=== PATIENT | female | born 1980 | race Caucasian/White ===

== ENCOUNTER 2017-04-05 14:53 | Inpatient (IN) | payer OTHER ==
[~2017-04-05] VITALS: Ht 177.8 cm; Wt 75.1 kg
[2017-04-05 21:07] VITALS: BP 124/71; RESP 20
[2017-04-05] MEDS: HYDROmorphONE 2 MG/ML SYG IV PRN (22:05)
[2017-04-05] MEDS ORDERED: MYL80 PO (22:30)
[2017-04-05] MEDS ORDERED: [UNRECOGNIZED DRUG - OTHER] IV* (22:30)
[2017-04-05] MEDS ORDERED: CEFO2PIG IV (22:30)
[2017-04-05] MEDS ORDERED: PANT40VI7 IV (22:30)
[2017-04-05] MEDS ORDERED: ONDA-43 IV* (22:30)
[2017-04-05] MEDS ORDERED: HYDR2TAB3 IV* (22:30)
[2017-04-05] MEDS ORDERED: TYL650R PR (22:30)
[2017-04-05] MEDS ORDERED: SOD CHLORIDE 0.9% 1,000 ML IV SCH (23:42)
[2017-04-06] MEDS ORDERED: NACL 0.9% 3 ML SYG IV SCH
[2017-04-06] MEDS ORDERED: CEFOTAXIME 2 GM/50 ML (PMX) 50 ML IVPB SCH
[2017-04-06] MEDS ORDERED: DEXTROSE IV SCH
[2017-04-06] MEDS ORDERED: ACETAMINOPHEN 650 MG SUPP PR SCH
[2017-04-06] MEDS ORDERED: CEFOXITIN IV SCH
[2017-04-06] MEDS ORDERED: [UNRECOGNIZED DRUG - OTHER] IV SCH
[2017-04-06] MEDS ORDERED: MAGNESIUM CITRATE 300 ML BTL PO ONE
--- NOTE | 2017-04-06 00:13 | HP ---
Date/Time of Note Date/Time of Note DATE: 04/05/17 TIME: 23:57 Assessment/Plan VTE Prophylaxis VTE Prophylaxis Intervention: LMWH Lines/Catheters Urinary Cath still in place: Yes Reason Cath still needed: other (indicate) (Clinical condition) Assessment/Plan Chief Complaint/Hosp Course This is a 37-year-old female being admitted to the [facility] floor for: #1 bile leak: Patient is currently POD #5 status post cholecystectomy as well as ERCP on 04/03/2017. Patient was found to have a bile leak and after having an unsuccessful ERCP patient was recommended to be transferred to [facility] for possible biliary bypass or choledochojejunostomy. Patient will be kept n.p.o. after midnight. Will provide IV fluids for hydration. IV pain medications for pain control. Dr. Grande, the accepting surgeon on the case. Will follow his recommendations. Patient was on cefoxitin at the prior facility. Will continue IV antibiotics for surgical prophylaxis. Will order stat CBC CMP PT PTT and INR. #2 constipation: The patient has been having clear liquid diet she states that she has not had a bowel movement since before her surgery. Could be due to combination of limited diet as well as narcotic pain medications. At the current time I will give the patient mag citrate. We will also consider a suppository. #3 DVT and GI prophylaxis: Lovenox, Protonix Further management implementation will be done as per the clinical course. Problems: HPI/ROS Admit Date/Time Admit Date/Time Apr 05, 2017 at 20:37 Hx of Present Illness Chief complaint: Abdominal pain This is a 37-year-old female who was a direct admit from [facility] coming in with abdominal pain and a bile leak. Patient originally was admitted to [facility] on 03/30/2017 she was admitted for acute cholecystitis. She had stated that she had back pain and chest pain that was 10 out of 10 in the morning with a burning sensation. Initially she had an ERCP performed at another facility with stone removal and stent placement. And at [facility] patient underwent a cholecystectomy on 03/31/2017. After undergoing the cholecystectomy, patient developed abdominal pain with worsening liver function test. Further imaging studies were performed and nuclear medicine study showed with the patient having a clipped CBD as well as a bile leak. She had an ERCP performed on 04/03/2017 which was not successful and patient likely will require to be transferred to a tertiary facility for biliary bypass or choledochojejunostomy. Patient was subsequently transferred to [facility] for higher level of care. Dr. Grande was the accepting attending surgeon. The current time patient states that she continues to have abdominal pain around the right upper quadrant. Patient also states that she has not had a bowel movement since her hospital admission on the eighth. She is trying to pass gas but she is unable to. Allergies: NKDA Medications: None ROS Const: As per HPI Eyes : No pain discharge or redness or change in visual acuity ENT: No pain, sore throat, congestion, congestion, dysphagia or discharge Respiratory: No shortness of breath, cough, sputum, wheezing, or pleuritic pain Cardiovascular: No chest pain, palpitation, PND, or edema GI : As per HPI Genitourinary: As per HPI Musculoskeletal: No joint pain, back pain, neck pain, restricted range of motion in neck or joints Skin: No rash, bruising or hives Neuro: No headache, dizziness, syncope, seizure, focal weakness Endocrine: No polyuria, polydipsia, temperature intolerance Psych: No hallucination, depression, anxiety or suicidal ideation PMH/Family/Social Past Medical History Gallstones status post ERCP, close cystectomy Past Surgical History Cholecystectomy Family History Significant Family History: diabetes (That) Social History Alcohol Use: rarely Smoking Status: Never smoker Drug Use: none Exam/Review of Systems Vital Signs Vitals Vital Signs Date Time Temp Pulse Resp B/P Pulse Ox O2 Delivery O2 Flow Rate FiO2 04/05/17 21:26 Nasal Cannula 2.0 04/05/17 21:07 99.2 117 20 124/71 96 Exam Exam General: Patient is well-developed well-nourished The patient is alert oriented -3 lying comfortably in bed. HEENT: Atraumatic, normocephalic. The pupils are equal, round and reactive. Extraocular motor are intact Neck: Supple with full range of motion. No rigidity or meningismus Chest: Nontender Lungs: Clear to auscultation bilaterally no crackles rales or wheezing Heart: Normal S1-S2, Regular rhythm and rate. No murmur, S3, or S4 Abdomen: Soft, tender to palpation of the right upper quadrant, hypoactive bowel sounds, Matthew catheter in place Extremities: Normal to inspection, no edema no cyanosis Neurologic: Normal mental status, speech normal, cranial nerves II through XII are intact, motor and sensory are intact, no focal weakness Medications Medications Current Medications Hydromorphone HCl 2 mg 2 mg Q3H PRN IV PAIN Last administered on 04/05/17t 22: 05; Admin Dose 2 MG; Start 04/05/17 at 22:00 Sodium Chloride (NS) 1,000 ml @ 70 mls/hr [id number] IV ; Start 04/05/17 at 23:42 ; Status UNV Ondansetron HCl (Zofran Inj) 4 mg Q6H PRN IV NAUSEA AND/OR VOMITING; Start at 00:00; Status UNV Pantoprazole (Protonix Iv) 40 mg DAILY@06 IV ; Start 04/06/17 at 06:00; Status UNV Magnesium Citrate 300 ml 300 ml NOW ONCE PO ; Start 04/06/17 at 00:00; Stop at 00:01; Status UNV Cefotaxime Sodium/ Dextrose (Claforan 2gm/50 ml (Pmx)) 50 ml @ 100 mls/hr Q8 IVPB ; Start 04/06/17 at 00:00; Status UNV VAISHNAVI SIDHU Apr 06, 2017 00:07
[2017-04-06] MEDS ORDERED: ACETAMINOPHEN 650 MG SUPP PR PRN (00:30)
[2017-04-06] MEDS ORDERED: DEXTROSE 5%-0.45% NACL 1,000 ML IV SCH ×2 (00:30)
[2017-04-06] MEDS: CEFOTAXIME 1 GM/50 ML (PMX) 50 ML IVPB SCH ×2 (00:58→08:26)
[2017-04-06] MEDS: HYDROmorphONE 2 MG/ML SYG IV PRN ×4 (01:05→10:14)
[2017-04-06 01:35] LABS: ADD SCAN DIFF NO
[2017-04-06 01:37] LABS: BASOPHILS % 0.1 % (0.0-2.0); EOSINOPHILS # 0.2 10^3/ul (0.0-0.5); EOSINOPHILS % 1.6 % (0.0-7.0); HEMOGLOBIN 11.7 g/dl (12.0-16.0); LYMPHOCYTES # 0.6 10^3/ul (0.8-2.9); LYMPHOCYTES % 5.5 % (15.0-51.0); MEAN CORPUSCULAR HEMOGLOBIN 29.8 pg (29.0-33.0); MEAN CORPUSCULAR HGB CONC 33.4 g/dl (32.0-37.0); MEAN CORPUSCULAR VOLUME 89.1 fl (82.0-101.0); MONOCYTE # 0.6 10^3/ul (0.3-0.9); MONOCYTES % 5.4 % (0.0-11.0); NEUTROPHIL # 10.2 10^3/ul (1.6-7.5); NEUTROPHILS % 86.8 % (39.0-77.0); PLATELET COUNT 419 10^3/UL (140-415); RED BLOOD COUNT 3.93 10^6/ul (4.20-5.40); RED CELL DISTRIBUTION WIDTH 13.2 % (11.5-14.5); WHITE BLOOD COUNT 11.7 10^3/ul (4.8-10.8)
[2017-04-06 01:52] LABS: INR 1.11; PROTIME 14.3 Sec (12.2-14.2); PT RATIO 1.1
[2017-04-06 01:53] LABS: PARTIAL THROMBOPLASTIN TIME 29.7 Sec (25.0-35.0)
[2017-04-06] MEDS: ONDANSETRON 4 MG INJ IV PRN (02:07)
[2017-04-06 02:38] LABS: ALBUMIN 3.7 g/dl (3.3-4.9); ALBUMIN/GLOBULIN RATIO 1.37; BILIRUBIN,DIRECT 0.2 mg/dl (0.00-0.20); BILIRUBIN,INDIRECT 1.2 mg/dl (0-1.1); BILIRUBIN,TOTAL 1.4 mg/dl (0.2-1.3); CALCIUM 8.5 mg/dl (8.4-10.2); CREATININE 0.54 mg/dl (0.44-1.00); POTASSIUM 3.8 mmol/L (3.5-5.1); TOTAL PROTEIN 6.4 g/dl (6.1-8.1)
[2017-04-06] MEDS: SOD CHLORIDE 0.9% 1,000 ML IV SCH ×3 (04:41→22:43)
[2017-04-06] MEDS ORDERED: PANTOPRAZOLE 40 MG INJ IV SCH (06:00)
[2017-04-06 08:34] VITALS: BP 126/81; RESP 16
[2017-04-06] MEDS ORDERED: DEXTROSE 5%-0.45% NACL 1,000 ML BAG IV SCH (09:00)
[2017-04-06] MEDS: Metronidazole 500 MG in NS 100 ML IVPB SCH ×3 (09:20→22:42)
--- NOTE | 2017-04-06 09:57 | PN ---
Date/Time of Note Date/Time of Note DATE: 04/06/17 TIME: 09:54 Assessment/Plan VTE Prophylaxis VTE Prophylaxis Intervention: SCD's Lines/Catheters Urinary Cath still in place: Yes Reason Cath still needed: other (indicate) (impending possibl) Assessment/Plan Assessment/Plan 37 yo F transferred from OSH for higher level of care. Pt admitted to OSH 6.8 with acute cholecystitis, underwent ERCP with stone removal and stent placement , subsequent cholecystectomy 6.9. Post op course c/b bile leak and discovery of clipped CBD. Subsequent ERCP 6.12 not successful and pt transferred here for further management (possible surgical biliary bypass or choledochojejunostomy). #bile leak and iatrogenic CBD obstruction: gen surg following cont pain meds abx as per gen surg FEN as per gen surg DVT prophx Subjective 24 Hr Interval Summary Free Text/Dictation laying in bed, resting no mrg lungs clear abd distended no le edema Exam/Review of Systems Vital Signs Vitals Vital Signs Date Time Temp Pulse Resp B/P Pulse Ox O2 Delivery O2 Flow Rate FiO2 04/06/17 08:34 98.3 115 16 126/81 97 04/05/17 21:26 Nasal Cannula 2.0 Intake and Output 04/05/17 04/05/17 04/06/17 15:00 23:00 07:00 Intake Total 370 ml Balance 370 ml Results Result Diagram: 04/05/17 0129 04/05/17 0129 Medications Medications Current Medications Hydromorphone HCl (Dilaudid) 2 mg Q3H PRN IV PAIN Last administered on 07:18; Admin Dose 2 MG; Start 04/05/17 at 22:00 Ondansetron HCl (Zofran Inj) 4 mg Q6H PRN IV NAUSEA AND/OR VOMITING Last administered on 04/06/17 02:07; Admin Dose 4 MG; Start 04/06/17 at 00:00 Simethicone 80 mg 80 mg TID PRN PO DISTENSION/GAS/BLOATING; Start 04/06/17 at 00:00 Cefotaxime Sodium (Claforan 1gm/50 ml (Pmx)) 50 ml @ 100 mls/hr Q8H IVPB Last administered on 04/06/17 08:26; Admin Dose 100 MLS/HR; Start 04/06/17 at 00:00 ; Stop 04/06/17 at 12:00 Acetaminophen 650 mg 650 mg Q4H PRN OK PAIN AND OR ELEVATED TEMP; Start at 00:30 Sodium Chloride 1,000 ml @ 75 mls/hr [id number] IV Last administered on 04:41; Admin Dose 75 MLS/HR; Start 04/06/17 at 04:30 Metronidazole 100 ml @ 100 mls/hr Q8 IVPB Last administered on 04/06/17 09:20 ; Admin Dose 100 MLS/HR; Start 04/06/17 at 09:00 Cefotaxime Sodium/ Dextrose (Claforan 2gm/50 ml (Pmx)) 50 ml @ 100 mls/hr Q8 IVPB ; Start 04/06/17 at 15:30 CELINE WARNER MD Apr 06, 2017 09:57
[2017-04-06] MEDS ORDERED: HYDROmorphONE 1 MG/ML SYG IV PRN (11:00)
[2017-04-06] MEDS ORDERED: SOD CHLORIDE 0.9% 1,000 ML IV ONE ×2 (11:00→16:30)
[2017-04-06] MEDS: HYDROmorphONE 0.2 MG/ML PCA IV SCH ×2 (11:58→22:43)
[2017-04-06 12:00] VITALS: BP 122/73; PULSE 110; RESP 16
[2017-04-06] MEDS ORDERED: IOHEXOL 300MG/ML 150 ML BTL ONE (13:34)
[2017-04-06] MEDS ORDERED: SOD CHLORIDE 0.9% 100 ML ONE (13:34)
--- NOTE | 2017-04-06 14:33 | RADRPT ---
PROCEDURE: CT Abdomen and Pelvis with contrast. CLINICAL INDICATION: Abdominal pain, recent laparoscopic cholecystectomy, evaluate for bile leak TECHNIQUE: CT of the abdomen and pelvis was performed on a multi-detector scanner following the un complicated IV administration of 90 cc of Omnipaque 300. Coronal and sagittal images were reformatt ed from the axial data set. One or more of the following dose reduction techniques were used: autom ated exposure control, adjustment of the mA and/or kV according to patient size, use of iterative r econstruction technique. CTDI = 9.74, 5.72 mGy. DLP = 676.78 mGy-cm. COMPARISON: None. FINDINGS: CT abdomen: Mild left pleural effusion is noted, along with bibasilar atelectasis. The heart size is normal, wi thout pericardial effusion. Gallbladder is surgically absent. Liver, biliary tree, pancreas, splee n, adrenal glands and kidneys are unremarkable. There is no urolithiasis or obstructive uropathy. The stomach is grossly unremarkable. There is no abdominal aortic aneurysm or dissection. There is no retroperitoneal lymphadenopathy. The vickey hepatis region is clear. CT pelvis: Moderate to large amount of peritoneal fluid is present - fluid demonstrates intermediate density an d is partially loculated. No bowel obstruction, free intraperitoneal air or gross evidence of absces s is identified. The appendix is well visualized and normal. There is no diverticulosis, diverticu litis or colitis. Matthew catheter balloon is within the urinary bladder. Uterus and adnexa are sergey sly unremarkable. No pelvic mass or lymphadenopathy is seen. The surrounding osseous structures are remarkable for degenerative spondylosis of the spine. No ost eolytic or osteoblastic lesion is detected. IMPRESSION: 1. Moderate to large amount of peritoneal fluid is identified - fluid demonstrates intermediate den sity and appears partially loculated. Considerations include bile leak/biloma and/or serosanguinous fluid. No evidence of active contrast extravasation is identified. Nuclear medicine HIDA scan may be useful for further evaluation. 2. Gallbladder is surgically absent. 3. No bowel obstruction, perforation, or gross evidence of abscess is identified. 4. Matthew catheter balloon is within the urinary bladder. 5. Mild left pleural effusion and bibasilar atelectasis are noted, likely reactive. RPTAT: GG .Lebron Michael MD, MD Date Time Electronically viewed and signed by .Lebron Michael MD, MD on 04/06/2017 14:32 .R/
[2017-04-06] MEDS: HYDROmorphONE 1 MG/ML SYG IV PRN ×2 (14:35→16:31)
[2017-04-06] MEDS ORDERED: CEFOTAXIME 2 GM/NS 50 ML IVPB SCH (15:30)
[2017-04-06] MEDS: CEFOTAXIME 2 GM/50 ML (PMX) 50 ML IVPB SCH ×2 (15:56→23:46)
--- NOTE | 2017-04-06 16:51 | CONS ---
[facility] INITIAL INPATIENT CONSULTATION NOTE DATE OF CONSULTATION: 04/06/2017 PL[address] OF SERVICE: [facility], 4th floor. ASSESSMENT AND PLAN: A very pleasant, but unfortunate, 37-year-old and otherwise healthy young lady, status post laparoscopic cholecystectomy that seems to have been complicated by a bile duct injury. This could be perhaps a bile duct transection versus clipping across the bile duct. There is also a complication of bile leak at the moment, with early signs of bile peritonitis. I reviewed the case carefully and then reviewed the images with our interventional radiologist, Dr. Andrade, and we discussed with it in a multidisciplinary fashion. I believe that the patient can benefit from adequate control of her bile leak, which does include extrahepatic percutaneous drain placement, as well as intrahepatic drain placement. Given the amount of time that has passed and the bile peritonitis, I would advise against acute surgical intervention and the only surgical intervention should be cleanup of the peritonitis, should the drains not be able to take care of this. Once we have adequate control over the drainage, then there should be approximately 4 to 6 weeks of wait time prior to return of the patient for any elective exploration with hepaticojejunostomy. The reason for this is to allow the wall of the common bile duct to declare itself and for us to be able to visualize viable portions of the bile duct. I explained all of this in detail with the patient and then separately on a phone conversation with her and answered all their questions to the best of my ability. I believe that the patient and her appear to understand and agree with the plans. With above assessment, I have recommended the followin. Stat CT scan of the abdomen and pelvis without oral contrast, but with IV contrast, as part of planning for drain placement. 2. Stat MRCP as part of preoperative planning and establishment of baseline. 3. Adequate hydration intravenously. 4. Control symptoms. 5. Continue broad-spectrum antimicrobials. 6. Keep in-house. Thank you again for allowing us to participate in the care of this very pleasant lady and her wonderful family. If there are any questions, please feel free to contact me at [phone]. UPDATED CONSULT SUMMARY The patient is a very pleasant 37-year-old young lady who was transferred from an outside hospital to [facility] for management of possible bile duct injury. COMORBIDITIES: 1. Cholelithiasis and acute cholecystitis, status post laparoscopic cholecystectomy 03/31/2017 at [facility], complicated by possible bile duct injury, as shown by ERCP that was done after a HIDA scan showed possible bile leak, explaining the patient's continued pain and distention. The ERCP on 04/03/2017 showed clips across the distal common bile duct, without any contrast opacifying the liver. We accepted the patient as a transfer into [facility] bile duct injury program for a higher level of care. The patient arrived on 04/05/2017. DATE OF ADMISSION: 04/05/2017 HISTORY OF PRESENT ILLNESS: The patient is a very pleasant 37-year-old lady with the above-mentioned comorbidities, who we were kindly consulted to manage possible bile duct injury. During my visit the patient had a significant amount of abdominal pain and some nausea, but no obvious vomiting. She had never had any symptoms such as this in the past. Her symptoms began shortly after surgery and have stayed that way since. No other major complaints. ALLERGIES: NO KNOWN DRUG ALLERGIES. MEDICATIONS: The patient was transferred on: 1. Acetaminophen. 2. Cefoxitin. 3. Dilaudid 4. Zofran. 5. Protonix. 6. Mylicon. SOCIAL HISTORY: The patient lives with her family, that includes her and her children. She does not report any smoking, drinking, or intravenous drug use. FAMILY HISTORY: Other than diabetes, the patient does not report any other major medical, surgical or oncologic problems in the family. REVIEW OF SYSTEMS: Other than the above-mentioned, there are no other pertinent positives or pertinent negatives in a complete 14-point review of systems. PHYSICAL EXAMINATION: GENERAL: The patient appears to be a very pleasant, lady of non- descent, appearing her stated age, lying in bed comfortably, and in no acute distress. BMI is 23.8. VITAL SIGNS: Temperature 98.3, blood pressure 126/81, pulse 115, respiratory rate 16, pulse oximetry 97% on 2 liters nasal cannula. HEENT: Normocephalic and atraumatic. Extraocular muscles and hearing are grossly intact bilaterally and symmetrically. Sclerae are nonicteric. Oral cavity is clear; oral mucosa appeared to be pink and moist. Dentition: fair. NECK: Supple. There is no lymphadenopathy or JVD. There is no submental, submandibular or supraclavicular lymphadenopathy. CHEST: Rises symmetrically with each breath; patient is breathing comfortably. There are no audible wheezes, rales or rhonchi on the gross exam. HEART: Pulse is regular and palpable on the right wrist. Capillary refill was normal. Carotid pulses are palpable bilaterally and symmetrically in the neck. EXTREMITIES: Lower extremities contain no pitting edema around the ankles bilaterally and symmetrically. ABDOMEN: Soft, somewhat distended and mild to moderately tender to palpation in essentially all quadrants. There is no evidence of organomegaly, caput medusae, engorged subcutaneous veins or ascites. There are mild peritoneal signs and no major guarding. SKIN: Appears to be pink and feels warm to touch. NEUROLOGIC: Awake, alert, and follows commands appropriately. LABORATORY VALUES: White blood cell count yesterday was 11.7, hemoglobin 11.7, platelets 419. Electrolytes: Sodium 131, CO2 26, creatinine 0.54, total bilirubin 1.4, AST 19, ALT 64, alkaline phosphatase 164, INR 1.11. Urine test was negative. IMAGING: The patient came with a disk that contained images from MRCP prior to the operation that demonstrated a thickened gallbladder wall and gallstones. She also had a preoperative right upper quadrant ultrasound that confirmed the same findings. She did not have any preoperative ERCP images. Postoperatively there was a HIDA scan that demonstrated a possible leak of bile out into the gallbladder fossa. An ERCP was done which demonstrated no extravasation of bile from the distal common bile duct, but also no opacification of the biliary system, and the contrast stopped at the area of surgical clips. Note that there were 15 to 20 surgical clips that were visualized on the ERCP images. Dictated By: LENA ANDREWS/MIKAYLA Conf#: [id number] DID#: [id number] KELLEE
[2017-04-06 17:38] VITALS: BP 123/74; PULSE 100; RESP 16
--- NOTE | 2017-04-06 17:52 | RADRPT ---
PROCEDURE: MRCP. CLINICAL INDICATION: Bile leak after laparoscopic cholecystectomy history of surgery 6 days ago TECHNIQUE: MRCP was performed on the a high-resolution, high Juliane field strength scanner. Patien michael was examined without contrast. 3-D coronal rotating MIP images of the biliary tree are available for review. COMPARISON: CT abdomen and pelvis with contrast of 04/06/2017 FINDINGS: Cholecystectomy. There is a large amount of intraperitoneal fluid. The biliary tree is not dilated. No intrahepatic nor extrahepatic biliary dilatation is present. There is the appearance of a small filling defect in the distal common bile duct which could be secondary to a small amount of pneumob annelise seen in this region on the CT. Pneumobilia limits evaluation for the possibility of choledocho lithiasis. There is no stricture or obstruction of the extrahepatic bile duct seen. The pancreatic d uct, as visualized, is unremarkable. Small amount of subcutaneous edema posteriorly. Small left pleu ral effusion. IMPRESSION: Cholecystectomy. Nonspecific large amount of intraperitoneal fluid which could be secondary to bile leak. Nuclear medicine hepatobiliary study can be performed for further evaluation to evaluate for b ile leak. There is the appearance of a small filling defect in the distal common bile duct which co uld be secondary to a small amount of pneumobilia seen in this region on the CT. Pneumobilia limits evaluation for the possibility of choledocholithiasis. No biliary dilatation is seen. Please see above. RPTAT: HJES .Bruce Laird MD, MD Date Time Electronically viewed and signed by .Bruce Laird MD, on 04/06/2017 17:52 .S/
[2017-04-06 20:10] VITALS: BP 121/80; RESP 18
[2017-04-07] VITALS (7 sets, daily range): BP systolic 119–141; BP diastolic 74–87; PULSE 111–125; RESP 16–20
[2017-04-07] MEDS: SOD CHLORIDE 0.9% 1,000 ML IV SCH ×3 (02:07→22:07)
[2017-04-07] MEDS: HYDROmorphONE 1 MG/ML SYG IV PRN ×3 (03:12→18:37)
[2017-04-07] MEDS: CEFOTAXIME 2 GM/50 ML (PMX) 50 ML IVPB SCH ×3 (05:18→21:32)
[2017-04-07] MEDS: Metronidazole 500 MG in NS 100 ML IVPB SCH ×3 (06:15→22:21)
[2017-04-07] MEDS: HYDROmorphONE 0.2 MG/ML PCA IV SCH ×2 (08:05→17:30)
[2017-04-07 10:12] LABS: ADD SCAN DIFF NO
[2017-04-07] MEDS ORDERED: LIDOCAINE 1% (MDV) 20 ML INJ ONE (10:19)
[2017-04-07 10:26] LABS: BASOPHILS % 0.2 % (0.0-2.0); EOSINOPHILS # 0.4 10^3/ul (0.0-0.5); EOSINOPHILS % 3.5 % (0.0-7.0); HEMATOCRIT 32.2 % (37.0-47.0); HEMOGLOBIN 10.7 g/dl (12.0-16.0); LYMPHOCYTES # 0.8 10^3/ul (0.8-2.9); LYMPHOCYTES % 7.5 % (15.0-51.0); MEAN CORPUSCULAR HEMOGLOBIN 29.6 pg (29.0-33.0); MEAN CORPUSCULAR HGB CONC 33.2 g/dl (32.0-37.0); MEAN PLATELET VOLUME 8.9 fl (7.4-10.4); MONOCYTE # 0.5 10^3/ul (0.3-0.9); MONOCYTES % 4.9 % (0.0-11.0); NEUTROPHIL # 8.5 10^3/ul (1.6-7.5); NEUTROPHILS % 82.8 % (39.0-77.0); PLATELET COUNT 445 10^3/UL (140-415); RED BLOOD COUNT 3.62 10^6/ul (4.20-5.40); RED CELL DISTRIBUTION WIDTH 13.4 % (11.5-14.5); WHITE BLOOD COUNT 10.2 10^3/ul (4.8-10.8)
[2017-04-07 10:43] LABS: INR 1.19; PARTIAL THROMBOPLASTIN TIME 31.7 Sec (25.0-35.0); PROTIME 15.2 Sec (12.2-14.2); PT RATIO 1.2
[2017-04-07 10:47] LABS: ALBUMIN 2.7 g/dl (3.3-4.9); ALBUMIN/GLOBULIN RATIO 2.45; BILIRUBIN,DIRECT 0.4 mg/dl (0.00-0.20); BILIRUBIN,INDIRECT 1.1 mg/dl (0-1.1); BILIRUBIN,TOTAL 1.5 mg/dl (0.2-1.3); CALCIUM 7.7 mg/dl (8.4-10.2); CREATININE 0.63 mg/dl (0.44-1.00); POTASSIUM 4.3 mmol/L (3.5-5.1); TOTAL PROTEIN 3.8 g/dl (6.1-8.1)
[2017-04-07 10:50] LABS: MAGNESIUM 2.2 mg/dl (1.7-2.5); PHOSPHORUS 3.2 mg/dl (2.5-4.9)
[2017-04-07] MEDS ORDERED: FENTAnyl 50 MCG/ML VIAL ONE (10:57)
[2017-04-07] MEDS ORDERED: DIPHENHYDRAMINE 50 MG INJ ONE (10:57)
[2017-04-07] MEDS ORDERED: MIDAZOLAM 1 MG/ML 2 ML INJ ONE (10:57)
--- NOTE | 2017-04-07 14:40 | RADRPT ---
PROCEDURE: CT guided abdominal fluid drainage. CLINICAL INDICATION: Abdominal pain. Status post cholecystectomy with bile leak. TECHNIQUE: Informed consent was obtained. The procedure, risks, benefits, complications and alternatives were explained to the patient. Risks including bleeding and infection were explained. The patient underst ood and was willing to proceed. A procedural pause was performed. The patient's name, date of , and procedure to be performed were verified. One or more of the following dose reduction techniq ues were used: Automated exposure control, adjustment of the mA and/or kV according to patient size, use of iterative reconstruction technique. Using local anesthetic, sterile technique and CT guidance, a 19-gauge Yueh needle was advanced into the fluid collection in the right upper quadrant of the abdomen. CT scan was performed confirming p osition. Bilious fluid was also aspirated confirming position. The needle from the Yueh catheter w as removed, leaving the Yueh catheter in place within the fluid collection. A 0.035-inch Amplatz gu idewire was advanced through the Yueh catheter into the fluid collection. The Yueh catheter was rem darlyn. The tract was dilated to 8-Andorran. An 8.5 Andorran multipurpose drainage catheter was advanced over the guidewire into the fluid collection. The guidewire was removed. Additional scanning was performed confirming position. The catheter was then sutured to the patient's skin with 2-0 silk. Approximately 1.5 liters of bilious fluid was aspirated. The catheter was connected to a drainage b ag. A dressing was applied. The patient tolerated procedure well. COMPARISON: CT scan of the abdomen and pelvis dated 04/06/2017. FINDINGS: Final images demonstrate the drainage catheter in satisfactory position within the fluid collection. IMPRESSION: 1. Successful CT guided abdominal fluid collection drainage. RPTAT: QQ .Papo Andrade MD, Date Time Electronically viewed and signed by .Papo Andrade MD, MD on 04/07/2017 14:40 .R/
--- NOTE | 2017-04-07 15:37 | PN ---
Date/Time of Note Date/Time of Note DATE: 04/07/17 TIME: 15:30 Assessment/Plan Lines/Catheters IV Catheter Type (from Nrs): Peripheral IV Matthew in Place (from Nrs): Yes Assessment/Plan Assessment/Plan [facility] Progress Note Date of Service: 04/07/17 Today's Impression & Plan: Overall improved after perc drain placement. Will need a couple of days prior to re-eval for further drain placement (under the right lobe near are of extravasation of bile). Once bile drainage is adequately controlled, to wait 4- 6 weeks prior to definitive choledochojejunostomy. Discussed at length with patient and family that included , children, brother, sister and mother and answered all questions. Also d/c Dr. Andrade. With above assessment, I've recommended the following for today: 1. Cont current management 2. Keep inhouse 3. Drain care with strict I's&O's 4. Cont broad spec antimicrobials 5. Regular diet 6. Educate patient and family re drain care for outpatient purposes 7. Will likely need home health set up 8. Anticipate discharge perhaps mid next week Thank you again for your great care of this very pleasant patient and wonderful family. If there are any questions, please feel free to call me at [phone]. TOTAL VISIT TIME: 20 minutes of which more than half was spent in [id number] discussion with the patient, possibly including family, as well as coordination of care between multiple physicians and providers. Disclaimer: Inadvertent spelling or grammatical errors are likely due to EHR/ dictation software use and do not reflect on the overall quality of patient care. Updated Clinical Summary: The patient is a very pleasant 37-year-old young lady who was transferred from an outside hospital to [facility] for management of possible bile duct injury. S/p percutaneous CT-guided drain placement above the liver with removal of 1.4 liters of bile in IR suite and more immediately post procedure. COMORBIDITIES: 1. Cholelithiasis and acute cholecystitis, status post laparoscopic cholecystectomy 03/31/2017 at [facility], complicated by possible bile duct injury, as shown by ERCP that was done after a HIDA scan showed possible bile leak, explaining the patient's continued pain and distention. The ERCP on 04/03/2017 showed clips across the distal common bile duct, without any contrast opacifying the liver. We accepted the patient as a transfer into [facility] bile duct injury program for a higher level of care. The patient arrived on 04/05/2017. 2. S/p percutaneous CT-guided drain placement above the liver with removal of 1.4 liters of bile in IR suite and more immediately post procedure. Subjective: No major events or complaints other than above; reports feeling slightly better ; no major abd pain and seemingly under control with medications; no n/v/d; no sob or cp; + flatus; - BM; + activity Objective: Vitals: See below Exam: GENERAL: On exam, the patient was laying in bed and appeared to be comfortable and in no acute distress. ABDOMEN: Soft, mildly tender mainly in the mid upper abd and nondistended. Incisions are clean, dry and intact without any evidence of erythema, edema, discharge, or hernia. RUQ perc drain with aki bile with bag almost all full. There are no peritoneal signs or guarding. SKIN: Skin appears to be pink and feels warm to touch. NEUROLOGIC: Patient is awake, alert, and follows commands appropriately. Exam/Review of Systems Vital Signs Vitals Vital Signs Date Time Temp Pulse Resp B/P Pulse Ox O2 Delivery O2 Flow Rate FiO2 04/07/17 13:00 20 04/07/17 12:45 98.8 125 141/87 98 Nasal Cannula 2.0 Intake and Output 04/06/17 04/06/17 04/07/17 15:00 23:00 07:00 Intake Total 1100 ml 190 ml 960 ml Output Total 1200 ml 1200 ml 600 ml Balance -100 ml -1010 ml 360 ml Results Result Diagram: 04/07/17 0950 04/07/17 0950 LENA MONCADA M.D. Apr 07, 2017 15:37
--- NOTE | 2017-04-07 17:24 | PN ---
Date/Time of Note Date/Time of Note DATE: 04/07/17 TIME: 17:23 Assessment/Plan VTE Prophylaxis VTE Prophylaxis Intervention: SCD's Lines/Catheters IV Catheter Type (from [facility]): Peripheral IV Urinary Cath still in place: Yes Reason Cath still needed: other (indicate) (not needed) Assessment/Plan Assessment/Plan 37 yo F transferred from OSH for higher level of care. Pt admitted to OSH 6.8 with acute cholecystitis, underwent ERCP with stone removal and stent placement , subsequent cholecystectomy 6.9. Post op course c/b bile leak and discovery of clipped CBD. Subsequent ERCP 6.12 not successful and pt transferred here for further management (possible surgical biliary bypass or choledochojejunostomy). sp abd drain placement today by IR #bile leak and iatrogenic CBD obstruction: gen surg following cont pain meds abx as per gen surg FEN as per gen surg DVT prophx Subjective 24 Hr Interval Summary Free Text/Dictation Pt in procedure at time of my attempted eval this AM Exam/Review of Systems Vital Signs Vitals Vital Signs Date Time Temp Pulse Resp B/P Pulse Ox O2 Delivery O2 Flow Rate FiO2 04/07/17 17:00 18 04/07/17 12:45 98.8 125 141/87 98 Nasal Cannula 2.0 Intake and Output 04/06/17 04/06/17 04/07/17 15:00 23:00 07:00 Intake Total 1100 ml 190 ml 960 ml Output Total 1200 ml 1200 ml 600 ml Balance -100 ml -1010 ml 360 ml Exam unable to see patient as at procedure at time of my attempted eval Results Result Diagram: 04/07/17 0950 04/07/17 0950 Results 24 hrs Laboratory Tests Test 04/07/17 09:50 White Blood Count 10.2 Red Blood Count 3.62 L Hemoglobin 10.7 L Hematocrit 32.2 L Mean Corpuscular Volume 89.0 Mean Corpuscular Hemoglobin 29.6 Mean Corpuscular Hemoglobin Concent 33.2 Red Cell Distribution Width 13.4 Platelet Count 445 H Mean Platelet Volume 8.9 Neutrophils % 82.8 H Lymphocytes % 7.5 L Monocytes % 4.9 Eosinophils % 3.5 Basophils % 0.2 Nucleated Red Blood Cells % 0.0 Neutrophils # 8.5 H Lymphocytes # 0.8 Monocytes # 0.5 Eosinophils # 0.4 Basophils # 0.0 Nucleated Red Blood Cells # 0.0 Prothrombin Time 15.2 H Prothrombin Time Ratio 1.2 INR International Normalized Ratio 1.19 Activated Partial Thromboplast Time 31.7 Sodium Level 132 L Potassium Level 4.3 Chloride Level 99 Carbon Dioxide Level 26 Anion Gap 11 Blood Urea Nitrogen 9 Creatinine 0.63 Glucose Level 87 Lactic Acid Level 0.8 Calcium Level 7.7 L Phosphorus Level 3.2 Magnesium Level 2.2 Total Bilirubin 1.5 H Direct Bilirubin 0.40 H Indirect Bilirubin 1.1 Aspartate Amino Transf (AST/SGOT) 14 L Alanine Aminotransferase (ALT/SGPT) 44 Alkaline Phosphatase 151 H Total Protein 3.8 L Albumin 2.7 L Globulin 1.10 L Albumin/Globulin Ratio 2.45 Medications Medications Current Medications Ondansetron HCl (Zofran Inj) 4 mg Q6H PRN IV NAUSEA AND/OR VOMITING Last administered on 04/06/17 02:07; Admin Dose 4 MG; Start 04/06/17 at 00:00 Simethicone (Mylicon) 80 mg TID PRN PO DISTENSION/GAS/BLOATING; Start 04/06/17 at 00:00 Acetaminophen 650 mg 650 mg Q4H PRN [place] PAIN AND OR ELEVATED TEMP; Start at 00:30 Sodium Chloride 1,000 ml @ 100 mls/hr Q10H IV Last administered on 04/07/17 13:37; Admin Dose 100 MLS/HR; Start 04/06/17 at 04:30 Metronidazole 100 ml @ 100 mls/hr Q8 IVPB Last administered on 04/07/17 14:17 ; Admin Dose 100 MLS/HR; Start 04/06/17 at 09:00 Cefotaxime Sodium/ Dextrose (Claforan 2gm/50 ml (Pmx)) 50 ml @ 100 mls/hr Q8 IVPB Last administered on 04/07/17 13:34; Admin Dose 100 MLS/HR; Start at 15:30 Hydromorphone HCl (Dilaudid BOG CUTTER) 0 MG/HR CONTINUOUS RATE ... Q4PCA IV Last administered on 04/07/17 08:05; Admin Dose 6 MG; Start 04/06/17 at 11:00 Acetaminophen/ Hydrocodone Bitart ([place] (5/325)) 1 tab Q4H PRN PO PAIN LEVEL 4 -6; Start 04/06/17 at 11:00 Acetaminophen/ Hydrocodone Bitart ([place] (5/325)) 2 tab Q4H PRN PO PAIN LEVEL 7 -10; Start 04/06/17 at 11:00 Hydromorphone HCl (Dilaudid) 0.5 mg Q2 PRN IV PAIN (4-7/10); Start 04/06/17 at 11:00 Hydromorphone HCl (Dilaudid) 1 mg Q2 PRN IV PAIN (8-10/10) Last administered on 04/07/17t 12:53; Admin Dose 1 MG; Start 04/06/17 at 11:00 CELINE WARNER MD Apr 07, 2017 17:24
[2017-04-08] VITALS: BP_SYST 129; BP_SYST 134; BP_DIAS 76; BP_DIAS 83; PULSE 114; RESP 17; RESP 18
[2017-04-08] MEDS: HYDROmorphONE 0.2 MG/ML PCA IV SCH ×3 (02:08→19:09)
[2017-04-08] MEDS: SOD CHLORIDE 0.9% 1,000 ML IV SCH ×2 (02:43→14:41)
[2017-04-08 04:30] VITALS: BP 127/86; PULSE 109; RESP 18
[2017-04-08] MEDS: HYDROmorphONE 1 MG/ML SYG IV PRN ×3 (04:55→12:21)
[2017-04-08 05:11] LABS: ADD SCAN DIFF NO
[2017-04-08 05:34] LABS: INR 1.29; PROTIME 16.2 Sec (12.2-14.2); PT RATIO 1.3
[2017-04-08 05:35] LABS: ALBUMIN 2.9 g/dl (3.3-4.9); ALBUMIN/GLOBULIN RATIO 1.2; BILIRUBIN,DIRECT 0.2 mg/dl (0.00-0.20); BILIRUBIN,INDIRECT 0.9 mg/dl (0-1.1); BILIRUBIN,TOTAL 1.1 mg/dl (0.2-1.3); CALCIUM 7.5 mg/dl (8.4-10.2); CREATININE 0.62 mg/dl (0.44-1.00); PARTIAL THROMBOPLASTIN TIME 30.4 Sec (25.0-35.0); PHOSPHORUS 3.2 mg/dl (2.5-4.9); POTASSIUM 4.2 mmol/L (3.5-5.1); TOTAL PROTEIN 5.3 g/dl (6.1-8.1)
[2017-04-08 05:57] LABS: BASOPHILS % 0.3 % (0.0-2.0); EOSINOPHILS # 0.4 10^3/ul (0.0-0.5); EOSINOPHILS % 4.3 % (0.0-7.0); HEMATOCRIT 32.8 % (37.0-47.0); HEMOGLOBIN 11.1 g/dl (12.0-16.0); LYMPHOCYTES # 0.8 10^3/ul (0.8-2.9); LYMPHOCYTES % 7.6 % (15.0-51.0); MEAN CORPUSCULAR HEMOGLOBIN 30.2 pg (29.0-33.0); MEAN CORPUSCULAR HGB CONC 33.8 g/dl (32.0-37.0); MEAN CORPUSCULAR VOLUME 89.4 fl (82.0-101.0); MONOCYTE # 0.5 10^3/ul (0.3-0.9); MONOCYTES % 4.8 % (0.0-11.0); NEUTROPHIL # 8.4 10^3/ul (1.6-7.5); NEUTROPHILS % 81.4 % (39.0-77.0); PLATELET COUNT 466 10^3/UL (140-415); RED BLOOD COUNT 3.67 10^6/ul (4.20-5.40); RED CELL DISTRIBUTION WIDTH 13.5 % (11.5-14.5); WHITE BLOOD COUNT 10.3 10^3/ul (4.8-10.8)
[2017-04-08] MEDS: CEFOTAXIME 2 GM/50 ML (PMX) 50 ML IVPB SCH ×3 (05:59→22:21)
[2017-04-08] MEDS: Metronidazole 500 MG in NS 100 ML IVPB SCH ×3 (06:41→21:11)
[2017-04-08 08:30] VITALS: BP 126/83; RESP 18
[2017-04-08 13:32] VITALS: BP 127/78; PULSE 108; RESP 18
--- NOTE | 2017-04-08 14:13 | PN ---
Date/Time of Note Date/Time of Note DATE: 04/08/17 TIME: 14:12 Assessment/Plan VTE Prophylaxis VTE Prophylaxis Intervention: SCD's Lines/Catheters IV Catheter Type (from Nrs): Peripheral IV Urinary Cath still in place: Yes Reason Cath still needed: other (indicate) (not needed) Assessment/Plan Assessment/Plan 37 yo F transferred from OSH for higher level of care. Pt admitted to OSH 6.8 with acute cholecystitis, underwent ERCP with stone removal and stent placement , subsequent cholecystectomy 6.9. Post op course c/b bile leak and discovery of clipped CBD. Subsequent ERCP 6.12 not successful and pt transferred here for further management (possible surgical biliary bypass or choledochojejunostomy). sp abd drain placement 6.16 by IR #bile leak and iatrogenic CBD obstruction: gen surg following cont pain meds-->inc bolus dose for INVESTIGATIVE ANALYST abx as per gen surg FEN as per gen surg DVT prophx Subjective 24 Hr Interval Summary Free Text/Dictation States current INVESTIGATIVE ANALYST dosing isn't providing adequate pain control Exam/Review of Systems Vital Signs Vitals Vital Signs Date Time Temp Pulse Resp B/P Pulse Ox O2 Delivery O2 Flow Rate FiO2 04/08/17 13:32 98.0 108 18 127/78 98 Room Air 04/07/17 12:45 2.0 Intake and Output 04/07/17 04/07/17 04/08/17 15:00 23:00 07:00 Intake Total 650 ml 660 ml 220 ml Output Total 1500 ml 850 ml 500 ml Balance -850 ml -190 ml -280 ml Exam uncomfortable no mrg lungs clear abd mildly distended, no rebound or guarding +drain to R LQ no edema Results Result Diagram: 04/08/17 0440 04/08/17 0440 Results 24 hrs Laboratory Tests Test 04/08/17 04:40 White Blood Count 10.3 Red Blood Count 3.67 L Hemoglobin 11.1 L Hematocrit 32.8 L Mean Corpuscular Volume 89.4 Mean Corpuscular Hemoglobin 30.2 Mean Corpuscular Hemoglobin Concent 33.8 Red Cell Distribution Width 13.5 Platelet Count 466 H Mean Platelet Volume 9.0 Neutrophils % 81.4 H Lymphocytes % 7.6 L Monocytes % 4.8 Eosinophils % 4.3 Basophils % 0.3 Nucleated Red Blood Cells % 0.0 Neutrophils # 8.4 H Lymphocytes # 0.8 Monocytes # 0.5 Eosinophils # 0.4 Basophils # 0.0 Nucleated Red Blood Cells # 0.0 Prothrombin Time 16.2 H Prothrombin Time Ratio 1.3 INR International Normalized Ratio 1.29 Activated Partial Thromboplast Time 30.4 Sodium Level 126 L Potassium Level 4.2 Chloride Level 96 L Carbon Dioxide Level 25 Anion Gap 9 Blood Urea Nitrogen 8 Creatinine 0.62 Glucose Level 86 Lactic Acid Level 0.7 Calcium Level 7.5 L Phosphorus Level 3.2 Magnesium Level 2.0 Total Bilirubin 1.1 Direct Bilirubin 0.20 # Indirect Bilirubin 0.9 Aspartate Amino Transf (AST/SGOT) 16 Alanine Aminotransferase (ALT/SGPT) 42 Alkaline Phosphatase 159 H Total Protein 5.3 #L Albumin 2.9 L Globulin 2.40 Albumin/Globulin Ratio 1.20 Medications Medications Current Medications Ondansetron HCl (Zofran Inj) 4 mg Q6H PRN IV NAUSEA AND/OR VOMITING Last administered on 04/06/17 02:07; Admin Dose 4 MG; Start 04/06/17 at 00:00 Simethicone (Mylicon) 80 mg TID PRN PO DISTENSION/GAS/BLOATING Last administered on 04/08/17 05:57; Admin Dose 80 MG; Start 04/06/17 at 00:00 Acetaminophen 650 mg 650 mg Q4H PRN [place] PAIN AND OR ELEVATED TEMP; Start at 00:30 Sodium Chloride 1,000 ml @ 100 mls/hr Q10H IV Last administered on 04/08/17 02:43; Admin Dose 100 MLS/HR; Start 04/06/17 at 04:30 Metronidazole 100 ml @ 100 mls/hr Q8 IVPB Last administered on 04/08/17 13:28 ; Admin Dose 100 MLS/HR; Start 04/06/17 at 09:00 Cefotaxime Sodium/ Dextrose (Claforan 2gm/50 ml (Pmx)) 50 ml @ 100 mls/hr Q8 IVPB Last administered on 04/08/17 05:59; Admin Dose 100 MLS/HR; Start at 15:30 Hydromorphone HCl (Dilaudid INVESTIGATIVE ANALYST) 0 MG/HR CONTINUOUS RATE ... Q4PCA IV Last administered on 04/08/17 11:17; Admin Dose 6 MG; Start 04/06/17 at 11:00 Acetaminophen/ Hydrocodone Bitart ([place] (5/325)) 1 tab Q4H PRN PO PAIN LEVEL 4 -6; Start 04/06/17 at 11:00 Acetaminophen/ Hydrocodone Bitart ([place] (5/325)) 2 tab Q4H PRN PO PAIN LEVEL 7 -10; Start 04/06/17 at 11:00 CELINE WARNER MD Apr 08, 2017 14:13
[2017-04-08] MEDS ORDERED: DOCUSATE SODIUM 100 MG CAP PO PRN (14:30)
[2017-04-08] MEDS: HYDROCODONE/APAP (5/325) TAB PO PRN (14:41)
[2017-04-08 21:13] VITALS: BP 137/91; RESP 20
--- NOTE | 2017-04-08 21:31 | PN ---
Date/Time of Note Date/Time of Note DATE: 04/08/17 TIME: 21:15 Assessment/Plan Lines/Catheters IV Catheter Type (from Nrs): Peripheral IV Matthew in Place (from Nrsg): Yes Assessment/Plan Assessment/Plan [facility] Progress Note Date of Service: 04/08/17 Today's Impression & Plan: Overall stable with ongoing issues with abd irritation from bile leak. Will need drain placement under the liver near the hilum where the leak is presumed to be from. Once bile drainage is adequately controlled, to wait 4-6 weeks prior to definitive choledochojejunostomy. With above assessment, I've recommended the following for today: 1. Cont current management 2. Keep inhouse 3. Drain care with strict I's&O's 4. Cont broad spec antimicrobials 5. Cont regular diet 6. Continue educating patient and family re drain care for outpatient purposes 7. Will likely need home health set up 8. Anticipate discharge perhaps mid next week 9. Will discuss second drain placement with Dr. Andrade tomorrow Thank you again for your great care of this very pleasant patient and wonderful family. If there are any questions, please feel free to call me at [phone]. TOTAL VISIT TIME: 20 minutes of which more than half was spent in [id number] discussion with the patient, possibly including family, as well as coordination of care between multiple physicians and providers. Disclaimer: Inadvertent spelling or grammatical errors are likely due to EHR/ dictation software use and do not reflect on the overall quality of patient care. Updated Clinical Summary: The patient is a very pleasant 37-year-old young lady who was transferred from an outside hospital to [facility] for management of possible bile duct injury. S/p percutaneous CT-guided drain placement above the liver with removal of 1.4 liters of bile in IR suite and more (2 liters) within first 24 hours post procedure. COMORBIDITIES: 1. Cholelithiasis and acute cholecystitis, status post laparoscopic cholecystectomy 03/31/2017 at [facility], complicated by possible bile duct injury, as shown by ERCP that was done after a HIDA scan showed possible bile leak, explaining the patient's continued pain and distention. The ERCP on 04/03/2017 showed clips across the distal common bile duct, without any contrast opacifying the liver. We accepted the patient as a transfer into [facility] bile duct injury program for a higher level of care. The patient arrived on 04/05/2017. 2. S/p percutaneous CT-guided drain placement above the liver with removal of 1.4 liters of bile in IR suite and more immediately post procedure. Subjective: No major events or complaints; reports feeling slightly worse (mainly bloating) ; mild abd pain and seemingly under control with medications; no n/v/d; no sob or cp; + flatus; - BM; + activity Objective: Vitals: See below Exam: GENERAL: On exam, the patient was laying in bed and appeared to be comfortable and in no acute distress. ABDOMEN: Soft, mildly tender mainly in the mid upper abd and nondistended. Incisions are clean, dry and intact without any evidence of erythema, edema, discharge, or hernia. RUQ perc drain with bilious output. There are no peritoneal signs or guarding. SKIN: Skin appears to be pink and feels warm to touch. NEUROLOGIC: Patient is awake, alert, and follows commands appropriately. Exam/Review of Systems Vital Signs Vitals Vital Signs Date Time Temp Pulse Resp B/P Pulse Ox O2 Delivery O2 Flow Rate FiO2 04/08/17 21:13 98.8 110 20 137/91 96 04/08/17 13:32 Room Air 04/07/17 12:45 2.0 Intake and Output 04/07/17 04/07/17 04/08/17 15:00 23:00 07:00 Intake Total 650 ml 660 ml 220 ml Output Total 1500 ml 850 ml 500 ml Balance -850 ml -190 ml -280 ml Results Result Diagram: 04/08/17 0440 04/08/17 0440 LENA MONCADA M.D. Apr 08, 2017 21:28
[2017-04-08] MEDS: ONDANSETRON 4 MG INJ IV PRN (22:41)
[2017-04-09] VITALS (8 sets, daily range): BP systolic 117–133; BP diastolic 77–85; PULSE 105–111; RESP 18–20
[2017-04-09] MEDS: HYDROmorphONE 0.2 MG/ML PCA IV SCH ×4 (01:57→20:35)
[2017-04-09] MEDS: SOD CHLORIDE 0.9% 1,000 ML IV SCH ×2 (02:49→13:58)
[2017-04-09 05:03] LABS: ADD SCAN DIFF NO
[2017-04-09] MEDS: Metronidazole 500 MG in NS 100 ML IVPB SCH ×3 (05:09→21:57)
[2017-04-09 05:16] LABS: BASOPHILS % 0.2 % (0.0-2.0); EOSINOPHILS # 0.4 10^3/ul (0.0-0.5); EOSINOPHILS % 3.1 % (0.0-7.0); HEMATOCRIT 35.1 % (37.0-47.0); HEMOGLOBIN 11.4 g/dl (12.0-16.0); LYMPHOCYTES # 0.7 10^3/ul (0.8-2.9); MEAN CORPUSCULAR HEMOGLOBIN 29.1 pg (29.0-33.0); MEAN CORPUSCULAR HGB CONC 32.5 g/dl (32.0-37.0); MEAN CORPUSCULAR VOLUME 89.5 fl (82.0-101.0); MEAN PLATELET VOLUME 8.9 fl (7.4-10.4); MONOCYTE # 0.5 10^3/ul (0.3-0.9); MONOCYTES % 3.7 % (0.0-11.0); NEUTROPHIL # 10.2 10^3/ul (1.6-7.5); NEUTROPHILS % 84.4 % (39.0-77.0); PLATELET COUNT 460 10^3/UL (140-415); RED BLOOD COUNT 3.92 10^6/ul (4.20-5.40); RED CELL DISTRIBUTION WIDTH 13.5 % (11.5-14.5); WHITE BLOOD COUNT 12.1 10^3/ul (4.8-10.8)
[2017-04-09 05:26] LABS: INR 1.29; PROTIME 16.2 Sec (12.2-14.2); PT RATIO 1.3
[2017-04-09 05:27] LABS: PARTIAL THROMBOPLASTIN TIME 30.4 Sec (25.0-35.0)
[2017-04-09 05:44] LABS: ALBUMIN 2.8 g/dl (3.3-4.9); ALBUMIN/GLOBULIN RATIO 1.16; BILIRUBIN,DIRECT 0.1 mg/dl (0.00-0.20); BILIRUBIN,INDIRECT 0.8 mg/dl (0-1.1); BILIRUBIN,TOTAL 0.9 mg/dl (0.2-1.3); CALCIUM 7.5 mg/dl (8.4-10.2); CREATININE 0.54 mg/dl (0.44-1.00); MAGNESIUM 1.8 mg/dl (1.7-2.5); PHOSPHORUS 3.2 mg/dl (2.5-4.9); POTASSIUM 4.1 mmol/L (3.5-5.1); TOTAL PROTEIN 5.2 g/dl (6.1-8.1)
[2017-04-09] MEDS: CEFOTAXIME 2 GM/50 ML (PMX) 50 ML IVPB SCH ×3 (06:14→21:23)
--- NOTE | 2017-04-09 10:50 | PN ---
Date/Time of Note Date/Time of Note DATE: 04/09/17 TIME: 10:50 Assessment/Plan VTE Prophylaxis VTE Prophylaxis Intervention: SCD's Lines/Catheters IV Catheter Type (from Nrsg): Peripheral IV Urinary Cath still in place: Yes Reason Cath still needed: other (indicate) (not needed) Assessment/Plan Assessment/Plan 37 yo F transferred from OSH for higher level of care. Pt admitted to OSH 6.8 with acute cholecystitis, underwent ERCP with stone removal and stent placement , subsequent cholecystectomy 6.9. Post op course c/b bile leak and discovery of clipped CBD. Subsequent ERCP 6.12 not successful and pt transferred here for further management (possible surgical biliary bypass or choledochojejunostomy). sp abd drain placement 6.16 by IR #bile leak and iatrogenic CBD obstruction: gen surg following will likely get additional drain tomorrow by IR cont pain meds-->inc CHORE WORKER bolus frequency abx as per gen surg ID consult as suspect pt will need IV abx following discharge case management consult placed as pt will likely need HH for drain care and outpatient IV abx FEN as per gen surg DVT prophx Subjective 24 Hr Interval Summary Free Text/Dictation Pain control still not adequate Exam/Review of Systems Vital Signs Vitals Vital Signs Date Time Temp Pulse Resp B/P Pulse Ox O2 Delivery O2 Flow Rate FiO2 04/09/17 10:16 18 04/09/17 08:23 98.0 109 117/78 95 04/09/17 08:00 Nasal Cannula 1.0 Intake and Output 04/08/17 04/08/17 04/09/17 15:00 23:00 07:00 Intake Total 1100 ml 750 ml 1940 ml Output Total 30 ml 720 ml 550 ml Balance 1070 ml 30 ml 1390 ml Exam uncomfortable laying in bed lungs clear no mrg abd distended no rashes Results Result Diagram: 04/09/17 0439 04/09/17 0439 Results 24 hrs Laboratory Tests Test 04/09/17 04:39 White Blood Count 12.1 H Red Blood Count 3.92 L Hemoglobin 11.4 L Hematocrit 35.1 L Mean Corpuscular Volume 89.5 Mean Corpuscular Hemoglobin 29.1 Mean Corpuscular Hemoglobin Concent 32.5 Red Cell Distribution Width 13.5 Platelet Count 460 H Mean Platelet Volume 8.9 Neutrophils % 84.4 H Lymphocytes % 6.0 L Monocytes % 3.7 Eosinophils % 3.1 Basophils % 0.2 Nucleated Red Blood Cells % 0.0 Neutrophils # 10.2 H Lymphocytes # 0.7 L Monocytes # 0.5 Eosinophils # 0.4 Basophils # 0.0 Nucleated Red Blood Cells # 0.0 Prothrombin Time 16.2 H Prothrombin Time Ratio 1.3 INR International Normalized Ratio 1.29 Activated Partial Thromboplast Time 30.4 Sodium Level 124 L Potassium Level 4.1 Chloride Level 94 L Carbon Dioxide Level 22 Anion Gap 12 Blood Urea Nitrogen 6 L Creatinine 0.54 Glucose Level 85 Lactic Acid Level 0.8 Calcium Level 7.5 L Phosphorus Level 3.2 Magnesium Level 1.8 Total Bilirubin 0.9 Direct Bilirubin 0.10 Indirect Bilirubin 0.8 Aspartate Amino Transf (AST/SGOT) 16 Alanine Aminotransferase (ALT/SGPT) 38 Alkaline Phosphatase 165 H Total Protein 5.2 L Albumin 2.8 L Globulin 2.40 Albumin/Globulin Ratio 1.16 Medications Medications Current Medications Ondansetron HCl (Zofran Inj) 4 mg Q6H PRN IV NAUSEA AND/OR VOMITING Last administered on 04/08/17 22:41; Admin Dose 4 MG; Start 04/06/17 at 00:00 Simethicone (Mylicon) 80 mg TID PRN PO DISTENSION/GAS/BLOATING Last administered on 04/08/17 05:57; Admin Dose 80 MG; Start 04/06/17 at 00:00 Acetaminophen 650 mg 650 mg Q4H PRN [place] PAIN AND OR ELEVATED TEMP; Start at 00:30 Sodium Chloride 1,000 ml @ 100 mls/hr Q10H IV Last administered on 04/09/17 02:49; Admin Dose 100 MLS/HR; Start 04/06/17 at 04:30 Metronidazole 100 ml @ 100 mls/hr Q8 IVPB Last administered on 04/09/17 05:09 ; Admin Dose 100 MLS/HR; Start 04/06/17 at 09:00 Cefotaxime Sodium/ Dextrose (Claforan 2gm/50 ml (Pmx)) 50 ml @ 100 mls/hr Q8 IVPB Last administered on 04/09/17 06:14; Admin Dose 100 MLS/HR; Start at 15:30 Hydromorphone HCl (Dilaudid CHORE WORKER) 0 MG/HR CONTINUOUS RATE ... Q4PCA IV Last administered on 04/09/17 10:09; Admin Dose 6 MG; Start 04/06/17 at 11:00 Acetaminophen/ Hydrocodone Bitart ([place] (5/325)) 1 tab Q4H PRN PO PAIN LEVEL 4 -6; Start 04/06/17 at 11:00 Acetaminophen/ Hydrocodone Bitart ([place] (5/325)) 2 tab Q4H PRN PO PAIN LEVEL 7 -10 Last administered on 04/08/17 14:41; Admin Dose 2 TAB; Start 04/06/17 at 11 :00 Docusate Sodium (Colace) 100 mg DAILY PRN PO CONSTIPATION; Start 04/08/17 at 14 :30 CELINE WARNER MD Apr 09, 2017 10:50
[2017-04-09] MEDS: HYDROmorphONE 1 MG/ML SYG IV PRN (11:18)
--- NOTE | 2017-04-09 14:26 | CONS ---
DATE OF ADMISSION: 04/05/2017 DATE OF CONSULTATION: 04/09/2017 INFECTIOUS DISEASE CONSULTATION REASON FOR CONSULTATION: Antibiotic management. HISTORY OF PRESENT ILLNESS: Xiao Costa is a 37-year-old female who comes in with a bi liary leak and is being seen for antibiotic management. Her past problems include a history of acut e cholecystitis for which she was admitted on 03/30/2017 to [facility]. She als o had back pain and chest pain this morning with burning sensation. Initially she had an ERCP with stone removal and stent placement. She underwent a cholecystectomy on 03/31/2017. After undergoing the cholecystectomy, she developed abdominal pain with worsening liver function tests. Further herberth ging studies were performed which showed that the patient had a clipped common bile duct as well as biliary leak. An ERCP was performed on 04/03/2017 which was not successful, and she required transf er to tertiary care facility for biliary bypass or choledochojejunostomy. The patient was transferr ed to [facility] for higher level of care, and Dr. Grande accepted the patient. She contin ues to have abdominal pain. On admission, her white count was 11.7, H and H 11.7 and 35, platelet c ount 419,000. On the , her white count was 12.1. Her Gram stain of the abdominal fluid is pend ing. MRSA screen is negative. Today, her white count is 12.1. Her BUN and creatinine are 6/0.54. Urine was tested for and is negative. An abdominal CT scan was done, and an abscess keisha matute was done on the . She had a successful CT-guided abdominal fluid collection drainage. The MRI done on the showed the MRCP, cholecystectomy, nonspecific large amount of intraperitoneal fluid, which could be secondary to biliary leak. Nuclear medicine hepatobiliary study could be perf ormed. There was recurrence of small filling defect in the distal common bile duct which could be s econdary to small amount of pneumobilia seen in this region on the CT. Pneumobilia limits evaluatio n for the possibility of choledocholithiasis. The large amount of peritoneal fluid was identified a nd drained. PAST MEDICAL HISTORY: Operations as outlined. FAMILY HISTORY: Noncontributory. SOCIAL HISTORY: She does not smoke, drink, or abuse drugs. ALLERGIES: NONE TO PENICILLIN, SULFA, OR FOODS. MEDICATIONS: Per chart. REVIEW OF SYSTEMS: As per HPI. PHYSICAL EXAMINATION: GENERAL: The patient is a well-developed, well-nourished female, alert, responsive, in no acute dis tress. VITAL SIGNS: Stable. She is afebrile. SKIN: Without generalized rash. HEENT: Within normal limits. NECK: Supple. LYMPH NODES: None palpable. CHEST: Decreased breath sounds at the bases. HEART: Without murmur or gallop. ABDOMEN: Soft, nontender, without organosplenomegaly or masses. EXTREMITIES: Without cyanosis, clubbing, or edema. RECTAL AND GENITAL: Deferred. Matthew catheter in place. NEUROLOGIC: No focal neurological abnormalities. IMPRESSION AND PLAN: The patient was seen by Dr. Grande. She is stable at the present time. She i s status post percutaneous CT-guided drain placement above the liver with removal of 1.4 liters in i nvasive radiology and more than 2 liters within the first 24 hours post procedure. She is currently on cefotaxime alone. We will await the culture reports. I will dictate my findings to the hospita list. Dictated By: MARTHA CRISOSTOMO MD, JD/MIKAYLA Conf#: [id number] DID#: [id number]
--- NOTE | 2017-04-09 14:40 | PN ---
Date/Time of Note Date/Time of Note DATE: 04/09/17 TIME: 14:28 Assessment/Plan Lines/Catheters IV Catheter Type (from Nrs): Peripheral IV Matthew in Place (from Nrs): Yes Assessment/Plan Assessment/Plan [facility] Progress Note Date of Service: 04/09/17 Today's Impression & Plan: Overall stable with ongoing issues with abd irritation from bile leak. Will need drain placement under the liver near the hilum where the leak is presumed to be from. Will get CT to map out the locations. Will consider IR drain placement vs. surgical laparoscopic washout. Once bile drainage is adequately controlled, to wait 4-6 weeks prior to definitive choledochojejunostomy. With above assessment, I've recommended the following for today: 1. Cont current management 2. Keep inhouse 3. Drain care with strict I's&O's 4. Cont broad spec antimicrobials 5. Cont regular diet 6. Continue educating patient and family re drain care for outpatient purposes 7. Will likely need home health set up 8. Anticipate discharge perhaps mid next week 9. Will discuss second drain placement with Dr. Andrade 10. Abd/pelvis CT without contrast 11. NPO after midnight 12. Possible IR drain placement vs. surgical washout Thank you again for your great care of this very pleasant patient and wonderful family. If there are any questions, please feel free to call me at [phone]. TOTAL VISIT TIME: 20 minutes of which more than half was spent in tojy-lb-ogye discussion with the patient, possibly including family, as well as coordination of care between multiple physicians and providers. Disclaimer: Inadvertent spelling or grammatical errors are likely due to EHR/ dictation software use and do not reflect on the overall quality of patient care. Updated Clinical Summary: The patient is a very pleasant 37-year-old young lady who was transferred from an outside hospital to [facility] for management of possible bile duct injury. S/p percutaneous CT-guided drain placement above the liver with removal of 1.4 liters of bile in IR suite and more (2 liters) within first 24 hours post procedure. Drain output minimal 04/09/17. COMORBIDITIES: 1. Cholelithiasis and acute cholecystitis, status post laparoscopic cholecystectomy 03/31/2017 at [facility], complicated by possible bile duct injury, as shown by ERCP that was done after a HIDA scan showed possible bile leak, explaining the patient's continued pain and distention. The ERCP on 04/03/2017 showed clips across the distal common bile duct, without any contrast opacifying the liver. We accepted the patient as a transfer into [facility] bile duct injury program for a higher level of care. The patient arrived on 04/05/2017. 2. S/p percutaneous CT-guided drain placement above the liver with removal of 1.4 liters of bile in IR suite and more immediately post procedure. Subjective: No major events or complaints; reports feeling slightly ok; mild abd pain and seemingly under control with medications; no n/v/d; no sob or cp; + flatus; - BM ; + activity Objective: Vitals: See below Exam: GENERAL: On exam, the patient was laying in bed and appeared to be comfortable and in no acute distress. ABDOMEN: Soft, mildly tender mainly in the mid upper abd and nondistended. Incisions are clean, dry and intact without any evidence of erythema, edema, discharge, or hernia. RUQ perc drain with bilious output. There are no peritoneal signs or guarding. SKIN: Skin appears to be pink and feels warm to touch. NEUROLOGIC: Patient is awake, alert, and follows commands appropriately. Exam/Review of Systems Vital Signs Vitals Vital Signs Date Time Temp Pulse Resp B/P Pulse Ox O2 Delivery O2 Flow Rate FiO2 04/09/17 13:30 18 04/09/17 12:04 98.3 111 125/77 96 Nasal Cannula 1.0 Intake and Output 04/08/17 04/08/17 04/09/17 15:00 23:00 07:00 Intake Total 1100 ml 750 ml 1940 ml Output Total 30 ml 720 ml 550 ml Balance 1070 ml 30 ml 1390 ml Results Result Diagram: 04/09/17 0439 04/09/17 0439 LENA MONCADA M.D. Apr 09, 2017 14:39
--- NOTE | 2017-04-09 16:45 | RADRPT ---
PROCEDURE: CT Abdomen and Pelvis without contrast CLINICAL INDICATION: Bile leak TECHNIQUE: Transaxial images were obtained through the abdomen and pelvis on a multi-slice scanner without the intravenous contrast administration. No oral contrast had previously been given. Sagit blake and coronal re-formations were subsequently reconstructed. One or more of the following dose reduction techniques were used: - Automated exposure control. - Adjustment of the mA and/or kV according to patient size. - Use of iterative reconstruction technique. Radiation dose: CTDIvol = 12.60 mGy; DLP = 786.57 mGy-cm. COMPARISON: 04/07/2017 FINDINGS: Lung bases: Since the previous study, a thoracostomy tube has been placed into the pleural space at the right lung base through and anterior intercostal approach with the pigtail positioned posteriorl y. There is persistent subsegmental atelectasis involving the lower lobes and there is been interva l increase in moderate gravitating bilateral pleural fluid accumulations. No pneumothorax is eviden t. Liver: The liver is mildly enlarged but appears intact. Gallbladder: Multiple surgical gerri are again seen in the gallbladder fossa. Bile ducts: The intra and extrahepatic bile ducts are normal in caliber. Pancreas: Appears normal with no mass or inflammation evident. Spleen: Normal in size with no focal lesion. Adrenals: Normal with no mass identified. Kidneys, ureters and bladder: The kidneys are normal in size and there is no mass, pathological calc ification, or hydronephrosis evident. There is no perinephric stranding. The ureters are normal in c aliber and no ureteroliths are identified. The bladder appears unremarkable except for some intralum inal air which is likely iatrogenic. The Matthew catheter is no longer in place. Reproductive organs: Unremarkable. Stomach and bowel: The stomach appears unremarkable. The duodenal bulb appears distended with air. There is even greater distension of multiple segments of large and small bowel with air-fluid level s most compatible with severe ileus. There are no findings to suggest a high-grade bowel obstructio n. Appendix: There are no findings to suggest appendicitis. Peritoneum: There is an increasing moderate amount of free intraperitoneal fluid and measures water density. There is stranding to the omentum in the mesenteric fat. No free air is identified. Aorta: Normal in caliber with no aneurysmal dilatation. IVC: Unremarkable. Lymph nodes: There are bilateral inguinal nodes up to 9 mm in short diameter. Osseous structures: There is a limbus vertebra at L4. Soft tissues: Surgical gerri are seen within the right upper abdomen and also within the periumbi lical region at the site of previous laparoscopic surgery. Just superior to the periumbilical stapl es is a small collection of fluid and air with an air-fluid level. Stranding is seen within the sub cutaneous fat within the pelvic flank regions. IMPRESSION: 1. When compared to the previous CT of 04/06/2017, there is again evidence of a previous laparoscop ic cholecystectomy without bile duct dilatation or pancreatic pathology. 2. Increasing moderate water density intraperitoneal fluid with no free air identified. 3. There is persistent stranding in the mesentery and omentum compatible with edema. 4. Ileus which is largely colonic. 5. An at the site of the periumbilical superficial gerri there is a collection of fluid in air moraima suring approximate 2.5 cm, unchanged. 6. Interval placement of a pigtailed right thoracostomy tube with the tip seen within the right inf erior posterior pleura. 7. Interval increase to the no moderate bilateral water density gravitating pleural fluid accumulat ions. There is persistent subsegmental atelectasis involving the left lower lobes. 8. The Matthew catheter has been removed but there is a slight amount of intraluminal air within the bladder which is likely iatrogenic. 9. Limbus vertebra at L4. Physician Yehuda Date Time Electronically viewed and signed by Physician Yehuda on 04/09/2017 16:45 RH/
[2017-04-09] MEDS: FLUCONAZOLE 200 MG/NS (PMX) 100 ML IVPB SCH (18:47)
[2017-04-09] MEDS: NYSTATIN 15 GM CR TOP SCH (20:33)
[2017-04-09] MEDS: ONDANSETRON 4 MG INJ IV PRN (21:57)
[2017-04-10] VITALS (20 sets, daily range): BP systolic 122–144; BP diastolic 65–80; PULSE 102–106; RESP 13–20
[2017-04-10] MEDS: SOD CHLORIDE 0.9% 1,000 ML IV SCH ×3 (00:07→10:07)
[2017-04-10] MEDS: HYDROmorphONE 0.2 MG/ML PCA IV SCH ×3 (01:18→10:12)
[2017-04-10 05:09] LABS: ADD SCAN DIFF NO
[2017-04-10 05:25] LABS: BASOPHILS % 0.2 % (0.0-2.0); EOSINOPHILS # 0.4 10^3/ul (0.0-0.5); EOSINOPHILS % 3.3 % (0.0-7.0); HEMATOCRIT 34.8 % (37.0-47.0); HEMOGLOBIN 11.1 g/dl (12.0-16.0); LYMPHOCYTES # 0.7 10^3/ul (0.8-2.9); LYMPHOCYTES % 5.9 % (15.0-51.0); MEAN CORPUSCULAR HEMOGLOBIN 28.6 pg (29.0-33.0); MEAN CORPUSCULAR HGB CONC 31.9 g/dl (32.0-37.0); MEAN CORPUSCULAR VOLUME 89.7 fl (82.0-101.0); MEAN PLATELET VOLUME 8.9 fl (7.4-10.4); MONOCYTE # 0.6 10^3/ul (0.3-0.9); MONOCYTES % 4.6 % (0.0-11.0); NEUTROPHILS % 82.7 % (39.0-77.0); PLATELET COUNT 529 10^3/UL (140-415); RED BLOOD COUNT 3.88 10^6/ul (4.20-5.40); RED CELL DISTRIBUTION WIDTH 13.6 % (11.5-14.5); WHITE BLOOD COUNT 12.1 10^3/ul (4.8-10.8)
[2017-04-10] MEDS: CEFOTAXIME 2 GM/50 ML (PMX) 50 ML IVPB SCH (05:26)
[2017-04-10 05:31] LABS: INR 1.43; PARTIAL THROMBOPLASTIN TIME 32.3 Sec (25.0-35.0); PROTIME 17.5 Sec (12.2-14.2); PT RATIO 1.4
[2017-04-10 05:44] LABS: ALBUMIN 2.5 g/dl (3.3-4.9); BILIRUBIN,DIRECT 0.1 mg/dl (0.00-0.20); BILIRUBIN,INDIRECT 0.7 mg/dl (0-1.1); BILIRUBIN,TOTAL 0.8 mg/dl (0.2-1.3); CALCIUM 7.6 mg/dl (8.4-10.2); CREATININE 0.5 mg/dl (0.44-1.00); MAGNESIUM 1.8 mg/dl (1.7-2.5); PHOSPHORUS 2.5 mg/dl (2.5-4.9)
[2017-04-10] MEDS: Metronidazole 500 MG in NS 100 ML IVPB SCH (05:55)
[2017-04-10] MEDS: NYSTATIN 15 GM CR TOP SCH ×3 (08:45→22:30)
[2017-04-10] MEDS ORDERED: BUPIVACAINE 0.25% (MPF) 10 ML 10 ML VIAL ONE (11:21)
--- NOTE | 2017-04-10 12:06 | HPN ---
Date/Time of Note Date/Time of Note DATE: 04/10/17 TIME: 12:05 Interval H&P Admission Note Pt. seen H&P reviewed: No system changes Pt. seen H&P reviewed. No system changes (I attest that I have seen and examined the patient and reviewed the operation in detail, as well as its risks , benefits and alternatives of the operation). I attest that I have seen and examined the patient and reviewed in detail the operation, and its associated risks, benefits and alternative. I have answered all the patient's questions to the best of my ability and the patient wishes to proceed. Please refer to rest of electronic medical record for additional updates. LENA MONCADA M.D. Apr 10, 2017 12:06
[2017-04-10] MEDS ORDERED: MIDAZOLAM 1 MG/ML 2 ML INJ ONE (12:12)
[2017-04-10] MEDS ORDERED: PIPER-TAZO 3.375 GM IV (PMX) 100 ML ONE (12:37)
[2017-04-10] MEDS ORDERED: PHENYLephrine (100 MCG/ML) 5ML SYG ONE (12:39)
[2017-04-10] MEDS ORDERED: BUPIVACAINE 0.25%/EPI (SDV) 30 ML INJ ONE (12:59)
[2017-04-10] MEDS ORDERED: MEPERIDINE 25 MG INJ IV PRN (13:30)
[2017-04-10] MEDS ORDERED: DIPHENHYDRAMINE 50 MG INJ IV PRN (13:30)
[2017-04-10] MEDS ORDERED: ONDANSETRON 4 MG INJ IV PRN (13:30)
[2017-04-10] MEDS ORDERED: morphine (1 MG/ML) 10ML SYRINGE IV PRN (13:30)
[2017-04-10] MEDS ORDERED: FENTAnyl 50 MCG/ML VIAL IV PRN (13:30)
[2017-04-10] MEDS ORDERED: PROPOFOL 20 ML ONE (14:32)
[2017-04-10] MEDS ORDERED: ROCURONIUM 50 MG INJ ONE (14:32)
[2017-04-10] MEDS ORDERED: ONDANSETRON 4 MG INJ ONE (14:32)
[2017-04-10] MEDS ORDERED: LIDOCAINE 2% (SDV) 5 ML INJ ONE (14:32)
--- NOTE | 2017-04-10 14:44 | PN ---
DATE: 04/10/2017 INFECTIOUS DISEASE PROGRESS NOTE SUBJECTIVE: The patient is awake, lying comfortably in bed. Complaining of abdominal pain. No fev ers. WBC today 12.1, platelets 529, neutrophils 82.7, no bands. BUN 4, creatinine 0.50. MICROBIOLOGY: Intra-abdominal fluid cultures preliminary negative. No anaerobes. INDWELLINGS: The patient has right-sided abdominal drain. ANTIMICROBIALS: She is on 1. Cefotaxime 2. Flagyl. PHYSICAL EXAMINATION: GENERAL: This is a well-developed, obese, middle-aged woman who is awake, in no distress. HEENT: Head atraumatic, normocephalic. Sclerae anicteric. Buccal mucosa pink. NECK: Supple. CHEST: Rise symmetrical. Breath sounds clear. HEART: S1, S2. ABDOMEN: Soft. Bowel tones present. EXTREMITIES: Without cyanosis. ASSESSMENT: 1. Ongoing abdominal pain secondary to irritation from bile leak status post drainage catheter plac ed. 2. History of cholelithiasis and acute cholecystitis, status post laparoscopic cholecystectomy inch on 03/31/2017 with a possible bile duct injury. 3. Status post ERCP that showed possible bile leak on 04/03/2017. 4. Status post percutaneous CT-guided drainage drain placement above the liver with removal of 1.4 liters of bile with cultures had been negative. 5. Systemic inflammatory response syndrome secondary to above. 6. Hyponatremia. PLAN: The patient remains clinically stable pending CT-guided drainage catheter placement. She is being seen by Dr. Grande in surgical consultation. We will continue her on current antimicrobials. Dictated By: CODY LEYVA SPOUT POSITIONER for MARTHA YU/NTS Conf#: [id number] DID#: [id number]
[2017-04-10] MEDS ORDERED: FENTAnyl 50 MCG/ML VIAL ONE (14:54)
[2017-04-10] MEDS: HYDROmorphONE 1 MG/ML SYG IV PRN ×4 (15:39→22:05)
--- NOTE | 2017-04-10 15:58 | OPR ---
Date/Time of Note Date/Time of Note DATE: 04/10/17 TIME: 15:55 Operative Report Operative\Procedure Findings [facility] INPATIENT OPERATIVE NOTE PLACE OF SERVICE: [facility] DATE OF SURGERY: 04/10/2017 PREOPERATIVE DIAGNOSIS: 1. Cholelithiasis and acute cholecystitis, status post laparoscopic cholecystectomy 03/31/2017 at [facility], complicated by possible bile duct injury, as shown by ERCP that was done after a HIDA scan showed possible bile leak, explaining the patient's continued pain and distention. The ERCP on 04/03/2017 showed clips across the distal common bile duct, without any contrast opacifying the liver. We accepted the patient as a transfer into [facility] bile duct injury program for a higher level of care. The patient arrived on 04/05/2017. 2. S/p percutaneous CT-guided drain placement above the liver with removal of 1.4 liters of bile in IR suite and more immediately post procedure. POSTOPERATIVE DIAGNOSIS: 1. Cholelithiasis and acute cholecystitis, status post laparoscopic cholecystectomy 03/31/2017 at [facility], complicated by possible bile duct injury, as shown by ERCP that was done after a HIDA scan showed possible bile leak, explaining the patient's continued pain and distention. The ERCP on 04/03/2017 showed clips across the distal common bile duct, without any contrast opacifying the liver. We accepted the patient as a transfer into [facility] bile duct injury program for a higher level of care. The patient arrived on 04/05/2017. More evidence of bile duct injury with likely transection of the CBD with proximal leakage from near the hilum. 2. S/p percutaneous CT-guided drain placement above the liver with removal of 1.4 liters of bile in IR suite and more immediately post procedure. OPERATION: 1. Laparoscopic exploration of the abdominal cavity through recent laparoscopic port sites from prior cholecystectomy 2. Extensive abdominal lavage 3. Extensive abdominal drainage with placement of a 10.2 Croatian pigtail catheter under the right lobe of the liver near the hilum of the liver and placement of 2 surgical drains (19 Croatian Jerardo drains), 1 next to the right lobe of the liver (lateral surgical drain) and 1 in the pelvis (medial surgical drain). SURGEON: Lena Grande M.D. ARTIFICIAL BREEDING TECHNICIAN: None ANESTHESIA: General endotracheal tube anesthesia ANESTHESIOLOGIST: Lewis De La Paz M.D. BRIEF SUMMARY: An otherwise uncomplicated abdominal exploration was done laparoscopically with removal of 3-1/2 L of bile and extensive lavage of the abdominal cavity and placement of a 10.2 Croatian pigtail catheter under the right lobe of the liver near the hilum of the liver and placement of 2 surgical drains (19 Croatian Jerardo drains), 1 next to the right lobe of the liver (lateral surgical drain) and 1 in the pelvis (medial surgical drain). Updated Clinical Summary: The patient is a very pleasant 37-year-old young lady who was transferred from an outside hospital to [facility] for management of possible bile duct injury. S/p percutaneous CT-guided drain placement above the liver with removal of 1.4 liters of bile in IR suite and more (2 liters) within first 24 hours post procedure. Drain output minimal 04/09/17. Given the need for drain placement under the liver near the hilum where the leak was presumed to be from, we obtained an abdominal and pelvic CT to map out the locations of any fluid collections on 04/09/2017. CT scan demonstrated multiple fluid collections in all quadrants of the abdominal cavity including between loops of small intestine. COMORBIDITIES: 1. Cholelithiasis and acute cholecystitis, status post laparoscopic cholecystectomy 03/31/2017 at [facility], complicated by possible bile duct injury, as shown by ERCP that was done after a HIDA scan showed possible bile leak, explaining the patient's continued pain and distention. The ERCP on 04/03/2017 showed clips across the distal common bile duct, without any contrast opacifying the liver. We accepted the patient as a transfer into [facility] bile duct injury program for a higher level of care. The patient arrived on 04/05/2017. 2. S/p percutaneous CT-guided drain placement above the liver with removal of 1.4 liters of bile in IR suite and more immediately post procedure. BRIEF HISTORY: The patient is a very pleasant 37-year-old young lady who was transferred from an outside hospital to [facility] for management of possible bile duct injury. S/p percutaneous CT-guided drain placement above the liver with removal of 1.4 liters of bile in IR suite and more (2 liters) within first 24 hours post procedure. Drain output minimal . Given the need for drain placement under the liver near the hilum where the leak was presumed to be from, we obtained an abdominal and pelvic CT to map out the locations of any fluid collections on 04/09/2017. CT scan demonstrated multiple fluid collections in all quadrants of the abdominal cavity including between loops of small intestine. After discussions with Dr. Andrade in interventional radiology, we both agreed that the best approach would be to do surgical washout which we planed on doing laparoscopically with possible intra- abdominal drain placement to control the bile leak. I spoke with the patient and then separately with the patient's over the phone and reviewed all of the above in detail including the reasoning behind our recommendations, description of the operation in detail including the possibility of needing to convert to open exploration, the risks, benefits, and alternatives and answered all of their questions to the best of my ability. I believe that the patient and her appear to understand and agreed with the plans. For a detailed report of my consultation with patient and family, please refer to my separate consultation note. STATEMENT OF THE INFORMED CONSENT: The patient and family appeared to understand the risks of the operation to include, but not be limited to risk of postoperative pain and scar tissue, possible infection or bleeding requiring other interventions such as opening the wound, placement of drainage catheters, or other operative interventions; possible injury to surrounding to structures including bowel, bladder, bile duct, or blood vessels, or solid organs such as liver, kidney, or pancreas requiring other interventions or procedures; possible leakage of bowel from anastomotic sites or suture lines causing significant increase in morbidity and mortality and requiring multiple interventions including but not limited to, placement of drainage catheters, imaging studies, as well as operative interventions; possible other source of sepsis such as urinary tract infections or pneumonias, or other sources of potentially life threatening problems such as deep venous thrombus formation causing pulmonary embolism, myocardial arrhythmias and infarctions, and even . After careful consideration of all their options, the patient and family appeared to understand and wished to proceed with surgery. DESCRIPTION OF PROCEDURE: After obtaining informed consent, the patient was brought into the operating room and was placed in a normal supine position, where successful general endotracheal tube anesthesia was performed. Intravenous access was already in place and intravenous antimicrobials had been appropriately chosen and dosed prior to the operation. The patient's abdominal skin was prepped and draped from the nipple line down to the level of the upper thighs including the prior pigtail catheter that was placed in the right upper quadrant in the usual sterile fashion. We then called a surgical time-out where the patient's identification, date of , nature of the operation, allergies , presence of intravenous antimicrobials, presence of needed equipment, and any other concerns were reviewed and agreed upon by all members of the operating room team. We then started the operation by taking the gerri out from the to right mid quadrant 5 mm laparoscopic port site that was used for the patient's original laparoscopic cholecystectomy and very carefully placed a 5 mm [employer] trocar into the peritoneal space visualizing all layers of the abdominal wall as we entered. Note that there was no indication of any injury to underlying structures once we entered the peritoneal cavity. We could see bile-stained surface through the trocar tip. We then insufflated the abdominal cavity to a maximum pressure of 15 mmHg and again confirmed lack of any injury to underlying structures at the initial insertion point of the trocar. None was found. We then inspected the abdominal cavity and in general found bile- stained surfaces of the abdominal cavity with significant amount of bile both around the right lobe of the liver as well as in the pelvis. With this information, we removed gerri from the other 5 mm trocar site in the right mid quadrant (lateral incision) as well as 2 of the 3 gerri that were used to close the upper midline incision and placed 2 other 5 mm trochars under direct visualization into the abdominal cavity after injection of the sites with quarter percent Marcaine with epinephrine. With these trocar in place, we had excellent visualization and access to the abdominal cavity. We then started a very meticulous and careful process of suctioning has much bile out of the abdominal cavity as possible while very gently the tissues that were around the liver and eventually gained access to the undersurface of the liver. We could see that there were several surgical clips in the area of the hilum as well as more distally along the course of the vickey hepatis. There was significant amount of inflammation and scarring in this region and visualization was limited. I also did not want to disturb this area too much given the recent operation. It was obvious that fresh bile was coming from the area of the hilum. There was omental adhesions onto the gallbladder fossa and I left these alone as well. We then turned our attention to the surface around the liver including the right and left side and did adhesio lysis to free up both surfaces in order to completely suction out as much bile from these areas as possible. We then turned our attention down into the pelvis and again suctioned out significant amount of bile from this region. We also repeated this process along the gutters on both sides. I then started to very carefully out the loops of small intestine from the area near the ligament of Treitz and ran the bowel all the way to the ileocecal valve. We suctioned off any excess bile from this region as well. Overall, we removed approximately 3500 cc of aki bile from the abdominal cavity. After we were satisfied that we had removed as much of the bile collection as possible, we irrigated the abdominal cavity with approximately 6 L of normal saline and suctioned off the excess irrigant to clear drainage. At this point, I made a small skin incision in the right upper quadrant after injection of the site with quarter percent Marcaine with epinephrine and then placed a percutaneous 10.2 Croatian pigtail catheter which we placed the tip under the right lobe of the liver in the area near the site of bile leak near the hilum. We secured this drain to the skin using 2-0 nylon suture. I also placed 2 surgical drains (19 Croatian Jerardo drains) through the two 5-mm right mid quadrant trocar sites as follows: one next of the right lobe of the liver ( lateral surgical drain) and 1 in the pelvis (medial surgical drain). We secured both these drains onto the skin using 2-0 nylon sutures. At this point, we ensured adequate hemostasis prior to removal of all her equipment from the abdominal cavity including the pneumoperitoneum, then washing the wounds with copious amounts of normal saline and reapproximating the upper midline skin incision with 1 interrupted 4-0 Monocryl subcuticular suture. Light dressing was then applied. At the end of the operation, both the sponge count and needle count were reportedly correct x2. The patient tolerated the procedure without any reported complications. ESTIMATED BLOOD LOSS: Less than 10 mL. BLOOD OR BLOOD PRODUCT TRANSFUSIONS: None to my knowledge. SPECIMENS: None COMPLICATIONS: None. DISPOSITION: Recovery area. Disclaimer: Inadvertent spelling and grammatical errors are likely due to EHR/ dictation software use and do not reflect on the quality of delivered patient care. Also, please note that the electronic time recorded on this node does not necessarily reflect the actual time of the visit. LENA GRANDE M.D. Apr 10, 2017 15:58
[2017-04-10] MEDS: D5W-0.45 NACL + KCL 20 MEQ 1,000 ML IV SCH (16:56)
[2017-04-10] MEDS: PIPER-TAZO 3.375 GM IV (PMX) 100 ML IVPB SCH (18:19)
[2017-04-10] MEDS: FLUCONAZOLE 200 MG/NS (PMX) 100 ML IVPB SCH (19:10)
[2017-04-10] MEDS: ONDANSETRON 4 MG INJ IV PRN (20:04)
--- NOTE | 2017-04-10 21:49 | PN ---
Date/Time of Note Date/Time of Note DATE: 04/10/17 TIME: 21:49 Assessment/Plan VTE Prophylaxis VTE Prophylaxis Intervention: SCD's Lines/Catheters IV Catheter Type (from Nrs): Peripheral IV Urinary Cath still in place: Yes Assessment/Plan Assessment/Plan 1. Bile Leak: s/p recent lap choley ay outside hosp - now s/p following procedure today 1. Laparoscopic exploration of the abdominal cavity through recent laparoscopic port sites from prior cholecystectomy 2. Extensive abdominal lavage 3. Extensive abdominal drainage with placement of a 10.2 Sinhala pigtail catheter under the right lobe of the liver near the hilum of the liver and placement of 2 surgical drains (19 Sinhala Jerardo drains), 1 next to the right lobe of the liver (lateral surgical drain) and 1 in the pelvis (medial surgical drain). - cont pain mgmt and abx Exam/Review of Systems Vital Signs Vitals Vital Signs Date Time Temp Pulse Resp B/P Pulse Ox O2 Delivery O2 Flow Rate FiO2 04/10/17 19:10 98.5 113 19 123/66 95 04/10/17 16:17 Room Air 04/10/17 15:22 5.0 Intake and Output 04/09/17 04/09/17 04/10/17 15:00 23:00 07:00 Intake Total 950 ml 1950 ml 950 ml Output Total 540 ml 440 ml Balance 950 ml 1410 ml 510 ml Exam Constitutional: alert, oriented, well developed Head: atraumatic, normocephalic Respiratory: clear to auscultation, normal air movement Cardiovascular: other (tachy) Gastrointestinal: tender Results Result Diagram: 04/10/17 0433 04/10/17 0433 Results 24 hrs Laboratory Tests Test 04/10/17 04:33 White Blood Count 12.1 H Red Blood Count 3.88 L Hemoglobin 11.1 L Hematocrit 34.8 L Mean Corpuscular Volume 89.7 Mean Corpuscular Hemoglobin 28.6 L Mean Corpuscular Hemoglobin Concent 31.9 L Red Cell Distribution Width 13.6 Platelet Count 529 H Mean Platelet Volume 8.9 Neutrophils % 82.7 H Lymphocytes % 5.9 L Monocytes % 4.6 Eosinophils % 3.3 Basophils % 0.2 Nucleated Red Blood Cells % 0.0 Neutrophils # 10.0 H Lymphocytes # 0.7 L Monocytes # 0.6 Eosinophils # 0.4 Basophils # 0.0 Nucleated Red Blood Cells # 0.0 Prothrombin Time 17.5 H Prothrombin Time Ratio 1.4 INR International Normalized Ratio 1.43 Activated Partial Thromboplast Time 32.3 Sodium Level 128 L Potassium Level 4.0 Chloride Level 98 Carbon Dioxide Level 21 Anion Gap 13 Blood Urea Nitrogen 4 L Creatinine 0.50 Glucose Level 92 Lactic Acid Level 0.8 Calcium Level 7.6 L Phosphorus Level 2.5 Magnesium Level 1.8 Total Bilirubin 0.8 Direct Bilirubin 0.10 Indirect Bilirubin 0.7 Aspartate Amino Transf (AST/SGOT) 18 Alanine Aminotransferase (ALT/SGPT) 31 Alkaline Phosphatase 173 H Total Protein 5.0 L Albumin 2.5 L Globulin 2.50 Albumin/Globulin Ratio 1.00 Medications Medications Current Medications Ondansetron HCl (Zofran Inj) 4 mg Q6H PRN IV NAUSEA AND/OR VOMITING Last administered on 04/10/17 20:04; Admin Dose 4 MG; Start 04/06/17 at 00:00 Simethicone (Mylicon) 80 mg TID PRN PO DISTENSION/GAS/BLOATING Last administered on 04/08/17 05:57; Admin Dose 80 MG; Start 04/06/17 at 00:00 Acetaminophen (Tylenol Supp) 650 mg Q4H PRN [place] PAIN AND OR ELEVATED TEMP; Start 04/06/17 at 00:30 Acetaminophen/ Hydrocodone Bitart ([place] (5/325)) 1 tab Q4H PRN PO PAIN LEVEL 4 -6; Start 04/06/17 at 11:00 Acetaminophen/ Hydrocodone Bitart ([place] (5/325)) 2 tab Q4H PRN PO PAIN LEVEL 7 -10 Last administered on 04/08/17 14:41; Admin Dose 2 TAB; Start 04/06/17 at 11 :00 Docusate Sodium (Colace) 100 mg DAILY PRN PO CONSTIPATION; Start 04/08/17 at 14 :30; Stop 04/12/17 at 09:00 Hydromorphone HCl (Dilaudid) 0.5 mg Q2H PRN IV MODERATE PAIN LEVEL 4-6; Start 04/09/17 at 11:30 Hydromorphone HCl 1 mg 1 mg Q2H PRN IV SEVERE PAIN LEVEL 7-10 Last administered on 04/10/17 20:04; Admin Dose 1 MG; Start 04/09/17 at 11:30 Fluconazole (Diflucan 200 Mg/ NS (Pmx)) 100 ml @ 100 mls/hr Q24H IVPB Last administered on 04/10/17 19:10; Admin Dose 100 MLS/HR; Start 04/09/17 at 19:00 Nystatin 1 applic 1 applic BID TOP Last administered on 04/10/17 08:45; Admin Dose 1 APPLIC; Start 04/09/17 at 21:00 Potassium Chloride/Dextrose/ Sod Cl (D5-1/2ns + KCl 20 Meq) 1,000 ml @ 100 mls/ hr Q10H IV Last administered on 04/10/17 16:56; Admin Dose 100 MLS/HR; Start 04/10/17 at 15:19 Docusate Sodium (Colace) 100 mg BID PO ; Start 04/12/17 at 09:00 Bisacodyl (Dulcolax Supp) 10 mg Q12H [place] ; Start 04/12/17 at 12:00 Sodium Biphosphate/ Sodium Phosphate (Fleet Enema) 133 ml Q12H [place] ; Start at 18:00 Famotidine (Pepcid Iv) 20 mg DAILY IV ; Start 04/11/17 at 09:00 Enoxaparin Sodium 40 mg 40 mg DAILY SC ; Start 04/11/17 at 09:00 Piperacillin Sod/ Tazobactam Sod (Zosyn 3.375gm/ 100 ml (Pmx)) 100 ml @ 25 mls/ hr TID@02,10,18 IVPB Last administered on 04/10/17 18:19; Admin Dose 25 MLS/HR ; Start 04/10/17 at 18:00 Docusate Sodium (Colace) 100 mg BID PRN PO CONSTIPATION; Start 04/12/17 at 09: 00 Bisacodyl (Dulcolax Supp) 10 mg Q12H PRN [place] CONSTIPATION; Start 04/12/17 at 18: 00 Sodium Biphosphate/ Sodium Phosphate (Fleet Enema) 133 ml Q12H PRN [place] CONSTIPATION; Start 04/12/17 at 18:00 CRISTIANO AUGUSTE MD Apr 10, 2017 21:49
[2017-04-11 00:10] VITALS: BP 123/75; RESP 21
[2017-04-11] MEDS: HYDROmorphONE 1 MG/ML SYG IV PRN ×8 (00:16→23:06)
[2017-04-11] MEDS: D5W-0.45 NACL + KCL 20 MEQ 1,000 ML IV SCH ×3 (01:19→21:19)
[2017-04-11] MEDS: PIPER-TAZO 3.375 GM IV (PMX) 100 ML IVPB SCH ×3 (03:01→19:03)
[2017-04-11 06:29] LABS: ADD SCAN DIFF NO
[2017-04-11 06:43] LABS: BASOPHILS % 0.2 % (0.0-2.0); EOSINOPHILS # 0.2 10^3/ul (0.0-0.5); EOSINOPHILS % 1.5 % (0.0-7.0); HEMATOCRIT 32.1 % (37.0-47.0); HEMOGLOBIN 10.7 g/dl (12.0-16.0); LYMPHOCYTES # 0.8 10^3/ul (0.8-2.9); LYMPHOCYTES % 5.6 % (15.0-51.0); MEAN CORPUSCULAR HEMOGLOBIN 29.7 pg (29.0-33.0); MEAN CORPUSCULAR HGB CONC 33.3 g/dl (32.0-37.0); MEAN CORPUSCULAR VOLUME 89.2 fl (82.0-101.0); MONOCYTE # 0.8 10^3/ul (0.3-0.9); MONOCYTES % 5.3 % (0.0-11.0); NEUTROPHIL # 12.1 10^3/ul (1.6-7.5); NEUTROPHILS % 84.1 % (39.0-77.0); PLATELET COUNT 550 10^3/UL (140-415); RED CELL DISTRIBUTION WIDTH 13.9 % (11.5-14.5); WHITE BLOOD COUNT 14.4 10^3/ul (4.8-10.8)
[2017-04-11 06:54] LABS: INR 1.49; PROTIME 18.1 Sec (12.2-14.2); PT RATIO 1.4
[2017-04-11 06:55] LABS: PARTIAL THROMBOPLASTIN TIME 32.2 Sec (25.0-35.0)
[2017-04-11 07:05] LABS: ALBUMIN 2.2 g/dl (3.3-4.9); ALBUMIN/GLOBULIN RATIO 0.95; BILIRUBIN,INDIRECT 0.3 mg/dl (0-1.1); BILIRUBIN,TOTAL 0.3 mg/dl (0.2-1.3); CALCIUM 7.3 mg/dl (8.4-10.2); CREATININE 0.55 mg/dl (0.44-1.00); MAGNESIUM 1.8 mg/dl (1.7-2.5); PHOSPHORUS 2.2 mg/dl (2.5-4.9); POTASSIUM 4.2 mmol/L (3.5-5.1); TOTAL PROTEIN 4.5 g/dl (6.1-8.1)
[2017-04-11 08:27] VITALS: BP 110/78; RESP 18
[2017-04-11] MEDS: FAMOTIDINE 20 MG INJ IV SCH (08:29)
[2017-04-11] MEDS: ENOXAPARIN 40 MG/0.4 ML SYG SC SCH (08:44)
[2017-04-11] MEDS ORDERED: PHYTONADIONE 2 MG in DEXTROSE 5% 50 ML IVPB ONE (09:30)
[2017-04-11] MEDS: HYDROCODONE/APAP (5/325) TAB PO PRN (09:44)
--- NOTE | 2017-04-11 12:29 | PN ---
DATE: 04/11/2017 SUBJECTIVE: No acute changes. Patient is alert, feels better. Looks comfortable. No fevers. WBC 14.4, platelets 550, neutrophils 84.1, no bands. BUN 4, creatinine 0.55. INDWELLINGS: The patient has 3 drains on her right side of the abdomen. ANTIMICROBIALS: Patient is on Zosyn. PHYSICAL EXAMINATION: GENERAL: Well-developed, well-nourished, middle-aged woman, who is alert, in no distress. HEENT: Head atraumatic, normocephalic. Sclerae anicteric. Buccal mucosa pink. NECK: Supple, trachea midline. CHEST: Rise symmetrical. Breath sounds clear. HEART: S1, S2. ABDOMEN: Soft, bowel tones present. EXTREMITIES: Without cyanosis. ASSESSMENT: 1. Status post laparoscopic exploration of the abdominal cavity with extensive abdominal lavage and drainage with placement of pigtail catheters under the right lobe of the liver on 04/10/2017, posto p day #1. 2. Ongoing abdominal pain secondary to bile leak. Status post ERCP. 3. Systemic inflammatory response syndrome. PLAN: 1. The patient remains stable pending intraoperative cultures. 2. Continue present care. 3. Continue Zosyn. 4. Follow surgical recommendations. Dictated By: CODY LEYVA ASSISTANT FOOD SERVICE MANAGER for [facility]KAY[facility] Conf#: [id number] DID#: [id number]
[2017-04-11] MEDS: FLUCONAZOLE 200 MG/NS (PMX) 100 ML IVPB SCH (19:03)
[2017-04-11 19:15] VITALS: BP 112/76; RESP 18
[2017-04-11] MEDS: NYSTATIN 15 GM CR TOP SCH (21:00)
--- NOTE | 2017-04-11 22:25 | PN ---
Date/Time of Note Date/Time of Note DATE: 04/11/17 TIME: 22:05 Assessment/Plan Lines/Catheters IV Catheter Type (from Nrs): Peripheral IV Urinary Cath still in place: Yes Assessment/Plan Assessment/Plan 1. Bile Leak: s/p recent lap choley at outside hosp - now s/p following procedure today . Laparoscopic exploration of the abdominal cavity through recent laparoscopic port sites from prior cholecystectomy . Extensive abdominal lavage . Extensive abdominal drainage with placement of pigtail catheter under the right lobe of the liver and in pelvis - cont pain mgmt and abx 2. Hx of hernia repair Exam/Review of Systems Vital Signs Vitals Vital Signs Date Time Temp Pulse Resp B/P Pulse Ox O2 Delivery O2 Flow Rate FiO2 04/11/17 19:15 98.0 92 18 112/76 96 04/10/17 16:17 Room Air 04/10/17 15:22 5.0 Intake and Output 04/10/17 04/10/17 04/11/17 15:00 23:00 07:00 Intake Total 1000 ml 920 ml 1850 ml Output Total 3505 ml 390 ml 690 ml Balance -2505 ml 530 ml 1160 ml Exam Constitutional: alert, oriented, well developed Head: atraumatic, normocephalic Respiratory: clear to auscultation, normal air movement Cardiovascular: nl pulses, regular rate and rhythm Gastrointestinal: surgical scars, tender Extremities: normal pulses Results Result Diagram: 04/11/17 0505 04/11/17 0505 Results 24 hrs Laboratory Tests Test 04/11/17 05:05 White Blood Count 14.4 H Red Blood Count 3.60 L Hemoglobin 10.7 L Hematocrit 32.1 L Mean Corpuscular Volume 89.2 Mean Corpuscular Hemoglobin 29.7 Mean Corpuscular Hemoglobin Concent 33.3 Red Cell Distribution Width 13.9 Platelet Count 550 H Mean Platelet Volume 9.0 Neutrophils % 84.1 H Lymphocytes % 5.6 L Monocytes % 5.3 Eosinophils % 1.5 Basophils % 0.2 Nucleated Red Blood Cells % 0.0 Neutrophils # 12.1 H Lymphocytes # 0.8 Monocytes # 0.8 Eosinophils # 0.2 Basophils # 0.0 Nucleated Red Blood Cells # 0.0 Prothrombin Time 18.1 H Prothrombin Time Ratio 1.4 INR International Normalized Ratio 1.49 Activated Partial Thromboplast Time 32.2 Sodium Level 127 L Potassium Level 4.2 Chloride Level 98 Carbon Dioxide Level 24 Anion Gap 9 Blood Urea Nitrogen 4 L Creatinine 0.55 Glucose Level 108 Lactic Acid Level 0.9 Calcium Level 7.3 L Phosphorus Level 2.2 L Magnesium Level 1.8 Total Bilirubin 0.3 Direct Bilirubin 0.00 Indirect Bilirubin 0.3 Aspartate Amino Transf (AST/SGOT) 23 Alanine Aminotransferase (ALT/SGPT) 34 Alkaline Phosphatase 142 H B-Type Natriuretic Peptide 141 H Total Protein 4.5 L Albumin 2.2 L Globulin 2.30 Albumin/Globulin Ratio 0.95 Medications Medications Current Medications Ondansetron HCl (Zofran Inj) 4 mg Q6H PRN IV NAUSEA AND/OR VOMITING Last administered on 04/10/17 20:04; Admin Dose 4 MG; Start 04/06/17 at 00:00 Simethicone (Mylicon) 80 mg TID PRN PO DISTENSION/GAS/BLOATING Last administered on 04/08/17 05:57; Admin Dose 80 MG; Start 04/06/17 at 00:00 Acetaminophen (Tylenol Supp) 650 mg Q4H PRN [place] PAIN AND OR ELEVATED TEMP; Start 04/06/17 at 00:30 Acetaminophen/ Hydrocodone Bitart ([place] (5/325)) 1 tab Q4H PRN PO PAIN LEVEL 4 -6; Start 04/06/17 at 11:00 Acetaminophen/ Hydrocodone Bitart ([place] (5/325)) 2 tab Q4H PRN PO PAIN LEVEL 7 -10 Last administered on 04/11/17 09:44; Admin Dose 2 TAB; Start 04/06/17 at 11 :00 Docusate Sodium (Colace) 100 mg DAILY PRN PO CONSTIPATION; Start 04/08/17 at 14 :30; Stop 04/12/17 at 09:00 Hydromorphone HCl (Dilaudid) 0.5 mg Q2H PRN IV MODERATE PAIN LEVEL 4-6; Start 04/09/17 at 11:30 Hydromorphone HCl 1 mg 1 mg Q2H PRN IV SEVERE PAIN LEVEL 7-10 Last administered on 04/11/17 19:03; Admin Dose 1 MG; Start 04/09/17 at 11:30 Fluconazole (Diflucan 200 Mg/ NS (Pmx)) 100 ml @ 100 mls/hr Q24H IVPB Last administered on 04/11/17 19:03; Admin Dose 100 MLS/HR; Start 04/09/17 at 19:00 Nystatin 1 applic 1 applic BID TOP Last administered on 04/10/17 22:30; Admin Dose 1 APPLIC; Start 04/09/17 at 21:00 Potassium Chloride/Dextrose/ Sod Cl (D5-1/2ns + KCl 20 Meq) 1,000 ml @ 100 mls/ hr Q10H IV Last administered on 04/11/17 11:52; Admin Dose 100 MLS/HR; Start 04/10/17 at 15:19 Docusate Sodium (Colace) 100 mg BID PO ; Start 04/12/17 at 09:00 Bisacodyl (Dulcolax Supp) 10 mg Q12H [place] ; Start 04/12/17 at 12:00 Sodium Biphosphate/ Sodium Phosphate (Fleet Enema) 133 ml Q12H [place] ; Start at 18:00 Famotidine (Pepcid Iv) 20 mg DAILY IV Last administered on 04/11/17 08:29; Admin Dose 20 MG; Start 04/11/17 at 09:00 Enoxaparin Sodium 40 mg 40 mg DAILY SC Last administered on 04/11/17 08:44; Admin Dose 40 MG; Start 04/11/17 at 09:00 Piperacillin Sod/ Tazobactam Sod (Zosyn 3.375gm/ 100 ml (Pmx)) 100 ml @ 25 mls/ hr TID@02,10,18 IVPB Last administered on 04/11/17 19:03; Admin Dose 25 MLS/HR ; Start 04/10/17 at 18:00 Docusate Sodium (Colace) 100 mg BID PRN PO CONSTIPATION; Start 04/12/17 at 09: 00 Bisacodyl (Dulcolax Supp) 10 mg Q12H PRN [place] CONSTIPATION; Start 04/12/17 at 18: 00 Sodium Biphosphate/ Sodium Phosphate (Fleet Enema) 133 ml Q12H PRN [place] CONSTIPATION; Start 04/12/17 at 18:00 CRISTIANO AUGUSTE MD Apr 11, 2017 22:15
[2017-04-11] MEDS: SOD CHLORIDE 0.9% 1,000 ML IV SCH (22:30)
[2017-04-12] MEDS: NYSTATIN 15 GM CR TOP SCH ×2 (02:00→20:48)
[2017-04-12] MEDS: SOD CHLORIDE 0.9% 1,000 ML IV SCH (02:00)
[2017-04-12] MEDS: PIPER-TAZO 3.375 GM IV (PMX) 100 ML IVPB SCH ×3 (02:00→22:20)
[2017-04-12] MEDS: HYDROmorphONE 1 MG/ML SYG IV PRN ×7 (02:28→22:54)
[2017-04-12 06:04] LABS: ADD SCAN DIFF NO
[2017-04-12 06:10] LABS: BASOPHILS % 0.3 % (0.0-2.0); EOSINOPHILS # 0.3 10^3/ul (0.0-0.5); EOSINOPHILS % 3.7 % (0.0-7.0); HEMATOCRIT 30.6 % (37.0-47.0); LYMPHOCYTES % 10.7 % (15.0-51.0); MEAN CORPUSCULAR HEMOGLOBIN 29.3 pg (29.0-33.0); MEAN CORPUSCULAR HGB CONC 32.7 g/dl (32.0-37.0); MEAN CORPUSCULAR VOLUME 89.7 fl (82.0-101.0); MONOCYTE # 0.6 10^3/ul (0.3-0.9); MONOCYTES % 6.3 % (0.0-11.0); NEUTROPHIL # 6.9 10^3/ul (1.6-7.5); NEUTROPHILS % 75.4 % (39.0-77.0); PLATELET COUNT 521 10^3/UL (140-415); RED BLOOD COUNT 3.41 10^6/ul (4.20-5.40); WHITE BLOOD COUNT 9.1 10^3/ul (4.8-10.8)
[2017-04-12] MEDS: D5W-0.45 NACL + KCL 20 MEQ 1,000 ML IV SCH ×2 (06:20→17:59)
[2017-04-12 06:40] LABS: INR 1.13; PROTIME 14.5 Sec (12.2-14.2); PT RATIO 1.1
[2017-04-12 06:41] LABS: PARTIAL THROMBOPLASTIN TIME 29.8 Sec (25.0-35.0)
[2017-04-12 07:06] LABS: ALBUMIN/GLOBULIN RATIO 1.05; BILIRUBIN,INDIRECT 0.3 mg/dl (0-1.1); BILIRUBIN,TOTAL 0.3 mg/dl (0.2-1.3); CALCIUM 7.3 mg/dl (8.4-10.2); CREATININE 0.52 mg/dl (0.44-1.00); MAGNESIUM 1.9 mg/dl (1.7-2.5); PHOSPHORUS 2.4 mg/dl (2.5-4.9); POTASSIUM 4.7 mmol/L (3.5-5.1); TOTAL PROTEIN 3.9 g/dl (6.1-8.1)
[2017-04-12 07:17] VITALS: BP 117/72; RESP 16
[2017-04-12] MEDS ORDERED: DOCUSATE SODIUM 100 MG CAP PO PRN (09:00)
[2017-04-12] MEDS: DOCUSATE SODIUM 100 MG CAP PO SCH ×2 (09:00→09:31)
[2017-04-12] MEDS: FAMOTIDINE 20 MG INJ IV SCH (09:31)
[2017-04-12] MEDS: ENOXAPARIN 40 MG/0.4 ML SYG SC SCH (09:43)
[2017-04-12] MEDS ORDERED: BISACODYL 10 MG SUPP PR SCH (12:00)
--- NOTE | 2017-04-12 13:00 | PN ---
DATE: 04/12/2017 SUBJECTIVE: No acute changes overnight. The patient is awake, complaining of pain at the surgical site. She is in no distress. She has 3 drains, 2 of which are draining a large amount of fluid. S he is afebrile. ANTIBIOTIC: Zosyn. MICROBIOLOGY: Fluid cultures on admission were negative. LABORATORY DATA: WBC went down to 9.1, no shift, no bands. BUN 3, creatinine 0.52. PHYSICAL EXAMINATION: GENERAL: Well-developed, well-nourished, middle-aged woman who is alert, in no distress. HEENT: Head atraumatic, normocephalic. Sclerae anicteric. Buccal mucosa dry. NECK: Supple. CHEST: Rise symmetrical. Breath sounds clear. HEART: S1, S2. ABDOMEN: Soft, bowel sounds present. There are 3 drains on the right. ASSESSMENT 1. Cholelithiasis with acute cholecystitis, status post laparoscopic cholecystectomy on 03/31/2017, complicated by possible bile duct injury as per ERCP. 2. Status post laparoscopic exploration of abdominal cavity with extensive abdominal lavage and ext ensive abdominal drainage with placement of pigtail catheters. 3. Systemic inflammatory response syndrome secondary to above. PLAN: The patient remains stable. We will make sure intraoperative cultures were sent. If not, we will reculture fluid that she has in her TRICIA and abdominal drain. Continue her on current antimicro bials. Follow surgical recommendations. Dictated By: CODY LEYVA ENVIRONMENTAL MANAGEMENT SPECIALIST for [facility] YU/MIKAYLA Conf#: [id number] DID#: [id number]
[2017-04-12] MEDS ORDERED: BISACODYL 10 MG SUPP PR PRN (18:00)
[2017-04-12] MEDS ORDERED: NA PHOSPHATE/BIPHOS 133 ML ENEMA PR SCH (18:00)
[2017-04-12] MEDS ORDERED: NA PHOSPHATE/BIPHOS 133 ML ENEMA PR PRN (18:00)
--- NOTE | 2017-04-12 18:47 | PN ---
Date/Time of Note Date/Time of Note DATE: 04/11/17 TIME: 18:34 Assessment/Plan Lines/Catheters IV Catheter Type (from Nrsg): Peripheral IV Matthew in Place (from Nrsg): Yes Assessment/Plan Assessment/Plan [facility] Progress Note (late entry) Date of Service: 04/11/17 Today's Impression & Plan: Overall stable and improving after lap washout and wide drainage . Biliary leak appears controlled with the surgically placed pigtail catheter. Rest of drains are trending towards serous drainage. Patient should continue to improve over the course of the next few days. With above assessment, I've recommended the following for today: 1. Cont current management 2. Keep inhouse 3. Drain care with strict I's&O's 4. Cont broad spec antimicrobials 5. Advance diet 6. Continue educating patient and family re drain care for outpatient purposes 7. Will likely need home health set up 8. Anticipate discharge perhaps in a few days Thank you again for your great care of this very pleasant patient and wonderful family. If there are any questions, please feel free to call me at [phone]. TOTAL VISIT TIME: 20 minutes of which more than half was spent in [id number] discussion with the patient, possibly including family, as well as coordination of care between multiple physicians and providers. Disclaimer: Inadvertent spelling or grammatical errors are likely due to EHR/ dictation software use and do not reflect on the overall quality of patient care. Updated Clinical Summary: The patient is a very pleasant 37-year-old young lady who was transferred from an outside hospital to [facility] for management of possible bile duct injury. S/p percutaneous CT-guided drain placement above the liver with removal of 1.4 liters of bile in IR suite and more (2 liters) within first 24 hours post procedure. Drain output minimal 04/09/17. S/p lap washout and wide drainage at [facility]. COMORBIDITIES: 1. Cholelithiasis and acute cholecystitis, status post laparoscopic cholecystectomy 03/31/2017 at [facility], complicated by possible bile duct injury, as shown by ERCP that was done after a HIDA scan showed possible bile leak, explaining the patient's continued pain and distention. The ERCP on 04/03/2017 showed clips across the distal common bile duct, without any contrast opacifying the liver. We accepted the patient as a transfer into [facility] bile duct injury program for a higher level of care. The patient arrived on 04/05/2017. 2. S/p percutaneous CT-guided drain placement above the liver with removal of 1.4 liters of bile in IR suite and more immediately post procedure. 3. S/p lap washout and wide drainage at [facility]. Subjective: No major events or complaints; reports feeling better; mild abd pain and seemingly under control with medications; no n/v/d; no sob or cp; - flatus; - BM ; - activity Objective: Vitals: See below Exam: GENERAL: On exam, the patient was laying in bed and appeared to be comfortable and in no acute distress. ABDOMEN: Soft, mildly tender mainly in the mid upper abd and nondistended. Incisions are clean, dry and intact without any evidence of erythema, edema, discharge, or hernia. RUQ perc drain with bilious output. Lower pigtail catheter with bilious output and the most productive of the 4 drains. Pelvic drain (medial surgical drain) trending toward ss. R upper perihaptaic drain ( lateral surgical drain) trending toward ss. There are no peritoneal signs or guarding. SKIN: Skin appears to be pink and feels warm to touch. NEUROLOGIC: Patient is awake, alert, and follows commands appropriately. Exam/Review of Systems Vital Signs Vitals Vital Signs Date Time Temp Pulse Resp B/P Pulse Ox O2 Delivery O2 Flow Rate FiO2 04/12/17 07:17 98.1 85 16 117/72 94 04/10/17 16:17 Room Air 04/10/17 15:22 5.0 Intake and Output 04/11/17 04/11/17 04/12/17 15:00 23:00 07:00 Intake Total 50.2 ml 2120 ml 2075 ml Output Total 1765 ml 1325 ml Balance 50.2 ml 355 ml 750 ml Results Result Diagram: 04/12/17 0431 04/12/17 0431 LENA MONCADA M.D. Apr 12, 2017 18:47
--- NOTE | 2017-04-12 18:55 | PN ---
Date/Time of Note Date/Time of Note DATE: 04/12/17 TIME: 18:47 Assessment/Plan Lines/Catheters IV Catheter Type (from Nrsg): Peripheral IV Matthew in Place (from Nrsg): Yes Assessment/Plan Assessment/Plan [facility] Progress Note Date of Service: 04/12/17 Today's Impression & Plan: Overall stable and improving after lap washout and wide drainage . Biliary leak appears controlled with the surgically placed pigtail catheter. Rest of drains are trending towards serous drainage. Patient should continue to improve over the course of the next few days. No indication for acute surgical intervention. With above assessment, I've recommended the following for today: 1. Cont current management 2. Keep inhouse 3. Drain care with strict I's&O's 4. Cont broad spec antimicrobials 5. Cont advancing diet 6. Continue educating patient and family re drain care for outpatient purposes 7. Will likely need home health set up 8. Anticipate discharge perhaps in a few days Thank you again for your great care of this very pleasant patient and wonderful family. If there are any questions, please feel free to call me at [phone]. TOTAL VISIT TIME: 20 minutes of which more than half was spent in [id number] discussion with the patient, possibly including family, as well as coordination of care between multiple physicians and providers. Disclaimer: Inadvertent spelling or grammatical errors are likely due to EHR/ dictation software use and do not reflect on the overall quality of patient care. Updated Clinical Summary: The patient is a very pleasant 37-year-old young lady who was transferred from an outside hospital to [facility] for management of possible bile duct injury. S/p percutaneous CT-guided drain placement above the liver with removal of 1.4 liters of bile in IR suite and more (2 liters) within first 24 hours post procedure. Drain output minimal 04/09/17. S/p lap washout and wide drainage at [facility]. COMORBIDITIES: 1. Cholelithiasis and acute cholecystitis, status post laparoscopic cholecystectomy 03/31/2017 at [facility], complicated by possible bile duct injury, as shown by ERCP that was done after a HIDA scan showed possible bile leak, explaining the patient's continued pain and distention. The ERCP on 04/03/2017 showed clips across the distal common bile duct, without any contrast opacifying the liver. We accepted the patient as a transfer into [facility] bile duct injury program for a higher level of care. The patient arrived on 04/05/2017. 2. S/p percutaneous CT-guided drain placement above the liver with removal of 1.4 liters of bile in IR suite and more immediately post procedure. 3. S/p lap washout and wide drainage at [facility]. Subjective: No major events or complaints; reports feeling better; mild abd pain and seemingly under control with medications; no n/v/d; no sob or cp; + flatus; + BM ; minimal activity Objective: Vitals: See below Exam: GENERAL: On exam, the patient was laying in bed and appeared to be comfortable and in no acute distress. ABDOMEN: Soft, mildly tender mainly in the mid upper abd and nondistended. Incisions are clean, dry and intact without any evidence of erythema, edema, discharge, or hernia. RUQ perc drain with bilious output. Lower pigtail catheter with bilious output and the most productive of the 4 drains. Pelvic drain (medial surgical drain) trending toward ss. R upper perihaptaic drain ( lateral surgical drain) trending toward ss. There are no peritoneal signs or guarding. SKIN: Skin appears to be pink and feels warm to touch. NEUROLOGIC: Patient is awake, alert, and follows commands appropriately. Exam/Review of Systems Vital Signs Vitals Vital Signs Date Time Temp Pulse Resp B/P Pulse Ox O2 Delivery O2 Flow Rate FiO2 04/12/17 07:17 98.1 85 16 117/72 94 04/10/17 16:17 Room Air 04/10/17 15:22 5.0 Intake and Output 04/11/17 04/11/17 04/12/17 15:00 23:00 07:00 Intake Total 50.2 ml 2120 ml 2075 ml Output Total 1765 ml 1325 ml Balance 50.2 ml 355 ml 750 ml Results Result Diagram: 04/12/17 0431 04/12/17 0431 LENA MONCADA M.D. Apr 12, 2017 18:55
[2017-04-12 19:59] VITALS: BP 110/76; RESP 20
[2017-04-13] MEDS: HYDROmorphONE 1 MG/ML SYG IV PRN ×8 (02:02→22:50)
[2017-04-13] MEDS: PIPER-TAZO 3.375 GM IV (PMX) 100 ML IVPB SCH (05:08)
[2017-04-13 07:29] VITALS: BP 109/73; RESP 18
[2017-04-13] MEDS: FAMOTIDINE 20 MG TAB PO SCH (08:38)
[2017-04-13] MEDS: NYSTATIN 15 GM CR TOP SCH ×3 (08:39→20:28)
[2017-04-13] MEDS: ENOXAPARIN 40 MG/0.4 ML SYG SC SCH (08:40)
--- NOTE | 2017-04-13 10:43 | PN ---
Date/Time of Note Date/Time of Note DATE: 04/13/17 TIME: 10:40 Assessment/Plan Lines/Catheters IV Catheter Type (from Nrs): Saline Lock Matthew in Place (from Nrs): Yes Assessment/Plan Assessment/Plan [facility] Progress Note Date of Service: 04/13/17 Today's Impression & Plan: Overall stable and improving after lap washout and wide drainage . Biliary leak appears controlled with the surgically placed pigtail catheter. Rest of drains are trending towards serous drainage with significantly less volume. Patient should continue to improve over the course of the next few days. No indication for acute surgical intervention. With above assessment, I've recommended the following for today: 1. Cont current management 2. Keep inhouse 3. Drain care with strict I's&O's 4. D/c antimicrobials 5. Cont regular diet 6. Continue educating patient and family re drain care for outpatient purposes 7. Will likely need home health set up 8. Will likely d/c her upper pigtail and the surgical drains tomorrow 9. Will discuss PTC with Dr. Andrade in IR 10. Anticipate discharge perhaps in a few days Thank you again for your great care of this very pleasant patient and wonderful family. If there are any questions, please feel free to call me at [phone]. TOTAL VISIT TIME: 20 minutes of which more than half was spent in [id number] discussion with the patient, possibly including family, as well as coordination of care between multiple physicians and providers. Disclaimer: Inadvertent spelling or grammatical errors are likely due to EHR/ dictation software use and do not reflect on the overall quality of patient care. Updated Clinical Summary: The patient is a very pleasant 37-year-old young lady who was transferred from an outside hospital to [facility] for management of possible bile duct injury. S/p percutaneous CT-guided drain placement above the liver with removal of 1.4 liters of bile in IR suite and more (2 liters) within first 24 hours post procedure. Drain output minimal 04/09/17. S/p lap washout and wide drainage at [facility]. COMORBIDITIES: 1. Cholelithiasis and acute cholecystitis, status post laparoscopic cholecystectomy 03/31/2017 at [facility], complicated by possible bile duct injury, as shown by ERCP that was done after a HIDA scan showed possible bile leak, explaining the patient's continued pain and distention. The ERCP on 04/03/2017 showed clips across the distal common bile duct, without any contrast opacifying the liver. We accepted the patient as a transfer into [facility] bile duct injury program for a higher level of care. The patient arrived on 04/05/2017. 2. S/p percutaneous CT-guided drain placement above the liver with removal of 1.4 liters of bile in IR suite and more immediately post procedure. 3. S/p lap washout and wide drainage at [facility]. Subjective: No major events or complaints; reports feeling better; mild abd pain and seemingly under control with medications; no n/v/d; no sob or cp; + flatus; + BM ; more activity Objective: Vitals: See below Exam: GENERAL: On exam, the patient was laying in bed and appeared to be comfortable and in no acute distress. ABDOMEN: Soft, mildly tender mainly in the mid upper abd and nondistended. Incisions are clean, dry and intact without any evidence of erythema, edema, discharge, or hernia. RUQ perc drain with bilious output. Lower pigtail catheter with bilious output and the most productive of the 4 drains. Pelvic drain (medial surgical drain) trending toward ss. R upper perihepatic drain ( lateral surgical drain) trending toward ss. There are no peritoneal signs or guarding. SKIN: Skin appears to be pink and feels warm to touch. NEUROLOGIC: Patient is awake, alert, and follows commands appropriately. Exam/Review of Systems Vital Signs Vitals Vital Signs Date Time Temp Pulse Resp B/P Pulse Ox O2 Delivery O2 Flow Rate FiO2 04/13/17 07:29 98.2 83 18 109/73 96 04/10/17 16:17 Room Air 04/10/17 15:22 5.0 Intake and Output 04/12/17 04/12/17 04/13/17 15:00 23:00 07:00 Intake Total 220 ml 1640 ml 1500 ml Output Total 2485 ml 2920 ml Balance 220 ml -845 ml -1420 ml Results Result Diagram: 04/12/17 0431 04/12/17 0431 LENA MONCADA M.D. Apr 13, 2017 10:43
--- NOTE | 2017-04-13 13:40 | CONS ---
Date/Time of Note Date/Time of Note DATE: 04/13/17 TIME: 13:39 Assessment/Plan Assessment/Plan Chief Complaint/Hosp Course SUBJECTIVE: No acute changes overnight. The patient is awake, complaining of pain at the surgical site. She is in no distress. She has 3 drains ANTIBIOTIC: Zosyn. MICROBIOLOGY: Fluid cultures on admission were negative. PHYSICAL EXAMINATION: GENERAL: Well-developed, well-nourished, middle-aged woman who is alert, in no distress. HEENT: Head atraumatic, normocephalic. Sclerae anicteric. Buccal mucosa dry. NECK: Supple. CHEST: Rise symmetrical. Breath sounds clear. HEART: S1, S2. ABDOMEN: Soft, bowel sounds present. There are 3 drains on the right. ASSESSMENT 1. Cholelithiasis with acute cholecystitis, status post laparoscopic cholecystectomy on 03/31/2017, complicated by possible bile duct injury as per ERCP. 2. Status post laparoscopic exploration of abdominal cavity with extensive abdominal lavage and extensive abdominal drainage with placement of pigtail catheters. 3. Systemic inflammatory response syndrome secondary to above. PLAN: The patient remains stable. No fevers, as per surgical rec-s will dc abx and observe, repeat cx prn [facility] staff Problems: Consultation Date/Type/Reason Admit Date/Time Apr 05, 2017 at 20:37 Initial Consult Date Type of Consultation: id Exam/Review of Systems Vital Signs Vitals Vital Signs Date Time Temp Pulse Resp B/P Pulse Ox O2 Delivery O2 Flow Rate FiO2 04/13/17 07:29 98.2 83 18 109/73 96 04/10/17 16:17 Room Air 04/10/17 15:22 5.0 Intake and Output 04/12/17 04/12/17 04/13/17 15:00 23:00 07:00 Intake Total 220 ml 1640 ml 1500 ml Output Total 2485 ml 2920 ml Balance 220 ml -845 ml -1420 ml Results Result Diagram: 04/12/17 0431 04/12/17 0431 Medications Medications Current Medications Ondansetron HCl (Zofran Inj) 4 mg Q6H PRN IV NAUSEA AND/OR VOMITING Last administered on 04/10/17t 20:04; Admin Dose 4 MG; Start 04/06/17 at 00:00 Simethicone (Mylicon) 80 mg TID PRN PO DISTENSION/GAS/BLOATING Last administered on 04/08/17 05:57; Admin Dose 80 MG; Start 04/06/17 at 00:00 Acetaminophen (Tylenol Supp) 650 mg Q4H PRN [place] PAIN AND OR ELEVATED TEMP; Start 04/06/17 at 00:30 Acetaminophen/ Hydrocodone Bitart ([place] (5/325)) 1 tab Q4H PRN PO PAIN LEVEL 4 -6; Start 04/06/17 at 11:00 Acetaminophen/ Hydrocodone Bitart ([place] (5/325)) 2 tab Q4H PRN PO PAIN LEVEL 7 -10 Last administered on 04/11/17 09:44; Admin Dose 2 TAB; Start 04/06/17 at 11 :00 Hydromorphone HCl (Dilaudid) 0.5 mg Q2H PRN IV MODERATE PAIN LEVEL 4-6 Last administered on 04/13/17 12:15; Admin Dose 0.5 MG; Start 04/09/17 at 11:30 Hydromorphone HCl (Dilaudid) 1 mg Q2H PRN IV SEVERE PAIN LEVEL 7-10 Last administered on 04/13/17 05:05; Admin Dose 1 MG; Start 04/09/17 at 11:30 Nystatin (Nystatin Cr) 1 applic BID TOP Last administered on 04/13/17 08:39; Admin Dose 1 APPLIC; Start 04/09/17 at 21:00 Enoxaparin Sodium (Lovenox) 40 mg DAILY SC Last administered on 04/13/17 08:40 ; Admin Dose 40 MG; Start 04/11/17 at 09:00 Docusate Sodium (Colace) 100 mg BID PRN PO CONSTIPATION; Start 04/12/17 at 09: 00 Bisacodyl (Dulcolax Supp) 10 mg Q12H PRN [place] CONSTIPATION; Start 04/12/17 at 18: 00 Sodium Biphosphate/ Sodium Phosphate (Fleet Enema) 133 ml Q12H PRN [place] CONSTIPATION; Start 04/12/17 at 18:00 Famotidine (Pepcid) 20 mg DAILY PO Last administered on 04/13/17 08:38; Admin Dose 20 MG; Start 04/13/17 at 09:00 CODY LEYVA NP Apr 13, 2017 13:40
[2017-04-13 20:53] VITALS: BP 119/77; RESP 20
--- NOTE | 2017-04-13 23:52 | PN ---
Date/Time of Note Date/Time of Note DATE: 04/13/17 TIME: 23:52 Assessment/Plan VTE Prophylaxis VTE Prophylaxis Intervention: SCD's Lines/Catheters IV Catheter Type (from Nrsg): Saline Lock Urinary Cath still in place: Yes Assessment/Plan Assessment/Plan 1. Bile Leak: s/p recent lap choley at outside hosp - now s/p following procedure today . Laparoscopic exploration of the abdominal cavity through recent laparoscopic port sites from prior cholecystectomy . Extensive abdominal lavage . Extensive abdominal drainage with placement of pigtail catheter under the right lobe of the liver and in pelvis - cont pain mgmt and abx 2. Hx of hernia repair Subjective 24 Hr Interval Summary Free Text/Dictation c/o abd pain Exam/Review of Systems Vital Signs Vitals Vital Signs Date Time Temp Pulse Resp B/P Pulse Ox O2 Delivery O2 Flow Rate FiO2 04/13/17 20:53 98.9 97 20 119/77 95 04/10/17 16:17 Room Air 04/10/17 15:22 5.0 Intake and Output 04/12/17 04/12/17 04/13/17 15:00 23:00 07:00 Intake Total 220 ml 1640 ml 1500 ml Output Total 2485 ml 2920 ml Balance 220 ml -845 ml -1420 ml Results Result Diagram: 04/12/17 0431 04/12/17 0431 Medications Medications Current Medications Ondansetron HCl (Zofran Inj) 4 mg Q6H PRN IV NAUSEA AND/OR VOMITING Last administered on 04/10/17 20:04; Admin Dose 4 MG; Start 04/06/17 at 00:00 Simethicone (Mylicon) 80 mg TID PRN PO DISTENSION/GAS/BLOATING Last administered on 04/08/17 05:57; Admin Dose 80 MG; Start 04/06/17 at 00:00 Acetaminophen (Tylenol Supp) 650 mg Q4H PRN [place] PAIN AND OR ELEVATED TEMP; Start 04/06/17 at 00:30 Acetaminophen/ Hydrocodone Bitart ([place] (5/325)) 1 tab Q4H PRN PO PAIN LEVEL 4 -6; Start 04/06/17 at 11:00 Acetaminophen/ Hydrocodone Bitart ([place] (5/325)) 2 tab Q4H PRN PO PAIN LEVEL 7 -10 Last administered on 04/11/17 09:44; Admin Dose 2 TAB; Start 04/06/17 at 11 :00 Hydromorphone HCl (Dilaudid) 0.5 mg Q2H PRN IV MODERATE PAIN LEVEL 4-6 Last administered on 04/13/17 12:15; Admin Dose 0.5 MG; Start 04/09/17 at 11:30 Hydromorphone HCl (Dilaudid) 1 mg Q2H PRN IV SEVERE PAIN LEVEL 7-10 Last administered on 04/13/17 22:50; Admin Dose 1 MG; Start 04/09/17 at 11:30 Nystatin (Nystatin Cr) 1 applic BID TOP Last administered on 04/12/17 20:48; Admin Dose 1 APPLIC; Start 04/09/17 at 21:00 Enoxaparin Sodium (Lovenox) 40 mg DAILY SC Last administered on 04/13/17 08:40 ; Admin Dose 40 MG; Start 04/11/17 at 09:00 Docusate Sodium (Colace) 100 mg BID PRN PO CONSTIPATION; Start 04/12/17 at 09: 00 Bisacodyl (Dulcolax Supp) 10 mg Q12H PRN [place] CONSTIPATION; Start 04/12/17 at 18: 00 Sodium Biphosphate/ Sodium Phosphate (Fleet Enema) 133 ml Q12H PRN [place] CONSTIPATION; Start 04/12/17 at 18:00 Famotidine (Pepcid) 20 mg DAILY PO Last administered on 04/13/17 08:38; Admin Dose 20 MG; Start 04/13/17 at 09:00 CRISTIANO AUGUSTE MD Apr 13, 2017 23:52
--- NOTE | 2017-04-13 23:53 | PN ---
Date/Time of Note Date/Time of Note DATE: 04/13/17 TIME: 23:52 Assessment/Plan VTE Prophylaxis VTE Prophylaxis Intervention: SCD's Lines/Catheters IV Catheter Type (from Nrs): Saline Lock Urinary Cath still in place: Yes Assessment/Plan Assessment/Plan 1. Bile Leak: s/p recent lap choley at outside hosp - now s/p following procedure today . Laparoscopic exploration of the abdominal cavity through recent laparoscopic port sites from prior cholecystectomy . Extensive abdominal lavage . Extensive abdominal drainage with placement of pigtail catheter under the right lobe of the liver and in pelvis - cont pain mgmt and abx 2. Hx of hernia repair 3. Hyponatremia: will give 250cc NS Subjective 24 Hr Interval Summary Free Text/Dictation c/o intermittent abd pain Exam/Review of Systems Vital Signs Vitals Vital Signs Date Time Temp Pulse Resp B/P Pulse Ox O2 Delivery O2 Flow Rate FiO2 04/13/17 20:53 98.9 97 20 119/77 95 04/10/17 16:17 Room Air 04/10/17 15:22 5.0 Intake and Output 04/12/17 04/12/17 04/13/17 15:00 23:00 07:00 Intake Total 220 ml 1640 ml 1500 ml Output Total 2485 ml 2920 ml Balance 220 ml -845 ml -1420 ml Exam Constitutional: alert, oriented, well developed Head: atraumatic, normocephalic Respiratory: clear to auscultation, normal air movement Cardiovascular: nl pulses, regular rate and rhythm Gastrointestinal: surgical scars, tender Extremities: normal pulses Results Result Diagram: 04/12/1743004/12/17 0431 Medications Medications Current Medications Ondansetron HCl (Zofran Inj) 4 mg Q6H PRN IV NAUSEA AND/OR VOMITING Last administered on 04/10/17 20:04; Admin Dose 4 MG; Start 04/06/17 at 00:00 Simethicone (Mylicon) 80 mg TID PRN PO DISTENSION/GAS/BLOATING Last administered on 04/08/17 05:57; Admin Dose 80 MG; Start 04/06/17 at 00:00 Acetaminophen (Tylenol Supp) 650 mg Q4H PRN [place] PAIN AND OR ELEVATED TEMP; Start 04/06/17 at 00:30 Acetaminophen/ Hydrocodone Bitart ([place] (5/325)) 1 tab Q4H PRN PO PAIN LEVEL 4 -6; Start 04/06/17 at 11:00 Acetaminophen/ Hydrocodone Bitart ([place] (5/325)) 2 tab Q4H PRN PO PAIN LEVEL 7 -10 Last administered on 04/11/17 09:44; Admin Dose 2 TAB; Start 04/06/17 at 11 :00 Hydromorphone HCl (Dilaudid) 0.5 mg Q2H PRN IV MODERATE PAIN LEVEL 4-6 Last administered on 04/13/17 12:15; Admin Dose 0.5 MG; Start 04/09/17 at 11:30 Hydromorphone HCl (Dilaudid) 1 mg Q2H PRN IV SEVERE PAIN LEVEL 7-10 Last administered on 04/13/17 22:50; Admin Dose 1 MG; Start 04/09/17 at 11:30 Nystatin (Nystatin Cr) 1 applic BID TOP Last administered on 04/12/17 20:48; Admin Dose 1 APPLIC; Start 04/09/17 at 21:00 Enoxaparin Sodium (Lovenox) 40 mg DAILY SC Last administered on 04/13/17 08:40 ; Admin Dose 40 MG; Start 04/11/17 at 09:00 Docusate Sodium (Colace) 100 mg BID PRN PO CONSTIPATION; Start 04/12/17 at 09: 00 Bisacodyl (Dulcolax Supp) 10 mg Q12H PRN [place] CONSTIPATION; Start 04/12/17 at 18: 00 Sodium Biphosphate/ Sodium Phosphate (Fleet Enema) 133 ml Q12H PRN [place] CONSTIPATION; Start 04/12/17 at 18:00 Famotidine (Pepcid) 20 mg DAILY PO Last administered on 04/13/17 08:38; Admin Dose 20 MG; Start 04/13/17 at 09:00 CRISTIANO AUGUSTE MD Apr 13, 2017 23:53
[2017-04-14] MEDS: HYDROmorphONE 1 MG/ML SYG IV PRN ×7 (01:22→17:01)
[2017-04-14 05:50] LABS: ADD SCAN DIFF NO
[2017-04-14 06:14] LABS: BASOPHILS % 0.4 % (0.0-2.0); EOSINOPHILS # 0.4 10^3/ul (0.0-0.5); EOSINOPHILS % 3.7 % (0.0-7.0); HEMOGLOBIN 11.3 g/dl (12.0-16.0); LYMPHOCYTES # 1.6 10^3/ul (0.8-2.9); LYMPHOCYTES % 16.1 % (15.0-51.0); MEAN CORPUSCULAR HEMOGLOBIN 29.5 pg (29.0-33.0); MEAN CORPUSCULAR HGB CONC 32.3 g/dl (32.0-37.0); MEAN CORPUSCULAR VOLUME 91.4 fl (82.0-101.0); MEAN PLATELET VOLUME 8.9 fl (7.4-10.4); MONOCYTE # 0.8 10^3/ul (0.3-0.9); MONOCYTES % 7.9 % (0.0-11.0); NEUTROPHIL # 6.6 10^3/ul (1.6-7.5); NEUTROPHILS % 68.1 % (39.0-77.0); NUCLEATED RED BLOOD CELLS% 0.2 /100WBC (0.0-0.0); RED BLOOD COUNT 3.83 10^6/ul (4.20-5.40); RED CELL DISTRIBUTION WIDTH 14.3 % (11.5-14.5); WHITE BLOOD COUNT 9.6 10^3/ul (4.8-10.8)
[2017-04-14 06:15] LABS: INR 1.1; PROTIME 14.2 Sec (12.2-14.2); PT RATIO 1.1
[2017-04-14 06:16] LABS: PARTIAL THROMBOPLASTIN TIME 30.5 Sec (25.0-35.0)
[2017-04-14 06:46] LABS: ALBUMIN/GLOBULIN RATIO 1.07; BILIRUBIN,INDIRECT 0.3 mg/dl (0-1.1); BILIRUBIN,TOTAL 0.3 mg/dl (0.2-1.3); CALCIUM 8.3 mg/dl (8.4-10.2); CREATININE 0.6 mg/dl (0.44-1.00); MAGNESIUM 2.2 mg/dl (1.7-2.5); PHOSPHORUS 3.8 mg/dl (2.5-4.9); POTASSIUM 4.8 mmol/L (3.5-5.1); TOTAL PROTEIN 5.8 g/dl (6.1-8.1)
[2017-04-14 06:58] LABS: PLATELET COUNT 645 10^3/UL (140-415)
[2017-04-14 07:31] VITALS: BP 109/73; RESP 18
[2017-04-14] MEDS: NYSTATIN 15 GM CR TOP SCH ×2 (08:53→21:06)
[2017-04-14] MEDS: FAMOTIDINE 20 MG TAB PO SCH (08:53)
[2017-04-14] MEDS: ENOXAPARIN 40 MG/0.4 ML SYG SC SCH (09:08)
--- NOTE | 2017-04-14 12:55 | CONS ---
Date/Time of Note Date/Time of Note DATE: 04/14/17 TIME: 12:54 Assessment/Plan Assessment/Plan Chief Complaint/Hosp Course SUBJECTIVE: No acute changes overnight. The patient is awake, in no distress, feels good. MICROBIOLOGY: Fluid cultures on admission were negative. PHYSICAL EXAMINATION: GENERAL: Well-developed, well-nourished, middle-aged woman who is alert, in no distress. HEENT: Head atraumatic, normocephalic. Sclerae anicteric. Buccal mucosa dry. NECK: Supple. CHEST: Rise symmetrical. Breath sounds clear. HEART: S1, S2. ABDOMEN: Soft, bowel sounds present. There are 3 drains on the right. ASSESSMENT 1. Cholelithiasis with acute cholecystitis, status post laparoscopic cholecystectomy on 03/31/2017, complicated by possible bile duct injury as per ERCP. 2. Status post laparoscopic exploration of abdominal cavity with extensive abdominal lavage and extensive abdominal drainage with placement of pigtail catheters. 3. Systemic inflammatory response syndrome secondary to above. PLAN: The patient remains stable. Off abx, will f/u surgical rec-s , repeat cx prn [facility] staff Problems: Consultation Date/Type/Reason Admit Date/Time Apr 05, 2017 at 20:37 Type of Consultation: id Exam/Review of Systems Vital Signs Vitals Vital Signs Date Time Temp Pulse Resp B/P Pulse Ox O2 Delivery O2 Flow Rate FiO2 04/14/17 07:31 97.8 85 18 109/73 94 04/10/17 16:17 Room Air 04/10/17 15:22 5.0 Intake and Output 04/13/17 04/13/17 04/14/17 15:00 23:00 07:00 Intake Total 1350 ml Output Total 350 ml 2710 ml Balance -350 ml -1360 ml Results Result Diagram: 04/14/17 0425 04/14/17 0425 Results 24 hrs Laboratory Tests Test 04/14/17 04:20 04/14/17 04:25 Lactic Acid Level 1.3 White Blood Count 9.6 Red Blood Count 3.83 L Hemoglobin 11.3 L Hematocrit 35.0 L Mean Corpuscular Volume 91.4 Mean Corpuscular Hemoglobin 29.5 Mean Corpuscular Hemoglobin Concent 32.3 Red Cell Distribution Width 14.3 Platelet Count 645 #H Mean Platelet Volume 8.9 Neutrophils % 68.1 Lymphocytes % 16.1 Monocytes % 7.9 Eosinophils % 3.7 Basophils % 0.4 Nucleated Red Blood Cells % 0.2 H Neutrophils # 6.6 Lymphocytes # 1.6 Monocytes # 0.8 Eosinophils # 0.4 Basophils # 0.0 Nucleated Red Blood Cells # 0.0 Prothrombin Time 14.2 Prothrombin Time Ratio 1.1 INR International Normalized Ratio 1.10 Activated Partial Thromboplast Time 30.5 Sodium Level 135 Potassium Level 4.8 Chloride Level 102 Carbon Dioxide Level 26 Anion Gap 12 Blood Urea Nitrogen 4 L Creatinine 0.60 Glucose Level 99 Calcium Level 8.3 L Phosphorus Level 3.8 Magnesium Level 2.2 Total Bilirubin 0.3 Direct Bilirubin 0.00 Indirect Bilirubin 0.3 Aspartate Amino Transf (AST/SGOT) 30 Alanine Aminotransferase (ALT/SGPT) 37 Alkaline Phosphatase 187 H B-Type Natriuretic Peptide 251 H Total Protein 5.8 #L Albumin 3.0 #L Globulin 2.80 Albumin/Globulin Ratio 1.07 Medications Medications Current Medications Ondansetron HCl (Zofran Inj) 4 mg Q6H PRN IV NAUSEA AND/OR VOMITING Last administered on 04/10/17 20:04; Admin Dose 4 MG; Start 04/06/17 at 00:00 Simethicone (Mylicon) 80 mg TID PRN PO DISTENSION/GAS/BLOATING Last administered on 04/08/17 05:57; Admin Dose 80 MG; Start 04/06/17 at 00:00 Acetaminophen (Tylenol Supp) 650 mg Q4H PRN [place] PAIN AND OR ELEVATED TEMP; Start 04/06/17 at 00:30 Acetaminophen/ Hydrocodone Bitart ([place] (5/325)) 1 tab Q4H PRN PO PAIN LEVEL 4 -6; Start 04/06/17 at 11:00 Acetaminophen/ Hydrocodone Bitart ([place] (5/325)) 2 tab Q4H PRN PO PAIN LEVEL 7 -10 Last administered on 04/11/17 09:44; Admin Dose 2 TAB; Start 04/06/17 at 11 :00 Hydromorphone HCl (Dilaudid) 0.5 mg Q2H PRN IV MODERATE PAIN LEVEL 4-6 Last administered on 04/13/17 12:15; Admin Dose 0.5 MG; Start 04/09/17 at 11:30 Hydromorphone HCl (Dilaudid) 1 mg Q2H PRN IV SEVERE PAIN LEVEL 7-10 Last administered on 04/14/17 11:36; Admin Dose 1 MG; Start 04/09/17 at 11:30 Nystatin (Nystatin Cr) 1 applic BID TOP Last administered on 04/14/17 08:53; Admin Dose 1 APPLIC; Start 04/09/17 at 21:00 Enoxaparin Sodium (Lovenox) 40 mg DAILY SC Last administered on 04/14/17 09:08 ; Admin Dose 40 MG; Start 04/11/17 at 09:00 Docusate Sodium (Colace) 100 mg BID PRN PO CONSTIPATION; Start 04/12/17 at 09: 00 Bisacodyl (Dulcolax Supp) 10 mg Q12H PRN [place] CONSTIPATION; Start 04/12/17 at 18: 00 Sodium Biphosphate/ Sodium Phosphate (Fleet Enema) 133 ml Q12H PRN [place] CONSTIPATION; Start 04/12/17 at 18:00 Famotidine (Pepcid) 20 mg DAILY PO Last administered on 04/14/17 08:53; Admin Dose 20 MG; Start 04/13/17 at 09:00 CODY LEYVA NP Apr 14, 2017 12:55
--- NOTE | 2017-04-14 16:21 | PN ---
Date/Time of Note Date/Time of Note DATE: 04/14/17 TIME: 16:18 Assessment/Plan Lines/Catheters IV Catheter Type (from Nrs): Saline Lock Matthew in Place (from Nrs): Yes Assessment/Plan Assessment/Plan [facility] Progress Note Date of Service: 04/14/17 Today's Impression & Plan: Overall stable and improving after lap washout and wide drainage . Biliary leak appears controlled with the surgically placed pigtail catheter. Rest of drains became serous drainage with significantly less volume and I d/c' d the upper pigtail catheter and the 2 surgical drains today. Patient should continue to improve over the course of the next few days. No indication for acute surgical intervention. Hoping to d/c home in 24-48 hours With above assessment, I've recommended the following for today: 1. Cont current management 2. Keep inhouse 3. Drain care with strict I's&O's 4. Home health set up 5. Cont regular diet 6. Continue educating patient and family re drain care for outpatient purposes 7. Anticipate discharge hopefully in 24-48 hrs Thank you again for your great care of this very pleasant patient and wonderful family. If there are any questions, please feel free to call me at [phone]. TOTAL VISIT TIME: 20 minutes of which more than half was spent in [id number] discussion with the patient, possibly including family, as well as coordination of care between multiple physicians and providers. Disclaimer: Inadvertent spelling or grammatical errors are likely due to EHR/ dictation software use and do not reflect on the overall quality of patient care. Updated Clinical Summary: The patient is a very pleasant 37-year-old young lady who was transferred from an outside hospital to [facility] for management of possible bile duct injury. S/p percutaneous CT-guided drain placement above the liver with removal of 1.4 liters of bile in IR suite and more (2 liters) within first 24 hours post procedure. Drain output minimal 04/09/17. S/p lap washout and wide drainage at [facility]. The upper pigtail catheter and the 2 surgical drains d/c 'd on 04/14/17. COMORBIDITIES: 1. Cholelithiasis and acute cholecystitis, status post laparoscopic cholecystectomy 03/31/[address] [facility], complicated by possible bile duct injury, as shown by ERCP that was done after a HIDA scan showed possible bile leak, explaining the patient's continued pain and distention. The ERCP on 04/03/2017 showed clips across the distal common bile duct, without any contrast opacifying the liver. We accepted the patient as a transfer into [facility] bile duct injury program for a higher level of care. The patient arrived on 04/05/2017. 2. S/p percutaneous CT-guided drain placement above the liver with removal of 1.4 liters of bile in IR suite and more immediately post procedure. 3. S/p lap washout and wide drainage at [facility]. Subjective: No major events or complaints; reports feeling ok; mild abd pain and seemingly under control with medications; no n/v/d; no sob or cp; + flatus; + BM; more activity Objective: Vitals: See below Exam: GENERAL: On exam, the patient was laying in bed and appeared to be comfortable and in no acute distress. ABDOMEN: Soft, mildly tender mainly in the mid upper abd and nondistended. Incisions are clean, dry and intact without any evidence of erythema, edema, discharge, or hernia. RUQ perc drain with bilious output. Lower pigtail catheter with bilious output and the most productive of the 4 drains. Pelvic drain (medial surgical drain) trending toward ss. R upper perihepatic drain ( lateral surgical drain) trending toward ss. There are no peritoneal signs or guarding. SKIN: Skin appears to be pink and feels warm to touch. NEUROLOGIC: Patient is awake, alert, and follows commands appropriately. Exam/Review of Systems Vital Signs Vitals Vital Signs Date Time Temp Pulse Resp B/P Pulse Ox O2 Delivery O2 Flow Rate FiO2 04/14/17 07:31 97.8 85 18 109/73 94 04/10/17 16:17 Room Air 04/10/17 15:22 5.0 Intake and Output 04/13/17 04/13/17 04/14/17 15:00 23:00 07:00 Intake Total 1350 ml Output Total 350 ml 2710 ml Balance -350 ml -1360 ml Results Result Diagram: 04/14/17 0425 04/14/17 0425 LENA MONCADA M.D. Apr 14, 2017 16:21
[2017-04-14] MEDS: HYDROCODONE/APAP (5/325) TAB PO PRN (19:26)
[2017-04-14 20:02] VITALS: BP 114/57; PULSE 85; RESP 18
[2017-04-14] MEDS: morphine 4 MG/ML VIAL IV PRN (21:06)
[2017-04-14 21:59] VITALS: BP 111/75; RESP 20
--- NOTE | 2017-04-14 23:52 | PN ---
Date/Time of Note Date/Time of Note DATE: 04/14/17 TIME: 23:52 Assessment/Plan VTE Prophylaxis VTE Prophylaxis Intervention: SCD's Lines/Catheters IV Catheter Type (from Nrs): Saline Lock Urinary Cath still in place: Yes Reason Cath still needed: terminal illness/intractable pain Assessment/Plan Assessment/Plan 1. Bile Leak: s/p recent lap choley at outside hosp - now s/p following procedure today . Laparoscopic exploration of the abdominal cavity through recent laparoscopic port sites from prior cholecystectomy . Extensive abdominal lavage . Extensive abdominal drainage with placement of pigtail catheter under the right lobe of the liver and in pelvis - cont pain mgmt and abx 2. Hx of hernia repair 3. Hyponatremia: resolved Subjective 24 Hr Interval Summary Free Text/Dictation pt feeling well. she did however c/o continued abd pain Exam/Review of Systems Vital Signs Vitals Vital Signs Date Time Temp Pulse Resp B/P Pulse Ox O2 Delivery O2 Flow Rate FiO2 04/14/17 21:59 98.6 91 20 111/75 96 04/10/17 16:17 Room Air 04/10/17 15:22 5.0 Intake and Output 04/13/17 04/13/17 04/14/17 15:00 23:00 07:00 Intake Total 1350 ml Output Total 350 ml 2710 ml Balance -350 ml -1360 ml Exam Constitutional: alert, oriented, well developed Head: atraumatic, normocephalic Respiratory: clear to auscultation, normal air movement Cardiovascular: nl pulses, regular rate and rhythm Gastrointestinal: surgical scars, tender, draining tubes in place Extremities: normal pulses Results Result Diagram: 04/14/17 0425 04/14/17 0425 Results 24 hrs Laboratory Tests Test 04/14/17 04:20 04/14/17 04:25 Lactic Acid Level 1.3 White Blood Count 9.6 Red Blood Count 3.83 L Hemoglobin 11.3 L Hematocrit 35.0 L Mean Corpuscular Volume 91.4 Mean Corpuscular Hemoglobin 29.5 Mean Corpuscular Hemoglobin Concent 32.3 Red Cell Distribution Width 14.3 Platelet Count 645 #H Mean Platelet Volume 8.9 Neutrophils % 68.1 Lymphocytes % 16.1 Monocytes % 7.9 Eosinophils % 3.7 Basophils % 0.4 Nucleated Red Blood Cells % 0.2 H Neutrophils # 6.6 Lymphocytes # 1.6 Monocytes # 0.8 Eosinophils # 0.4 Basophils # 0.0 Nucleated Red Blood Cells # 0.0 Prothrombin Time 14.2 Prothrombin Time Ratio 1.1 INR International Normalized Ratio 1.10 Activated Partial Thromboplast Time 30.5 Sodium Level 135 Potassium Level 4.8 Chloride Level 102 Carbon Dioxide Level 26 Anion Gap 12 Blood Urea Nitrogen 4 L Creatinine 0.60 Glucose Level 99 Calcium Level 8.3 L Phosphorus Level 3.8 Magnesium Level 2.2 Total Bilirubin 0.3 Direct Bilirubin 0.00 Indirect Bilirubin 0.3 Aspartate Amino Transf (AST/SGOT) 30 Alanine Aminotransferase (ALT/SGPT) 37 Alkaline Phosphatase 187 H B-Type Natriuretic Peptide 251 H Total Protein 5.8 #L Albumin 3.0 #L Globulin 2.80 Albumin/Globulin Ratio 1.07 Medications Medications Current Medications Ondansetron HCl (Zofran Inj) 4 mg Q6H PRN IV NAUSEA AND/OR VOMITING Last administered on 04/10/17 20:04; Admin Dose 4 MG; Start 04/06/17 at 00:00 Simethicone (Mylicon) 80 mg TID PRN PO DISTENSION/GAS/BLOATING Last administered on 04/08/17 05:57; Admin Dose 80 MG; Start 04/06/17 at 00:00 Acetaminophen (Tylenol Supp) 650 mg Q4H PRN [place] PAIN AND OR ELEVATED TEMP; Start 04/06/17 at 00:30 Acetaminophen/ Hydrocodone Bitart ([place] (5/325)) 1 tab Q4H PRN PO PAIN LEVEL 4 -6; Start 04/06/17 at 11:00 Acetaminophen/ Hydrocodone Bitart ([place] (5/325)) 2 tab Q4H PRN PO PAIN LEVEL 7 -10 Last administered on 04/14/17 19:26; Admin Dose 2 TAB; Start 04/06/17 at 11 :00 Nystatin (Nystatin Cr) 1 applic BID TOP Last administered on 04/14/17 21:06; Admin Dose 1 APPLIC; Start 04/09/17 at 21:00 Enoxaparin Sodium (Lovenox) 40 mg DAILY SC Last administered on 04/14/17 09:08 ; Admin Dose 40 MG; Start 04/11/17 at 09:00 Docusate Sodium (Colace) 100 mg BID PRN PO CONSTIPATION; Start 04/12/17 at 09: 00 Bisacodyl (Dulcolax Supp) 10 mg Q12H PRN [place] CONSTIPATION; Start 04/12/17 at 18: 00 Sodium Biphosphate/ Sodium Phosphate (Fleet Enema) 133 ml Q12H PRN [place] CONSTIPATION; Start 04/12/17 at 18:00 Famotidine (Pepcid) 20 mg DAILY PO Last administered on 04/14/17 08:53; Admin Dose 20 MG; Start 04/13/17 at 09:00 Morphine Sulfate (morphine) 4 mg Q3H PRN IV BREAKTHROUGH PAIN Last administered on 04/14/17 21:06; Admin Dose 4 MG; Start 04/14/17 at 21:00 CRISTIANO AUGUSTE MD Apr 14, 2017 23:52
[2017-04-15 00:02] VITALS: BP 108/60; PULSE 72; RESP 18
[2017-04-15] MEDS: HYDROCODONE/APAP (5/325) TAB PO PRN ×5 (01:22→21:15)
[2017-04-15 01:55] VITALS: BP 103/70; RESP 20
[2017-04-15 04:00] VITALS: BP 105/62; PULSE 70; RESP 18
[2017-04-15] MEDS: morphine 4 MG/ML VIAL IV PRN ×2 (07:33→11:12)
[2017-04-15 08:16] VITALS: BP 107/70; RESP 17
[2017-04-15] MEDS: NYSTATIN 15 GM CR TOP SCH ×2 (09:14→21:15)
[2017-04-15] MEDS: FAMOTIDINE 20 MG TAB PO SCH (09:14)
[2017-04-15] MEDS: ENOXAPARIN 40 MG/0.4 ML SYG SC SCH (09:15)
[2017-04-15 09:20] LABS: ADD SCAN DIFF NO
[2017-04-15 09:22] LABS: BASOPHILS % 0.4 % (0.0-2.0); EOSINOPHILS # 0.4 10^3/ul (0.0-0.5); EOSINOPHILS % 3.9 % (0.0-7.0); HEMATOCRIT 37.4 % (37.0-47.0); HEMOGLOBIN 11.8 g/dl (12.0-16.0); LYMPHOCYTES # 1.4 10^3/ul (0.8-2.9); LYMPHOCYTES % 14.1 % (15.0-51.0); MEAN CORPUSCULAR HEMOGLOBIN 29.1 pg (29.0-33.0); MEAN CORPUSCULAR HGB CONC 31.6 g/dl (32.0-37.0); MEAN CORPUSCULAR VOLUME 92.1 fl (82.0-101.0); MEAN PLATELET VOLUME 8.5 fl (7.4-10.4); MONOCYTE # 0.6 10^3/ul (0.3-0.9); MONOCYTES % 6.4 % (0.0-11.0); NEUTROPHIL # 7.2 10^3/ul (1.6-7.5); NEUTROPHILS % 72.5 % (39.0-77.0); PLATELET COUNT 619 10^3/UL (140-415); RED BLOOD COUNT 4.06 10^6/ul (4.20-5.40); RED CELL DISTRIBUTION WIDTH 14.6 % (11.5-14.5)
[2017-04-15 09:41] LABS: ALBUMIN 3.6 g/dl (3.3-4.9); ALBUMIN/GLOBULIN RATIO 1.16; BILIRUBIN,INDIRECT 0.3 mg/dl (0-1.1); BILIRUBIN,TOTAL 0.3 mg/dl (0.2-1.3); CALCIUM 8.7 mg/dl (8.4-10.2); CREATININE 0.63 mg/dl (0.44-1.00); POTASSIUM 4.5 mmol/L (3.5-5.1); TOTAL PROTEIN 6.7 g/dl (6.1-8.1)
[2017-04-15 10:07] LABS: IRON 35 ug/dl (35-150)
[2017-04-15 10:17] LABS: TOTAL IRON BINDING CAPACITY 265 ug/dl (241-421)
--- NOTE | 2017-04-15 14:17 | PN ---
Date/Time of Note Date/Time of Note DATE: 04/15/17 TIME: 14:12 Assessment/Plan Lines/Catheters IV Catheter Type (from Nrs): Saline Lock Matthew in Place (from Nrs): No Assessment/Plan Assessment/Plan [facility] Progress Note Date of Service: 04/15/17 Today's Impression & Plan: Overall stable and continuing to improve. No indication for acute surgical intervention. Hoping to d/c home in 24 hours. Discussed issues at length with patient and her parents. Answered all questions. With above assessment, I've recommended the following for today: 1. Cont current management 2. Keep inhouse 3. Drain care with strict I's&O's 4. Home health set up 5. Cont regular diet 6. Continue educating patient and family re drain care for outpatient purposes 7. Set up for discharge home tomorrow am Thank you again for your great care of this very pleasant patient and wonderful family. If there are any questions, please feel free to call me at [phone]. TOTAL VISIT TIME: 20 minutes of which more than half was spent in [id number] discussion with the patient, possibly including family, as well as coordination of care between multiple physicians and providers. Disclaimer: Inadvertent spelling or grammatical errors are likely due to EHR/ dictation software use and do not reflect on the overall quality of patient care. Updated Clinical Summary: The patient is a very pleasant 37-year-old young lady who was transferred from an outside hospital to [facility] for management of possible bile duct injury. S/p percutaneous CT-guided drain placement above the liver with removal of 1.4 liters of bile in IR suite and more (2 liters) within first 24 hours post procedure. Drain output minimal 04/09/17. S/p lap washout and wide drainage at [facility]. The upper pigtail catheter and the 2 surgical drains d/c 'd on 04/14/17. Urinary retention issues requiring straight cath and Matthew insertion appeared resolved by 04/15/17. COMORBIDITIES: 1. Cholelithiasis and acute cholecystitis, status post laparoscopic cholecystectomy 03/31/2017 at [facility], complicated by possible bile duct injury, as shown by ERCP that was done after a HIDA scan showed possible bile leak, explaining the patient's continued pain and distention. The ERCP on 04/03/2017 showed clips across the distal common bile duct, without any contrast opacifying the liver. We accepted the patient as a transfer into [facility] bile duct injury program for a higher level of care. The patient arrived on 04/05/2017. 2. S/p percutaneous CT-guided drain placement above the liver with removal of 1.4 liters of bile in IR suite and more immediately post procedure. 3. S/p lap washout and wide drainage at [facility]. Subjective: No major events or complaints; reports feeling well; mild abd pain and seemingly under control with medications; no n/v/d; no sob or cp; + flatus; + BM ; more activity Objective: Vitals: See below Exam: GENERAL: On exam, the patient was laying in bed and appeared to be comfortable and in no acute distress. ABDOMEN: Soft, mildly tender mainly in the mid anterior axillary line on the right side and nondistended. Incisions are clean, dry and intact without any evidence of erythema, edema, discharge, or hernia. Lower pigtail catheter with bilious output. There are no peritoneal signs or guarding. SKIN: Skin appears to be pink and feels warm to touch. NEUROLOGIC: Patient is awake, alert, and follows commands appropriately. Exam/Review of Systems Vital Signs Vitals Vital Signs Date Time Temp Pulse Resp B/P Pulse Ox O2 Delivery O2 Flow Rate FiO2 04/15/17 08:16 97.9 81 17 107/70 99 04/15/17 04:00 Room Air Intake and Output 04/14/17 04/14/17 04/15/17 15:00 23:00 07:00 Intake Total 1280 ml 1200 ml Output Total 2300 ml 2310 ml Balance -1020 ml -1110 ml Results Result Diagram: 04/15/17 0915 04/15/17 0915 LENA MONCADA M.D. Apr 15, 2017 14:17
--- NOTE | 2017-04-15 14:45 | PN ---
Date/Time of Note Date/Time of Note DATE: 04/15/17 TIME: 14:36 Assessment/Plan Lines/Catheters IV Catheter Type (from [facility]): Saline Lock Urinary Cath still in place: No Assessment/Plan Assessment/Plan 1. Bile Leak: s/p recent lap choley at outside hosp - now s/p following procedure 04/10/17 Laparoscopic exploration of the abdominal cavity through recent laparoscopic port sites from prior cholecystectomy Extensive abdominal lavage Extensive abdominal drainage with placement of pigtail catheter under the right lobe of the liver and in pelvis - cont pain mgmt and abx 2. Urinary Retention: resolved - urology consult as needed 3. Hx of hernia repair 3. Hyponatremia: resolved Exam/Review of Systems Vital Signs Vitals Vital Signs Date Time Temp Pulse Resp B/P Pulse Ox O2 Delivery O2 Flow Rate FiO2 04/15/17 08:16 97.9 81 17 107/70 99 04/15/17 04:00 Room Air Intake and Output 04/14/17 04/14/17 04/15/17 15:00 23:00 07:00 Intake Total 1280 ml 1200 ml Output Total 2300 ml 2310 ml Balance -1020 ml -1110 ml Results Result Diagram: 04/15/17 0915 04/15/17 0915 Results 24 hrs Laboratory Tests Test 04/15/17 09:15 White Blood Count 10.0 Red Blood Count 4.06 L Hemoglobin 11.8 L Hematocrit 37.4 Mean Corpuscular Volume 92.1 Mean Corpuscular Hemoglobin 29.1 Mean Corpuscular Hemoglobin Concent 31.6 L Red Cell Distribution Width 14.6 H Platelet Count 619 H Mean Platelet Volume 8.5 Neutrophils % 72.5 Lymphocytes % 14.1 L Monocytes % 6.4 Eosinophils % 3.9 Basophils % 0.4 Nucleated Red Blood Cells % 0.0 Neutrophils # 7.2 Lymphocytes # 1.4 Monocytes # 0.6 Eosinophils # 0.4 Basophils # 0.0 Nucleated Red Blood Cells # 0.0 Sodium Level 136 Potassium Level 4.5 Chloride Level 101 Carbon Dioxide Level 23 Anion Gap 17 H Blood Urea Nitrogen 5 L Creatinine 0.63 Glucose Level 140 # Calcium Level 8.7 Iron Level 35 Total Iron Binding Capacity 265 Percent Iron Saturation 13 L Ferritin 532.0 H Total Bilirubin 0.3 Direct Bilirubin 0.00 Indirect Bilirubin 0.3 Aspartate Amino Transf (AST/SGOT) 44 Alanine Aminotransferase (ALT/SGPT) 51 Alkaline Phosphatase 255 H Total Protein 6.7 Albumin 3.6 Globulin 3.10 Albumin/Globulin Ratio 1.16 Medications Medications Current Medications Ondansetron HCl (Zofran Inj) 4 mg Q6H PRN IV NAUSEA AND/OR VOMITING Last administered on 04/10/17 20:04; Admin Dose 4 MG; Start 04/06/17 at 00:00 Simethicone (Mylicon) 80 mg TID PRN PO DISTENSION/GAS/BLOATING Last administered on 04/08/17 05:57; Admin Dose 80 MG; Start 04/06/17 at 00:00 Acetaminophen (Tylenol Supp) 650 mg Q4H PRN [place] PAIN AND OR ELEVATED TEMP; Start 04/06/17 at 00:30 Acetaminophen/ Hydrocodone Bitart ([place] (5/325)) 1 tab Q4H PRN PO PAIN LEVEL 4 -6 Last administered on 04/15/17 13:11; Admin Dose 1 TAB; Start 04/06/17 at 11: 00 Acetaminophen/ Hydrocodone Bitart ([place] (5/325)) 2 tab Q4H PRN PO PAIN LEVEL 7 -10 Last administered on 04/15/17 01:22; Admin Dose 2 TAB; Start 04/06/17 at 11 :00 Nystatin (Nystatin Cr) 1 applic BID TOP Last administered on 04/15/17 09:14; Admin Dose 1 APPLIC; Start 04/09/17 at 21:00 Enoxaparin Sodium (Lovenox) 40 mg DAILY SC Last administered on 04/15/17 09:15 ; Admin Dose 40 MG; Start 04/11/17 at 09:00 Docusate Sodium (Colace) 100 mg BID PRN PO CONSTIPATION; Start 04/12/17 at 09: 00 Bisacodyl (Dulcolax Supp) 10 mg Q12H PRN [place] CONSTIPATION; Start 04/12/17 at 18: 00 Sodium Biphosphate/ Sodium Phosphate (Fleet Enema) 133 ml Q12H PRN [place] CONSTIPATION; Start 04/12/17 at 18:00 Famotidine (Pepcid) 20 mg DAILY PO Last administered on 04/15/17 09:14; Admin Dose 20 MG; Start 04/13/17 at 09:00 Morphine Sulfate (morphine) 4 mg Q3H PRN IV BREAKTHROUGH PAIN Last administered on 04/15/17t 11:12; Admin Dose 4 MG; Start 04/14/17 at 21:00 CRISTIANO AUGUSTE MD Apr 15, 2017 14:45
[2017-04-15 19:29] VITALS: BP 109/66; RESP 20
[2017-04-16 00:02] VITALS: BP 117/61; PULSE 69; RESP 19
[2017-04-16] MEDS: HYDROCODONE/APAP (5/325) TAB PO PRN ×5 (01:19→17:40)
[2017-04-16 08:07] VITALS: BP 107/64; RESP 15
--- NOTE | 2017-04-16 08:59 | PN ---
Date/Time of Note Date/Time of Note DATE: 04/16/17 TIME: 08:58 Assessment/Plan Lines/Catheters IV Catheter Type (from Nrs): Saline Lock Matthew in Place (from Nrs): No Assessment/Plan Assessment/Plan [facility] Progress Note Date of Service: 04/16/17 Today's Impression & Plan: Overall stable and continuing to improve. No indication for acute surgical intervention. Ready for d/c home. With above assessment, I've recommended the following for today: 1. D/c home 2. F/u with me in the office in 4-5 weeks Thank you again for your great care of this very pleasant patient and wonderful family. If there are any questions, please feel free to call me at [phone]. TOTAL VISIT TIME: 20 minutes of which more than half was spent in [id number] discussion with the patient, possibly including family, as well as coordination of care between multiple physicians and providers. Disclaimer: Inadvertent spelling or grammatical errors are likely due to EHR/ dictation software use and do not reflect on the overall quality of patient care. Updated Clinical Summary: The patient is a very pleasant 37-year-old young lady who was transferred from an outside hospital to [facility] for management of possible bile duct injury. S/p percutaneous CT-guided drain placement above the liver with removal of 1.4 liters of bile in IR suite and more (2 liters) within first 24 hours post procedure. Drain output minimal 04/09/17. S/p lap washout and wide drainage at [facility]. The upper pigtail catheter and the 2 surgical drains d/c 'd on 04/14/17. Urinary retention issues requiring straight cath and Matthew insertion appeared resolved by 04/15/17. COMORBIDITIES: 1. Cholelithiasis and acute cholecystitis, status post laparoscopic cholecystectomy 03/31/2017 at [facility], complicated by possible bile duct injury, as shown by ERCP that was done after a HIDA scan showed possible bile leak, explaining the patient's continued pain and distention. The ERCP on 04/03/2017 showed clips across the distal common bile duct, without any contrast opacifying the liver. We accepted the patient as a transfer into [facility] bile duct injury program for a higher level of care. The patient arrived on 04/05/2017. 2. S/p percutaneous CT-guided drain placement above the liver with removal of 1.4 liters of bile in IR suite and more immediately post procedure. 3. S/p lap washout and wide drainage at [facility]. Subjective: No major events or complaints; reports feeling well; no abd pain and seemingly under control with medications; no n/v/d; no sob or cp; + flatus; + BM; + activity Objective: Vitals: See below Exam: GENERAL: On exam, the patient was laying in bed and appeared to be comfortable and in no acute distress. ABDOMEN: Soft, mildly tender mainly in the mid anterior axillary line on the right side and nondistended. Incisions are clean, dry and intact without any evidence of erythema, edema, discharge, or hernia. Lower pigtail catheter with bilious output. There are no peritoneal signs or guarding. SKIN: Skin appears to be pink and feels warm to touch. NEUROLOGIC: Patient is awake, alert, and follows commands appropriately. Exam/Review of Systems Vital Signs Vitals Vital Signs Date Time Temp Pulse Resp B/P Pulse Ox O2 Delivery O2 Flow Rate FiO2 04/16/17 08:07 98.3 77 15 107/64 100 04/16/17 00:02 Room Air Intake and Output 04/15/17 04/15/17 04/16/17 14:59 22:59 06:59 Intake Total 1040 ml 1320 ml Output Total 1400 ml 1600 ml Balance -360 ml -280 ml Results Result Diagram: 04/15/17 0915 04/15/17 0915 LENA MNOCADA M.D. Apr 16, 2017 08:59
[2017-04-16] MEDS: ENOXAPARIN 40 MG/0.4 ML SYG SC SCH (09:15)
[2017-04-16] MEDS: FAMOTIDINE 20 MG TAB PO SCH (09:17)
[2017-04-16] MEDS: NYSTATIN 15 GM CR TOP SCH (09:17)
--- NOTE | 2017-04-16 13:07 | PDOCDIS ---
Discharge Instructions CONDITION Patient Condition: Stable HOME CARE INSTRUCTIONS: Diet Instructions: Regular FOLLOW UP/APPOINTMENTS Follow-up Plan follow-up with Dr. Grande in 3-4 weeks OTHER ORDERS: Other Orders: Call 911 and go to the nearest ER if you develop severe abdominal pain, fever, chills, bleeding, shortness of breath, difficulty urination or having bowel movement CRISTIANO AUGUSTE MD Apr 16, 2017 13:07
== END 2017-04-16 18:55 | disposition home or self-care (01) | DRG 357 ==
LOC: MS1 20:37
PROVIDERS: ADMIT Family Medicine; ATTEND Family Medicine
PROC: 0W9G40Z Drainage of Peritoneal Cavity with Drainage Device, Percutaneous Endoscopic Approach (ICD-10-PCS; 2017-04-07)
PROC: 0W9G40Z Drainage of Peritoneal Cavity with Drainage Device, Percutaneous Endoscopic Approach (ICD-10-PCS; 2017-04-10)
PROC: 3E1M38Z Irrigation of Peritoneal Cavity using Irrigating Substance, Percutaneous Approach (ICD-10-PCS; 2017-04-10)
PROC: 0W9J4ZZ Drainage of Pelvic Cavity, Percutaneous Endoscopic Approach (ICD-10-PCS; principal; 2017-04-10 12:30)
DX: K91.89 Other postprocedural complications and disorders of digestive system (principal); E87.1 Hypo-osmolality and hyponatremia; R65.10 Systemic inflammatory response syndrome (SIRS) of non-infectious origin without acute organ dysfunction; S36.13XA Injury of bile duct, initial encounter; K59.00 Constipation, unspecified; R33.9 Retention of urine, unspecified; Y83.8 Other surgical procedures as the cause of abnormal reaction of the patient, or of later complication, without mention of misadventure at the time of the procedure; Y92.239 Unspecified place in hospital as the place of occurrence of the external cause; Z90.49 Acquired absence of other specified parts of digestive tract
CPT/HCPCS: 74176; 74177; 74181; 75989; 77012; 80053; 82728; 83540; 83605; 83735; 83880; 84100; 84703; 85025; 85610; 85730; 87070; 87075; 87081; A4310; C9113; J0698; J1170; J1200; J1650; J2250; J2270; J2370; J2405; J2543; J3010; J3480; J7030; J7042; Q9967

== ENCOUNTER 2017-05-10 10:04 | Outpatient (CLI) | payer OTHER ==
[~2017-05-10] VITALS: Ht 180.3 cm; Wt 55.9 kg
[2017-05-10 10:35] VITALS: BP 119/78; PULSE 128; RESP 18; Ht 180.3 cm; Wt 55.9 kg
[2017-05-10] MEDS ORDERED: IBUP200C11 PO (10:54)
--- NOTE | 2017-05-10 17:50 | PN ---
Date/Time of Note Date/Time of Note DATE: 05/10/17 TIME: 17:11 Assessment/Plan Assessment/Plan Assessment/Plan [facility] Progress Note Date of Service: 05/10/17 Today's Impression & Plan: Overall stable and continuing to improve with the exception of 10 lb weight loss. Not very clear to me why the patient is not tolerating soft food. Patient's symptoms of abdominal discomfort occur several hours later after she eats. I encouraged her to eat smaller portions more frequently during the day and try different foods with the overall goal of stopping the weight loss and perhaps gaining 5-10 pounds prior to the operation. No indication for acute surgical intervention. Answered all patient's and 's questions. With above assessment, I've recommended the following for today: 1. Attempt to eat more as described above 2. Follow-up with me in 2-3 weeks as final preoperative visit 3. Schedule patient for hepaticojejunostomy Thank you again for your great care of this very pleasant patient and wonderful family. If there are any questions, please feel free to call me at [phone]. TOTAL VISIT TIME: 20 minutes of which more than half was spent in [id number] discussion with the patient, possibly including family, as well as coordination of care between multiple physicians and providers. Disclaimer: Inadvertent spelling or grammatical errors are likely due to EHR/ dictation software use and do not reflect on the overall quality of patient care. Updated Clinical Summary: The patient is a very pleasant 37-year-old young lady who was transferred from an outside hospital to [facility] for management of possible bile duct injury. S/p percutaneous CT-guided drain placement above the liver with removal of 1.4 liters of bile in IR suite and more (2 liters) within first 24 hours post procedure. Drain output minimal 04/09/17. S/p lap washout and wide drainage at [facility]. The upper pigtail catheter and the 2 surgical drains d/c 'd on 04/14/17. Urinary retention issues requiring straight cath and Matthew insertion appeared resolved by 04/15/17. DC home 04/16/2017. 2 ER visits between discharge and the 2016 with no hospitalization. COMORBIDITIES: 1. Cholelithiasis and acute cholecystitis, status post laparoscopic cholecystectomy 03/31/2017 at [facility], complicated by possible bile duct injury, as shown by ERCP that was done after a HIDA scan showed possible bile leak, explaining the patient's continued pain and distention. The ERCP on 04/03/2017 showed clips across the distal common bile duct, without any contrast opacifying the liver. We accepted the patient as a transfer into [facility] bile duct injury program for a higher level of care. The patient arrived on 04/05/2017. 2. S/p percutaneous CT-guided drain placement above the liver with removal of 1.4 liters of bile in IR suite and more immediately post procedure. 3. S/p lap washout and wide drainage at [facility]. Subjective: No major events or complaints other than above; reports feeling well; no abd pain and seemingly under control with medications; no n/v/d; no sob or cp; + flatus; + BM; + activity; has kept herself on liquid diet due to symptoms of abdominal pain/discomfort she experiences several hours after eating. No issues with diarrhea or constipation. Objective: Vitals: See below Exam: GENERAL: On exam, the patient was sitting in a chair and appeared to be comfortable and in no acute distress. ABDOMEN: Soft, nontender and nondistended. Incisions are clean, dry and intact without any evidence of erythema, edema, discharge, or hernia. Lower pigtail catheter with bilious output (approximately 600-800 cc per day). There are no peritoneal signs or guarding. SKIN: Skin appears to be pink and feels warm to touch. NEUROLOGIC: Patient is awake, alert, and follows commands appropriately. Exam/Review of Systems Vital Signs Vitals Vital Signs Date Time Temp Pulse Resp B/P Pulse Ox O2 Delivery O2 Flow Rate FiO2 05/10/17 10:35 98.2 128 18 119/78 97 Room Air LENA MONCADA M.D. May 10, 2017 17:50
== END 2017-05-10 16:10 | disposition home or self-care (01) ==
LOC: HPC 10:04
PROVIDERS: ATTEND Transplant Surgery
DX: K80.20 Calculus of gallbladder without cholecystitis without obstruction (principal)
CPT/HCPCS: G0463

== ENCOUNTER 2017-05-19 19:07 | Inpatient (IN) | payer OTHER ==
[~2017-05-19] VITALS: Ht 177.8 cm; Wt 54.9 kg
[~2017-05-19 19:07] MED LIST: IBUP200C11 PO
[2017-05-19 20:16] VITALS: Ht 177.8 cm; Wt 54.9 kg
[2017-05-19 21:05] LABS: BASOPHILS % 0.2 % (0.0-2.0); EOSINOPHILS # 0.2 10^3/ul (0.0-0.5); EOSINOPHILS % 4.4 % (0.0-7.0); HEMATOCRIT 35.3 % (37.0-47.0); HEMOGLOBIN 11.7 g/dl (12.0-16.0); LYMPHOCYTES # 1.6 10^3/ul (0.8-2.9); LYMPHOCYTES % 38.3 % (15.0-51.0); MEAN CORPUSCULAR HEMOGLOBIN 28.8 pg (29.0-33.0); MEAN CORPUSCULAR HGB CONC 33.1 g/dl (32.0-37.0); MEAN CORPUSCULAR VOLUME 86.9 fl (82.0-101.0); MEAN PLATELET VOLUME 9.6 fl (7.4-10.4); MONOCYTE # 0.5 10^3/ul (0.3-0.9); MONOCYTES % 11.2 % (0.0-11.0); NEUTROPHIL # 1.9 10^3/ul (1.6-7.5); NEUTROPHILS % 45.4 % (39.0-77.0); PLATELET COUNT 291 10^3/UL (140-415); RED BLOOD COUNT 4.06 10^6/ul (4.20-5.40); RED CELL DISTRIBUTION WIDTH 14.1 % (11.5-14.5); WHITE BLOOD COUNT 4.1 10^3/ul (4.8-10.8)
[2017-05-19 21:15] VITALS: BP 98/61; RESP 18
[2017-05-19 21:24] LABS: ALBUMIN 3.5 g/dl (3.3-4.9); ALBUMIN/GLOBULIN RATIO 1.29; CALCIUM 8.8 mg/dl (8.4-10.2); CREATININE 0.89 mg/dl (0.44-1.00); POTASSIUM 4.5 mmol/L (3.5-5.1); TOTAL PROTEIN 6.2 g/dl (6.1-8.1)
[2017-05-19] MEDS ORDERED: NACL 0.9% 3 ML SYG IV SCH (21:30)
[2017-05-19 21:51] LABS: ADD UMIC YES; UR ASCORBIC ACID NEGATIVE (NEGATIVE); UR BACTERIA MODERATE /HPF (NONE SEEN); UR BILIRUBIN (Dip) NEGATIVE (NEGATIVE); UR BLOOD (Dip) NEGATIVE (NEGATIVE); UR CLARITY SLIGHTLY CLOUDY (CLEAR); UR COLOR YELLOW (YELLOW); UR GLUCOSE (Dip) 1+ mg/dL (NEGATIVE); UR KETONES (Dip) NEGATIVE (NEGATIVE); UR LEUKOCYTE ESTERASE (Dip) TRACE Leu/ul (NEGATIVE); UR NITRITE (Dip) POSITIVE (NEGATIVE); UR RBC 0 /HPF (0-5); UR SPECIFIC GRAVITY (Dip) 1.013 (1.003-1.030); UR TOTAL PROTEIN (Dip) NEGATIVE (NEGATIVE); UR UROBILINOGEN (Dip) NEGATIVE (NEGATIVE)
[2017-05-19] MEDS ORDERED: PIPER-TAZO 3.375 GM IV (PMX) 100 ML IVPB ONE (22:00)
[2017-05-19] MEDS: SOD CHLORIDE 0.9% 1,000 ML IV SCH (22:04)
[2017-05-19] MEDS: morphine 2 MG INJ IV PRN (22:14)
[2017-05-19] MEDS ORDERED: VANCOMYCIN 1 GM (PMX) 250 ML IVPB SCH (22:30)
--- NOTE | 2017-05-19 23:13 | HP ---
Date/Time of Note Date/Time of Note DATE: 05/19/17 TIME: 23:06 Assessment/Plan VTE Prophylaxis VTE Prophylaxis Intervention: SCD's Assessment/Plan Chief Complaint/Hosp Course This is a 37 year female being admitted to the [facility] floor for: #1 acute pancreatitis: The current time will keep patient n.p.o. IV fluid hydration with normal saline. IV narcotic pain medication. #2 Biliary abnormality: Patient has had multiple complications after initially being diagnosed with cholelithiasis and cholecystitis. Has undergone multiple procedures such as cholecystectomy and ERCP and most recently abdominal washout along with catheter placement. At the current time she still has a right-sided biliary drainage catheter in place. At the current time will order imaging studies to evaluate for the biliary drainage of the catheter, will consult general surgery for further evaluation. As patient has been dealing with extensive gastrointestinal problems, at the current time will prophylactically treat patient with IV antibiotics for suspected GI abnormality as well as for possible surgical prophylaxis for possible abdominal intervention. Patient's liver function tests are elevated at this time is likely secondary to her current issue with her catheter/drain. Will continue to trend. #3 UTI: Patient was being treated for urinary tract infection at the transferring facility. We will continue antibiotic management, repeat UA and culture. #4 DVT and GI prophylactic: SCDs, Protonix Further treatment strategy will be implemented with clinical course Problems: HPI/ROS Admit Date/Time Admit Date/Time May 19, 2017 at 19:10 Hx of Present Illness Chief complaint: Abdominal pain This is a 37-year-old female who was transferred from [facility] for abdominal pain and pancreatitis. She experienced abdominal and chest tightness over the course of a few days and went to [facility] and was admitted there and treated for multiple medical problems including pancreatitis, please see hospital documentation for further hospital summary. She was subsequently stabilized and transferred to [facility] for treatment of her pancreatitis as well as for her pre-existing biliary problems. At the current time patient states that she has some epigastric pain. At the current time she is not nauseated or vomiting. She does state that she is hungry. She does not appear in any distress. Allergies: NKDA Medications: See MAR ROS Const: As per HPI Eyes : No pain discharge or redness or change in visual acuity ENT: No pain, sore throat, congestion, congestion, dysphagia or discharge Respiratory: No shortness of breath, cough, sputum, wheezing, or pleuritic pain Cardiovascular: No chest pain, palpitation, PND, or edema GI : As per HPI Genitourinary: No dysuria, hematuria, flank pain , discharge or CVA tenderness Musculoskeletal: No joint pain, back pain, neck pain, restricted range of motion in neck or joints Skin: No rash, bruising or hives Neuro: No headache, dizziness, syncope, seizure, focal weakness Endocrine: No polyuria, polydipsia, temperature intolerance Psych: No hallucination, depression, anxiety or suicidal ideation PMH/Family/Social Past Medical History Gallstones, cholecystitis Past Surgical History Cholelithiasis status post ERCP, Laparoscopic exploration of the abdominal cavity, recent extensive abdominal drainage with placement of drains and subsequent removal. Laparoscopic cholecystectomy, biliary drain placement Family History Significant Family History: diabetes Social History Alcohol Use: rarely Smoking Status: Never smoker Drug Use: none Exam/Review of Systems Vital Signs Vitals Vital Signs Date Time Temp Pulse Resp B/P Pulse Ox O2 Delivery O2 Flow Rate FiO2 05/19/17 21:15 98.3 77 18 98/61 99 Exam Exam General: Patient is well-developed well-nourished The patient is alert oriented -3 lying comfortably in bed. HEENT: Atraumatic, normocephalic. The pupils are equal, round and reactive. Extraocular motor are intact Neck: Supple with full range of motion. No rigidity or meningismus Chest: Nontender Lungs: Clear to auscultation bilaterally no crackles rales or wheezing Heart: Normal S1-S2, Regular rhythm and rate. No murmur, S3, or S4 Abdomen: Soft, tender to palpation at the epigastric region, nondistended, right -sided biliary drain/catheter intact Extremities: Normal to inspection, no edema no cyanosis Neurologic: Normal mental status, speech normal, cranial nerves II through XII are intact, motor and sensory are intact, no focal weakness Labs Result Diagram: 05/19/17205405/19/172054 Medications Medications Current Medications Sodium Chloride (NS) 1,000 ml @ 125 mls/hr Q8H IV Last administered on t 22:04; Admin Dose 125 MLS/HR; Start 05/19/17 at 21:05 Ondansetron HCl (Zofran Inj) 4 mg Q6H PRN IV NAUSEA AND/OR VOMITING; Start at 21:30 Morphine Sulfate (morphine) 2 mg Q4H PRN IV SEVERE PAIN LEVEL 7-10 Last administered on 05/19/17 22:14; Admin Dose 2 MG; Start 05/19/17 at 21:30 Pantoprazole 40 mg 40 mg DAILY@06 IV ; Start 05/20/17 at 06:00 Vancomycin HCl (Vancocin) 250 ml @ 125 mls/hr ONCE IVPB Last administered on 22:52; Admin Dose 125 MLS/HR; Start 05/19/17 at 22:30; Stop 05/20/17 at 00:29 VAISHNAVI SIDHU May 19, 2017 23:13
[2017-05-19] MEDS ORDERED: VANCOMYCIN IV PER PHARMACY XX SCH (23:30)
[2017-05-20] MEDS: PIPER-TAZO 3.375 GM IV (PMX) 100 ML IVPB SCH ×4 (02:55→18:05)
[2017-05-20 03:11] VITALS: BP 102/63; RESP 18
[2017-05-20] MEDS: SOD CHLORIDE 0.9% 1,000 ML IV SCH ×2 (05:05→10:14)
[2017-05-20] MEDS: PANTOPRAZOLE 40 MG INJ IV SCH (05:09)
[2017-05-20] MEDS: morphine 2 MG INJ IV PRN ×4 (05:19→20:39)
[2017-05-20 06:33] LABS: BASOPHILS % 0.6 % (0.0-2.0); EOSINOPHILS # 0.2 10^3/ul (0.0-0.5); EOSINOPHILS % 4.5 % (0.0-7.0); HEMATOCRIT 33.9 % (37.0-47.0); HEMOGLOBIN 10.9 g/dl (12.0-16.0); LYMPHOCYTES # 1.5 10^3/ul (0.8-2.9); MEAN CORPUSCULAR HEMOGLOBIN 28.2 pg (29.0-33.0); MEAN CORPUSCULAR HGB CONC 32.2 g/dl (32.0-37.0); MEAN CORPUSCULAR VOLUME 87.6 fl (82.0-101.0); MEAN PLATELET VOLUME 9.8 fl (7.4-10.4); MONOCYTE # 0.4 10^3/ul (0.3-0.9); MONOCYTES % 11.8 % (0.0-11.0); NEUTROPHIL # 1.5 10^3/ul (1.6-7.5); NEUTROPHILS % 40.8 % (39.0-77.0); PLATELET COUNT 260 10^3/UL (140-415); RED BLOOD COUNT 3.87 10^6/ul (4.20-5.40); RED CELL DISTRIBUTION WIDTH 14.3 % (11.5-14.5); WHITE BLOOD COUNT 3.6 10^3/ul (4.8-10.8)
[2017-05-20 06:47] LABS: ALBUMIN 3.1 g/dl (3.3-4.9); ALBUMIN/GLOBULIN RATIO 1.24; BILIRUBIN,INDIRECT 0.2 mg/dl (0-1.1); BILIRUBIN,TOTAL 0.2 mg/dl (0.2-1.3); CALCIUM 8.4 mg/dl (8.4-10.2); CREATININE 0.95 mg/dl (0.44-1.00); MAGNESIUM 1.8 mg/dl (1.7-2.5); TOTAL PROTEIN 5.6 g/dl (6.1-8.1)
[2017-05-20 08:00] VITALS: BP 101/62; RESP 18
[2017-05-20] MEDS: VANCOMYCIN 750 MG in SOD CHLORIDE 0.9% 150 ML IVPB SCH ×2 (11:03→22:23)
[2017-05-20] MEDS: DEXTROSE 5%-0.45% NACL 1,000 ML IV SCH ×2 (13:12→20:30)
--- NOTE | 2017-05-20 13:16 | PN ---
Date/Time of Note Date/Time of Note DATE: 05/20/17 TIME: 13:14 Assessment/Plan VTE Prophylaxis VTE Prophylaxis Intervention: SCD's Lines/Catheters IV [facility] Peripheral IV Urinary Cath still in place: No Assessment/Plan Chief Complaint/Hosp Course 1. Acute pancreatitis. Etiology unclear. Will keep the patient n.p.o. We will adequately hydrate the patient. 2. History of cholelithiasis and cholecystitis. Status post laparoscopic cholecystectomy on 03/31/2017 at an outside facility complicated by possible bile duct injury. Status post ERCP on 04/03/2017. Status post laparoscopic washout on 04/10/2017 at [facility] by hepatobiliary surgery. Status post percutaneous CT-guided drain placement at [facility]. The patient currently has a drain in place. The patient to be followed by hepatobiliary surgery. 3. Transaminitis. Most probably secondary to #1 and #2. Monitor. Avoid hepatotoxic medications. 4. Fluids, electrolytes, and nutrition. N.p.o. Continue IV fluids. 5. DVT prophylaxis. Bilateral sequential compression devices. 6. Gastrointestinal prophylaxis. Proton pump inhibitors. 7. Plan. Continue n.p.o. Continue IV hydration. Continue empiric antibiotics. Await evaluation by hepatobiliary surgery. Case discussed with . Problems: Subjective 24 Hr Interval Summary Free Text/Dictation Abdominal pain well controlled with analgesics. Remains afebrile. Exam/Review of Systems Vital Signs Vitals Vital Signs Date Time Temp Pulse Resp B/P Pulse Ox O2 Delivery O2 Flow Rate FiO2 05/20/17 08:00 98.6 64 18 101/62 96 Intake and Output 05/19/17 05/19/17 05/20/17 15:00 23:00 07:00 Intake Total 350 ml 600 ml Output Total 170 ml Balance 350 ml 430 ml Exam General: Thin, frail looking 37 year-old female lying in bed in no apparent distress. HEENT: Normocephalic, atraumatic. Eyes: Anicteric sclerae, conjunctivae clear. ENT: Nasal septum midline, oral mucosa moist. Neck supple, no JVD noticed. Respiratory: Bilaterally clear breath sounds. No use of accessory muscles of respiration. No adventitious breath sounds. Cardiovascular: S1, S2 heard. No murmurs or gallops. Abdomen: Soft and nondistended. Bowel sounds positive in all 4 quadrants. Right -sided percutaneous drain in place. Diffuse tenderness. Genitourinary: Deferred. Extremities: No cyanosis, no clubbing, no edema. Peripheral pulses palpable. Neurologic: Cranial nerves II through XII grossly intact. The patient is awake, alert, and oriented. Skin: Normal skin turgor. No skin rashes. Results Result Diagram: 05/20/17 0547 05/20/17 0547 Results 24 hrs Laboratory Tests Test 05/19/17 20:55 05/19/17 21:27 05/19/17 21:28 05/20/17 05:47 White Blood Count 4.1 #L 3.6 L Red Blood Count 4.06 L 3.87 L Hemoglobin 11.7 L 10.9 L Hematocrit 35.3 L 33.9 L Mean Corpuscular Volume 86.9 87.6 Mean Corpuscular Hemoglobin 28.8 L 28.2 L Mean Corpuscular Hemoglobin Concent 33.1 32.2 Red Cell Distribution Width 14.1 14.3 Platelet Count 291 # 260 Mean Platelet Volume 9.6 9.8 Neutrophils % 45.4 40.8 Lymphocytes % 38.3 42.0 Monocytes % 11.2 H 11.8 H Eosinophils % 4.4 4.5 Basophils % 0.2 0.6 Nucleated Red Blood Cells % 0.0 0.0 Neutrophils # 1.9 1.5 L Lymphocytes # 1.6 1.5 Monocytes # 0.5 0.4 Eosinophils # 0.2 0.2 Basophils # 0.0 0.0 Nucleated Red Blood Cells # 0.0 0.0 Sodium Level 139 144 Potassium Level 4.5 4.0 Chloride Level 109 111 H Carbon Dioxide Level 19 L 18 L Anion Gap 16 19 H Blood Urea Nitrogen 16 12 Creatinine 0.89 0.95 Glucose Level 83 81 Calcium Level 8.8 8.4 Total Bilirubin 0.0 L 0.2 Direct Bilirubin 0.00 0.00 Indirect Bilirubin 0.0 0.2 Aspartate Amino Transf (AST/SGOT) 43 38 Alanine Aminotransferase (ALT/SGPT) 106 H 94 H Alkaline Phosphatase 250 H 213 H Total Protein 6.2 5.6 L Albumin 3.5 3.1 L Globulin 2.70 2.50 Albumin/Globulin Ratio 1.29 1.24 Lipase 1461 H 1286 H Beta HCG, Quantitative < 2.4 Urine Color YELLOW Urine Clarity SLIGHTLY CLOUDY A Urine pH 7.0 Urine Specific [place] 1.013 Urine Ketones NEGATIVE Urine Nitrite POSITIVE A Urine Bilirubin NEGATIVE Urine Urobilinogen NEGATIVE Urine Leukocyte Esterase TRACE A Urine Microscopic RBC 0 Urine Microscopic WBC 2 Urine Bacteria MODERATE Urine Hemoglobin NEGATIVE Urine Glucose 1+ H Urine Total Protein NEGATIVE Lactic Acid Level 1.0 Magnesium Level 1.9 1.8 Medications Medications Current Medications Ondansetron HCl (Zofran Inj) 4 mg Q6H PRN IV NAUSEA AND/OR VOMITING; Start at 21:30 Morphine Sulfate (morphine) 2 mg Q4H PRN IV SEVERE PAIN LEVEL 7-10 Last administered on 05/20/17 11:03; Admin Dose 2 MG; Start 05/19/17 at 21:30 Pantoprazole 40 mg 40 mg DAILY@06 IV Last administered on 05/20/17 05:09; Admin Dose 40 MG; Start 05/20/17 at 06:00 Piperacillin Sod/ Tazobactam Sod (Zosyn 3.375gm/ 100 ml (Pmx)) 100 ml @ 200 mls /hr Q6 IVPB Last administered on 05/20/17 06:47; Admin Dose 200 MLS/HR; Start 05/20/17 at 02:00 Hydromorphone HCl 1 mg 1 mg Q4H PRN IV PAIN LEVEL 6-10; Start 05/19/17 at 23:30 Vancomycin HCl/ Sodium Chloride (Vancocin/NS) 150 ml @ 75 mls/hr Q12H IVPB Last administered on 05/20/17 11:03; Admin Dose 75 MLS/HR; Start 05/20/17 at 10 :00 Miscellaneous Information VANCOMYCIN TROUGH AT 0900 ONCE ONCE XX ; Start 05/21/17 at 09:00; Stop 05/21/17 at 09:01 Dextrose/Sodium Chloride (D5-1/2ns) 1,000 ml @ 125 mls/hr Q8H IV ; Start at 12:30 AMILCAR BRUSH NP May 20, 2017 13:16
--- NOTE | 2017-05-20 13:50 | CONS ---
Date/Time of Note Date/Time of Note DATE: 05/20/17 TIME: 13:34 Assessment/Plan Assessment/Plan Additional Assessment/Plan [facility] Progress Note Date of Service: 05/20/17 Today's Impression & Plan: Overall stable. Current deterioration seems to be from multiple factors including pancreatitis, urinary tract infection, and possible drain malfunction (outputs have not been as high as they should be). Drain sinogram is underway. I do not understand why the patient has pancreatitis given lack of obvious stone disease in the remnant bile duct as shown by postoperative ERCP at the original time of the cholecystectomy and lack of obvious disease in the postoperative CT scans. Also the patient is not an alcoholic and does not have other risk factors for pancreatitis. She certainly will need some time to recover from the pancreatitis before she is eligible for a hepaticojejunostomy. Urinary tract infection also needs to be treated. Overall however, the patient appears to have improved significantly since her initial visit with us and is getting closer to be able to undergo definitive hepaticojejunostomy ( scheduled for May 30). I discussed her case with our radiology colleagues as well as with the patient, her and her parents and answered all their questions to the best my ability. The patient and family appear to understand and agree with the plans. With above assessment, I've recommended the following for today: 1. Drain sinogram 2. Continue broad-spectrum antimicrobial therapy to treat urinary tract infection 3. Treat pancreatitis 4. Patient may have clear liquid diet and advance to regular low-fat as her clinical picture allows with pancreatitis 5. Keep in-house for now. It is likely that the patient may have to stay in house until the time of her definitive repair given the distance that they travel and her clinical picture. Thank you again for your great care of this very pleasant patient and wonderful family. If there are any questions, please feel free to call me at [phone]. Nature of presenting problem: High severity Please note that, given the extensive number of diagnoses or management options , the extensive amount and/or complexity of data needed to be reviewed, and high risk of complications and/or morbidity or mortality, this qualifies as high complexity type of decision-making. Disclaimer: Inadvertent spelling and grammatical errors are likely due to EHR/ dictation software use and do not reflect on the quality of delivered patient care. Also, please note that the electronic time recorded on this node does not necessarily reflect the actual time of the visit. Review of outside records (78 pages): Admitted to [facility] 05/18/2017. Admission white blood cell count 11.8. Creatinine 3.8. Alkaline phosphatase 547. Total bilirubin 1.1. Lipase 1724. Heart rate 122. Involved physicians included Adrian Oro MD and Maryellen Dolan MD. patient was treated with ceftazidime, vancomycin and metronidazole. CT scan abdomen and pelvis and ovale 05/18/2017: No acute intra- abdominal abnormality appreciated on a limited noncontrast CT of the abdomen and pelvis. Evidence of cholecystectomy. Transhepatic drainage catheter terminating in the region of the gallbladder fossa. Patient's was concerned about possible blood culture positive bacteremia, but I did not see any evidence of that in the reviewed material. The rest of patient's history and physical is unchanged and well documented in my previous visits with her starting on 04/06/2017. Updated Clinical Summary: The patient is a very pleasant 37-year-old young lady who was transferred from an outside hospital to [facility] for management of possible bile duct injury. S/p percutaneous CT-guided drain placement above the liver with removal of 1.4 liters of bile in IR suite and more (2 liters) within first 24 hours post procedure. Drain output minimal 04/09/17. S/p lap washout and wide drainage at [facility]. The upper pigtail catheter and the 2 surgical drains d/c 'd on 04/14/17. Urinary retention issues requiring straight cath and Matthew insertion appeared resolved by 04/15/17. DC home 04/16/2017. 2 ER visits between discharge and the 2016 with no hospitalization. Readmitted as a transfer from outside hospital to [facility] 05/19/2017 with pancreatitis as well as urinary tract infection. COMORBIDITIES: 1. Cholelithiasis and acute cholecystitis, status post laparoscopic cholecystectomy 03/31/2017 at [facility], complicated by possible bile duct injury, as shown by ERCP that was done after a HIDA scan showed possible bile leak, explaining the patient's continued pain and distention. The ERCP on 04/03/2017 showed clips across the distal common bile duct, without any contrast opacifying the liver. We accepted the patient as a transfer into [facility] bile duct injury program for a higher level of care. The patient arrived on 04/05/2017. 2. S/p percutaneous CT-guided drain placement above the liver with removal of 1.4 liters of bile in IR suite and more immediately post procedure. 3. S/p lap washout and wide drainage at [facility]. Subjective: No major events or complaints overnight other than above events over the last 2 days; reports feeling better than when she was admitted; no significant current abd pain and seemingly under control with medications; no current n/v/d; no sob or cp; - flatus; - BM; + activity. No issues with diarrhea or constipation at home. Objective: Vitals: See below Exam: GENERAL: On exam, the patient was laying in bed and appeared to be comfortable and in no acute distress. ABDOMEN: Soft, nontender and nondistended. Incisions are clean, dry and intact without any evidence of erythema, edema, discharge, or hernia. Lower pigtail catheter with bilious output (approximately 100-200 cc per day in the last 48 hours; normally in the 800 cc range which would be expected). There are no peritoneal signs or guarding. SKIN: Skin appears to be pink and feels warm to touch. NEUROLOGIC: Patient is awake, alert, and follows commands appropriately. Consultation Date/Type/Reason Admit Date/Time May 19, 2017 at 19:10 Initial Consult Date Exam/Review of Systems Vital Signs Vitals Vital Signs Date Time Temp Pulse Resp B/P Pulse Ox O2 Delivery O2 Flow Rate FiO2 05/20/17 08:00 98.6 64 18 101/62 96 Intake and Output 05/19/17 05/19/17 05/20/17 15:00 23:00 07:00 Intake Total 350 ml 600 ml Output Total 170 ml Balance 350 ml 430 ml Results Result Diagram: 05/20/17 0547 05/20/17 0547 Results 24 hrs Laboratory Tests Test 05/19/17 20:55 05/19/17 21:27 05/19/17 21:28 05/20/17 05:47 White Blood Count 4.1 #L 3.6 L Red Blood Count 4.06 L 3.87 L Hemoglobin 11.7 L 10.9 L Hematocrit 35.3 L 33.9 L Mean Corpuscular Volume 86.9 87.6 Mean Corpuscular Hemoglobin 28.8 L 28.2 L Mean Corpuscular Hemoglobin Concent 33.1 32.2 Red Cell Distribution Width 14.1 14.3 Platelet Count 291 # 260 Mean Platelet Volume 9.6 9.8 Neutrophils % 45.4 40.8 Lymphocytes % 38.3 42.0 Monocytes % 11.2 H 11.8 H Eosinophils % 4.4 4.5 Basophils % 0.2 0.6 Nucleated Red Blood Cells % 0.0 0.0 Neutrophils # 1.9 1.5 L Lymphocytes # 1.6 1.5 Monocytes # 0.5 0.4 Eosinophils # 0.2 0.2 Basophils # 0.0 0.0 Nucleated Red Blood Cells # 0.0 0.0 Sodium Level 139 144 Potassium Level 4.5 4.0 Chloride Level 109 111 H Carbon Dioxide Level 19 L 18 L Anion Gap 16 19 H Blood Urea Nitrogen 16 12 Creatinine 0.89 0.95 Glucose Level 83 81 Calcium Level 8.8 8.4 Total Bilirubin 0.0 L 0.2 Direct Bilirubin 0.00 0.00 Indirect Bilirubin 0.0 0.2 Aspartate Amino Transf (AST/SGOT) 43 38 Alanine Aminotransferase (ALT/SGPT) 106 H 94 H Alkaline Phosphatase 250 H 213 H Total Protein 6.2 5.6 L Albumin 3.5 3.1 L Globulin 2.70 2.50 Albumin/Globulin Ratio 1.29 1.24 Lipase 1461 H 1286 H Beta HCG, Quantitative < 2.4 Urine Color YELLOW Urine Clarity SLIGHTLY CLOUDY A Urine pH 7.0 Urine Specific [place] 1.013 Urine Ketones NEGATIVE Urine Nitrite POSITIVE A Urine Bilirubin NEGATIVE Urine Urobilinogen NEGATIVE Urine Leukocyte Esterase TRACE A Urine Microscopic RBC 0 Urine Microscopic WBC 2 Urine Bacteria MODERATE Urine Hemoglobin NEGATIVE Urine Glucose 1+ H Urine Total Protein NEGATIVE Lactic Acid Level 1.0 Magnesium Level 1.9 1.8 Medications Medications Current Medications Ondansetron HCl (Zofran Inj) 4 mg Q6H PRN IV NAUSEA AND/OR VOMITING; Start at 21:30 Morphine Sulfate (morphine) 2 mg Q4H PRN IV SEVERE PAIN LEVEL 7-10 Last administered on 05/20/17 11:03; Admin Dose 2 MG; Start 05/19/17 at 21:30 Pantoprazole 40 mg 40 mg DAILY@06 IV Last administered on 05/20/17 05:09; Admin Dose 40 MG; Start 05/20/17 at 06:00 Piperacillin Sod/ Tazobactam Sod (Zosyn 3.375gm/ 100 ml (Pmx)) 100 ml @ 200 mls /hr Q6 IVPB Last administered on 05/20/17 13:11; Admin Dose 200 MLS/HR; Start 05/20/17 at 02:00 Hydromorphone HCl 1 mg 1 mg Q4H PRN IV PAIN LEVEL 6-10; Start 05/19/17 at 23:30 Vancomycin HCl/ Sodium Chloride (Vancocin/NS) 150 ml @ 75 mls/hr Q12H IVPB Last administered on 05/20/17 11:03; Admin Dose 75 MLS/HR; Start 05/20/17 at 10 :00 Miscellaneous Information VANCOMYCIN TROUGH AT 0900 ONCE ONCE XX ; Start 05/21/17 at 09:00; Stop 05/21/17 at 09:01 Dextrose/Sodium Chloride (D5-1/2ns) 1,000 ml @ 125 mls/hr Q8H IV Last administered on 05/20/17 13:12; Admin Dose 125 MLS/HR; Start 05/20/17 at 12:30 LENA MONCADA M.D. May 20, 2017 13:49
[2017-05-20] MEDS ORDERED: IOHEXOL 300MG/ML 30 ML BTL ONE ×2 (15:13)
[2017-05-20 20:02] VITALS: BP 108/68; RESP 18
[2017-05-20] MEDS: ONDANSETRON 4 MG INJ IV PRN (20:31)
--- NOTE | 2017-05-20 21:44 | RADRPT ---
PROCEDURE: Fluoroscopic biliary drain cholangiogram CLINICAL INDICATION: Cholecystectomy, bile leak, pigtail biliary drain placement. TECHNIQUE: Fluoroscopic guidance was provided for cholangiogram. Procedure was performed by Dr. Jm Loyd. COMPARISON: None available. FINDINGS: Fluoroscopic cholangiogram was performed by injecting 5 cc Omnipaque 320 into the biliary drain tube in a retrograde fashion under sterile conditions. Pigtail catheter terminates in the gallbladder fossa at the cholecystectomy clips. Injected contrast is seen in the left and right intrahepatic bile ducts. The intrahepatic bile ducts are normal in diameter, measuring approximately 1.5 mm. There is no extravasation of contrast. There is faint opacification of the common hepatic duct. There is no opacification of the common bile duct. The pancreatic duct is opacified and appears dilated, measuring approximately 5 mm in the head and 2 mm in the body and tail. This number is approximate due to fluoroscopic technique. The pancreatic duct tapers to a Beak like projection directly overlying the pigtail of the cholecyst ostomy tube. The beak like pancreatic duct in the vickey hepatis region measures less than 1 mm and suggest stenos is. This may explain the patient's current bout of pancreatitis. There is no opacification of the duodenum. No obvious filling defect or retained stones are seen. 36 seconds fluoroscopic time was utilized. 8 fluoroscopic images were acquired. IMPRESSION: 1. Fluoroscopic cholangiogram via pigtail biliary drain tube. 2. Dilated pancreatic duct measuring approximately 5 mm in the head and 2 mm in the body and tail, with beak like narrowing in the region of the vickey hepatis suggesting proximal stenosis. This find ing may explain the patients current bout of pancreatitis. 3. Nonvisualization of the common bile duct and duodenum. This findings suggest that the common bi le duct is occluded. 4. The common hepatic duct and intrahepatic ducts are patent with the pigtail of the biliary drain and appear normal, without areas of stenosis or filling defects to suggest retained stones. 5. No extravasation of contrast to suggest bile leak. RPTAT: II .Yamil Schmitz MD, Date Time Electronically viewed and signed by .Yamil Schmitz MD, on 05/20/2017 21:43 .M/
[2017-05-21] MEDS: PIPER-TAZO 3.375 GM IV (PMX) 100 ML IVPB SCH ×4 (00:24→18:14)
[2017-05-21 02:00] VITALS: BP 94/54; RESP 20
[2017-05-21] MEDS: morphine 2 MG INJ IV PRN ×4 (02:40→21:51)
[2017-05-21] MEDS: DEXTROSE 5%-0.45% NACL 1,000 ML IV SCH ×3 (02:40→18:14)
[2017-05-21 05:55] LABS: BASOPHILS % 0.7 % (0.0-2.0); EOSINOPHILS # 0.3 10^3/ul (0.0-0.5); EOSINOPHILS % 6.9 % (0.0-7.0); HEMOGLOBIN 10.6 g/dl (12.0-16.0); LYMPHOCYTES # 1.4 10^3/ul (0.8-2.9); LYMPHOCYTES % 32.8 % (15.0-51.0); MEAN CORPUSCULAR HEMOGLOBIN 27.8 pg (29.0-33.0); MEAN CORPUSCULAR HGB CONC 32.1 g/dl (32.0-37.0); MEAN CORPUSCULAR VOLUME 86.6 fl (82.0-101.0); MEAN PLATELET VOLUME 10.4 fl (7.4-10.4); MONOCYTE # 0.5 10^3/ul (0.3-0.9); MONOCYTES % 10.6 % (0.0-11.0); NEUTROPHIL # 2.1 10^3/ul (1.6-7.5); NEUTROPHILS % 48.8 % (39.0-77.0); PLATELET COUNT 242 10^3/UL (140-415); RED BLOOD COUNT 3.81 10^6/ul (4.20-5.40); RED CELL DISTRIBUTION WIDTH 14.1 % (11.5-14.5); WHITE BLOOD COUNT 4.4 10^3/ul (4.8-10.8)
[2017-05-21 06:02] LABS: INR 1.39; PROTIME 17.1 Sec (12.2-14.2); PT RATIO 1.3
[2017-05-21 06:03] LABS: PARTIAL THROMBOPLASTIN TIME 28.3 Sec (25.0-35.0)
[2017-05-21 06:04] LABS: ALBUMIN 2.7 g/dl (3.3-4.9); ALBUMIN/GLOBULIN RATIO 1.12; BILIRUBIN,INDIRECT 0.1 mg/dl (0-1.1); BILIRUBIN,TOTAL 0.1 mg/dl (0.2-1.3); CALCIUM 8.3 mg/dl (8.4-10.2); CREATININE 0.96 mg/dl (0.44-1.00); MAGNESIUM 1.6 mg/dl (1.7-2.5); POTASSIUM 3.5 mmol/L (3.5-5.1); TOTAL PROTEIN 5.1 g/dl (6.1-8.1)
[2017-05-21] MEDS: PANTOPRAZOLE 40 MG INJ IV SCH (06:10)
[2017-05-21 07:13] LABS: CALCIUM 8.1 mg/dl (8.4-10.2); PHOSPHORUS 3.4 mg/dl (2.5-4.9)
[2017-05-21 07:20] LABS: AMYLASE 282 U/L (11-123)
[2017-05-21 08:00] VITALS: BP 99/59; RESP 18
[2017-05-21] MEDS: ONDANSETRON 4 MG INJ IV PRN ×3 (08:04→21:51)
[2017-05-21] MEDS: VANCOMYCIN 750 MG in SOD CHLORIDE 0.9% 150 ML IVPB SCH ×2 (10:23→21:51)
[2017-05-21] MEDS ORDERED: MAGNESIUM SULFATE 2 GM/50 ML 50 ML IVPB ONE (11:30)
--- NOTE | 2017-05-21 13:54 | PN ---
Date/Time of Note Date/Time of Note DATE: 05/21/17 TIME: 13:48 Assessment/Plan Lines/Catheters IV Catheter Type (from [facility]): Peripheral IV Matthew in Place (from [facility]): No Assessment/Plan Assessment/Plan [facility] Progress Note Date of Service: 05/21/17 Today's Impression & Plan: Overall stable and improved. UTI and pancreatitis improving. Hope to stabilize enough for scheduled hepaticojejunostomy scheduled for 05/30/17. The patient and family appear to understand and agree with the plans. With above assessment, I've recommended the following for today: 1. Cont current cares 2. Continue broad-spectrum antimicrobial therapy to treat urinary tract infection 3. Treat pancreatitis 4. Cont clear liquid diet 5. Keep in-house 6. Labs in am Thank you again for your great care of this very pleasant patient and wonderful family. If there are any questions, please feel free to call me at [phone]. Nature of presenting problem: High severity Please note that, given the extensive number of diagnoses or management options , the extensive amount and/or complexity of data needed to be reviewed, and high risk of complications and/or morbidity or mortality, this qualifies as high complexity type of decision-making. Disclaimer: Inadvertent spelling and grammatical errors are likely due to EHR/ dictation software use and do not reflect on the quality of delivered patient care. Also, please note that the electronic time recorded on this node does not necessarily reflect the actual time of the visit. Review of outside records (78 pages): Admitted to [facility] 05/18/2017. Admission white blood cell count 11.8. Creatinine 3.8. Alkaline phosphatase 547. Total bilirubin 1.1. Lipase 1724. Heart rate 122. Involved physicians included Adrian Oro MD and Maryellen Dolan MD. patient was treated with ceftazidime, vancomycin and metronidazole. CT scan abdomen and pelvis and ovale 05/18/2017: No acute intra- abdominal abnormality appreciated on a limited noncontrast CT of the abdomen and pelvis. Evidence of cholecystectomy. Transhepatic drainage catheter terminating in the region of the gallbladder fossa. Patient's was concerned about possible blood culture positive bacteremia, but I did not see any evidence of that in the reviewed material. The rest of patient's history and physical is unchanged and well documented in my previous visits with her starting on 04/06/2017. Updated Clinical Summary: The patient is a very pleasant 37-year-old young lady who was transferred from an outside hospital to [facility] for management of possible bile duct injury. S/p percutaneous CT-guided drain placement above the liver with removal of 1.4 liters of bile in IR suite and more (2 liters) within first 24 hours post procedure. Drain output minimal 04/09/17. S/p lap washout and wide drainage at [facility]. The upper pigtail catheter and the 2 surgical drains d/c 'd on 04/14/17. Urinary retention issues requiring straight cath and Matthew insertion appeared resolved by 04/15/17. DC home 04/16/2017. 2 ER visits between discharge and the 2016 with no hospitalization. Readmitted as a transfer from outside hospital to [facility] 05/19/2017 with pancreatitis as well as urinary tract infection. COMORBIDITIES: 1. Cholelithiasis and acute cholecystitis, status post laparoscopic cholecystectomy 03/31/2017 at [facility], complicated by possible bile duct injury, as shown by ERCP that was done after a HIDA scan showed possible bile leak, explaining the patient's continued pain and distention. The ERCP on 04/03/2017 showed clips across the distal common bile duct, without any contrast opacifying the liver. We accepted the patient as a transfer into [facility] bile duct injury program for a higher level of care. The patient arrived on 04/05/2017. 2. S/p percutaneous CT-guided drain placement above the liver with removal of 1.4 liters of bile in IR suite and more immediately post procedure. 3. S/p lap washout and wide drainage at [facility]. Subjective: No major events or complaints overnight; reports feeling better; no significant current abd pain and seemingly under control with medications; no current n/v/d ; no sob or cp; - flatus; - BM; + activity. No appetite. No issues with diarrhea or constipation at home. Objective: Vitals: See below Exam: GENERAL: On exam, the patient was laying in bed and appeared to be comfortable and in no acute distress. ABDOMEN: Soft, nontender and nondistended. Incisions are clean, dry and intact without any evidence of erythema, edema, discharge, or hernia. Lower pigtail catheter with bilious output. There are no peritoneal signs or guarding. SKIN: Skin appears to be pink and feels warm to touch. NEUROLOGIC: Patient is awake, alert, and follows commands appropriately. Exam/Review of Systems Vital Signs Vitals Vital Signs Date Time Temp Pulse Resp B/P Pulse Ox O2 Delivery O2 Flow Rate FiO2 05/21/17 08:00 98.0 69 18 99/59 97 Intake and Output 05/20/17 05/20/17 05/21/17 15:00 23:00 07:00 Intake Total 950 ml 400 ml 1500 ml Output Total 90 ml 175 ml 140 ml Balance 860 ml 225 ml 1360 ml Results Result Diagram: 05/21/17 0500 05/21/17 0500 LENA MONCADA M.D. May 21, 2017 13:54
--- NOTE | 2017-05-21 15:48 | PN ---
Date/Time of Note Date/Time of Note DATE: 05/21/17 TIME: 15:44 Assessment/Plan VTE Prophylaxis VTE Prophylaxis Intervention: SCD's Lines/Catheters IV Catheter Type (from [facility]): Peripheral IV Urinary Cath still in place: No Assessment/Plan Chief Complaint/Hosp Course 1. Acute pancreatitis. diet per surgeon recs. continue on analgesics 2. History of cholelithiasis and cholecystitis. Status post laparoscopic cholecystectomy on 03/31/2017 at an outside facility complicated by possible bile duct injury. Status post ERCP on 04/03/2017. Also Status post laparoscopic washout on 04/10/2017 by hepatobiliary surgery. Status post percutaneous CT- guided drain placement at [facility]. The patient currently has a drain in place. continue with surgeon recommendations 3. Transaminitis. Most probably secondary to #1 and #2. Monitor. Avoid hepatotoxic medications. Monitor LFT DVT prophylaxis. Bilateral sequential compression devices. Gastrointestinal prophylaxis. Proton pump inhibitors. DISPO/HEAVENLY. Advance diet per surgeon. Continue IV hydration. Continue in- house monitoring and analgesics. Await for clinical improvement. Discussed plan of care with Dr. Garrett Problems: Subjective 24 Hr Interval Summary Free Text/Dictation still reports pain in abd 6 out of 10 at times. better today Exam/Review of Systems Vital Signs Vitals Vital Signs Date Time Temp Pulse Resp B/P Pulse Ox O2 Delivery O2 Flow Rate FiO2 05/21/17 08:00 98.0 69 18 99/59 97 Intake and Output 05/20/17 05/20/17 05/21/17 15:00 23:00 07:00 Intake Total 950 ml 400 ml 1500 ml Output Total 90 ml 175 ml 140 ml Balance 860 ml 225 ml 1360 ml Exam Constitutional: alert, oriented, well developed Psych: nl mood/affect Head: normocephalic Eyes: other (disconjugate gaze ) Neck: supple, No jvd Respiratory: clear to auscultation, normal air movement Cardiovascular: regular rate and rhythm Gastrointestinal: soft, tender Musculoskeletal: nl extremities to inspection Extremities: normal pulses Neurological: INSPECTOR FIBROUS WALLBOARD II-XII intact, nl mental status, nl speech Results Result Diagram: 05/21/17 0500 05/21/17 0500 Results 24 hrs Laboratory Tests Test 05/21/17 05:00 05/21/17 09:00 White Blood Count 4.4 #L Red Blood Count 3.81 L Hemoglobin 10.6 L Hematocrit 33.0 L Mean Corpuscular Volume 86.6 Mean Corpuscular Hemoglobin 27.8 L Mean Corpuscular Hemoglobin Concent 32.1 Red Cell Distribution Width 14.1 Platelet Count 242 Mean Platelet Volume 10.4 Neutrophils % 48.8 Lymphocytes % 32.8 Monocytes % 10.6 Eosinophils % 6.9 Basophils % 0.7 Nucleated Red Blood Cells % 0.0 Neutrophils # 2.1 Lymphocytes # 1.4 Monocytes # 0.5 Eosinophils # 0.3 Basophils # 0.0 Nucleated Red Blood Cells # 0.0 Prothrombin Time 17.1 #H Prothrombin Time Ratio 1.3 INR International Normalized Ratio 1.39 Activated Partial Thromboplast Time 28.3 Sodium Level 143 Potassium Level 3.5 Chloride Level 107 Carbon Dioxide Level 21 Anion Gap 19 H Blood Urea Nitrogen 6 L Creatinine 0.96 Glucose Level 104 Lactic Acid Level 1.1 Calcium Level 8.3 L Phosphorus Level 3.4 Magnesium Level 1.6 L Total Bilirubin 0.1 L Direct Bilirubin 0.00 Indirect Bilirubin 0.1 Aspartate Amino Transf (AST/SGOT) 35 Alanine Aminotransferase (ALT/SGPT) 81 H Alkaline Phosphatase 167 H B-Type Natriuretic Peptide 611 H Total Protein 5.1 L Albumin 2.7 L Globulin 2.40 Albumin/Globulin Ratio 1.12 Amylase Level 282 H Lipase 1029 H Vancomycin Level Trough 13.9 Medications Medications Current Medications Ondansetron HCl (Zofran Inj) 4 mg Q6H PRN IV NAUSEA AND/OR VOMITING Last administered on 05/21/17 14:06; Admin Dose 4 MG; Start 05/19/17 at 21:30 Morphine Sulfate (morphine) 2 mg Q4H PRN IV SEVERE PAIN LEVEL 7-10 Last administered on 05/21/17 14:05; Admin Dose 2 MG; Start 05/19/17 at 21:30 Pantoprazole 40 mg 40 mg DAILY@06 IV Last administered on 05/21/17 06:10; Admin Dose 40 MG; Start 05/20/17 at 06:00 Piperacillin Sod/ Tazobactam Sod (Zosyn 3.375gm/ 100 ml (Pmx)) 100 ml @ 200 mls /hr Q6 IVPB Last administered on 05/21/17 12:59; Admin Dose 200 MLS/HR; Start 05/20/17 at 02:00 Hydromorphone HCl 1 mg 1 mg Q4H PRN IV PAIN LEVEL 6-10; Start 05/19/17 at 23:30 Vancomycin HCl 750 mg/Sodium Chloride 150 ml @ 75 mls/hr Q12H IVPB Last administered on 05/21/17 10:23; Admin Dose 75 MLS/HR; Start 05/20/17 at 10:00 Dextrose/Sodium Chloride (D5-1/2ns) 1,000 ml @ 125 mls/hr Q8H IV Last administered on 05/21/17 02:40; Admin Dose 125 MLS/HR; Start 05/20/17 at 12:30 MILES NOLASCO May 21, 2017 15:48 MILES NOLASCO May 21, 2017 15:48
[2017-05-21 20:19] VITALS: BP 91/62; RESP 17
[2017-05-22] MEDS: PIPER-TAZO 3.375 GM IV (PMX) 100 ML IVPB SCH ×5 (00:13→23:55)
[2017-05-22 02:34] VITALS: BP 97/64; RESP 17
[2017-05-22] MEDS: morphine 2 MG INJ IV PRN ×2 (03:21→10:10)
[2017-05-22] MEDS: DEXTROSE 5%-0.45% NACL 1,000 ML IV SCH ×3 (04:30→21:32)
[2017-05-22] MEDS: PANTOPRAZOLE 40 MG INJ IV SCH (05:24)
[2017-05-22] MEDS: ONDANSETRON 4 MG INJ IV PRN (05:25)
[2017-05-22 06:10] LABS: BASOPHILS % 0.6 % (0.0-2.0); EOSINOPHILS # 0.4 10^3/ul (0.0-0.5); EOSINOPHILS % 7.5 % (0.0-7.0); HEMOGLOBIN 10.8 g/dl (12.0-16.0); LYMPHOCYTES # 1.8 10^3/ul (0.8-2.9); LYMPHOCYTES % 34.8 % (15.0-51.0); MEAN CORPUSCULAR HEMOGLOBIN 27.7 pg (29.0-33.0); MEAN CORPUSCULAR HGB CONC 31.8 g/dl (32.0-37.0); MEAN CORPUSCULAR VOLUME 87.2 fl (82.0-101.0); MEAN PLATELET VOLUME 10.4 fl (7.4-10.4); MONOCYTE # 0.5 10^3/ul (0.3-0.9); MONOCYTES % 9.8 % (0.0-11.0); NEUTROPHIL # 2.4 10^3/ul (1.6-7.5); NEUTROPHILS % 46.9 % (39.0-77.0); PLATELET COUNT 230 10^3/UL (140-415); RED CELL DISTRIBUTION WIDTH 14.1 % (11.5-14.5); WHITE BLOOD COUNT 5.1 10^3/ul (4.8-10.8)
[2017-05-22 06:37] LABS: ALBUMIN 2.8 g/dl (3.3-4.9); ALBUMIN/GLOBULIN RATIO 1.21; CALCIUM 7.8 mg/dl (8.4-10.2); CREATININE 1.03 mg/dl (0.44-1.00); POTASSIUM 3.1 mmol/L (3.5-5.1); TOTAL PROTEIN 5.1 g/dl (6.1-8.1)
[2017-05-22 08:15] VITALS: BP 97/66; RESP 18
[2017-05-22] MEDS: VANCOMYCIN 750 MG in SOD CHLORIDE 0.9% 150 ML IVPB SCH ×2 (10:11→21:32)
[2017-05-22] MEDS ORDERED: POTASSIUM CHLORIDE 250 ML IVPB ONE (12:30)
--- NOTE | 2017-05-22 13:30 | PN ---
Date/Time of Note Date/Time of Note DATE: 05/22/17 TIME: 13:28 Assessment/Plan Lines/Catheters IV Catheter Type (from Nrs): Saline Lock Mattehw in Place (from Nrs): No Assessment/Plan Assessment/Plan [facility] Progress Note Date of Service: 05/22/17 Today's Impression & Plan: Overall stable and continuing to improve. UTI and pancreatitis improving. Hope to stabilize enough for scheduled hepaticojejunostomy scheduled for 05/30/17. Constipation may be an issue at this point and should be addressed. Also will be helpful to get gastroenterology input regarding etiology of pancreatitis, since it is not clear to me why the patient had this issue that cause admission the hospital. The patient and family appear to understand and agree with the plans. With above assessment, I've recommended the following for today: 1. Cont current cares 2. Continue broad-spectrum antimicrobial therapy to treat urinary tract infection 3. Treat pancreatitis 4. Low-fat regular diet 5. Keep in-house 6. Labs in am 7. Gastroenterology consultation 8. Potential discharge planning for 24-48 hours from Thank you again for your great care of this very pleasant patient and wonderful family. If there are any questions, please feel free to call me at [phone]. Nature of presenting problem: High severity Please note that, given the extensive number of diagnoses or management options , the extensive amount and/or complexity of data needed to be reviewed, and high risk of complications and/or morbidity or mortality, this qualifies as high complexity type of decision-making. Disclaimer: Inadvertent spelling and grammatical errors are likely due to EHR/ dictation software use and do not reflect on the quality of delivered patient care. Also, please note that the electronic time recorded on this node does not necessarily reflect the actual time of the visit. Review of outside records (78 pages): Admitted to [facility] 05/18/2017. Admission white blood cell count 11.8. Creatinine 3.8. Alkaline phosphatase 547. Total bilirubin 1.1. Lipase 1724. Heart rate 122. Involved physicians included Adrian Oro MD and Maryellen Dolan MD. patient was treated with ceftazidime, vancomycin and metronidazole. CT scan abdomen and pelvis and ovale 05/18/2017: No acute intra- abdominal abnormality appreciated on a limited noncontrast CT of the abdomen and pelvis. Evidence of cholecystectomy. Transhepatic drainage catheter terminating in the region of the gallbladder fossa. Patient's was concerned about possible blood culture positive bacteremia, but I did not see any evidence of that in the reviewed material. The rest of patient's history and physical is unchanged and well documented in my previous visits with her starting on 04/06/2017. Updated Clinical Summary: The patient is a very pleasant 37-year-old young lady who was transferred from an outside hospital to [facility] for management of possible bile duct injury. S/p percutaneous CT-guided drain placement above the liver with removal of 1.4 liters of bile in IR suite and more (2 liters) within first 24 hours post procedure. Drain output minimal 04/09/17. S/p lap washout and wide drainage at [facility]. The upper pigtail catheter and the 2 surgical drains d/c 'd on 04/14/17. Urinary retention issues requiring straight cath and Matthew insertion appeared resolved by 04/15/17. DC home 04/16/2017. 2 ER visits between discharge and the 2016 with no hospitalization. Readmitted as a transfer from outside hospital to [facility] 05/19/2017 with pancreatitis as well as urinary tract infection. COMORBIDITIES: 1. Cholelithiasis and acute cholecystitis, status post laparoscopic cholecystectomy 03/31/2017 at [facility], complicated by possible bile duct injury, as shown by ERCP that was done after a HIDA scan showed possible bile leak, explaining the patient's continued pain and distention. The ERCP on 04/03/2017 showed clips across the distal common bile duct, without any contrast opacifying the liver. We accepted the patient as a transfer into [facility] bile duct injury program for a higher level of care. The patient arrived on 04/05/2017. 2. S/p percutaneous CT-guided drain placement above the liver with removal of 1.4 liters of bile in IR suite and more immediately post procedure. 3. S/p lap washout and wide drainage at [facility]. Subjective: No major events or complaints overnight; reports feeling better; no significant current abd pain and seemingly under control with medications; no current n/v/d ; no sob or cp; + flatus; - BM; + activity. No appetite. No issues with diarrhea or constipation at home. Objective: Vitals: See below Exam: GENERAL: On exam, the patient was laying in bed and appeared to be comfortable and in no acute distress. ABDOMEN: Soft, nontender with exception of slight discomfort in the right lower quadrant and nondistended. Incisions are clean, dry and intact without any evidence of erythema, edema, discharge, or hernia. Lower pigtail catheter with bilious output. There are no peritoneal signs or guarding. SKIN: Skin appears to be pink and feels warm to touch. NEUROLOGIC: Patient is awake, alert, and follows commands appropriately. Exam/Review of Systems Vital Signs Vitals Vital Signs Date Time Temp Pulse Resp B/P Pulse Ox O2 Delivery O2 Flow Rate FiO2 05/22/17 08:15 98.4 67 18 97/66 97 Intake and Output 05/21/17 05/21/17 05/22/17 15:00 23:00 07:00 Intake Total 250 ml 1350 ml 1750 ml Output Total 170 ml 260 ml 210 ml Balance 80 ml 1090 ml 1540 ml Results Result Diagram: 05/22/17 0524 05/22/17 0524 LENA MONCADA M.D. May 22, 2017 13:30
--- NOTE | 2017-05-22 14:39 | PN ---
Date/Time of Note Date/Time of Note DATE: 05/22/17 TIME: 14:35 Assessment/Plan VTE Prophylaxis VTE Prophylaxis Intervention: ambulation Lines/Catheters IV Catheter Type (from [facility]): Saline Lock Urinary Cath still in place: No Assessment/Plan Chief Complaint/Hosp Course 1. Acute pancreatitis. diet per surgeon recs. continue on analgesics 2. History of cholelithiasis and cholecystitis. Status post laparoscopic cholecystectomy on 03/31/2017 at an outside facility complicated by possible bile duct injury. Status post ERCP on 04/03/2017. Also Status post laparoscopic washout on 04/10/2017 by hepatobiliary surgery. Status post percutaneous CT- guided drain placement at [facility]. The patient currently has a drain in place. continue with surgeon recommendations. diet advanced to low fat/low cholesterol . Discussed with surgeon, will get GI consultation. 3. Transaminitis. Most probably secondary to #1 and #2. Monitor. Avoid hepatotoxic medications. Monitor LFT DVT prophylaxis. Bilateral sequential compression devices. Gastrointestinal prophylaxis. Proton pump inhibitors. DISPO/PLAN. Will get log chipper operator consultation for further assessment of pancreatitis. Appears to be slowly improving. Continue on diet for now. Discharged in medically stable and cleared by consultants Discussed plan of care with Dr. Sinclair Problems: Subjective 24 Hr Interval Summary Free Text/Dictation Reports less abdominal pain at this time. Exam/Review of Systems Vital Signs Vitals Vital Signs Date Time Temp Pulse Resp B/P Pulse Ox O2 Delivery O2 Flow Rate FiO2 05/22/17 08:15 98.4 67 18 97/66 97 Intake and Output 05/21/17 05/21/17 05/22/17 15:00 23:00 07:00 Intake Total 250 ml 1350 ml 1750 ml Output Total 170 ml 260 ml 210 ml Balance 80 ml 1090 ml 1540 ml Exam Constitutional: alert, oriented Psych: no complaints Eyes: other (disconjugate gaze ) Neck: No jvd Respiratory: clear to auscultation, normal air movement Cardiovascular: regular rate and rhythm Gastrointestinal: soft, tender Musculoskeletal: nl extremities to inspection, nl gait and stance Neurological: COMPARATOR OPERATOR II-XII intact, nl mental status, nl speech Results Result Diagram: 05/22/1724 05/22/17 0524 Results 24 hrs Laboratory Tests Test 05/22/17 05:24 White Blood Count 5.1 Red Blood Count 3.90 L Hemoglobin 10.8 L Hematocrit 34.0 L Mean Corpuscular Volume 87.2 Mean Corpuscular Hemoglobin 27.7 L Mean Corpuscular Hemoglobin Concent 31.8 L Red Cell Distribution Width 14.1 Platelet Count 230 Mean Platelet Volume 10.4 Neutrophils % 46.9 Lymphocytes % 34.8 Monocytes % 9.8 Eosinophils % 7.5 H Basophils % 0.6 Nucleated Red Blood Cells % 0.0 Neutrophils # 2.4 Lymphocytes # 1.8 Monocytes # 0.5 Eosinophils # 0.4 Basophils # 0.0 Nucleated Red Blood Cells # 0.0 Sodium Level 142 Potassium Level 3.1 L Chloride Level 110 Carbon Dioxide Level 19 L Anion Gap 16 Blood Urea Nitrogen 2 L Creatinine 1.03 H Glucose Level 112 Calcium Level 7.8 L Magnesium Level 2.0 Total Bilirubin 0.0 L Direct Bilirubin 0.00 Indirect Bilirubin 0.0 Aspartate Amino Transf (AST/SGOT) 30 Alanine Aminotransferase (ALT/SGPT) 65 Alkaline Phosphatase 147 H Total Protein 5.1 L Albumin 2.8 L Globulin 2.30 Albumin/Globulin Ratio 1.21 Lipase 938 H Medications Medications Current Medications Ondansetron HCl (Zofran Inj) 4 mg Q6H PRN IV NAUSEA AND/OR VOMITING Last administered on 05/22/17 05:25; Admin Dose 4 MG; Start 05/19/17 at 21:30 Pantoprazole 40 mg 40 mg DAILY@06 IV Last administered on 05/22/17 05:24; Admin Dose 40 MG; Start 05/20/17 at 06:00 Piperacillin Sod/ Tazobactam Sod (Zosyn 3.375gm/ 100 ml (Pmx)) 100 ml @ 200 mls /hr Q6 IVPB Last administered on 05/22/17 13:18; Admin Dose 200 MLS/HR; Start 05/20/17 at 02:00 Hydromorphone HCl 1 mg 1 mg Q4H PRN IV PAIN LEVEL 6-10; Start 05/19/17 at 23:30 Vancomycin HCl 750 mg/Sodium Chloride 150 ml @ 75 mls/hr Q12H IVPB Last administered on 05/22/17 10:11; Admin Dose 75 MLS/HR; Start 05/20/17 at 10:00 Dextrose/Sodium Chloride 1,000 ml @ 125 mls/hr Q8H IV Last administered on t 05:36; Admin Dose 125 MLS/HR; Start 05/20/17 at 12:30 Potassium Chloride (KCl 40 MEQ/250 ML NS) 250 ml @ 62.5 mls/hr ONCE ONCE IVPB ; Start 05/22/17 at 12:30; Stop 05/22/17 at 16:29 Miscellaneous Information (*Rx Drug Level Order Reminder*) VANCOMYCIN TROUGH 05/23 AT 0900 ONCE ONCE XX ; Start 05/23/17 at 09:00; Stop 05/23/17 at 09:01 Morphine Sulfate (morphine) 2 mg Q4H PRN IV SEVERE PAIN LEVEL 7-10; Start 05/22 at 14:30 MILES NOLASCO May 22, 2017 14:39 MILES NOLASCO May 22, 2017 14:39
[2017-05-22 15:21] VITALS: BP 96/54; RESP 20
[2017-05-22] MEDS: morphine 4 MG/ML VIAL IV PRN (17:53)
[2017-05-22] MEDS: BISACODYL 10 MG SUPP PR SCH (18:00)
--- NOTE | 2017-05-22 18:59 | CONS ---
Date/Time of Note Date/Time of Note DATE: 05/22/17 TIME: 18:52 Assessment/Plan Assessment/Plan Additional Assessment/Plan Assessment: * Acute pancreatitis/pancreatic ductal stricture? * Post cholecystectomy biliary injury/obstruction * Post biliary drainage * Post drainage of large biloma Plan: * MRI MRCP to further understand the anatomy of the pancreas and biliary tree Consultation Date/Type/Reason Admit Date/Time May 19, 2017 at 19:10 Date of Consultation: May 22, 2017 Type of Consultation: GI Reason for Consultation * Unexplained pancreatitis Hx of Present Illness Unfortunate 37-year-old female with complications of laparoscopic cholecystectomy for what appears to be common bile duct injury and leakage, there appears to be complete occlusion of the common bile duct by clips. The patient has an external biliary drainage. The patient had been managed as an outpatient in preparation for possible hepaticojejunostomy reconstruction. The patient developed an episode of acute pancreatitis without a clear explanation. On most recent catheter exchange and cholangiogram description of material reaching the pancreas which shows an area of narrowing with distal dilatation. It is thought that this may be the cause of acute episode of pancreatitis. The patient is comfortable at the present time with no significant pain and tolerating diet. Findings will be reviewed with radiology and biliary pancreatic surgery. Constitutional: improved, no complaints Eyes: no complaints ENT: no complaints Respiratory: no complaints Cardiovascular: no complaints Gastrointestinal: other (See HPI) Genitourinary: no complaints Musculoskeletal: no complaints Skin: no complaints Neurologic: no complaints Endocrine: no complaints Lymphatic: no complaints Psychological: no complaints Immunologic: no complaints Past Medical History * Biliary duct injury/complete obstruction/leakage * Biliary leak/biloma/post drainage Past Surgical History * Laparoscopic cholecystectomy * Transhepatic biliary drainage Family History Significant Family History: no pertinent family hx Social History Alcohol Use: rarely Smoking Status: Never smoker Drug Use: none Exam/Review of Systems Vital Signs Vitals Vital Signs Date Time Temp Pulse Resp B/P Pulse Ox O2 Delivery O2 Flow Rate FiO2 05/22/17 15:21 98.0 70 20 96/54 98 Intake and Output 05/21/17 05/21/17 05/22/17 15:00 23:00 07:00 Intake Total 250 ml 1350 ml 1750 ml Output Total 170 ml 260 ml 210 ml Balance 80 ml 1090 ml 1540 ml Exam Constitutional: alert, oriented, well developed Psych: nl mood/affect, no complaints Head: atraumatic, normocephalic Eyes: EOMI, PERRL, nl conjunctiva, nl lids, nl sclera ENMT: nl external ears & nose, nl lips & teeth, nl nasal mucosa & septum Neck: non-tender, supple Respiratory: clear to auscultation, normal air movement Cardiovascular: nl pulses, regular rate and rhythm Gastrointestinal: bowel sounds, other (Biliary drainage catheter in place), soft, tender (Mild tenderness in upper abdomen), No ascites, No distended, No mass Musculoskeletal: nl extremities to inspection Extremities: normal pulses Skin: nl turgor, No rash or lesions Lymph: nl lymph nodes Results Result Diagram: 05/22/1752305/22/17523 Results 24 hrs Laboratory Tests Test 05/22/17 05:24 White Blood Count 5.1 Red Blood Count 3.90 L Hemoglobin 10.8 L Hematocrit 34.0 L Mean Corpuscular Volume 87.2 Mean Corpuscular Hemoglobin 27.7 L Mean Corpuscular Hemoglobin Concent 31.8 L Red Cell Distribution Width 14.1 Platelet Count 230 Mean Platelet Volume 10.4 Neutrophils % 46.9 Lymphocytes % 34.8 Monocytes % 9.8 Eosinophils % 7.5 H Basophils % 0.6 Nucleated Red Blood Cells % 0.0 Neutrophils # 2.4 Lymphocytes # 1.8 Monocytes # 0.5 Eosinophils # 0.4 Basophils # 0.0 Nucleated Red Blood Cells # 0.0 Sodium Level 142 Potassium Level 3.1 L Chloride Level 110 Carbon Dioxide Level 19 L Anion Gap 16 Blood Urea Nitrogen 2 L Creatinine 1.03 H Glucose Level 112 Calcium Level 7.8 L Magnesium Level 2.0 Total Bilirubin 0.0 L Direct Bilirubin 0.00 Indirect Bilirubin 0.0 Aspartate Amino Transf (AST/SGOT) 30 Alanine Aminotransferase (ALT/SGPT) 65 Alkaline Phosphatase 147 H Total Protein 5.1 L Albumin 2.8 L Globulin 2.30 Albumin/Globulin Ratio 1.21 Lipase 938 H Medications Medications Current Medications Ondansetron HCl (Zofran Inj) 4 mg Q6H PRN IV NAUSEA AND/OR VOMITING Last administered on 05/22/17 05:25; Admin Dose 4 MG; Start 05/19/17 at 21:30 Pantoprazole 40 mg 40 mg DAILY@06 IV Last administered on 05/22/17 05:24; Admin Dose 40 MG; Start 05/20/17 at 06:00 Piperacillin Sod/ Tazobactam Sod (Zosyn 3.375gm/ 100 ml (Pmx)) 100 ml @ 200 mls /hr Q6 IVPB Last administered on 05/22/17 13:18; Admin Dose 200 MLS/HR; Start 05/20/17 at 02:00 Hydromorphone HCl 1 mg 1 mg Q4H PRN IV PAIN LEVEL 6-10; Start 05/19/17 at 23:30 Vancomycin HCl 750 mg/Sodium Chloride 150 ml @ 75 mls/hr Q12H IVPB Last administered on 05/22/17 10:11; Admin Dose 75 MLS/HR; Start 05/20/17 at 10:00 Dextrose/Sodium Chloride (D5-1/2ns) 1,000 ml @ 125 mls/hr Q8H IV Last administered on 05/22/17 05:36; Admin Dose 125 MLS/HR; Start 05/20/17 at 12:30 Miscellaneous Information (*Rx Drug Level Order Reminder*) VANCOMYCIN TROUGH 05/23 AT 0900 ONCE ONCE XX ; Start 05/23/17 at 09:00; Stop 05/23/17 at 09:01 Morphine Sulfate (morphine) 2 mg Q4H PRN IV SEVERE PAIN LEVEL 7-10 Last administered on 05/22/17 17:53; Admin Dose 2 MG; Start 05/22/17 at 14:30 Bisacodyl (Dulcolax Supp) 10 mg Q12 HI ; Start 05/22/17 at 18:00 Sodium Biphosphate/ Sodium Phosphate (Fleet Enema) 133 ml Q12 HI ; Start at 00:00 SHERINE DOBSON MD May 22, 2017 18:59
--- NOTE | 2017-05-22 19:22 | RADRPT ---
Echocardiogram Report Patient Name: DEUCE CARR Gender: Female Date: 1980 Study Date: 22-May-2017 Produce Laborer: Stan Carlos RDCS Location: 2263 Ref. Physician: MILES NOLASCO Quality: Good Procedures: Transthoracic echocardiogram with complete 2D, M-Mode, and doppler examination. Indications: Congestive Heart Failure. 2D/M Mode Doppler Measurement Value Normal Ranges Measurement Value Normal Ranges LVIDd 2D 4.3 3.5 - 5.6 cm LEE Vmax 2.4 cm2 LVIDs 2D 1.8 2.1 - 4.1 cm LEE VTI 2.4 cm2 LVPWd 2D 0.8 0.6 - 1.1 cm AV Peak Rustam 1.3 m/sec IVSd 2D 0.8 0.6 - 1.1 cm AV Peak PG 7.0 mmHg AoR Diam 2D 2.9 2.0 - 3.7 cm LVOT Peak Rustam 1.2 m/sec EDV 2D 85.0 cm3 LVOT Peak PG 6.0 mmHg ESV 2D 5.6 cm3 MV E Peak Rustam 1.1 m/sec LA Dimen 2D 2.5 2.3 - 4.0 cm MV A Peak Rustam 0.6 m/sec LVOT Diam 1.8 cm MV E/A 1.8 MV Decel Time 154 msec MV Decel Milam 7 MV E/A 1.8 TR Peak Rustam 2.5 m/sec TR Peak PG 24.7 mmHg RVSP 34.7 mmHg Findings Left Ventricle: Normal left ventricular systolic function. Normal left ventricular cavity size. Normal left ventricular wall thickness. Ejection fraction is visually estimated at 55 %. Tissue Doppler/Mitral Doppler indices are within normal limits. Right Ventricle: Normal right ventricular size. Normal right ventricular systolic function. Left Atrium: The left atrium is normal in size. Right Atrium: The right atrium is normal in size. Mitral Valve: Normal appearance of the mitral valve. Trace mitral regurgitation. Aortic Valve: Trileaflet aortic valve. No aortic regurgitation. Tricuspid Valve: Normal appearance of the tricuspid valve. Estimated peak PA systolic pressure 34 mmHg. There is trace tricuspid regurgitation. Pulmonic Valve: Pulmonic valve not well visualized. Pericardium: Pleural effusion seen. Aorta: Normal aortic root. IVC: Normal size and normal respiratory collapse consistent with normal right atrial pressure. Conclusions 1.Normal left ventricular systolic function. Normal left ventricular cavity size. Normal left ventricular wall thickness. Ejection fraction is visually estimated at 55 %. Tissue Doppler/Mitral Doppler indices are within normal limits. 2.Normal appearance of the mitral valve. Trace mitral regurgitation. 3.Trileaflet aortic valve. No aortic regurgitation. left coronary cusp appears thickened on short axis view. ddx include vegetation, artifact or just leaflet thickening. clinical correlation is required. 4.Normal appearance of the tricuspid valve. Estimated peak PA systolic pressure 34 mmHg. There is trace tricuspid regurgitation. Electronically Signed By: Mathew Walker 22-May-2017 19:20:56 -0700 Patient Name: DEUCE CARR Study Date: 22-May-2017 [id number]
[2017-05-22 21:04] VITALS: BP 106/64; RESP 18
[2017-05-22] MEDS: NA PHOSPHATE/BIPHOS 133 ML ENEMA PR SCH (23:57)
[2017-05-23] MEDS: morphine 4 MG/ML VIAL IV PRN ×4 (02:21→19:27)
[2017-05-23 02:59] VITALS: BP 103/59; RESP 16
[2017-05-23] MEDS: DEXTROSE 5%-0.45% NACL 1,000 ML IV SCH ×2 (04:30→09:15)
[2017-05-23] MEDS: PANTOPRAZOLE 40 MG INJ IV SCH (05:02)
[2017-05-23] MEDS: PIPER-TAZO 3.375 GM IV (PMX) 100 ML IVPB SCH ×4 (05:02→23:59)
[2017-05-23 05:33] LABS: BASOPHILS % 0.5 % (0.0-2.0); EOSINOPHILS # 0.3 10^3/ul (0.0-0.5); EOSINOPHILS % 5.9 % (0.0-7.0); HEMATOCRIT 32.9 % (37.0-47.0); LYMPHOCYTES # 1.6 10^3/ul (0.8-2.9); LYMPHOCYTES % 28.7 % (15.0-51.0); MEAN CORPUSCULAR HEMOGLOBIN 28.6 pg (29.0-33.0); MEAN CORPUSCULAR HGB CONC 33.4 g/dl (32.0-37.0); MEAN CORPUSCULAR VOLUME 85.5 fl (82.0-101.0); MEAN PLATELET VOLUME 10.7 fl (7.4-10.4); MONOCYTE # 0.5 10^3/ul (0.3-0.9); MONOCYTES % 8.8 % (0.0-11.0); NEUTROPHIL # 3.1 10^3/ul (1.6-7.5); NEUTROPHILS % 55.7 % (39.0-77.0); PLATELET COUNT 228 10^3/UL (140-415); RED BLOOD COUNT 3.85 10^6/ul (4.20-5.40); RED CELL DISTRIBUTION WIDTH 14.2 % (11.5-14.5); WHITE BLOOD COUNT 5.6 10^3/ul (4.8-10.8)
[2017-05-23 05:47] LABS: INR 1.46; PROTIME 17.8 Sec (12.2-14.2); PT RATIO 1.4
[2017-05-23 05:48] LABS: PARTIAL THROMBOPLASTIN TIME 28.1 Sec (25.0-35.0)
[2017-05-23 05:55] LABS: CALCIUM 8.1 mg/dl (8.4-10.2); PHOSPHORUS 3.1 mg/dl (2.5-4.9)
[2017-05-23 06:02] LABS: ALBUMIN 2.7 g/dl (3.3-4.9); ALBUMIN/GLOBULIN RATIO 1.12; BILIRUBIN,INDIRECT 0.1 mg/dl (0-1.1); BILIRUBIN,TOTAL 0.1 mg/dl (0.2-1.3); CALCIUM 7.9 mg/dl (8.4-10.2); CREATININE 1.06 mg/dl (0.44-1.00); MAGNESIUM 1.7 mg/dl (1.7-2.5); POTASSIUM 3.4 mmol/L (3.5-5.1); TOTAL PROTEIN 5.1 g/dl (6.1-8.1)
[2017-05-23 07:30] VITALS: BP 101/65; RESP 18
[2017-05-23] MEDS: BISACODYL 10 MG SUPP PR SCH ×2 (09:00→20:03)
[2017-05-23] MEDS: NA PHOSPHATE/BIPHOS 133 ML ENEMA PR SCH ×2 (09:00→20:04)
[2017-05-23] MEDS: VANCOMYCIN 750 MG in SOD CHLORIDE 0.9% 150 ML IVPB SCH (10:31)
--- NOTE | 2017-05-23 13:34 | PN ---
Date/Time of Note Date/Time of Note DATE: 05/23/17 TIME: 13:30 Assessment/Plan VTE Prophylaxis VTE Prophylaxis Intervention: SCD's Lines/Catheters IV Catheter Type (from [facility]): Peripheral IV Urinary Cath still in place: No Assessment/Plan Chief Complaint/Hosp Course 1. Acute pancreatitis. on clear liquid diet. advance per surgeon. continue on analgesics 2. History of cholelithiasis and cholecystitis. Status post laparoscopic cholecystectomy on 03/31/2017 at an outside facility complicated by possible bile duct injury. Status post ERCP on 04/03/2017. Also Status post laparoscopic washout on 04/10/2017 by hepatobiliary surgery. Status post percutaneous CT- guided drain placement at [facility]. The patient currently has a drain in place. continue with surgeon recommendations. diet advanced to low fat/low cholesterol . GI surgeon following the plan for MRCP. 3. Transaminitis. Most probably secondary to #1 and #2. Monitor. Avoid hepatotoxic medications. Monitor LFT DVT prophylaxis. Bilateral sequential compression devices. Gastrointestinal prophylaxis. Proton pump inhibitors. DISPO/PLAN. Plan for MRCP. Will follow up with results. Monitor lipase. continue inhouse monitoring Discussed plan of care with Dr. Sinclair Problems: Subjective 24 Hr Interval Summary Free Text/Dictation less pain reported today. Exam/Review of Systems Vital Signs Vitals Vital Signs Date Time Temp Pulse Resp B/P Pulse Ox O2 Delivery O2 Flow Rate FiO2 05/23/17 07:30 98.1 74 18 101/65 96 Intake and Output 05/22/17 05/22/17 05/23/17 15:00 23:00 07:00 Intake Total 250 ml 2650 ml 1510 ml Output Total 1460 ml 2600 ml Balance 250 ml 1190 ml -1090 ml Exam Constitutional: alert, oriented Psych: nl mood/affect Eyes: nl conjunctiva Respiratory: clear to auscultation, normal air movement Cardiovascular: regular rate and rhythm Gastrointestinal: soft, tender (minimal) Extremities: normal pulses Neurological: [employer] II-XII intact, nl mental status, nl speech Results Result Diagram: 05/23/17 0437 05/23/17 0437 Results 24 hrs Laboratory Tests Test 05/23/17 04:37 05/23/17 08:48 White Blood Count 5.6 Red Blood Count 3.85 L Hemoglobin 11.0 L Hematocrit 32.9 L Mean Corpuscular Volume 85.5 Mean Corpuscular Hemoglobin 28.6 L Mean Corpuscular Hemoglobin Concent 33.4 Red Cell Distribution Width 14.2 Platelet Count 228 Mean Platelet Volume 10.7 H Neutrophils % 55.7 Lymphocytes % 28.7 Monocytes % 8.8 Eosinophils % 5.9 Basophils % 0.5 Nucleated Red Blood Cells % 0.0 Neutrophils # 3.1 Lymphocytes # 1.6 Monocytes # 0.5 Eosinophils # 0.3 Basophils # 0.0 Nucleated Red Blood Cells # 0.0 Prothrombin Time 17.8 H Prothrombin Time Ratio 1.4 INR International Normalized Ratio 1.46 Activated Partial Thromboplast Time 28.1 Sodium Level 146 H Potassium Level 3.4 L Chloride Level 112 H Carbon Dioxide Level 20 L Anion Gap 17 H Blood Urea Nitrogen 2 L Creatinine 1.06 H Glucose Level 120 Calcium Level 7.9 L Phosphorus Level 3.1 Magnesium Level 1.7 Total Bilirubin 0.1 L Direct Bilirubin 0.00 Indirect Bilirubin 0.1 Aspartate Amino Transf (AST/SGOT) 23 Alanine Aminotransferase (ALT/SGPT) 58 Alkaline Phosphatase 129 H B-Type Natriuretic Peptide 899 H Total Protein 5.1 L Albumin 2.7 L Globulin 2.40 Albumin/Globulin Ratio 1.12 Lipase 1431 H Vancomycin Level Trough 14.4 Medications Medications Current Medications Ondansetron HCl (Zofran Inj) 4 mg Q6H PRN IV NAUSEA AND/OR VOMITING Last administered on 05/22/17 05:25; Admin Dose 4 MG; Start 05/19/17 at 21:30 Pantoprazole 40 mg 40 mg DAILY@06 IV Last administered on 05/23/17 05:02; Admin Dose 40 MG; Start 05/20/17 at 06:00 Piperacillin Sod/ Tazobactam Sod (Zosyn 3.375gm/ 100 ml (Pmx)) 100 ml @ 200 mls /hr Q6 IVPB Last administered on 05/23/17 12:29; Admin Dose 200 MLS/HR; Start 05/20/17 at 02:00 Hydromorphone HCl 1 mg 1 mg Q4H PRN IV PAIN LEVEL 6-10; Start 05/19/17 at 23:30 Dextrose/Sodium Chloride (D5-1/2ns) 1,000 ml @ 125 mls/hr Q8H IV Last administered on 05/23/17 09:15; Admin Dose 125 MLS/HR; Start 05/20/17 at 12:30 Morphine Sulfate (morphine) 2 mg Q4H PRN IV SEVERE PAIN LEVEL 7-10 Last administered on 05/23/17 09:24; Admin Dose 2 MG; Start 05/22/17 at 14:30 Bisacodyl (Dulcolax Supp) 10 mg Q12 TN ; Start 05/22/17 at 18:00 Sodium Biphosphate/ Sodium Phosphate 133 ml 133 ml Q12 TN ; Start 05/23/17 at 00: 00 Vancomycin HCl (Vancocin) 100 ml @ 100 mls/hr Q12H IVPB ; Start 05/23/17 at 22: 00 MILES NOLASCO May 23, 2017 13:34 MILES NOLASCO May 23, 2017 13:34
[2017-05-23] MEDS ORDERED: POTASSIUM CHLORIDE 20 MEQ POWDER FOR ORAL SOLN PO ONE (14:00)
[2017-05-23 14:07] VITALS: BP 101/63; RESP 16
[2017-05-23] MEDS: ONDANSETRON 4 MG INJ IV PRN (14:22)
--- NOTE | 2017-05-23 15:53 | PN ---
Date/Time of Note Date/Time of Note DATE: 05/23/17 TIME: 08:51 Assessment/Plan Lines/Catheters IV Catheter Type (from [facility]): Peripheral IV Matthew in Place (from [facility]): No Assessment/Plan Assessment/Plan [facility] Progress Note Date of Service: 05/23/17 Today's Impression & Plan: Overall stable and continuing to improve. UTI and pancreatitis improving. Slight rise in lipase noted but would be expected after resumption of oral intake of solid food. Awaiting further recommendations from gastroenterology regarding patient's pancreatitis. MRCP has been ordered. Hope to stabilize enough for scheduled hepaticojejunostomy scheduled for 05/30/17. Discussed with the patient and she appeared to understand and agree with the plans. With above assessment, I've recommended the following for today: 1. Cont current cares 2. Continue broad-spectrum antimicrobial therapy to treat urinary tract infection 3. Treat pancreatitis 4. Low-fat regular diet 5. Keep in-house 6. Labs in am 7. Gastroenterology consultation 8. Potential discharge planning for 24-48 hours from Thank you again for your great care of this very pleasant patient and wonderful family. If there are any questions, please feel free to call me at [phone]. Nature of presenting problem: High severity Please note that, given the extensive number of diagnoses or management options , the extensive amount and/or complexity of data needed to be reviewed, and high risk of complications and/or morbidity or mortality, this qualifies as high complexity type of decision-making. Disclaimer: Inadvertent spelling and grammatical errors are likely due to EHR/ dictation software use and do not reflect on the quality of delivered patient care. Also, please note that the electronic time recorded on this node does not necessarily reflect the actual time of the visit. Review of outside records (78 pages): Admitted to [facility] 05/18/2017. Admission white blood cell count 11.8. Creatinine 3.8. Alkaline phosphatase 547. Total bilirubin 1.1. Lipase 1724. Heart rate 122. Involved physicians included Adrian Oro MD and Maryellen Dolan MD. patient was treated with ceftazidime, vancomycin and metronidazole. CT scan abdomen and pelvis and ovale 05/18/2017: No acute intra- abdominal abnormality appreciated on a limited noncontrast CT of the abdomen and pelvis. Evidence of cholecystectomy. Transhepatic drainage catheter terminating in the region of the gallbladder fossa. Patient's was concerned about possible blood culture positive bacteremia, but I did not see any evidence of that in the reviewed material. The rest of patient's history and physical is unchanged and well documented in my previous visits with her starting on 04/06/2017. Updated Clinical Summary: The patient is a very pleasant 37-year-old young lady who was transferred from an outside hospital to [facility] for management of possible bile duct injury. S/p percutaneous CT-guided drain placement above the liver with removal of 1.4 liters of bile in IR suite and more (2 liters) within first 24 hours post procedure. Drain output minimal 04/09/17. S/p lap washout and wide drainage at [facility]. The upper pigtail catheter and the 2 surgical drains d/c 'd on 04/14/17. Urinary retention issues requiring straight cath and Matthew insertion appeared resolved by 04/15/17. DC home 04/16/2017. 2 ER visits between discharge and the 2016 with no hospitalization. Readmitted as a transfer from outside hospital to [facility] 05/19/2017 with pancreatitis as well as urinary tract infection. COMORBIDITIES: 1. Cholelithiasis and acute cholecystitis, status post laparoscopic cholecystectomy 03/31/2017 at [facility], complicated by possible bile duct injury, as shown by ERCP that was done after a HIDA scan showed possible bile leak, explaining the patient's continued pain and distention. The ERCP on 04/03/2017 showed clips across the distal common bile duct, without any contrast opacifying the liver. We accepted the patient as a transfer into [facility] bile duct injury program for a higher level of care. The patient arrived on 04/05/2017. 2. S/p percutaneous CT-guided drain placement above the liver with removal of 1.4 liters of bile in IR suite and more immediately post procedure. 3. S/p lap washout and wide drainage at [facility]. Subjective: No major events or complaints overnight; reports feeling better; no significant current abd pain and seemingly under control with medications; no current n/v/d ; no sob or cp; + flatus; + BM; + activity. No appetite. Objective: Vitals: See below Exam: GENERAL: On exam, the patient was laying in bed and appeared to be comfortable and in no acute distress. ABDOMEN: Soft, nontender with exception of slight discomfort in the right lower quadrant and nondistended. Incisions are clean, dry and intact without any evidence of erythema, edema, discharge, or hernia. Lower pigtail catheter with bilious output. There are no peritoneal signs or guarding. SKIN: Skin appears to be pink and feels warm to touch. NEUROLOGIC: Patient is awake, alert, and follows commands appropriately. Exam/Review of Systems Vital Signs Vitals Vital Signs Date Time Temp Pulse Resp B/P Pulse Ox O2 Delivery O2 Flow Rate FiO2 05/23/17 14:07 98.4 70 16 101/63 97 Intake and Output 05/22/17 05/22/17 05/23/17 15:00 23:00 07:00 Intake Total 250 ml 2650 ml 1510 ml Output Total 1460 ml 2600 ml Balance 250 ml 1190 ml -1090 ml Results Result Diagram: 05/23/17 0437 05/23/17 0437 LENA MONCADA M.D. May 23, 2017 15:53
--- NOTE | 2017-05-23 16:33 | PN ---
Date/Time of Note Date/Time of Note DATE: 05/23/17 TIME: 16:30 Assessment/Plan VTE Prophylaxis VTE Prophylaxis Intervention: ambulation Lines/Catheters IV C[facility]ter [facility] (from [facility]): Peripheral IV Urinary Cath still in place: No Assessment/Plan Assessment/Plan Assessment: * Acute pancreatitis/pancreatic ductal stricture? * Post cholecystectomy biliary injury/obstruction * Post biliary drainage * Post drainage of large biloma Plan: * await MRI MRCP to further understand the anatomy of the pancreas and biliary tree * case discussed with Dr Mcconnell * further orders will depend on clinica; course Subjective 24 Hr Interval Summary Free Text/Dictation * Course reviewed with RN * Patient going down to MRI * No untoward events overnight Exam/Review of Systems Vital Signs Vitals Vital Signs Date Time Temp Pulse Resp B/P Pulse Ox O2 Delivery O2 Flow Rate FiO2 05/23/17 14:07 98.4 70 16 101/63 97 Intake and Output 05/22/17 05/22/17 05/23/17 14:59 22:59 06:59 Intake Total 250 ml 2650 ml 1510 ml Output Total 1460 ml 2600 ml Balance 250 ml 1190 ml -1090 ml Exam Constitutional: alert, oriented Neck: non-tender, supple Respiratory: clear to auscultation, normal air movement Cardiovascular: nl pulses, regular rate and rhythm Gastrointestinal: non-tender, soft Musculoskeletal: nl extremities to inspection, nl gait and stance Extremities: normal pulses Neurological: nl speech, nl strength Skin: nl turgor Results Result Diagram: 05/23/17 0437 05/23/17 0437 Results 24 hrs Laboratory Tests Test 05/23/17 04:37 05/23/17 08:48 White Blood Count 5.6 Red Blood Count 3.85 L Hemoglobin 11.0 L Hematocrit 32.9 L Mean Corpuscular Volume 85.5 Mean Corpuscular Hemoglobin 28.6 L Mean Corpuscular Hemoglobin Concent 33.4 Red Cell Distribution Width 14.2 Platelet Count 228 Mean Platelet Volume 10.7 H Neutrophils % 55.7 Lymphocytes % 28.7 Monocytes % 8.8 Eosinophils % 5.9 Basophils % 0.5 Nucleated Red Blood Cells % 0.0 Neutrophils # 3.1 Lymphocytes # 1.6 Monocytes # 0.5 Eosinophils # 0.3 Basophils # 0.0 Nucleated Red Blood Cells # 0.0 Prothrombin Time 17.8 H Prothrombin Time Ratio 1.4 INR International Normalized Ratio 1.46 Activated Partial Thromboplast Time 28.1 Sodium Level 146 H Potassium Level 3.4 L Chloride Level 112 H Carbon Dioxide Level 20 L Anion Gap 17 H Blood Urea Nitrogen 2 L Creatinine 1.06 H Glucose Level 120 Calcium Level 7.9 L Phosphorus Level 3.1 Magnesium Level 1.7 Total Bilirubin 0.1 L Direct Bilirubin 0.00 Indirect Bilirubin 0.1 Aspartate Amino Transf (AST/SGOT) 23 Alanine Aminotransferase (ALT/SGPT) 58 Alkaline Phosphatase 129 H B-Type Natriuretic Peptide 899 H Total Protein 5.1 L Albumin 2.7 L Globulin 2.40 Albumin/Globulin Ratio 1.12 Lipase 1431 H Vancomycin Level Trough 14.4 Medications Medications Current Medications Ondansetron HCl (Zofran Inj) 4 mg Q6H PRN IV NAUSEA AND/OR VOMITING Last administered on 05/23/17 14:22; Admin Dose 4 MG; Start 05/19/17 at 21:30 Pantoprazole 40 mg 40 mg DAILY@06 IV Last administered on 05/23/17 05:02; Admin Dose 40 MG; Start 05/20/17 at 06:00 Piperacillin Sod/ Tazobactam Sod (Zosyn 3.375gm/ 100 ml (Pmx)) 100 ml @ 200 mls /hr Q6 IVPB Last administered on 05/23/17 12:29; Admin Dose 200 MLS/HR; Start 05/20/17 at 02:00 Hydromorphone HCl (Dilaudid) 1 mg Q4H PRN IV PAIN LEVEL 6-10; Start 05/19/17 at 23:30 Morphine Sulfate (morphine) 2 mg Q4H PRN IV SEVERE PAIN LEVEL 7-10 Last administered on 05/23/17 14:27; Admin Dose 2 MG; Start 05/22/17 at 14:30 Bisacodyl (Dulcolax Supp) 10 mg Q12 NC ; Start 05/22/17 at 18:00 Sodium Biphosphate/ Sodium Phosphate 133 ml 133 ml Q12 NC ; Start 05/23/17 at 00: 00 Vancomycin HCl (Vancocin) 100 ml @ 100 mls/hr Q12H IVPB ; Start 05/23/17 at 22: 00 BERNICE PANCHAL NP May 23, 2017 16:33
--- NOTE | 2017-05-23 18:27 | RADRPT ---
PROCEDURE: MRI MRCP. CLINICAL INDICATION: Pancreatitis. There is a question of pancreatic duct stricture. TECHNIQUE: MRCP was performed without contrast. 3-D/multiplanar reformations and coronal rotating M IP images of the biliary tree were performed by the technologist and at an independent workstation. COMPARISON: CT dated 04/09/2017. Cholangiogram dated 05/20/2017. FINDINGS: There is susceptibility artifact in the vickey hepatis related to surgical clips, which ob scures the central biliary tree. There is signal loss spanning an approximately 2.2 cm segment of pr oximal and mid common bile duct and there is moderate diffuse intrahepatic ductal dilatation proxima l to the region of susceptibility artifact, suggesting an underlying stricture involving the common bile duct. The common bile duct distal to the susceptibility artifact is nondilated and unremarkable . There is no pancreatic ductal dilatation or intraluminal filling defect. The gallbladder is surg ically absent. There is a pigtail drainage catheter seen extending into the region of the vickey hepatis with its ti p not clearly identified. There is trace free fluid within the visualized upper abdomen. No focal drainable collection is identified. IMPRESSION: 1. Moderate diffuse intrahepatic ductal dilatation with a transition point in the region of suscept ibility artifact at the vickey hepatis, suggestive of an underlying stricture involving the proximal and possibly mid common bile duct. This is concordant with the findings on cholangiogram dated 05/20. Nondilated and unremarkable common bile duct distal to the region of postoperative change. E [employer] can be performed for further evaluation. 2. Unremarkable appearance of the pancreatic duct with no dilatation, as questioned. 3. Small volume of ascites. RPTAT: HLBP .Brandon Mayorga MD, MD Date Time Electronically viewed and signed by .Brandon Mayorga MD, MD on 05/23/2017 18:27 .P/
[2017-05-23 19:45] VITALS: BP 103/66; RESP 16
[2017-05-23] MEDS: VANCOMYCIN 500MG/NS (PMX) 100 ML IVPB SCH (22:26)
[2017-05-24 02:14] VITALS: BP 116/74; RESP 20
[2017-05-24] MEDS: ONDANSETRON 4 MG INJ IV PRN ×3 (02:34→17:48)
[2017-05-24] MEDS: morphine 4 MG/ML VIAL IV PRN ×4 (02:41→20:53)
[2017-05-24] MEDS: PIPER-TAZO 3.375 GM IV (PMX) 100 ML IVPB SCH ×3 (05:28→17:47)
[2017-05-24] MEDS: PANTOPRAZOLE 40 MG INJ IV SCH (05:28)
[2017-05-24 07:02] LABS: BASOPHIL # 0.1 10^3/ul (0.0-0.1); BASOPHILS % 0.8 % (0.0-2.0); EOSINOPHILS # 0.5 10^3/ul (0.0-0.5); EOSINOPHILS % 8.1 % (0.0-7.0); HEMATOCRIT 34.4 % (37.0-47.0); HEMOGLOBIN 11.3 g/dl (12.0-16.0); LYMPHOCYTES # 1.9 10^3/ul (0.8-2.9); LYMPHOCYTES % 31.8 % (15.0-51.0); MEAN CORPUSCULAR HEMOGLOBIN 28.6 pg (29.0-33.0); MEAN CORPUSCULAR HGB CONC 32.8 g/dl (32.0-37.0); MEAN CORPUSCULAR VOLUME 87.1 fl (82.0-101.0); MONOCYTE # 0.5 10^3/ul (0.3-0.9); MONOCYTES % 7.9 % (0.0-11.0); NEUTROPHIL # 3.1 10^3/ul (1.6-7.5); NEUTROPHILS % 51.1 % (39.0-77.0); PLATELET COUNT 251 10^3/UL (140-415); RED BLOOD COUNT 3.95 10^6/ul (4.20-5.40); RED CELL DISTRIBUTION WIDTH 14.3 % (11.5-14.5); WHITE BLOOD COUNT 6.1 10^3/ul (4.8-10.8)
[2017-05-24 07:31] LABS: ALANINE AMINOTRANSFERASE 65 IU/L (13-69); ALKALINE PHOSPHATASE 127 IU/L (42-121); ANION GAP 18 (8-16); ASPARTATE AMINO TRANSFERASE 48 IU/L (15-46); BILIRUBIN,INDIRECT 0.1 mg/dl (0-1.1); CALCIUM 8.2 mg/dl (8.4-10.2); CARBON DIOXIDE 24 mmol/L (21-31); CHLORIDE 106 mmol/L (97-110); CREATININE 1.09 mg/dl (0.44-1.00); GLUCOSE 89 mg/dl (70-220); MAGNESIUM 1.7 mg/dl (1.7-2.5); POTASSIUM 3.7 mmol/L (3.5-5.1); SODIUM 144 mmol/L (135-144)
[2017-05-24 07:32] LABS: ALBUMIN/GLOBULIN RATIO 1.15; BILIRUBIN,TOTAL 0.1 mg/dl (0.2-1.3); TOTAL PROTEIN 5.6 g/dl (6.1-8.1)
[2017-05-24 07:33] LABS: BLOOD UREA NITROGEN < 2 mg/dl (7-20)
[2017-05-24] MEDS: BISACODYL 10 MG SUPP PR SCH ×2 (08:06→20:55)
[2017-05-24] MEDS: NA PHOSPHATE/BIPHOS 133 ML ENEMA PR SCH ×2 (08:06→20:56)
[2017-05-24 08:25] VITALS: BP 109/67; RESP 18
[2017-05-24] MEDS: VANCOMYCIN 500MG/NS (PMX) 100 ML IVPB SCH (10:46)
--- NOTE | 2017-05-24 14:30 | PN ---
Date/Time of Note Date/Time of Note DATE: 05/24/17 TIME: 14:27 Assessment/Plan VTE Prophylaxis VTE Prophylaxis Intervention: SCD's Lines/Catheters IV C[facility]ter Type (from [facility]): Saline Lock Urinary Cath still in place: No Assessment/Plan Chief Complaint/Hosp Course 1. Acute pancreatitis.diet per surgeon recs. continue on analgesics 2. History of cholelithiasis and cholecystitis. Status post laparoscopic cholecystectomy on 03/31/2017 at an outside facility complicated by possible bile duct injury. Status post ERCP on 04/03/2017. Also Status post laparoscopic washout on 04/10/2017 by hepatobiliary surgery. Status post percutaneous CT- guided drain placement at [facility]. The patient currently has a drain in place. continue with surgeon recommendations. diet advanced to low fat/low cholesterol . Patient status post MRCP with findings showing Moderate diffuse intrahepatic ductal dilatation with a transition point in the region of susceptibility artifact at the vickey hepatis, suggestive of an underlying stricture involving the proximal and possibly mid common bile duct.Follow-up with GI for possibility of ERCP 3. Transaminitis. Most probably secondary to #1 and #2. Monitor. Avoid hepatotoxic medications. Monitor LFT DVT prophylaxis. Bilateral sequential compression devices. Gastrointestinal prophylaxis. Proton pump inhibitors. DISPO/PLAN. Status post MRCP with finding of possible common bile duct stricture. Follow-up with GI recommendations. Continue in-house monitoring and analgesics for now. Discussed plan of care with Dr. Sinclair Problems: Subjective 24 Hr Interval Summary Free Text/Dictation Resting at this time. Does report controlled pain at this time. Exam/Review of Systems Vital Signs Vitals Vital Signs Date Time Temp Pulse Resp B/P Pulse Ox O2 Delivery O2 Flow Rate FiO2 05/24/17 08:25 98.5 66 18 109/67 97 Intake and Output 05/23/17 05/23/17 05/24/17 15:00 23:00 07:00 Intake Total 1200 ml 1090 ml 1930 ml Output Total 300 ml 1950 ml Balance 1200 ml 790 ml -20 ml Exam Constitutional: alert, oriented Eyes: other (Disconjugate gaze) Neck: supple, No jvd Respiratory: normal air movement Gastrointestinal: soft, tender (Minimal noted with right flank drain) Musculoskeletal: nl extremities to inspection, nl gait and stance Extremities: normal pulses Neurological: CLOTH CARRIER II-XII intact, nl mental status, nl speech Results Result Diagram: 05/24/17 0553 05/24/17 0553 Results 24 hrs Laboratory Tests Test 05/24/17 05:53 White Blood Count 6.1 Red Blood Count 3.95 L Hemoglobin 11.3 L Hematocrit 34.4 L Mean Corpuscular Volume 87.1 Mean Corpuscular Hemoglobin 28.6 L Mean Corpuscular Hemoglobin Concent 32.8 Red Cell Distribution Width 14.3 Platelet Count 251 Mean Platelet Volume 11.0 H Neutrophils % 51.1 Lymphocytes % 31.8 Monocytes % 7.9 Eosinophils % 8.1 H Basophils % 0.8 Nucleated Red Blood Cells % 0.0 Neutrophils # 3.1 Lymphocytes # 1.9 Monocytes # 0.5 Eosinophils # 0.5 Basophils # 0.1 Nucleated Red Blood Cells # 0.0 Sodium Level 144 Potassium Level 3.7 Chloride Level 106 Carbon Dioxide Level 24 Anion Gap 18 H Blood Urea Nitrogen < 2 L Creatinine 1.09 H Glucose Level 89 Calcium Level 8.2 L Magnesium Level 1.7 Total Bilirubin 0.1 L Direct Bilirubin 0.00 Indirect Bilirubin 0.1 Aspartate Amino Transf (AST/SGOT) 48 H Alanine Aminotransferase (ALT/SGPT) 65 Alkaline Phosphatase 127 H Total Protein 5.6 L Albumin 3.0 L Globulin 2.60 Albumin/Globulin Ratio 1.15 Lipase 839 H Medications Medications Current Medications Ondansetron HCl (Zofran Inj) 4 mg Q6H PRN IV NAUSEA AND/OR VOMITING Last administered on 05/24/17 09:22; Admin Dose 4 MG; Start 05/19/17 at 21:30 Pantoprazole 40 mg 40 mg DAILY@06 IV Last administered on 05/24/17 05:28; Admin Dose 40 MG; Start 05/20/17 at 06:00 Piperacillin Sod/ Tazobactam Sod (Zosyn 3.375gm/ 100 ml (Pmx)) 100 ml @ 200 mls /hr Q6 IVPB Last administered on 05/24/17 12:24; Admin Dose 200 MLS/HR; Start 05/20/17 at 02:00 Hydromorphone HCl (Dilaudid) 1 mg Q4H PRN IV PAIN LEVEL 6-10; Start 05/19/17 at 23:30 Morphine Sulfate (morphine) 2 mg Q4H PRN IV SEVERE PAIN LEVEL 7-10 Last administered on 05/24/17t 14:06; Admin Dose 2 MG; Start 05/22/17 at 14:30 Bisacodyl (Dulcolax Supp) 10 mg Q12 [place] ; Start 05/22/17 at 18:00 Sodium Biphosphate/ Sodium Phosphate (Fleet Enema) 133 ml Q12 [place] ; Start at 00:00 MILES NOLASCO May 24, 2017 14:29 MILES NOLASCO May 24, 2017 14:29
[2017-05-24 15:45] VITALS: BP 99/64; RESP 16
--- NOTE | 2017-05-24 17:18 | PN ---
Date/Time of Note Date/Time of Note DATE: 05/24/17 TIME: 17:14 Assessment/Plan VTE Prophylaxis VTE Prophylaxis Intervention: ambulation Lines/Catheters IV Catheter Type (from [facility]): Saline Lock Urinary Cath still in place: No Assessment/Plan Assessment/Plan Assessment: * Acute pancreatitis/pancreatic ductal stricture? * Post cholecystectomy biliary injury/obstruction * Post biliary drainage * Post drainage of large biloma Plan * continue present management * case discussed with DR Mcconnell * Further orders will depend on clinical course Subjective 24 Hr Interval Summary Free Text/Dictation * Course reviewed with RN * Patient seen and examined Pigtail catheter draining bile * No untoward events overnight Exam/Review of Systems Vital Signs Vitals Vital Signs Date Time Temp Pulse Resp B/P Pulse Ox O2 Delivery O2 Flow Rate FiO2 05/24/17 15:45 98.2 77 16 99/64 97 Intake and Output 05/23/17 05/23/17 05/24/17 15:00 23:00 07:00 Intake Total 1200 ml 1090 ml 1930 ml Output Total 300 ml 1950 ml Balance 1200 ml 790 ml -20 ml Exam Constitutional: alert, oriented Neck: non-tender, supple Respiratory: clear to auscultation, normal air movement Cardiovascular: nl pulses, regular rate and rhythm Gastrointestinal: non-tender, other (pigtail catheter draining), soft Musculoskeletal: nl extremities to inspection, nl gait and stance Extremities: normal pulses Neurological: nl speech, nl strength Skin: nl turgor, No rash or lesions Results Result Diagram: 05/24/17 0553 05/24/17 0553 Results 24 hrs Laboratory Tests Test 05/24/17 05:53 White Blood Count 6.1 Red Blood Count 3.95 L Hemoglobin 11.3 L Hematocrit 34.4 L Mean Corpuscular Volume 87.1 Mean Corpuscular Hemoglobin 28.6 L Mean Corpuscular Hemoglobin Concent 32.8 Red Cell Distribution Width 14.3 Platelet Count 251 Mean Platelet Volume 11.0 H Neutrophils % 51.1 Lymphocytes % 31.8 Monocytes % 7.9 Eosinophils % 8.1 H Basophils % 0.8 Nucleated Red Blood Cells % 0.0 Neutrophils # 3.1 Lymphocytes # 1.9 Monocytes # 0.5 Eosinophils # 0.5 Basophils # 0.1 Nucleated Red Blood Cells # 0.0 Sodium Level 144 Potassium Level 3.7 Chloride Level 106 Carbon Dioxide Level 24 Anion Gap 18 H Blood Urea Nitrogen < 2 L Creatinine 1.09 H Glucose Level 89 Calcium Level 8.2 L Magnesium Level 1.7 Total Bilirubin 0.1 L Direct Bilirubin 0.00 Indirect Bilirubin 0.1 Aspartate Amino Transf (AST/SGOT) 48 H Alanine Aminotransferase (ALT/SGPT) 65 Alkaline Phosphatase 127 H Total Protein 5.6 L Albumin 3.0 L Globulin 2.60 Albumin/Globulin Ratio 1.15 Lipase 839 H Medications Medications Current Medications Ondansetron HCl (Zofran Inj) 4 mg Q6H PRN IV NAUSEA AND/OR VOMITING Last administered on 05/24/17 09:22; Admin Dose 4 MG; Start 05/19/17 at 21:30 Pantoprazole 40 mg 40 mg DAILY@06 IV Last administered on 05/24/17 05:28; Admin Dose 40 MG; Start 05/20/17 at 06:00 Piperacillin Sod/ Tazobactam Sod (Zosyn 3.375gm/ 100 ml (Pmx)) 100 ml @ 200 mls /hr Q6 IVPB Last administered on 05/24/17 12:24; Admin Dose 200 MLS/HR; Start 05/20/17 at 02:00 Hydromorphone HCl (Dilaudid) 1 mg Q4H PRN IV PAIN LEVEL 6-10; Start 05/19/17 at 23:30 Morphine Sulfate (morphine) 2 mg Q4H PRN IV SEVERE PAIN LEVEL 7-10 Last administered on 05/24/17 14:06; Admin Dose 2 MG; Start 05/22/17 at 14:30 Bisacodyl (Dulcolax Supp) 10 mg Q12 [place] ; Start 05/22/17 at 18:00 Sodium Biphosphate/ Sodium Phosphate (Fleet Enema) 133 ml Q12 [place] ; Start at 00:00 BERNICE PANCHAL NP May 24, 2017 17:18
[2017-05-24 20:10] VITALS: BP 116/74; RESP 17
--- NOTE | 2017-05-24 21:36 | PN ---
Date/Time of Note Date/Time of Note DATE: 05/24/17 TIME: 21:34 Assessment/Plan Lines/Catheters IV Catheter Type (from [facility]): Saline Lock Matthew in Place (from [facility]): No Assessment/Plan Assessment/Plan [facility] Progress Note Date of Service: 05/24/17 Today's Impression & Plan: Overall stable. UTI and pancreatitis improving. Lipase lower today. Awaiting further resolution of patient's pancreatitis. Hope to stabilize enough for scheduled hepaticojejunostomy scheduled for 05/30/17. Discussed with the patient and she appeared to understand and agree with the plans. With above assessment, I've recommended the following for today: 1. Cont current cares 2. Continue broad-spectrum antimicrobial therapy to treat urinary tract infection 3. Treat pancreatitis 4. Low-fat regular diet 5. Keep in-house 6. Labs in am 7. Follow-up with gastroenterology recommendations (much appreciated Dr. Mcconnell 's excellent care) 8. Potential discharge planning for 24-48 hours from Thank you again for your great care of this very pleasant patient and wonderful family. If there are any questions, please feel free to call me at [phone]. Nature of presenting problem: High severity Please note that, given the extensive number of diagnoses or management options , the extensive amount and/or complexity of data needed to be reviewed, and high risk of complications and/or morbidity or mortality, this qualifies as high complexity type of decision-making. Disclaimer: Inadvertent spelling and grammatical errors are likely due to EHR/ dictation software use and do not reflect on the quality of delivered patient care. Also, please note that the electronic time recorded on this node does not necessarily reflect the actual time of the visit. Review of outside records (78 pages): Admitted to [facility] 05/18/2017. Admission white blood cell count 11.8. Creatinine 3.8. Alkaline phosphatase 547. Total bilirubin 1.1. Lipase 1724. Heart rate 122. Involved physicians included Adrian Oro MD and Maryellen Dolan MD. patient was treated with ceftazidime, vancomycin and metronidazole. CT scan abdomen and pelvis and ovale 05/18/2017: No acute intra- abdominal abnormality appreciated on a limited noncontrast CT of the abdomen and pelvis. Evidence of cholecystectomy. Transhepatic drainage catheter terminating in the region of the gallbladder fossa. Patient's was concerned about possible blood culture positive bacteremia, but I did not see any evidence of that in the reviewed material. The rest of patient's history and physical is unchanged and well documented in my previous visits with her starting on 04/06/2017. Updated Clinical Summary: The patient is a very pleasant 37-year-old young lady who was transferred from an outside hospital to [facility] for management of possible bile duct injury. S/p percutaneous CT-guided drain placement above the liver with removal of 1.4 liters of bile in IR suite and more (2 liters) within first 24 hours post procedure. Drain output minimal 04/09/17. S/p lap washout and wide drainage at [facility]. The upper pigtail catheter and the 2 surgical drains d/c 'd on 04/14/17. Urinary retention issues requiring straight cath and Matthew insertion appeared resolved by 04/15/17. DC home 04/16/2017. 2 ER visits between discharge and the 2016 with no hospitalization. Readmitted as a transfer from outside hospital to [facility] 05/19/2017 with pancreatitis as well as urinary tract infection. COMORBIDITIES: 1. Cholelithiasis and acute cholecystitis, status post laparoscopic cholecystectomy 03/31/2017 at [facility], complicated by possible bile duct injury, as shown by ERCP that was done after a HIDA scan showed possible bile leak, explaining the patient's continued pain and distention. The ERCP on 04/03/2017 showed clips across the distal common bile duct, without any contrast opacifying the liver. We accepted the patient as a transfer into [facility] bile duct injury program for a higher level of care. The patient arrived on 04/05/2017. 2. S/p percutaneous CT-guided drain placement above the liver with removal of 1.4 liters of bile in IR suite and more immediately post procedure. 3. S/p lap washout and wide drainage at [facility]. Subjective: No major events or complaints overnight; reports feeling better; no significant current abd pain and seemingly under control with medications; no current n/v/d ; no sob or cp; + flatus; - BM; + activity. Appetite improved. Objective: Vitals: See below Exam: GENERAL: On exam, the patient was laying in bed and appeared to be comfortable and in no acute distress. ABDOMEN: Soft, nontender with exception of slight discomfort in the right lower quadrant and nondistended. Incisions are clean, dry and intact without any evidence of erythema, edema, discharge, or hernia. Lower pigtail catheter with bilious output. There are no peritoneal signs or guarding. SKIN: Skin appears to be pink and feels warm to touch. NEUROLOGIC: Patient is awake, alert, and follows commands appropriately. Exam/Review of Systems Vital Signs Vitals Vital Signs Date Time Temp Pulse Resp B/P Pulse Ox O2 Delivery O2 Flow Rate FiO2 05/25/17 08:00 97.6 76 20 101/66 96 Intake and Output 05/24/17 05/24/17 05/25/17 15:00 23:00 07:00 Intake Total 200 ml 100 ml 700 ml Output Total 300 ml 430 ml 120 ml Balance -100 ml -330 ml 580 ml Results Result Diagram: 05/24/17 0553 05/24/17 0553 LENA MONCADA M.D. May 24, 2017 21:36
[2017-05-24] MEDS: ACETAMINOPHEN 325 MG TAB PO PRN (21:50)
[2017-05-24] MEDS: HYDROmorphONE 1 MG/ML SYG IV PRN (22:49)
[2017-05-25] MEDS: PIPER-TAZO 3.375 GM IV (PMX) 100 ML IVPB SCH ×5 (00:03→23:37)
[2017-05-25 02:13] VITALS: BP 107/70; RESP 17
[2017-05-25] MEDS: ONDANSETRON 4 MG INJ IV PRN ×2 (04:47→15:00)
[2017-05-25] MEDS: ACETAMINOPHEN 325 MG TAB PO PRN (04:52)
[2017-05-25] MEDS: PANTOPRAZOLE 40 MG INJ IV SCH (05:34)
[2017-05-25] MEDS: morphine 4 MG/ML VIAL IV PRN ×2 (05:55→15:00)
[2017-05-25 08:00] VITALS: BP_SYST 101; BP_SYST 130; BP_DIAS 62; BP_DIAS 66; RESP 20
[2017-05-25] MEDS: HYDROmorphONE 1 MG/ML SYG IV PRN ×3 (08:39→21:08)
[2017-05-25] MEDS: BISACODYL 10 MG SUPP PR SCH ×2 (08:47→21:00)
[2017-05-25] MEDS: NA PHOSPHATE/BIPHOS 133 ML ENEMA PR SCH ×2 (08:47→21:00)
--- NOTE | 2017-05-25 13:39 | PN ---
Date/Time of Note Date/Time of Note DATE: 05/25/17 TIME: 13:37 Assessment/Plan Lines/Catheters IV Catheter Type (from [facility]): Saline Lock Matthew in Place (from [facility]): No Assessment/Plan Assessment/Plan [facility] Progress Note Date of Service: 05/25/17 Today's Impression & Plan: Overall stable. UTI and pancreatitis improving. Lipase pending today, but had been decreasing over the last few days. Awaiting further resolution of patient' s pancreatitis. Hope to stabilize enough for scheduled hepaticojejunostomy scheduled for 05/30/17. Discussed with the patient and she appeared to understand and agree with the plans. With above assessment, I've recommended the following for today: 1. Cont current cares 2. Continue broad-spectrum antimicrobial therapy to treat urinary tract infection 3. Treat pancreatitis 4. Low-fat regular diet 5. Keep in-house, but potential short-term discharge to home over the weekend prior to coming back on Monday morning for elective hepaticojejunostomy 6. Labs in am 7. Follow-up with gastroenterology recommendations (much appreciated Dr. Mcconnell 's excellent care) 8. Potential discharge planning for 24-48 hours from Thank you again for your great care of this very pleasant patient and wonderful family. If there are any questions, please feel free to call me at [phone]. Nature of presenting problem: High severity Please note that, given the extensive number of diagnoses or management options , the extensive amount and/or complexity of data needed to be reviewed, and high risk of complications and/or morbidity or mortality, this qualifies as high complexity type of decision-making. Disclaimer: Inadvertent spelling and grammatical errors are likely due to EHR/ dictation software use and do not reflect on the quality of delivered patient care. Also, please note that the electronic time recorded on this node does not necessarily reflect the actual time of the visit. Review of outside records (78 pages): Admitted to [facility] 05/18/2017. Admission white blood cell count 11.8. Creatinine 3.8. Alkaline phosphatase 547. Total bilirubin 1.1. Lipase 1724. Heart rate 122. Involved physicians included Adrian Oro MD and Maryellen Dolan MD. patient was treated with ceftazidime, vancomycin and metronidazole. CT scan abdomen and pelvis and ovale 05/18/2017: No acute intra- abdominal abnormality appreciated on a limited noncontrast CT of the abdomen and pelvis. Evidence of cholecystectomy. Transhepatic drainage catheter terminating in the region of the gallbladder fossa. Patient's was concerned about possible blood culture positive bacteremia, but I did not see any evidence of that in the reviewed material. The rest of patient's history and physical is unchanged and well documented in my previous visits with her starting on 04/06/2017. Updated Clinical Summary: The patient is a very pleasant 37-year-old young lady who was transferred from an outside hospital to [facility] for management of possible bile duct injury. S/p percutaneous CT-guided drain placement above the liver with removal of 1.4 liters of bile in IR suite and more (2 liters) within first 24 hours post procedure. Drain output minimal 04/09/17. S/p lap washout and wide drainage at [facility]. The upper pigtail catheter and the 2 surgical drains d/c 'd on 04/14/17. Urinary retention issues requiring straight cath and Matthew insertion appeared resolved by 04/15/17. DC home 04/16/2017. 2 ER visits between discharge and the 2016 with no hospitalization. Readmitted as a transfer from outside hospital to [facility] 05/19/2017 with pancreatitis as well as urinary tract infection. COMORBIDITIES: 1. Cholelithiasis and acute cholecystitis, status post laparoscopic cholecystectomy 03/31/2017 at [facility], complicated by possible bile duct injury, as shown by ERCP that was done after a HIDA scan showed possible bile leak, explaining the patient's continued pain and distention. The ERCP on 04/03/2017 showed clips across the distal common bile duct, without any contrast opacifying the liver. We accepted the patient as a transfer into [facility] bile duct injury program for a higher level of care. The patient arrived on 04/05/2017. 2. S/p percutaneous CT-guided drain placement above the liver with removal of 1.4 liters of bile in IR suite and more immediately post procedure. 3. S/p lap washout and wide drainage at [facility]. Subjective: No major events or complaints overnight; reports feeling better; no significant current abd pain and seemingly under control with medications; no current n/v/d ; no sob or cp; + flatus; - BM; + activity. Appetite improved. Objective: Vitals: See below Exam: GENERAL: On exam, the patient was laying in bed and appeared to be comfortable and in no acute distress. ABDOMEN: Soft, nontender with exception of slight discomfort in the right lower quadrant and nondistended. Incisions are clean, dry and intact without any evidence of erythema, edema, discharge, or hernia. Lower pigtail catheter with bilious output. There are no peritoneal signs or guarding. SKIN: Skin appears to be pink and feels warm to touch. NEUROLOGIC: Patient is awake, alert, and follows commands appropriately. Exam/Review of Systems Vital Signs Vitals Vital Signs Date Time Temp Pulse Resp B/P Pulse Ox O2 Delivery O2 Flow Rate FiO2 05/25/17 08:00 97.6 76 20 101/66 96 Intake and Output 05/24/17 05/24/17 05/25/17 15:00 23:00 07:00 Intake Total 200 ml 100 ml 700 ml Output Total 300 ml 430 ml 120 ml Balance -100 ml -330 ml 580 ml Results Result Diagram: 05/24/17 0553 05/24/17 0553 LENA MONCADA M.D. May 25, 2017 13:39
[2017-05-25 14:00] VITALS: BP 98/56; RESP 18
--- NOTE | 2017-05-25 15:25 | PN ---
Date/Time of Note Date/Time of Note DATE: 05/25/17 TIME: 15:23 Assessment/Plan VTE Prophylaxis VTE Prophylaxis Intervention: ambulation Lines/Catheters IV Catheter Type (from [facility]): Saline Lock Urinary Cath still in place: No Assessment/Plan Assessment/Plan Assessment: * Acute pancreatitis/pancreatic ductal stricture? * Post cholecystectomy biliary injury/obstruction * Post biliary drainage * Post drainage of large biloma Plan * continue present management * case discussed with DR Mcconnell * Further orders will depend on clinical course Subjective 24 Hr Interval Summary Free Text/Dictation * Course reviewed * Patient seen and examined * No untoward events overnight Exam/Review of Systems Vital Signs Vitals Vital Signs Date Time Temp Pulse Resp B/P Pulse Ox O2 Delivery O2 Flow Rate FiO2 05/25/17 08:00 97.6 76 20 101/66 96 Intake and Output 05/24/17 05/24/17 05/25/17 14:59 22:59 06:59 Intake Total 200 ml 100 ml 700 ml Output Total 300 ml 430 ml 120 ml Balance -100 ml -330 ml 580 ml Exam Constitutional: alert, oriented Neck: non-tender, supple Respiratory: clear to auscultation, normal air movement Cardiovascular: nl pulses, regular rate and rhythm Gastrointestinal: bowel sounds, other (drain intact with bile), soft Musculoskeletal: nl extremities to inspection, nl gait and stance Neurological: nl speech, nl strength Skin: nl turgor Results Result Diagram: 05/24/17 0553 05/24/17 0553 Medications Medications Current Medications Ondansetron HCl (Zofran Inj) 4 mg Q6H PRN IV NAUSEA AND/OR VOMITING Last administered on 05/25/17 15:00; Admin Dose 4 MG; Start 05/19/17 at 21:30 Pantoprazole 40 mg 40 mg DAILY@06 IV Last administered on 05/25/17 05:34; Admin Dose 40 MG; Start 05/20/17 at 06:00 Piperacillin Sod/ Tazobactam Sod (Zosyn 3.375gm/ 100 ml (Pmx)) 100 ml @ 200 mls /hr Q6 IVPB Last administered on 05/25/17 12:20; Admin Dose 200 MLS/HR; Start 05/20/17 at 02:00 Hydromorphone HCl (Dilaudid) 1 mg Q4H PRN IV PAIN LEVEL 6-10 Last administered on 05/25/17 08:39; Admin Dose 1 MG; Start 05/19/17 at 23:30 Morphine Sulfate (morphine) 2 mg Q4H PRN IV SEVERE PAIN LEVEL 7-10 Last administered on 05/25/17 15:00; Admin Dose 2 MG; Start 05/22/17 at 14:30 Bisacodyl (Dulcolax Supp) 10 mg Q12 [place] ; Start 05/22/17 at 18:00 Sodium Biphosphate/ Sodium Phosphate (Fleet Enema) 133 ml Q12 [place] ; Start at 00:00 Acetaminophen (Tylenol Tab) 650 mg Q6H PRN PO PAIN AND OR ELEVATED TEMP Last administered on 05/25/17 04:52; Admin Dose 650 MG; Start 05/24/17 at 22:00 BERNICE PANCHAL NP May 25, 2017 15:25
--- NOTE | 2017-05-25 16:08 | PN ---
Date/Time of Note Date/Time of Note DATE: 05/25/17 TIME: 16:06 Assessment/Plan VTE Prophylaxis VTE Prophylaxis Intervention: ambulation, SCD's Lines/Catheters IV C[facility]ter Type (from [facility]): Saline Lock Urinary Cath still in place: No Assessment/Plan Chief Complaint/Hosp Course 1. Acute pancreatitis. diet per surgeon recs. continue on analgesics 2. History of cholelithiasis and cholecystitis. Status post laparoscopic cholecystectomy on 03/31/2017 at an outside facility complicated by possible bile duct injury. Status post ERCP on 04/03/2017. Also Status post laparoscopic washout on 04/10/2017 by hepatobiliary surgery. Status post percutaneous CT- guided drain placement at [facility]. The patient currently has a drain in place. continue with surgeon recommendations. diet advanced to low fat/low cholesterol . Patient status post MRCP with findings showing Moderate diffuse intrahepatic ductal dilatation with a transition point in the region of susceptibility artifact at the vickey hepatis, suggestive of an underlying stricture involving the proximal and possibly mid common bile duct. Continue with GI recommendation 3. Transaminitis. Most probably secondary to #1 and #2. Monitor. Avoid hepatotoxic medications. Monitor LFT DVT prophylaxis. Bilateral sequential compression devices. Gastrointestinal prophylaxis. Proton pump inhibitors. DISPO/PLAN. Continue with pain management. Follow-up with GI recommendations . discharge when medically stable and cleared by consultants. Discussed plan of care with Dr. Sinclair Problems: Subjective 24 Hr Interval Summary Free Text/Dictation Reported moderate pain last night but better today. Exam/Review of Systems Vital Signs Vitals Vital Signs Date Time Temp Pulse Resp B/P Pulse Ox O2 Delivery O2 Flow Rate FiO2 05/25/17 14:00 97.8 62 18 98/56 96 Intake and Output 05/24/17 05/24/17 05/25/17 15:00 23:00 07:00 Intake Total 200 ml 100 ml 700 ml Output Total 300 ml 430 ml 120 ml Balance -100 ml -330 ml 580 ml Exam Constitutional: alert, oriented Eyes: other (Disconjugate gaze) Neck: supple, No jvd Respiratory: normal air movement Gastrointestinal: soft, tender (Minimal noted with right flank drain) Musculoskeletal: nl extremities to inspection, nl gait and stance Extremities: normal pulses Neurological: GIS ANALYST II-XII intact, nl mental status, nl speech Results Result Diagram: 05/24/17 0553 05/24/17 0553 Medications Medications Current Medications Ondansetron HCl (Zofran Inj) 4 mg Q6H PRN IV NAUSEA AND/OR VOMITING Last administered on 05/25/17 15:00; Admin Dose 4 MG; Start 05/19/17 at 21:30 Pantoprazole 40 mg 40 mg DAILY@06 IV Last administered on 05/25/17 05:34; Admin Dose 40 MG; Start 05/20/17 at 06:00 Piperacillin Sod/ Tazobactam Sod (Zosyn 3.375gm/ 100 ml (Pmx)) 100 ml @ 200 mls /hr Q6 IVPB Last administered on 05/25/17 12:20; Admin Dose 200 MLS/HR; Start 05/20/17 at 02:00 Hydromorphone HCl (Dilaudid) 1 mg Q4H PRN IV PAIN LEVEL 6-10 Last administered on 05/25/17 08:39; Admin Dose 1 MG; Start 05/19/17 at 23:30 Morphine Sulfate (morphine) 2 mg Q4H PRN IV SEVERE PAIN LEVEL 7-10 Last administered on 05/25/17 15:00; Admin Dose 2 MG; Start 05/22/17 at 14:30 Bisacodyl (Dulcolax Supp) 10 mg Q12 [place] ; Start 05/22/17 at 18:00 Sodium Biphosphate/ Sodium Phosphate (Fleet Enema) 133 ml Q12 [place] ; Start at 00:00 Acetaminophen (Tylenol Tab) 650 mg Q6H PRN PO PAIN AND OR ELEVATED TEMP Last administered on 05/25/17 04:52; Admin Dose 650 MG; Start 05/24/17 at 22:00 MILES NOLASCO May 25, 2017 16:08 MILES NOLASCO May 25, 2017 16:08
[2017-05-25 20:31] VITALS: BP 107/64; RESP 16
[2017-05-26] MEDS: ONDANSETRON 4 MG INJ IV PRN (01:08)
[2017-05-26] MEDS: HYDROmorphONE 1 MG/ML SYG IV PRN ×5 (01:08→19:43)
[2017-05-26 02:55] VITALS: BP 113/76; RESP 16
[2017-05-26] MEDS: PANTOPRAZOLE 40 MG INJ IV SCH (05:01)
[2017-05-26] MEDS: PIPER-TAZO 3.375 GM IV (PMX) 100 ML IVPB SCH ×3 (05:01→17:50)
[2017-05-26 06:23] LABS: BASOPHILS % 0.3 % (0.0-2.0); EOSINOPHILS # 0.6 10^3/ul (0.0-0.5); EOSINOPHILS % 7.7 % (0.0-7.0); HEMATOCRIT 35.1 % (37.0-47.0); HEMOGLOBIN 11.5 g/dl (12.0-16.0); LYMPHOCYTES # 1.9 10^3/ul (0.8-2.9); LYMPHOCYTES % 26.1 % (15.0-51.0); MEAN CORPUSCULAR HEMOGLOBIN 28.5 pg (29.0-33.0); MEAN CORPUSCULAR HGB CONC 32.8 g/dl (32.0-37.0); MEAN CORPUSCULAR VOLUME 87.1 fl (82.0-101.0); MEAN PLATELET VOLUME 10.8 fl (7.4-10.4); MONOCYTE # 0.5 10^3/ul (0.3-0.9); NEUTROPHIL # 4.3 10^3/ul (1.6-7.5); NEUTROPHILS % 58.4 % (39.0-77.0); PLATELET COUNT 244 10^3/UL (140-415); RED BLOOD COUNT 4.03 10^6/ul (4.20-5.40); WHITE BLOOD COUNT 7.3 10^3/ul (4.8-10.8)
[2017-05-26 06:45] LABS: INR 1.26; PARTIAL THROMBOPLASTIN TIME 29.7 Sec (25.0-35.0); PROTIME 15.9 Sec (12.2-14.2); PT RATIO 1.2
[2017-05-26 07:09] LABS: ALBUMIN 2.8 g/dl (3.3-4.9); ALBUMIN/GLOBULIN RATIO 1.16; BILIRUBIN,INDIRECT 0.1 mg/dl (0-1.1); BILIRUBIN,TOTAL 0.1 mg/dl (0.2-1.3); CALCIUM 8.4 mg/dl (8.4-10.2); CREATININE 0.91 mg/dl (0.44-1.00); MAGNESIUM 1.8 mg/dl (1.7-2.5); PHOSPHORUS 3.3 mg/dl (2.5-4.9); POTASSIUM 4.1 mmol/L (3.5-5.1); TOTAL PROTEIN 5.2 g/dl (6.1-8.1)
[2017-05-26 08:26] VITALS: BP 116/65; RESP 17
[2017-05-26] MEDS: BISACODYL 10 MG SUPP PR SCH ×2 (09:00→21:00)
[2017-05-26] MEDS: NA PHOSPHATE/BIPHOS 133 ML ENEMA PR SCH ×2 (09:00→21:00)
--- NOTE | 2017-05-26 09:21 | PN ---
Date/Time of Note Date/Time of Note DATE: 05/26/17 TIME: 09:17 Assessment/Plan VTE Prophylaxis VTE Prophylaxis Intervention: ambulation Lines/Catheters IV Catheter Type (from [facility]): Saline Lock Urinary Cath still in place: No Assessment/Plan Assessment/Plan Assessment: * Acute pancreatitis improving * Post cholecystectomy biliary injury/obstruction * Post biliary drainage * Post drainage of large biloma Plan * continue present management * case discussed with DR Mcconnell * Further orders will depend on clinical course Subjective 24 Hr Interval Summary Free Text/Dictation * Course reviewed with RN * Patient seen and examined * No untoward events overnight * PTBD drain functioning * Latest lipase trending down 648 Exam/Review of Systems Vital Signs Vitals Vital Signs Date Time Temp Pulse Resp B/P Pulse Ox O2 Delivery O2 Flow Rate FiO2 05/26/17 08:26 98.5 72 17 116/65 96 Intake and Output 05/25/17 05/25/17 05/26/17 15:00 23:00 07:00 Intake Total 100 ml 943 ml 960 ml Output Total 250 ml 650 ml Balance 100 ml 693 ml 310 ml Exam Constitutional: alert, oriented Head: normocephalic Neck: non-tender, supple Respiratory: clear to auscultation, normal air movement Cardiovascular: nl pulses, regular rate and rhythm Gastrointestinal: non-tender, other (pig tail catheter draining), soft Musculoskeletal: nl extremities to inspection, nl gait and stance Extremities: normal pulses Neurological: nl mental status, nl speech, nl strength Skin: nl turgor, No rash or lesions Lymph: nl lymph nodes Results Result Diagram: 05/26/17 0435 05/26/17 0435 Results 24 hrs Laboratory Tests Test 05/26/17 04:34 05/26/17 04:35 Lactic Acid Level 1.4 White Blood Count 7.3 Red Blood Count 4.03 L Hemoglobin 11.5 L Hematocrit 35.1 L Mean Corpuscular Volume 87.1 Mean Corpuscular Hemoglobin 28.5 L Mean Corpuscular Hemoglobin Concent 32.8 Red Cell Distribution Width 14.0 Platelet Count 244 Mean Platelet Volume 10.8 H Neutrophils % 58.4 Lymphocytes % 26.1 Monocytes % 7.0 Eosinophils % 7.7 H Basophils % 0.3 Nucleated Red Blood Cells % 0.0 Neutrophils # 4.3 Lymphocytes # 1.9 Monocytes # 0.5 Eosinophils # 0.6 H Basophils # 0.0 Nucleated Red Blood Cells # 0.0 Prothrombin Time 15.9 H Prothrombin Time Ratio 1.2 INR International Normalized Ratio 1.26 Activated Partial Thromboplast Time 29.7 Sodium Level 142 Potassium Level 4.1 Chloride Level 102 Carbon Dioxide Level 27 Anion Gap 17 H Blood Urea Nitrogen 5 L Creatinine 0.91 Glucose Level 80 Calcium Level 8.4 Phosphorus Level 3.3 Magnesium Level 1.8 Total Bilirubin 0.1 L Direct Bilirubin 0.00 Indirect Bilirubin 0.1 Aspartate Amino Transf (AST/SGOT) 33 Alanine Aminotransferase (ALT/SGPT) 63 Alkaline Phosphatase 127 H B-Type Natriuretic Peptide 229 H Total Protein 5.2 L Albumin 2.8 L Globulin 2.40 Albumin/Globulin Ratio 1.16 Lipase 648 H Medications Medications Current Medications Ondansetron HCl (Zofran Inj) 4 mg Q6H PRN IV NAUSEA AND/OR VOMITING Last administered on 05/26/17 01:08; Admin Dose 4 MG; Start 05/19/17 at 21:30 Pantoprazole 40 mg 40 mg DAILY@06 IV Last administered on 05/26/17 05:01; Admin Dose 40 MG; Start 05/20/17 at 06:00 Piperacillin Sod/ Tazobactam Sod (Zosyn 3.375gm/ 100 ml (Pmx)) 100 ml @ 200 mls /hr Q6 IVPB Last administered on 05/26/17 05:01; Admin Dose 200 MLS/HR; Start 05/20/17 at 02:00 Hydromorphone HCl (Dilaudid) 1 mg Q4H PRN IV PAIN LEVEL 6-10 Last administered on 05/26/17 06:27; Admin Dose 1 MG; Start 05/19/17 at 23:30 Morphine Sulfate (morphine) 2 mg Q4H PRN IV SEVERE PAIN LEVEL 7-10 Last administered on 05/25/17 15:00; Admin Dose 2 MG; Start 05/22/17 at 14:30 Bisacodyl (Dulcolax Supp) 10 mg Q12 [place] ; Start 05/22/17 at 18:00 Sodium Biphosphate/ Sodium Phosphate (Fleet Enema) 133 ml Q12 [place] ; Start at 00:00 Acetaminophen (Tylenol Tab) 650 mg Q6H PRN PO PAIN AND OR ELEVATED TEMP Last administered on 05/25/17t 04:52; Admin Dose 650 MG; Start 05/24/17 at 22:00 BERNICE PANCHAL NP May 26, 2017 09:21
--- NOTE | 2017-05-26 11:20 | PN ---
Date/Time of Note Date/Time of Note DATE: 05/26/17 TIME: 11:18 Assessment/Plan Lines/Catheters IV Catheter Type (from [facility]): Saline Lock Matthew in Place (from [facility]): No Assessment/Plan Assessment/Plan [facility] Progress Note Date of Service: 05/26/17 Today's Impression & Plan: Overall stable. UTI and pancreatitis improving. Lipase lower but still not normal. Awaiting further resolution of patient's pancreatitis. Hope to stabilize enough for scheduled hepaticojejunostomy scheduled for 05/30/17. Discussed with the patient and she appeared to understand and agree with the plans. With above assessment, I've recommended the following for today: 1. Cont current cares 2. Continue broad-spectrum antimicrobial therapy to treat urinary tract infection 3. Treat pancreatitis 4. Low-fat regular diet 5. Keep in-house 6. Labs in am 7. Follow-up with gastroenterology recommendations (much appreciated Dr. Mcconnell 's excellent care) 8. Potential discharge planning for 24-48 hours from Thank you again for your great care of this very pleasant patient and wonderful family. If there are any questions, please feel free to call me at [phone]. Nature of presenting problem: High severity Please note that, given the extensive number of diagnoses or management options , the extensive amount and/or complexity of data needed to be reviewed, and high risk of complications and/or morbidity or mortality, this qualifies as high complexity type of decision-making. Disclaimer: Inadvertent spelling and grammatical errors are likely due to EHR/ dictation software use and do not reflect on the quality of delivered patient care. Also, please note that the electronic time recorded on this node does not necessarily reflect the actual time of the visit. Review of outside records (78 pages): Admitted to [facility] 05/18/2017. Admission white blood cell count 11.8. Creatinine 3.8. Alkaline phosphatase 547. Total bilirubin 1.1. Lipase 1724. Heart rate 122. Involved physicians included Adrian Oro MD and Maryellen Dolan MD. patient was treated with ceftazidime, vancomycin and metronidazole. CT scan abdomen and pelvis and ovale 05/18/2017: No acute intra- abdominal abnormality appreciated on a limited noncontrast CT of the abdomen and pelvis. Evidence of cholecystectomy. Transhepatic drainage catheter terminating in the region of the gallbladder fossa. Patient's was concerned about possible blood culture positive bacteremia, but I did not see any evidence of that in the reviewed material. The rest of patient's history and physical is unchanged and well documented in my previous visits with her starting on 04/06/2017. Updated Clinical Summary: The patient is a very pleasant 37-year-old young lady who was transferred from an outside hospital to [facility] for management of possible bile duct injury. S/p percutaneous CT-guided drain placement above the liver with removal of 1.4 liters of bile in IR suite and more (2 liters) within first 24 hours post procedure. Drain output minimal 04/09/17. S/p lap washout and wide drainage at [facility]. The upper pigtail catheter and the 2 surgical drains d/c 'd on 04/14/17. Urinary retention issues requiring straight cath and Matthew insertion appeared resolved by 04/15/17. DC home 04/16/2017. 2 ER visits between discharge and the 2016 with no hospitalization. Readmitted as a transfer from outside hospital to [facility] 05/19/2017 with pancreatitis as well as urinary tract infection. COMORBIDITIES: 1. Cholelithiasis and acute cholecystitis, status post laparoscopic cholecystectomy 03/31/2017 at [facility], complicated by possible bile duct injury, as shown by ERCP that was done after a HIDA scan showed possible bile leak, explaining the patient's continued pain and distention. The ERCP on 04/03/2017 showed clips across the distal common bile duct, without any contrast opacifying the liver. We accepted the patient as a transfer into [facility] bile duct injury program for a higher level of care. The patient arrived on 04/05/2017. 2. S/p percutaneous CT-guided drain placement above the liver with removal of 1.4 liters of bile in IR suite and more immediately post procedure. 3. S/p lap washout and wide drainage at [facility]. Subjective: No major events or complaints overnight; reports feeling better, but still with mild nausea; no significant current abd pain and seemingly under control with medications; no current n/v/d; no sob or cp; + flatus; + BM; + activity. Objective: Vitals: See below Exam: GENERAL: On exam, the patient was laying in bed and appeared to be comfortable and in no acute distress. ABDOMEN: Soft, nontender with exception of slight discomfort in the right lower quadrant and nondistended. Incisions are clean, dry and intact without any evidence of erythema, edema, discharge, or hernia. Lower pigtail catheter with bilious output. There are no peritoneal signs or guarding. SKIN: Skin appears to be pink and feels warm to touch. NEUROLOGIC: Patient is awake, alert, and follows commands appropriately. Exam/Review of Systems Vital Signs Vitals Vital Signs Date Time Temp Pulse Resp B/P Pulse Ox O2 Delivery O2 Flow Rate FiO2 05/26/17 08:26 98.5 72 17 116/65 96 Intake and Output 05/25/17 05/25/17 05/26/17 15:00 23:00 07:00 Intake Total 100 ml 943 ml 960 ml Output Total 250 ml 650 ml Balance 100 ml 693 ml 310 ml Results Result Diagram: 05/26/17 0435 05/26/17 0435 LENA MONCADA M.D. May 26, 2017 11:20
--- NOTE | 2017-05-26 15:07 | PN ---
Date/Time of Note Date/Time of Note DATE: 05/26/17 TIME: 15:03 Assessment/Plan VTE Prophylaxis VTE Prophylaxis Intervention: ambulation, SCD's Lines/Catheters IV Catheter Type (from [facility]): Saline Lock Urinary Cath still in place: No Assessment/Plan Chief Complaint/Hosp Course 1. Acute pancreatitis.diet per surgeon recs. continue on analgesics. Monitor lipase level. 2. History of cholelithiasis and cholecystitis. Status post laparoscopic cholecystectomy on 03/31/2017 at an outside facility complicated by possible bile duct injury. Status post ERCP on 04/03/2017. Also Status post laparoscopic washout on 04/10/2017 by hepatobiliary surgery. Status post percutaneous CT- guided drain placement at [facility]. The patient currently has a drain in place. continue with surgeon recommendations. diet advanced to low fat/low cholesterol . Patient status post MRCP with findings showing Moderate diffuse intrahepatic ductal dilatation with a transition point in the region of susceptibility artifact at the vickey hepatis, suggestive of an underlying stricture involving the proximal and possibly mid common bile duct. Continue with GI recommendation. Monitor lipase level 3. Transaminitis. Most probably secondary to #1 and #2. Monitor. Avoid hepatotoxic medications. Monitor LFT DVT prophylaxis. Bilateral sequential compression devices. Gastrointestinal prophylaxis. Proton pump inhibitors. DISPO/PLAN. Pain management as needed. Monitor lipase level and for improvement. Continue in-house monitoring. Follow-up with architectural sales consultant recommendations. Discussed plan of care with Dr. Sinclair Problems: Subjective 24 Hr Interval Summary Free Text/Dictation Comfortable at present. Reports good pain control at this time. Exam/Review of Systems Vital Signs Vitals Vital Signs Date Time Temp Pulse Resp B/P Pulse Ox O2 Delivery O2 Flow Rate FiO2 05/26/17 08:26 98.5 72 17 116/65 96 Intake and Output 05/25/17 05/25/17 05/26/17 15:00 23:00 07:00 Intake Total 100 ml 943 ml 960 ml Output Total 250 ml 650 ml Balance 100 ml 693 ml 310 ml Exam Constitutional: alert, oriented Eyes: other (Disconjugate gaze) Neck: supple, No jvd Respiratory: normal air movement Gastrointestinal: soft, tender (Minimal noted with right flank drain) Musculoskeletal: nl extremities to inspection, nl gait and stance Extremities: normal pulses Neurological: HONEY PRODUCER II-XII intact, nl mental status, nl speech Results Result Diagram: 05/26/17 0435 05/26/17 0435 Results 24 hrs Laboratory Tests Test 05/26/17 04:34 05/26/17 04:35 Lactic Acid Level 1.4 White Blood Count 7.3 Red Blood Count 4.03 L Hemoglobin 11.5 L Hematocrit 35.1 L Mean Corpuscular Volume 87.1 Mean Corpuscular Hemoglobin 28.5 L Mean Corpuscular Hemoglobin Concent 32.8 Red Cell Distribution Width 14.0 Platelet Count 244 Mean Platelet Volume 10.8 H Neutrophils % 58.4 Lymphocytes % 26.1 Monocytes % 7.0 Eosinophils % 7.7 H Basophils % 0.3 Nucleated Red Blood Cells % 0.0 Neutrophils # 4.3 Lymphocytes # 1.9 Monocytes # 0.5 Eosinophils # 0.6 H Basophils # 0.0 Nucleated Red Blood Cells # 0.0 Prothrombin Time 15.9 H Prothrombin Time Ratio 1.2 INR International Normalized Ratio 1.26 Activated Partial Thromboplast Time 29.7 Sodium Level 142 Potassium Level 4.1 Chloride Level 102 Carbon Dioxide Level 27 Anion Gap 17 H Blood Urea Nitrogen 5 L Creatinine 0.91 Glucose Level 80 Calcium Level 8.4 Phosphorus Level 3.3 Magnesium Level 1.8 Total Bilirubin 0.1 L Direct Bilirubin 0.00 Indirect Bilirubin 0.1 Aspartate Amino Transf (AST/SGOT) 33 Alanine Aminotransferase (ALT/SGPT) 63 Alkaline Phosphatase 127 H B-Type Natriuretic Peptide 229 H Total Protein 5.2 L Albumin 2.8 L Globulin 2.40 Albumin/Globulin Ratio 1.16 Lipase 648 H Medications Medications Current Medications Ondansetron HCl (Zofran Inj) 4 mg Q6H PRN IV NAUSEA AND/OR VOMITING Last administered on 05/26/17 01:08; Admin Dose 4 MG; Start 05/19/17 at 21:30 Pantoprazole 40 mg 40 mg DAILY@06 IV Last administered on 05/26/17 05:01; Admin Dose 40 MG; Start 05/20/17 at 06:00 Piperacillin Sod/ Tazobactam Sod (Zosyn 3.375gm/ 100 ml (Pmx)) 100 ml @ 200 mls /hr Q6 IVPB Last administered on 05/26/17 12:11; Admin Dose 200 MLS/HR; Start 05/20/17 at 02:00 Hydromorphone HCl (Dilaudid) 1 mg Q4H PRN IV PAIN LEVEL 6-10 Last administered on 05/26/17 11:21; Admin Dose 1 MG; Start 05/19/17 at 23:30 Morphine Sulfate (morphine) 2 mg Q4H PRN IV SEVERE PAIN LEVEL 7-10 Last administered on 05/25/17 15:00; Admin Dose 2 MG; Start 05/22/17 at 14:30 Bisacodyl (Dulcolax Supp) 10 mg Q12 [place] ; Start 05/22/17 at 18:00 Sodium Biphosphate/ Sodium Phosphate (Fleet Enema) 133 ml Q12 [place] ; Start at 00:00 Acetaminophen (Tylenol Tab) 650 mg Q6H PRN PO PAIN AND OR ELEVATED TEMP Last administered on 05/25/17 04:52; Admin Dose 650 MG; Start 05/24/17 at 22:00 MILES NOLASCO May 26, 2017 15:06
[2017-05-26 15:16] VITALS: BP 112/73; RESP 18
[2017-05-26 19:41] VITALS: BP 112/71; RESP 16
[2017-05-27] MEDS: HYDROmorphONE 1 MG/ML SYG IV PRN ×6 (00:08→21:21)
[2017-05-27] MEDS: PIPER-TAZO 3.375 GM IV (PMX) 100 ML IVPB SCH ×4 (00:09→17:40)
[2017-05-27 02:10] VITALS: BP 96/60; RESP 18
[2017-05-27] MEDS: PANTOPRAZOLE 40 MG INJ IV SCH (05:00)
[2017-05-27] MEDS: ONDANSETRON 4 MG INJ IV PRN (08:03)
[2017-05-27 08:20] VITALS: BP 100/56; RESP 16
[2017-05-27] MEDS: BISACODYL 10 MG SUPP PR SCH ×2 (09:00→20:05)
[2017-05-27] MEDS: NA PHOSPHATE/BIPHOS 133 ML ENEMA PR SCH ×2 (09:00→20:05)
--- NOTE | 2017-05-27 11:03 | PN ---
Date/Time of Note Date/Time of Note DATE: 05/27/17 TIME: 11:00 Assessment/Plan VTE Prophylaxis VTE Prophylaxis Intervention: SCD's Lines/Catheters IV Catheter Type (from [facility]): Saline Lock Urinary Cath still in place: No Assessment/Plan Chief Complaint/Hosp Course 1. Acute pancreatitis. tolerating diet well. continue on analgesics. Monitor lipase level. 2. History of cholelithiasis and cholecystitis. Status post laparoscopic cholecystectomy on 03/31/2017 at an outside facility complicated by possible bile duct injury. Status post ERCP on 04/03/2017. Also Status post laparoscopic washout on 04/10/2017 by hepatobiliary surgery. Status post percutaneous CT- guided drain placement at [facility]. The patient currently has a drain in place. continue with surgeon recommendations. diet advanced to low fat/low cholesterol . Patient status post MRCP with findings showing Moderate diffuse intrahepatic ductal dilatation with a transition point in the region of susceptibility artifact at the vickey hepatis, suggestive of an underlying stricture involving the proximal and possibly mid common bile duct. Continue with GI recommendation. Monitor lipase level. hepaticojejunostomy scheduled for 05/30/17 3. Transaminitis. Most probably secondary to #1 and #2. Monitor. Avoid hepatotoxic medications. Monitor LFT DVT prophylaxis. Bilateral sequential compression devices. Gastrointestinal prophylaxis. Proton pump inhibitors. DISPO/PLAN. monitor pancreatic enzymes, continue with analgesics. laxatives as needed for constipation. continue with surgeon recs Discussed plan of care with Dr. Sinclair Problems: Subjective 24 Hr Interval Summary Free Text/Dictation reported to have some constipation yesterday, better today. was able to have bm last night Exam/Review of Systems Vital Signs Vitals Vital Signs Date Time Temp Pulse Resp B/P Pulse Ox O2 Delivery O2 Flow Rate FiO2 05/27/17 08:20 98.5 75 16 100/56 95 Intake and Output 05/26/17 05/26/17 05/27/17 15:00 23:00 07:00 Intake Total 100 ml 640 ml 440 ml Output Total 100 ml 300 ml Balance 0 ml 640 ml 140 ml Exam Constitutional: alert, oriented Eyes: other (Disconjugate gaze) Neck: supple, No jvd Respiratory: normal air movement Gastrointestinal: drain right flank, less tender roday Musculoskeletal: nl extremities to inspection, nl gait and stance Extremities: no edema ble Neurological: ASTRONOMY TEACHER II-XII intact, nl mental status, nl speech Results Result Diagram: 05/26/1743405/26/175 Medications Medications Current Medications Ondansetron HCl (Zofran Inj) 4 mg Q6H PRN IV NAUSEA AND/OR VOMITING Last administered on 05/27/17 08:03; Admin Dose 4 MG; Start 05/19/17 at 21:30 Pantoprazole 40 mg 40 mg DAILY@06 IV Last administered on 05/27/17 05:00; Admin Dose 40 MG; Start 05/20/17 at 06:00 Piperacillin Sod/ Tazobactam Sod (Zosyn 3.375gm/ 100 ml (Pmx)) 100 ml @ 200 mls /hr Q6 IVPB Last administered on 05/27/17 05:00; Admin Dose 200 MLS/HR; Start 05/20/17 at 02:00 Hydromorphone HCl (Dilaudid) 1 mg Q4H PRN IV PAIN LEVEL 6-10 Last administered on 05/27/17 08:47; Admin Dose 1 MG; Start 05/19/17 at 23:30 Morphine Sulfate (morphine) 2 mg Q4H PRN IV SEVERE PAIN LEVEL 7-10 Last administered on 05/25/17 15:00; Admin Dose 2 MG; Start 05/22/17 at 14:30 Bisacodyl (Dulcolax Supp) 10 mg Q12 [place] ; Start 05/22/17 at 18:00 Sodium Biphosphate/ Sodium Phosphate (Fleet Enema) 133 ml Q12 [place] ; Start at 00:00 Acetaminophen (Tylenol Tab) 650 mg Q6H PRN PO PAIN AND OR ELEVATED TEMP Last administered on 05/25/17 04:52; Admin Dose 650 MG; Start 05/24/17 at 22:00 MILES NOLASCO May 27, 2017 11:03
[2017-05-27] MEDS ORDERED: morphine 2 MG INJ IV PRN (12:00)
[2017-05-27 14:13] VITALS: BP 95/56; RESP 20
[2017-05-27 19:40] VITALS: BP 105/65; RESP 18
--- NOTE | 2017-05-27 20:23 | PN ---
Date/Time of Note Date/Time of Note DATE: 05/27/17 TIME: 14:21 Assessment/Plan Lines/Catheters IV Catheter Type (from [facility]): Saline Lock Matthew in Place (from [facility]): No Assessment/Plan Assessment/Plan [facility] Progress Note Date of Service: 05/27/17 Today's Impression & Plan: Overall stable. UTI and pancreatitis improving. Awaiting further resolution of patient's pancreatitis. Hope to stabilize enough for scheduled hepaticojejunostomy scheduled for 05/30/17. Discussed with the patient and her mother and they appeared to understand and agreed with the plans. With above assessment, I've recommended the following for today: 1. Cont current cares 2. Continue broad-spectrum antimicrobial therapy to treat urinary tract infection 3. Treat pancreatitis 4. Low-fat regular diet 5. Keep in-house 6. Labs in am 7. Follow-up with gastroenterology recommendations (much appreciated Dr. Mcconnell 's excellent care) Thank you again for your great care of this very pleasant patient and wonderful family. If there are any questions, please feel free to call me at [phone]. Nature of presenting problem: High severity Please note that, given the extensive number of diagnoses or management options , the extensive amount and/or complexity of data needed to be reviewed, and high risk of complications and/or morbidity or mortality, this qualifies as high complexity type of decision-making. Disclaimer: Inadvertent spelling and grammatical errors are likely due to EHR/ dictation software use and do not reflect on the quality of delivered patient care. Also, please note that the electronic time recorded on this node does not necessarily reflect the actual time of the visit. Review of outside records (78 pages): Admitted to [facility] 05/18/2017. Admission white blood cell count 11.8. Creatinine 3.8. Alkaline phosphatase 547. Total bilirubin 1.1. Lipase 1724. Heart rate 122. Involved physicians included Adrian Oro MD and Maryellen Dolan MD. patient was treated with ceftazidime, vancomycin and metronidazole. CT scan abdomen and pelvis and ovale 05/18/2017: No acute intra- abdominal abnormality appreciated on a limited noncontrast CT of the abdomen and pelvis. Evidence of cholecystectomy. Transhepatic drainage catheter terminating in the region of the gallbladder fossa. Patient's was concerned about possible blood culture positive bacteremia, but I did not see any evidence of that in the reviewed material. The rest of patient's history and physical is unchanged and well documented in my previous visits with her starting on 04/06/2017. Updated Clinical Summary: The patient is a very pleasant 37-year-old young lady who was transferred from an outside hospital to [facility] for management of possible bile duct injury. S/p percutaneous CT-guided drain placement above the liver with removal of 1.4 liters of bile in IR suite and more (2 liters) within first 24 hours post procedure. Drain output minimal 04/09/17. S/p lap washout and wide drainage at [facility]. The upper pigtail catheter and the 2 surgical drains d/c 'd on 04/14/17. Urinary retention issues requiring straight cath and Matthew insertion appeared resolved by 04/15/17. DC home 04/16/2017. 2 ER visits between discharge and the 2016 with no hospitalization. Readmitted as a transfer from outside hospital to [facility] 05/19/2017 with pancreatitis as well as urinary tract infection. COMORBIDITIES: 1. Cholelithiasis and acute cholecystitis, status post laparoscopic cholecystectomy 03/31/2017 at [facility], complicated by possible bile duct injury, as shown by ERCP that was done after a HIDA scan showed possible bile leak, explaining the patient's continued pain and distention. The ERCP on 04/03/2017 showed clips across the distal common bile duct, without any contrast opacifying the liver. We accepted the patient as a transfer into [facility] bile duct injury program for a higher level of care. The patient arrived on 04/05/2017. 2. S/p percutaneous CT-guided drain placement above the liver with removal of 1.4 liters of bile in IR suite and more immediately post procedure. 3. S/p lap washout and wide drainage at [facility]. Subjective: No major events or complaints overnight; reports feeling better, but still with mild nausea; still with mild abd pain and seemingly under control with medications; no current n/v/d; no sob or cp; + flatus; + BM; + activity. Objective: Vitals: See below Exam: GENERAL: On exam, the patient was laying in bed and appeared to be comfortable and in no acute distress. ABDOMEN: Soft, nontender with exception of slight discomfort in the right lower quadrant and nondistended. Incisions are clean, dry and intact without any evidence of erythema, edema, discharge, or hernia. Lower pigtail catheter with bilious output. There are no peritoneal signs or guarding. SKIN: Skin appears to be pink and feels warm to touch. NEUROLOGIC: Patient is awake, alert, and follows commands appropriately. Exam/Review of Systems Vital Signs Vitals Vital Signs Date Time Temp Pulse Resp B/P Pulse Ox O2 Delivery O2 Flow Rate FiO2 05/27/17 19:40 98.8 84 18 105/65 98 Intake and Output 05/26/17 05/26/17 05/27/17 15:00 23:00 07:00 Intake Total 100 ml 640 ml 440 ml Output Total 100 ml 300 ml Balance 0 ml 640 ml 140 ml Results Result Diagram: 05/26/17 0435 05/26/17 0435 LENA MONCADA M.D. May 27, 2017 20:23
[2017-05-27] MEDS ORDERED: NA PHOSPHATE/BIPHOS 133 ML ENEMA PR PRN (20:30)
[2017-05-27] MEDS ORDERED: BISACODYL 10 MG SUPP PR PRN (20:30)
[2017-05-28] MEDS: HYDROmorphONE 1 MG/ML SYG IV PRN ×6 (01:20→21:37)
[2017-05-28 02:00] VITALS: BP 113/69; RESP 18
[2017-05-28] MEDS: PIPER-TAZO 3.375 GM IV (PMX) 100 ML IVPB SCH ×4 (05:45→17:43)
[2017-05-28] MEDS: PANTOPRAZOLE 40 MG INJ IV SCH (05:45)
[2017-05-28 07:46] VITALS: BP 102/62; RESP 16
--- NOTE | 2017-05-28 13:22 | PN ---
Date/Time of Note Date/Time of Note DATE: 05/28/17 TIME: 13:20 Assessment/Plan VTE Prophylaxis VTE Prophylaxis Intervention: SCD's Lines/Catheters IV Catheter Type (from [facility]): Saline Lock Urinary Cath still in place: No Assessment/Plan Chief Complaint/Hosp Course 1. Acute pancreatitis. tolerating diet well. continue on analgesics. Monitor lipase level. 2. History of cholelithiasis and cholecystitis. Status post laparoscopic cholecystectomy on 03/31/2017 at an outside facility complicated by possible bile duct injury. Status post ERCP on 04/03/2017. Also Status post laparoscopic washout on 04/10/2017 by hepatobiliary surgery. Status post percutaneous CT- guided drain placement at [facility]. The patient currently has a drain in place. continue with surgeon recommendations. diet advanced to low fat/low cholesterol . Patient status post MRCP with findings showing Moderate diffuse intrahepatic ductal dilatation with a transition point in the region of susceptibility artifact at the vickey hepatis, suggestive of an underlying stricture involving the proximal and possibly mid common bile duct. Continue with GI recommendation. Monitor lipase level, still elevated. Tentative hepaticojejunostomy scheduled for 05/30/17 3. Transaminitis. Most probably secondary to #1 and #2. Monitor. Avoid hepatotoxic medications. Monitor LFT DVT prophylaxis. Bilateral sequential compression devices. Gastrointestinal prophylaxis. Proton pump inhibitors. DISPO/PLAN. Still with elevated pancreatic enzymes. continue supportive care and analgesics. tentative plan for hepaticojejunostomy. Will follow Discussed plan of care with Dr. Sinclair Problems: Subjective 24 Hr Interval Summary Free Text/Dictation Reports having intermittent abdominal pain. Not much changed Exam/Review of Systems Vital Signs Vitals Vital Signs Date Time Temp Pulse Resp B/P Pulse Ox O2 Delivery O2 Flow Rate FiO2 05/28/17 07:46 98.4 72 16 102/62 97 05/27/17 20:00 Room Air Intake and Output 05/27/17 05/27/17 05/28/17 14:59 22:59 06:59 Intake Total 560 ml 340 ml 400 ml Output Total 475 ml 0 ml 250 ml Balance 85 ml 340 ml 150 ml Exam Constitutional: alert, oriented Eyes: other (Disconjugate gaze) Neck: supple, No jvd Respiratory: normal air movement Gastrointestinal: drain right flank, intermitted abd pain Musculoskeletal: nl extremities to inspection, nl gait and stance Extremities: no edema ble 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, nl mental status, nl speech Results Result Diagram: 05/26/175 05/26/175 Results 24 hrs Laboratory Tests Test 05/28/17 04:48 Lipase 704 H Medications Medications Current Medications Ondansetron HCl (Zofran Inj) 4 mg Q6H PRN IV NAUSEA AND/OR VOMITING Last administered on 05/27/17 08:03; Admin Dose 4 MG; Start 05/19/17 at 21:30 Pantoprazole 40 mg 40 mg DAILY@06 IV Last administered on 05/28/17 05:45; Admin Dose 40 MG; Start 05/20/17 at 06:00 Piperacillin Sod/ Tazobactam Sod (Zosyn 3.375gm/ 100 ml (Pmx)) 100 ml @ 200 mls /hr Q6 IVPB Last administered on 05/28/17 12:42; Admin Dose 200 MLS/HR; Start 05/20/17 at 02:00 Hydromorphone HCl (Dilaudid) 1 mg Q4H PRN IV PAIN LEVEL 6-10 Last administered on 05/28/17 09:38; Admin Dose 1 MG; Start 05/19/17 at 23:30 Acetaminophen (Tylenol Tab) 650 mg Q6H PRN PO PAIN AND OR ELEVATED TEMP Last administered on 05/25/17 04:52; Admin Dose 650 MG; Start 05/24/17 at 22:00 Morphine Sulfate (morphine) 2 mg Q4H PRN IV SEVERE PAIN LEVEL 7-10; Start at 12:00 Bisacodyl (Dulcolax Supp) 10 mg Q12 PRN [place] CONSTIPATION ; Start 05/27/17 at 20: 30 Sodium Biphosphate/ Sodium Phosphate (Fleet Enema) 133 ml Q12 PRN [place] constipation ; Start 05/27/17 at 20:30 MILES NOLASCO May 28, 2017 13:21
[2017-05-28 14:02] VITALS: BP 99/60; RESP 20
--- NOTE | 2017-05-28 17:15 | PN ---
Date/Time of Note Date/Time of Note DATE: 05/28/17 TIME: 17:14 Assessment/Plan Lines/Catheters IV Catheter Type (from [facility]): Saline Lock Matthew in Place (from [facility]): No Assessment/Plan Assessment/Plan [facility] Progress Note Date of Service: 05/28/17 Today's Impression & Plan: Overall stable. UTI and pancreatitis improving, although lipase is still elevated and slightly worse than before. Awaiting further resolution of patient 's pancreatitis. Hope to stabilize enough for scheduled hepaticojejunostomy scheduled for 05/30/17. Discussed with the patient and her mother and they appeared to understand and agreed with the plans. With above assessment, I've recommended the following for today: 1. Cont current cares 2. Continue broad-spectrum antimicrobial therapy to treat urinary tract infection 3. Treat pancreatitis 4. Low-fat regular diet 5. Keep in-house 6. Labs in am 7. Follow-up with gastroenterology recommendations (much appreciated Dr. Mcconnell 's excellent care) Thank you again for your great care of this very pleasant patient and wonderful family. If there are any questions, please feel free to call me at [phone]. Nature of presenting problem: High severity Please note that, given the extensive number of diagnoses or management options , the extensive amount and/or complexity of data needed to be reviewed, and high risk of complications and/or morbidity or mortality, this qualifies as high complexity type of decision-making. Disclaimer: Inadvertent spelling and grammatical errors are likely due to EHR/ dictation software use and do not reflect on the quality of delivered patient care. Also, please note that the electronic time recorded on this node does not necessarily reflect the actual time of the visit. Review of outside records (78 pages): Admitted to [facility] 05/18/2017. Admission white blood cell count 11.8. Creatinine 3.8. Alkaline phosphatase 547. Total bilirubin 1.1. Lipase 1724. Heart rate 122. Involved physicians included Adrian Oro MD and Maryellen Dolan MD. patient was treated with ceftazidime, vancomycin and metronidazole. CT scan abdomen and pelvis and ovale 05/18/2017: No acute intra- abdominal abnormality appreciated on a limited noncontrast CT of the abdomen and pelvis. Evidence of cholecystectomy. Transhepatic drainage catheter terminating in the region of the gallbladder fossa. Patient's was concerned about possible blood culture positive bacteremia, but I did not see any evidence of that in the reviewed material. The rest of patient's history and physical is unchanged and well documented in my previous visits with her starting on 04/06/2017. Updated Clinical Summary: The patient is a very pleasant 37-year-old young lady who was transferred from an outside hospital to [facility] for management of possible bile duct injury. S/p percutaneous CT-guided drain placement above the liver with removal of 1.4 liters of bile in IR suite and more (2 liters) within first 24 hours post procedure. Drain output minimal 04/09/17. S/p lap washout and wide drainage at [facility]. The upper pigtail catheter and the 2 surgical drains d/c 'd on 04/14/17. Urinary retention issues requiring straight cath and Matthew insertion appeared resolved by 04/15/17. DC home 04/16/2017. 2 ER visits between discharge and the 2016 with no hospitalization. Readmitted as a transfer from outside hospital to [facility] 05/19/2017 with pancreatitis as well as urinary tract infection. COMORBIDITIES: 1. Cholelithiasis and acute cholecystitis, status post laparoscopic cholecystectomy 03/31/2017 at [facility], complicated by possible bile duct injury, as shown by ERCP that was done after a HIDA scan showed possible bile leak, explaining the patient's continued pain and distention. The ERCP on 04/03/2017 showed clips across the distal common bile duct, without any contrast opacifying the liver. We accepted the patient as a transfer into [facility] bile duct injury program for a higher level of care. The patient arrived on 04/05/2017. 2. S/p percutaneous CT-guided drain placement above the liver with removal of 1.4 liters of bile in IR suite and more immediately post procedure. 3. S/p lap washout and wide drainage at [facility]. Subjective: No major events or complaints overnight; reports feeling better, but still with mild nausea; still with mild abd pain and seemingly under control with medications; no current n/v/d; no sob or cp; + flatus; + BM; + activity. Objective: Vitals: See below Exam: GENERAL: On exam, the patient was laying in bed and appeared to be comfortable and in no acute distress. ABDOMEN: Soft, nontender with exception of slight discomfort in the right lower quadrant and nondistended. Incisions are clean, dry and intact without any evidence of erythema, edema, discharge, or hernia. Lower pigtail catheter with bilious output. There are no peritoneal signs or guarding. SKIN: Skin appears to be pink and feels warm to touch. NEUROLOGIC: Patient is awake, alert, and follows commands appropriately. Exam/Review of Systems Vital Signs Vitals Vital Signs Date Time Temp Pulse Resp B/P Pulse Ox O2 Delivery O2 Flow Rate FiO2 05/28/17 14:02 98.2 79 20 99/60 96 05/27/17 20:00 Room Air Intake and Output 05/27/17 05/27/17 05/28/17 15:00 23:00 07:00 Intake Total 560 ml 340 ml 400 ml Output Total 475 ml 0 ml 250 ml Balance 85 ml 340 ml 150 ml Results Result Diagram: 05/26/17 0435 05/26/17 0435 LENA MONCADA M.D. May 28, 2017 17:15
[2017-05-28 19:29] VITALS: BP 94/59; RESP 18
[2017-05-29] MEDS: PIPER-TAZO 3.375 GM IV (PMX) 100 ML IVPB SCH ×4 (00:10→18:03)
[2017-05-29] MEDS: HYDROmorphONE 1 MG/ML SYG IV PRN ×6 (01:38→22:15)
[2017-05-29 02:00] VITALS: BP 103/63; RESP 18
[2017-05-29 05:19] LABS: BASOPHIL # 0.1 10^3/ul (0.0-0.1); BASOPHILS % 0.9 % (0.0-2.0); EOSINOPHILS # 0.5 10^3/ul (0.0-0.5); EOSINOPHILS % 8.6 % (0.0-7.0); HEMATOCRIT 36.5 % (37.0-47.0); HEMOGLOBIN 11.4 g/dl (12.0-16.0); LYMPHOCYTES % 36.3 % (15.0-51.0); MEAN CORPUSCULAR HEMOGLOBIN 27.5 pg (29.0-33.0); MEAN CORPUSCULAR HGB CONC 31.2 g/dl (32.0-37.0); MEAN CORPUSCULAR VOLUME 88.2 fl (82.0-101.0); MEAN PLATELET VOLUME 10.4 fl (7.4-10.4); MONOCYTE # 0.5 10^3/ul (0.3-0.9); MONOCYTES % 8.2 % (0.0-11.0); NEUTROPHIL # 2.5 10^3/ul (1.6-7.5); NEUTROPHILS % 45.6 % (39.0-77.0); PLATELET COUNT 248 10^3/UL (140-415); RED BLOOD COUNT 4.14 10^6/ul (4.20-5.40); RED CELL DISTRIBUTION WIDTH 14.5 % (11.5-14.5); WHITE BLOOD COUNT 5.5 10^3/ul (4.8-10.8)
[2017-05-29] MEDS: PANTOPRAZOLE 40 MG INJ IV SCH (05:27)
[2017-05-29 06:12] LABS: CALCIUM 8.7 mg/dl (8.4-10.2); CREATININE 0.9 mg/dl (0.44-1.00); POTASSIUM 4.1 mmol/L (3.5-5.1)
[2017-05-29 07:26] VITALS: BP 97/56; RESP 20
--- NOTE | 2017-05-29 11:15 | PN ---
Date/Time of Note Date/Time of Note DATE: 05/29/17 TIME: 11:15 Assessment/Plan VTE Prophylaxis VTE Prophylaxis Intervention: SCD's Lines/Catheters IV Catheter Type (from [facility]): Saline Lock Urinary Cath still in place: No Assessment/Plan Chief Complaint/Hosp Course 1. Acute pancreatitis. Etiology unclear. Pancreatic enzyme levels are trending down. Patient currently on a diet. 2. History of cholelithiasis and cholecystitis. Status post laparoscopic cholecystectomy on 03/31/2017 at an outside facility complicated by possible bile duct injury. Status post ERCP on 04/03/2017. Status post laparoscopic washout on 04/10/2017 at [facility] by hepatobiliary surgery. Status post percutaneous CT-guided drain placement at [facility]. The patient currently has a drain in place. 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 The patient being followed by hepatobiliary surgery. 3. Transaminitis. Most probably secondary to #1 and #2. Monitor. Avoid hepatotoxic medications. 4. Fluids, electrolytes, and nutrition. Low-cholesterol diet. 5. DVT prophylaxis. Bilateral sequential compression devices. 6. Gastrointestinal prophylaxis. Proton pump inhibitors. 7. Plan. Continue empiric antibiotics. Continue pain control. Trend lipase levels. Await further recommendations from hepatobiliary surgery. Case discussed with . Problems: Subjective 24 Hr Interval Summary Free Text/Dictation Denies any abdominal pain. Exam/Review of Systems Vital Signs Vitals Vital Signs Date Time Temp Pulse Resp B/P Pulse Ox O2 Delivery O2 Flow Rate FiO2 05/29/17 07:26 98.1 85 20 97/56 97 05/27/17 20:00 Room Air Intake and Output 05/28/17 05/28/17 05/29/17 15:00 23:00 07:00 Intake Total 100 ml 1300 ml 350 ml Output Total 225 ml 300 ml Balance -125 ml 1000 ml 350 ml Exam General: Thin, frail looking 37 year-old female lying in bed in no apparent distress. HEENT: Normocephalic, atraumatic. Eyes: Anicteric sclerae, conjunctivae clear. ENT: Nasal septum midline, oral mucosa moist. Neck supple, no JVD noticed. Respiratory: Bilaterally clear breath sounds. No use of accessory muscles of respiration. No adventitious breath sounds. Cardiovascular: S1, S2 heard. No murmurs or gallops. Abdomen: Soft and nondistended. Bowel sounds positive in all 4 quadrants. Right -sided percutaneous drain in place. Diffuse tenderness. Genitourinary: Deferred. Extremities: No cyanosis, no clubbing, no edema. Peripheral pulses palpable. Neurologic: Cranial nerves II through XII grossly intact. The patient is awake, alert, and oriented. Skin: Normal skin turgor. No skin rashes. Results Result Diagram: 05/29/172 05/29/17 0432 Results 24 hrs Laboratory Tests Test 05/29/17 04:32 White Blood Count 5.5 # Red Blood Count 4.14 L Hemoglobin 11.4 L Hematocrit 36.5 L Mean Corpuscular Volume 88.2 Mean Corpuscular Hemoglobin 27.5 L Mean Corpuscular Hemoglobin Concent 31.2 L Red Cell Distribution Width 14.5 Platelet Count 248 Mean Platelet Volume 10.4 Neutrophils % 45.6 Lymphocytes % 36.3 Monocytes % 8.2 Eosinophils % 8.6 H Basophils % 0.9 Nucleated Red Blood Cells % 0.0 Neutrophils # 2.5 Lymphocytes # 2.0 Monocytes # 0.5 Eosinophils # 0.5 Basophils # 0.1 Nucleated Red Blood Cells # 0.0 Sodium Level 144 Potassium Level 4.1 Chloride Level 103 Carbon Dioxide Level 27 Anion Gap 18 H Blood Urea Nitrogen 5 L Creatinine 0.90 Glucose Level 86 Calcium Level 8.7 Lipase 662 H Medications Medications Current Medications Ondansetron HCl (Zofran Inj) 4 mg Q6H PRN IV NAUSEA AND/OR VOMITING Last administered on 05/27/17 08:03; Admin Dose 4 MG; Start 05/19/17 at 21:30 Pantoprazole 40 mg 40 mg DAILY@06 IV Last administered on 05/29/17 05:27; Admin Dose 40 MG; Start 05/20/17 at 06:00 Piperacillin Sod/ Tazobactam Sod (Zosyn 3.375gm/ 100 ml (Pmx)) 100 ml @ 200 mls /hr Q6 IVPB Last administered on 05/29/17 05:27; Admin Dose 200 MLS/HR; Start 05/20/17 at 02:00 Hydromorphone HCl (Dilaudid) 1 mg Q4H PRN IV PAIN LEVEL 6-10 Last administered on 05/29/17 09:31; Admin Dose 1 MG; Start 05/19/17 at 23:30 Acetaminophen (Tylenol Tab) 650 mg Q6H PRN PO PAIN AND OR ELEVATED TEMP Last administered on 05/25/17 04:52; Admin Dose 650 MG; Start 05/24/17 at 22:00 Morphine Sulfate (morphine) 2 mg Q4H PRN IV SEVERE PAIN LEVEL 7-10; Start at 12:00 Bisacodyl (Dulcolax Supp) 10 mg Q12 PRN [place] CONSTIPATION ; Start 05/27/17 at 20: 30 Sodium Biphosphate/ Sodium Phosphate (Fleet Enema) 133 ml Q12 PRN [place] constipation ; Start 05/27/17 at 20:30 AMILCAR BRUSH NP May 29, 2017 11:15
[2017-05-29 13:11] VITALS: BP 98/63; RESP 20
[2017-05-29 19:32] VITALS: BP 101/64; RESP 18
--- NOTE | 2017-05-29 21:28 | PN ---
Date/Time of Note Date/Time of Note DATE: 05/29/17 TIME: 21:25 Assessment/Plan Lines/Catheters IV Catheter Type (from [facility]): Saline Lock Matthew in Place (from [facility]): No Assessment/Plan Assessment/Plan [facility] Progress Note Date of Service: 05/29/17 Today's Impression & Plan: Overall stable. Lipase is still elevated and no obvious etiology. Awaiting further resolution of patient's pancreatitis. Hope to stabilize enough for scheduled hepaticojejunostomy scheduled for 05/30/17. There is a high likelihood that we have to postpone the scheduled operation if the lipase is still elevated tomorrow morning. Discussed with the patient and she appeared to understand and agreed with the plans. With above assessment, I've recommended the following for today: 1. Cont current cares 2. Continue broad-spectrum antimicrobial therapy to treat urinary tract infection 3. Treat pancreatitis 4. Low-fat regular diet 5. Keep in-house 6. Labs in am 7. Follow-up with gastroenterology recommendations (much appreciated Dr. Mcconnell 's excellent care) 8. Possible need to postpone scheduled hepaticojejunostomy if tomorrow a.m.'s lipase levels are still elevated Thank you again for your great care of this very pleasant patient and wonderful family. If there are any questions, please feel free to call me at [phone]. Nature of presenting problem: High severity Please note that, given the extensive number of diagnoses or management options , the extensive amount and/or complexity of data needed to be reviewed, and high risk of complications and/or morbidity or mortality, this qualifies as high complexity type of decision-making. Disclaimer: Inadvertent spelling and grammatical errors are likely due to EHR/ dictation software use and do not reflect on the quality of delivered patient care. Also, please note that the electronic time recorded on this node does not necessarily reflect the actual time of the visit. Review of outside records (78 pages): Admitted to [facility] 05/18/2017. Admission white blood cell count 11.8. Creatinine 3.8. Alkaline phosphatase 547. Total bilirubin 1.1. Lipase 1724. Heart rate 122. Involved physicians included Adrian Oro MD and Maryellen Dolan MD. patient was treated with ceftazidime, vancomycin and metronidazole. CT scan abdomen and pelvis and ovale 05/18/2017: No acute intra- abdominal abnormality appreciated on a limited noncontrast CT of the abdomen and pelvis. Evidence of cholecystectomy. Transhepatic drainage catheter terminating in the region of the gallbladder fossa. Patient's was concerned about possible blood culture positive bacteremia, but I did not see any evidence of that in the reviewed material. The rest of patient's history and physical is unchanged and well documented in my previous visits with her starting on 04/06/2017. Updated Clinical Summary: The patient is a very pleasant 37-year-old young lady who was transferred from an outside hospital to [facility] for management of possible bile duct injury. S/p percutaneous CT-guided drain placement above the liver with removal of 1.4 liters of bile in IR suite and more (2 liters) within first 24 hours post procedure. Drain output minimal 04/09/17. S/p lap washout and wide drainage at [facility]. The upper pigtail catheter and the 2 surgical drains d/c 'd on 04/14/17. Urinary retention issues requiring straight cath and Matthew insertion appeared resolved by 04/15/17. DC home 04/16/2017. 2 ER visits between discharge and the 2016 with no hospitalization. Readmitted as a transfer from outside hospital to [facility] 05/19/2017 with pancreatitis as well as urinary tract infection. COMORBIDITIES: 1. Cholelithiasis and acute cholecystitis, status post laparoscopic cholecystectomy 03/31/2017 at [facility], complicated by possible bile duct injury, as shown by ERCP that was done after a HIDA scan showed possible bile leak, explaining the patient's continued pain and distention. The ERCP on 04/03/2017 showed clips across the distal common bile duct, without any contrast opacifying the liver. We accepted the patient as a transfer into [facility] bile duct injury program for a higher level of care. The patient arrived on 04/05/2017. 2. S/p percutaneous CT-guided drain placement above the liver with removal of 1.4 liters of bile in IR suite and more immediately post procedure. 3. S/p lap washout and wide drainage at [facility]. Subjective: No major events or complaints overnight; reports feeling okay, and with less nausea; still with mild abd pain and seemingly under control with medications; no current n/v/d; no sob or cp; + flatus; + BM; + activity. Objective: Vitals: See below Exam: GENERAL: On exam, the patient was laying in bed and appeared to be comfortable and in no acute distress. ABDOMEN: Soft, nontender with exception of slight discomfort in the right lower quadrant and nondistended. Incisions are clean, dry and intact without any evidence of erythema, edema, discharge, or hernia. Lower pigtail catheter with bilious output. There are no peritoneal signs or guarding. SKIN: Skin appears to be pink and feels warm to touch. NEUROLOGIC: Patient is awake, alert, and follows commands appropriately. Exam/Review of Systems Vital Signs Vitals Vital Signs Date Time Temp Pulse Resp B/P Pulse Ox O2 Delivery O2 Flow Rate FiO2 05/29/17 19:32 98.7 78 18 101/64 98 05/27/17 20:00 Room Air Intake and Output 05/28/17 05/28/17 05/29/17 15:00 23:00 07:00 Intake Total 100 ml 1300 ml 350 ml Output Total 225 ml 300 ml 300 ml Balance -125 ml 1000 ml 50 ml Results Result Diagram: 05/29/17 0432 05/29/17 0432 LENA MONCADA M.D. May 29, 2017 21:28
[2017-05-30] MEDS: PIPER-TAZO 3.375 GM IV (PMX) 100 ML IVPB SCH ×5 (00:08→23:45)
[2017-05-30 02:00] VITALS: BP 102/63; RESP 18
[2017-05-30] MEDS: HYDROmorphONE 1 MG/ML SYG IV PRN ×6 (02:58→23:10)
[2017-05-30] MEDS: PANTOPRAZOLE 40 MG INJ IV SCH (05:41)
[2017-05-30 05:53] LABS: CREATININE 0.9 mg/dl (0.44-1.00); POTASSIUM 3.8 mmol/L (3.5-5.1)
[2017-05-30 05:56] LABS: ALBUMIN 3.7 g/dl (3.3-4.9); BILIRUBIN,INDIRECT 0.1 mg/dl (0-1.1); BILIRUBIN,TOTAL 0.1 mg/dl (0.2-1.3); TOTAL PROTEIN 6.3 g/dl (6.1-8.1)
[2017-05-30 07:16] LABS: BASOPHIL # 0.1 10^3/ul (0.0-0.1); EOSINOPHILS # 0.4 10^3/ul (0.0-0.5); EOSINOPHILS % 7.7 % (0.0-7.0); HEMATOCRIT 35.1 % (37.0-47.0); HEMOGLOBIN 11.1 g/dl (12.0-16.0); LYMPHOCYTES # 1.4 10^3/ul (0.8-2.9); LYMPHOCYTES % 28.6 % (15.0-51.0); MEAN CORPUSCULAR HEMOGLOBIN 27.8 pg (29.0-33.0); MEAN CORPUSCULAR HGB CONC 31.6 g/dl (32.0-37.0); MEAN PLATELET VOLUME 10.3 fl (7.4-10.4); MONOCYTE # 0.5 10^3/ul (0.3-0.9); MONOCYTES % 9.3 % (0.0-11.0); NEUTROPHIL # 2.6 10^3/ul (1.6-7.5); NEUTROPHILS % 52.8 % (39.0-77.0); PLATELET COUNT 260 10^3/UL (140-415); RED BLOOD COUNT 3.99 10^6/ul (4.20-5.40); RED CELL DISTRIBUTION WIDTH 14.5 % (11.5-14.5); WHITE BLOOD COUNT 4.9 10^3/ul (4.8-10.8)
[2017-05-30 07:25] VITALS: BP 101/62; RESP 20
[2017-05-30 07:28] LABS: INR 1.13; PROTIME 14.5 Sec (12.2-14.2); PT RATIO 1.1
[2017-05-30 07:29] LABS: ALBUMIN 3.6 g/dl (3.3-4.9); ALBUMIN/GLOBULIN RATIO 1.2; BILIRUBIN,INDIRECT 0.2 mg/dl (0-1.1); BILIRUBIN,TOTAL 0.2 mg/dl (0.2-1.3); CALCIUM 8.7 mg/dl (8.4-10.2); CREATININE 0.88 mg/dl (0.44-1.00); PARTIAL THROMBOPLASTIN TIME 28.1 Sec (25.0-35.0); POTASSIUM 3.4 mmol/L (3.5-5.1); TOTAL PROTEIN 6.6 g/dl (6.1-8.1)
[2017-05-30 07:30] LABS: MAGNESIUM 1.6 mg/dl (1.7-2.5); PHOSPHORUS 3.2 mg/dl (2.5-4.9)
--- NOTE | 2017-05-30 09:38 | PN ---
Date/Time of Note Date/Time of Note DATE: 05/30/17 TIME: 09:37 Assessment/Plan VTE Prophylaxis VTE Prophylaxis Intervention: SCD's Lines/Catheters IV Catheter Type (from [facility]): Saline Lock Urinary Cath still in place: No Assessment/Plan Chief Complaint/Hosp Course 1. Acute pancreatitis. Etiology unclear. Pancreatic enzyme levels are trending down. Patient currently on a diet. 2. History of cholelithiasis and cholecystitis. Status post laparoscopic cholecystectomy on 03/31/2017 at an outside facility complicated by possible bile duct injury. Status post ERCP on 04/03/2017. Status post laparoscopic washout on 04/10/2017 at [facility] by hepatobiliary surgery. Status post percutaneous CT-guided drain placement at [facility]. The patient currently has a drain in place. 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 The patient being followed by hepatobiliary surgery. Plan for hepaticojejunostomy . 3. Transaminitis. Most probably secondary to #1 and #2. Monitor. Avoid hepatotoxic medications. 4. Fluids, electrolytes, and nutrition. Clear liquids. 5. DVT prophylaxis. Bilateral sequential compression devices. 6. Gastrointestinal prophylaxis. Proton pump inhibitors. 7. Plan. Continue empiric antibiotics. Continue pain control. Trend lipase levels. Await hepaticojejunostomy. Replete potassium and magnesium. Case discussed with . Problems: Subjective 24 Hr Interval Summary Free Text/Dictation Denies any abdominal pain. Exam/Review of Systems Vital Signs Vitals Vital Signs Date Time Temp Pulse Resp B/P Pulse Ox O2 Delivery O2 Flow Rate FiO2 05/30/17 07:25 98.3 91 20 101/62 98 05/27/17 20:00 Room Air Intake and Output 05/29/17 05/29/17 05/30/17 15:00 23:00 07:00 Intake Total 100 ml 100 ml 350 ml Output Total 250 ml 350 ml Balance -150 ml -250 ml 350 ml Exam General: Thin, frail looking 37 year-old female lying in bed in no apparent distress. HEENT: Normocephalic, atraumatic. Eyes: Anicteric sclerae, conjunctivae clear. ENT: Nasal septum midline, oral mucosa moist. Neck supple, no JVD noticed. Respiratory: Bilaterally clear breath sounds. No use of accessory muscles of respiration. No adventitious breath sounds. Cardiovascular: S1, S2 heard. No murmurs or gallops. Abdomen: Soft and nondistended. Bowel sounds positive in all 4 quadrants. Right -sided percutaneous drain in place. Diffuse tenderness. Genitourinary: Deferred. Extremities: No cyanosis, no clubbing, no edema. Peripheral pulses palpable. Neurologic: Cranial nerves II through XII grossly intact. The patient is awake, alert, and oriented. Skin: Normal skin turgor. No skin rashes. Results Result Diagram: 05/30/17 0643 05/30/17 0643 Results 24 hrs Laboratory Tests Test 05/30/17 05:04 05/30/17 06:43 Sodium Level 145 H 144 Potassium Level 3.8 3.4 L Chloride Level 103 107 Carbon Dioxide Level 26 23 Anion Gap 20 H 17 H Blood Urea Nitrogen 3 L 3 L Creatinine 0.90 0.88 Glucose Level 89 94 Calcium Level 9.0 8.7 Total Bilirubin 0.1 L 0.2 Direct Bilirubin 0.00 0.00 Indirect Bilirubin 0.1 0.2 Aspartate Amino Transf (AST/SGOT) 73 H 62 H Alanine Aminotransferase (ALT/SGPT) 79 H 74 H Alkaline Phosphatase 205 H 189 H Total Protein 6.3 6.6 Albumin 3.7 3.6 Lipase 654 H White Blood Count 4.9 Red Blood Count 3.99 L Hemoglobin 11.1 L Hematocrit 35.1 L Mean Corpuscular Volume 88.0 Mean Corpuscular Hemoglobin 27.8 L Mean Corpuscular Hemoglobin Concent 31.6 L Red Cell Distribution Width 14.5 Platelet Count 260 Mean Platelet Volume 10.3 Neutrophils % 52.8 Lymphocytes % 28.6 Monocytes % 9.3 Eosinophils % 7.7 H Basophils % 1.0 Nucleated Red Blood Cells % 0.0 Neutrophils # 2.6 Lymphocytes # 1.4 Monocytes # 0.5 Eosinophils # 0.4 Basophils # 0.1 Nucleated Red Blood Cells # 0.0 Prothrombin Time 14.5 H Prothrombin Time Ratio 1.1 INR International Normalized Ratio 1.13 Activated Partial Thromboplast Time 28.1 Phosphorus Level 3.2 Magnesium Level 1.6 L Globulin 3.00 Albumin/Globulin Ratio 1.20 Amylase Level 159 H Medications Medications Current Medications Ondansetron HCl (Zofran Inj) 4 mg Q6H PRN IV NAUSEA AND/OR VOMITING Last administered on 05/27/17 08:03; Admin Dose 4 MG; Start 05/19/17 at 21:30 Pantoprazole 40 mg 40 mg DAILY@06 IV Last administered on 05/30/17 05:41; Admin Dose 40 MG; Start 05/20/17 at 06:00 Piperacillin Sod/ Tazobactam Sod (Zosyn 3.375gm/ 100 ml (Pmx)) 100 ml @ 200 mls /hr Q6 IVPB Last administered on 05/30/17 05:41; Admin Dose 200 MLS/HR; Start 05/20/17 at 02:00 Hydromorphone HCl (Dilaudid) 1 mg Q4H PRN IV PAIN LEVEL 6-10 Last administered on 05/30/17 06:52; Admin Dose 1 MG; Start 05/19/17 at 23:30 Acetaminophen (Tylenol Tab) 650 mg Q6H PRN PO PAIN AND OR ELEVATED TEMP Last administered on 05/25/17 04:52; Admin Dose 650 MG; Start 05/24/17 at 22:00 Morphine Sulfate (morphine) 2 mg Q4H PRN IV SEVERE PAIN LEVEL 7-10; Start at 12:00 Bisacodyl (Dulcolax Supp) 10 mg Q12 PRN [place] CONSTIPATION ; Start 05/27/17 at 20: 30 Sodium Biphosphate/ Sodium Phosphate (Fleet Enema) 133 ml Q12 PRN [place] constipation ; Start 05/27/17 at 20:30 AMILCAR BRUSH NP May 30, 2017 09:38
[2017-05-30] MEDS ORDERED: POTASSIUM CHLORIDE (SR) 10 MEQ TAB PO ONE (10:00)
[2017-05-30] MEDS ORDERED: MAGNESIUM SULFATE 2 GM/50 ML 50 ML IVPB ONE (11:00)
[2017-05-30 13:34] VITALS: BP 105/65; RESP 20
--- NOTE | 2017-05-30 16:37 | PN ---
Date/Time of Note Date/Time of Note DATE: 05/30/17 TIME: 16:34 Assessment/Plan Lines/Catheters IV Catheter Type (from [facility]): Saline Lock Matthew in Place (from [facility]): No Assessment/Plan Assessment/Plan [facility] Progress Note Date of Service: 05/30/17 Today's Impression & Plan: Overall stable. Lipase and amylase are still elevated and no obvious etiology. Postpone the operation that was scheduled today due to this issue. Also discussed with Dr. Mcconnell. Awaiting further resolution of patient's pancreatitis. Hope to stabilize enough for re-scheduled hepaticojejunostomy (? ). May be able to discharge patient home as early as tomorrow and do further outpatient observation prior to bringing her back for her scheduled operation. Discussed with the patient and she appeared to understand and agreed with the plans. With above assessment, I've recommended the following for today: 1. Cont current cares 2. Recommend discontinuation of antimicrobial therapy 3. Possible discharge home tomorrow with outpatient follow-up and labs prior to return for elective hepaticojejunostomy 4. Low-fat regular diet 5. Labs in am Thank you again for your great care of this very pleasant patient and wonderful family. If there are any questions, please feel free to call me at [phone]. Nature of presenting problem: High severity Please note that, given the extensive number of diagnoses or management options , the extensive amount and/or complexity of data needed to be reviewed, and high risk of complications and/or morbidity or mortality, this qualifies as high complexity type of decision-making. Disclaimer: Inadvertent spelling and grammatical errors are likely due to EHR/ dictation software use and do not reflect on the quality of delivered patient care. Also, please note that the electronic time recorded on this node does not necessarily reflect the actual time of the visit. Review of outside records (78 pages): Admitted to [facility] 05/18/2017. Admission white blood cell count 11.8. Creatinine 3.8. Alkaline phosphatase 547. Total bilirubin 1.1. Lipase 1724. Heart rate 122. Involved physicians included Adrian Oro MD and Maryellen Dolan MD. patient was treated with ceftazidime, vancomycin and metronidazole. CT scan abdomen and pelvis and ovale 05/18/2017: No acute intra- abdominal abnormality appreciated on a limited noncontrast CT of the abdomen and pelvis. Evidence of cholecystectomy. Transhepatic drainage catheter terminating in the region of the gallbladder fossa. Patient's was concerned about possible blood culture positive bacteremia, but I did not see any evidence of that in the reviewed material. The rest of patient's history and physical is unchanged and well documented in my previous visits with her starting on 04/06/2017. Updated Clinical Summary: The patient is a very pleasant 37-year-old young lady who was transferred from an outside hospital to [facility] for management of possible bile duct injury. S/p percutaneous CT-guided drain placement above the liver with removal of 1.4 liters of bile in IR suite and more (2 liters) within first 24 hours post procedure. Drain output minimal 04/09/17. S/p lap washout and wide drainage at [facility]. The upper pigtail catheter and the 2 surgical drains d/c 'd on 04/14/17. Urinary retention issues requiring straight cath and Matthew insertion appeared resolved by 04/15/17. DC home 04/16/2017. 2 ER visits between discharge and the 2016 with no hospitalization. Readmitted as a transfer from outside hospital to [facility] 05/19/2017 with pancreatitis as well as urinary tract infection. Due to persistently elevated amylase and lipase of unknown etiology, scheduled hepaticojejunostomy on 2016 was postponed to 06/08/2017. COMORBIDITIES: 1. Cholelithiasis and acute cholecystitis, status post laparoscopic cholecystectomy 03/31/2017 at [facility], complicated by possible bile duct injury, as shown by ERCP that was done after a HIDA scan showed possible bile leak, explaining the patient's continued pain and distention. The ERCP on 04/03/2017 showed clips across the distal common bile duct, without any contrast opacifying the liver. We accepted the patient as a transfer into [facility] bile duct injury program for a higher level of care. The patient arrived on 04/05/2017. 2. S/p percutaneous CT-guided drain placement above the liver with removal of 1.4 liters of bile in IR suite and more immediately post procedure. 3. S/p lap washout and wide drainage at [facility]. Subjective: No major events or complaints overnight; reports feeling okay, and with less nausea; still with mild abd pain and seemingly under control with medications; no current n/v/d; no sob or cp; + flatus; + BM; + activity. Objective: Vitals: See below Exam: GENERAL: On exam, the patient was laying in bed and appeared to be comfortable and in no acute distress. ABDOMEN: Soft, nontender with exception of slight discomfort in the right lower quadrant and nondistended. Incisions are clean, dry and intact without any evidence of erythema, edema, discharge, or hernia. Lower pigtail catheter with bilious output. There are no peritoneal signs or guarding. SKIN: Skin appears to be pink and feels warm to touch. NEUROLOGIC: Patient is awake, alert, and follows commands appropriately. Exam/Review of Systems Vital Signs Vitals Vital Signs Date Time Temp Pulse Resp B/P Pulse Ox O2 Delivery O2 Flow Rate FiO2 05/30/17 13:34 97.4 86 20 105/65 96 05/27/17 20:00 Room Air Intake and Output 05/29/17 05/29/17 05/30/17 15:00 23:00 07:00 Intake Total 100 ml 100 ml 350 ml Output Total 250 ml 350 ml Balance -150 ml -250 ml 350 ml Results Result Diagram: 05/30/17 0643 05/30/17 0643 LENA MONCADA M.D. May 30, 2017 16:37
[2017-05-30] MEDS: ONDANSETRON 4 MG INJ IV PRN (19:10)
[2017-05-30 19:43] VITALS: BP 102/58; RESP 18
[2017-05-30] MEDS: FAMOTIDINE 20 MG INJ IV SCH (20:13)
[2017-05-31 02:00] VITALS: BP 97/61; RESP 18
[2017-05-31] MEDS: HYDROmorphONE 1 MG/ML SYG IV PRN ×6 (03:05→23:54)
[2017-05-31] MEDS: ONDANSETRON 4 MG INJ IV PRN ×2 (03:05→18:42)
[2017-05-31] MEDS: PIPER-TAZO 3.375 GM IV (PMX) 100 ML IVPB SCH (05:34)
[2017-05-31 06:33] LABS: BASOPHIL # 0.1 10^3/ul (0.0-0.1); BASOPHILS % 0.9 % (0.0-2.0); EOSINOPHILS # 0.5 10^3/ul (0.0-0.5); EOSINOPHILS % 9.6 % (0.0-7.0); HEMATOCRIT 35.6 % (37.0-47.0); HEMOGLOBIN 11.4 g/dl (12.0-16.0); LYMPHOCYTES # 1.6 10^3/ul (0.8-2.9); LYMPHOCYTES % 30.5 % (15.0-51.0); MEAN CORPUSCULAR HEMOGLOBIN 28.3 pg (29.0-33.0); MEAN CORPUSCULAR VOLUME 88.3 fl (82.0-101.0); MONOCYTE # 0.4 10^3/ul (0.3-0.9); MONOCYTES % 8.1 % (0.0-11.0); NEUTROPHIL # 2.7 10^3/ul (1.6-7.5); NEUTROPHILS % 50.3 % (39.0-77.0); PLATELET COUNT 288 10^3/UL (140-415); RED BLOOD COUNT 4.03 10^6/ul (4.20-5.40); RED CELL DISTRIBUTION WIDTH 14.7 % (11.5-14.5); WHITE BLOOD COUNT 5.3 10^3/ul (4.8-10.8)
[2017-05-31 06:51] LABS: INR 1.19; PROTIME 15.2 Sec (12.2-14.2); PT RATIO 1.2
[2017-05-31 06:52] LABS: PARTIAL THROMBOPLASTIN TIME 29.6 Sec (25.0-35.0)
[2017-05-31 07:08] LABS: ALBUMIN 3.5 g/dl (3.3-4.9); ALBUMIN/GLOBULIN RATIO 1.16; BILIRUBIN,INDIRECT 0.1 mg/dl (0-1.1); BILIRUBIN,TOTAL 0.1 mg/dl (0.2-1.3); CALCIUM 8.5 mg/dl (8.4-10.2); CREATININE 0.92 mg/dl (0.44-1.00); MAGNESIUM 2.2 mg/dl (1.7-2.5); POTASSIUM 4.6 mmol/L (3.5-5.1); TOTAL PROTEIN 6.5 g/dl (6.1-8.1)
[2017-05-31 07:39] VITALS: BP 96/64; RESP 20
[2017-05-31] MEDS: FAMOTIDINE 20 MG INJ IV SCH ×2 (08:17→20:39)
--- NOTE | 2017-05-31 12:30 | PN ---
Date/Time of Note Date/Time of Note DATE: 05/31/17 TIME: 12:29 Assessment/Plan VTE Prophylaxis VTE Prophylaxis Intervention: SCD's Lines/Catheters IV Catheter Type (from [facility]): Saline Lock Urinary Cath still in place: No Assessment/Plan Chief Complaint/Hosp Course 1. Acute pancreatitis. Etiology unclear. Pancreatic enzyme levels are trending down. Patient currently on a diet. 2. History of cholelithiasis and cholecystitis. Status post laparoscopic cholecystectomy on 03/31/2017 at an outside facility complicated by possible bile duct injury. Status post ERCP on 04/03/2017. Status post laparoscopic washout on 04/10/2017 at [facility] by hepatobiliary surgery. Status post percutaneous CT-guided drain placement at [facility]. The patient currently has a drain in place. 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 The patient being followed by hepatobiliary surgery. Plan for hepaticojejunostomy. 3. Transaminitis. Most probably secondary to #1 and #2. Monitor. Avoid hepatotoxic medications. 4. Fluids, electrolytes, and nutrition. Low cholesterol diet. 5. DVT prophylaxis. Bilateral sequential compression devices. 6. Gastrointestinal prophylaxis. Proton pump inhibitors. 7. Plan. Discontinue empiric antibiotics. Plan for outpatient hepaticojejunostomy as outpatient. Discharge the patient home once cleared by surgery. Case discussed with . Problems: Subjective 24 Hr Interval Summary Free Text/Dictation Denies any pain. Tolerating oral intake. Exam/Review of Systems Vital Signs Vitals Vital Signs Date Time Temp Pulse Resp B/P Pulse Ox O2 Delivery O2 Flow Rate FiO2 05/31/17 07:39 98.1 82 20 96/64 95 05/27/17 20:00 Room Air Intake and Output 05/30/17 05/30/17 05/31/17 15:00 23:00 07:00 Intake Total 150 ml 1180 ml 300 ml Output Total 350 ml 370 ml Balance -200 ml 810 ml 300 ml Exam General: Thin, frail looking 37 year-old female lying in bed in no apparent distress. HEENT: Normocephalic, atraumatic. Eyes: Anicteric sclerae, conjunctivae clear. ENT: Nasal septum midline, oral mucosa moist. Neck supple, no JVD noticed. Respiratory: Bilaterally clear breath sounds. No use of accessory muscles of respiration. No adventitious breath sounds. Cardiovascular: S1, S2 heard. No murmurs or gallops. Abdomen: Soft and nondistended. Bowel sounds positive in all 4 quadrants. Right -sided percutaneous drain in place. Diffuse tenderness. Genitourinary: Deferred. Extremities: No cyanosis, no clubbing, no edema. Peripheral pulses palpable. Neurologic: Cranial nerves II through XII grossly intact. The patient is awake, alert, and oriented. Skin: Normal skin turgor. No skin rashes. Results Result Diagram: 05/31/17 0608 05/31/17 0608 Results 24 hrs Laboratory Tests Test 05/31/17 06:08 White Blood Count 5.3 Red Blood Count 4.03 L Hemoglobin 11.4 L Hematocrit 35.6 L Mean Corpuscular Volume 88.3 Mean Corpuscular Hemoglobin 28.3 L Mean Corpuscular Hemoglobin Concent 32.0 Red Cell Distribution Width 14.7 H Platelet Count 288 Mean Platelet Volume 10.0 Neutrophils % 50.3 Lymphocytes % 30.5 Monocytes % 8.1 Eosinophils % 9.6 H Basophils % 0.9 Nucleated Red Blood Cells % 0.0 Neutrophils # 2.7 Lymphocytes # 1.6 Monocytes # 0.4 Eosinophils # 0.5 Basophils # 0.1 Nucleated Red Blood Cells # 0.0 Prothrombin Time 15.2 H Prothrombin Time Ratio 1.2 INR International Normalized Ratio 1.19 Activated Partial Thromboplast Time 29.6 Sodium Level 143 Potassium Level 4.6 Chloride Level 105 Carbon Dioxide Level 25 Anion Gap 18 H Blood Urea Nitrogen 5 L Creatinine 0.92 Glucose Level 89 Calcium Level 8.5 Phosphorus Level 3.0 Magnesium Level 2.2 Total Bilirubin 0.1 L Direct Bilirubin 0.00 Indirect Bilirubin 0.1 Aspartate Amino Transf (AST/SGOT) 47 H Alanine Aminotransferase (ALT/SGPT) 63 Alkaline Phosphatase 163 H Total Protein 6.5 Albumin 3.5 Globulin 3.00 Albumin/Globulin Ratio 1.16 Amylase Level 156 H Lipase 585 H Medications Medications Current Medications Ondansetron HCl (Zofran Inj) 4 mg Q6H PRN IV NAUSEA AND/OR VOMITING Last administered on 05/31/17t 03:05; Admin Dose 4 MG; Start 05/19/17 at 21:30 Hydromorphone HCl (Dilaudid) 1 mg Q4H PRN IV PAIN LEVEL 6-10 Last administered on 05/31/17 11:01; Admin Dose 1 MG; Start 05/19/17 at 23:30 Acetaminophen (Tylenol Tab) 650 mg Q6H PRN PO PAIN AND OR ELEVATED TEMP Last administered on 05/25/17 04:52; Admin Dose 650 MG; Start 05/24/17 at 22:00 Morphine Sulfate (morphine) 2 mg Q4H PRN IV SEVERE PAIN LEVEL 7-10; Start at 12:00 Bisacodyl (Dulcolax Supp) 10 mg Q12 PRN [place] CONSTIPATION ; Start 05/27/17 at 20: 30 Sodium Biphosphate/ Sodium Phosphate (Fleet Enema) 133 ml Q12 PRN [place] constipation ; Start 05/27/17 at 20:30 Famotidine (Pepcid Iv) 20 mg BID IV Last administered on 05/31/17 08:17; Admin Dose 20 MG; Start 05/30/17 at 21:00 AMILCAR BRUSH NP May 31, 2017 12:30
[2017-05-31 13:18] VITALS: BP 108/64; RESP 20
--- NOTE | 2017-05-31 20:01 | PN ---
Date/Time of Note Date/Time of Note DATE: 05/31/17 TIME: 19:58 Assessment/Plan Lines/Catheters IV Catheter Type (from [facility]): Peripheral IV Matthew in Place (from [facility]): No Assessment/Plan Assessment/Plan [facility] Progress Note Date of Service: 05/31/17 Today's Impression & Plan: Overall stable. Lipase and amylase are still elevated and no obvious etiology. Awaiting further resolution of patient's pancreatitis. Hope to stabilize enough for re-scheduled hepaticojejunostomy (? next week). May be able to discharge patient home as early as tomorrow and do further outpatient observation prior to bringing her back for her scheduled operation. Discussed with the patient and she appeared to understand and agreed with the plans. With above assessment, I've recommended the following for today: 1. Cont current cares 2. Recommend discharge planning with close outpatient follow up and lab checks 3-4 days post discharge 3. Cont low-fat regular diet 4. Labs in am Thank you again for your great care of this very pleasant patient and wonderful family. If there are any questions, please feel free to call me at [phone]. Nature of presenting problem: High severity Please note that, given the extensive number of diagnoses or management options , the extensive amount and/or complexity of data needed to be reviewed, and high risk of complications and/or morbidity or mortality, this qualifies as high complexity type of decision-making. Disclaimer: Inadvertent spelling and grammatical errors are likely due to EHR/ dictation software use and do not reflect on the quality of delivered patient care. Also, please note that the electronic time recorded on this node does not necessarily reflect the actual time of the visit. Review of outside records (78 pages): Admitted to [facility] 05/18/2017. Admission white blood cell count 11.8. Creatinine 3.8. Alkaline phosphatase 547. Total bilirubin 1.1. Lipase 1724. Heart rate 122. Involved physicians included Adrian Oro MD and Maryellen Dolan MD. patient was treated with ceftazidime, vancomycin and metronidazole. CT scan abdomen and pelvis and ovale 05/18/2017: No acute intra- abdominal abnormality appreciated on a limited noncontrast CT of the abdomen and pelvis. Evidence of cholecystectomy. Transhepatic drainage catheter terminating in the region of the gallbladder fossa. Patient's was concerned about possible blood culture positive bacteremia, but I did not see any evidence of that in the reviewed material. The rest of patient's history and physical is unchanged and well documented in my previous visits with her starting on 04/06/2017. Updated Clinical Summary: The patient is a very pleasant 37-year-old young lady who was transferred from an outside hospital to [facility] for management of possible bile duct injury. S/p percutaneous CT-guided drain placement above the liver with removal of 1.4 liters of bile in IR suite and more (2 liters) within first 24 hours post procedure. Drain output minimal 04/09/17. S/p lap washout and wide drainage at [facility]. The upper pigtail catheter and the 2 surgical drains d/c 'd on 04/14/17. Urinary retention issues requiring straight cath and Matthew insertion appeared resolved by 04/15/17. DC home 04/16/2017. 2 ER visits between discharge and the 2016 with no hospitalization. Readmitted as a transfer from outside hospital to [facility] 05/19/2017 with pancreatitis as well as urinary tract infection. Due to persistently elevated amylase and lipase of unknown etiology, scheduled hepaticojejunostomy on 2016 was postponed to 06/08/2017. COMORBIDITIES: 1. Cholelithiasis and acute cholecystitis, status post laparoscopic cholecystectomy 03/31/2017 at [facility], complicated by possible bile duct injury, as shown by ERCP that was done after a HIDA scan showed possible bile leak, explaining the patient's continued pain and distention. The ERCP on 04/03/2017 showed clips across the distal common bile duct, without any contrast opacifying the liver. We accepted the patient as a transfer into [facility] bile duct injury program for a higher level of care. The patient arrived on 04/05/2017. 2. S/p percutaneous CT-guided drain placement above the liver with removal of 1.4 liters of bile in IR suite and more immediately post procedure. 3. S/p lap washout and wide drainage at [facility]. Subjective: No major events or complaints overnight; reports feeling okay, and still with mild nausea; mild abd pain and seemingly under control with medications; no current n/v/d; no sob or cp; + flatus; + BM; + activity. Objective: Vitals: See below Exam: GENERAL: On exam, the patient was laying in bed and appeared to be comfortable and in no acute distress. ABDOMEN: Soft, nontender with exception of slight discomfort in the right lower quadrant and nondistended. Incisions are clean, dry and intact without any evidence of erythema, edema, discharge, or hernia. Lower pigtail catheter with bilious output. There are no peritoneal signs or guarding. SKIN: Skin appears to be pink and feels warm to touch. NEUROLOGIC: Patient is awake, alert, and follows commands appropriately. Exam/Review of Systems Vital Signs Vitals Vital Signs Date Time Temp Pulse Resp B/P Pulse Ox O2 Delivery O2 Flow Rate FiO2 05/31/17 13:18 97.7 20 108/64 97 05/31/17 07:39 82 05/27/17 20:00 Room Air Intake and Output 05/30/17 05/30/17 05/31/17 15:00 23:00 07:00 Intake Total 150 ml 1180 ml 300 ml Output Total 350 ml 370 ml Balance -200 ml 810 ml 300 ml Results Result Diagram: 05/31/17 0608 05/31/17 0608 LENA MONCADA M.D. May 31, 2017 20:01
[2017-05-31 20:04] VITALS: BP 101/64; RESP 18
[2017-06-01 02:00] VITALS: BP 97/64; RESP 18
[2017-06-01] MEDS: HYDROmorphONE 1 MG/ML SYG IV PRN ×4 (04:00→16:03)
[2017-06-01 06:57] LABS: CREATININE 0.88 mg/dl (0.44-1.00); POTASSIUM 4.4 mmol/L (3.5-5.1)
[2017-06-01 07:45] VITALS: BP 100/60; RESP 18
[2017-06-01] MEDS: FAMOTIDINE 20 MG INJ IV SCH (08:12)
--- NOTE | 2017-06-01 14:04 | PDOCDIS ---
Discharge Instructions DIAGNOSIS Discharge Diagnosis Acute pancreatitis. CONDITION Patient Condition: Stable HOME CARE INSTRUCTIONS: Diet Instructions: Low Fat /CholesterolSpecial Diet: Low fat/cholesterol OTHER ORDERS: Other Orders: 1. Low-cholesterol diet. 2. Activities as tolerated. Continue to empty the drain as instructed. 3. Follow-up with Dr. Grande as instructed. AMILCAR BRUSH NP Jun 01, 2017 14:04
[2017-06-01 15:57] VITALS: BP 104/66; RESP 18
--- NOTE | 2017-06-01 17:01 | DS ---
Date/Time of Note Date/Time of Note DATE: 06/01/17 TIME: 16:58 Discharge Summary Admission/Discharge Info Admit Date/Time May 19, 2017 at 19:10 Discharge Date/Time Discharge Diagnosis 1. Acute pancreatitis. 2. History of cholelithiasis and cholecystitis. Status post laparoscopic cholecystectomy on 03/31/2017 at an outside facility complicated by possible bile duct injury. Status post ERCP on 04/03/2017. Status post laparoscopic washout on 04/10/2017 at [facility] by hepatobiliary surgery. Status post percutaneous CT-guided drain placement at [facility]. 3. Transaminitis. Patient Condition: Stable Consults 1. Ean Grande MD, Hepatobiliary Surgery. 2. Vanessa Mcconnell MD, Gastroenterology. Procedures Abdominal MRI IMPRESSION: 1. Moderate diffuse intrahepatic ductal dilatation with a transition point in the region of susceptibility artifact at the vickey hepatis, suggestive of an underlying stricture involving the proximal and possibly mid common bile duct. This is concordant with the findings on cholangiogram dated 05/20/2017. Nondilated and unremarkable common bile duct distal to the region of postoperative change. ERCP can be performed for further evaluation. 2. Unremarkable appearance of the pancreatic duct with no dilatation, as questioned. 3. Small volume of ascites. Fluoroscopic Biliary Drain Cholangiogram IMPRESSION: 1. Fluoroscopic cholangiogram via pigtail biliary drain tube. 2. Dilated pancreatic duct measuring approximately 5 mm in the head and 2 mm in the body and tail, with beak like narrowing in the region of the vickey hepatis suggesting proximal stenosis. This finding may explain the patients current bout of pancreatitis. 3. Nonvisualization of the common bile duct and duodenum. This findings suggest that the common bile duct is occluded. 4. The common hepatic duct and intrahepatic ducts are patent with the pigtail of the biliary drain and appear normal, without areas of stenosis or filling defects to suggest retained stones. 5. No extravasation of contrast to suggest bile leak. 2D Echocardiogram Conclusions 1. Normal left ventricular systolic function. Normal left ventricular cavity size. Normal left ventricular wall thickness. Ejection fraction is visually estimated at 55 %. Tissue Doppler/Mitral Doppler indices are within normal limits. 2. Normal appearance of the mitral valve. Trace mitral regurgitation. 3. Trileaflet aortic valve. No aortic regurgitation. left coronary cusp appears thickened on short axis view. ddx include vegetation, artifact or just leaflet thickening. clinical correlation is required. 4. Normal appearance of the tricuspid valve. Estimated peak PA systolic pressure 34 mmHg. There is trace tricuspid regurgitation. Hx of Present Illness Chief complaint: Abdominal pain This is a 37-year-old female who was transferred from [facility] for abdominal pain and pancreatitis. She experienced abdominal and chest tightness over the course of a few days and went to [facility] and was admitted there and treated for multiple medical problems including pancreatitis. She was subsequently stabilized and transferred to [facility] for treatment of her pancreatitis as well as for her pre- existing biliary problems. Allergies: NKDA Medications: See [facility] Hospital Course The patient was admitted to inpatient setting. She was kept n.p.o. She was started on IV hydration. She was started on empiric antibiotics. Hepatobiliary surgery and gastroenterology consults were obtained. The patient' s pancreatitis improved with bowel rest. The patient has a history of cholelithiasis and cholecystitis. The patient is status post laparoscopic cholecystectomy on 03/31/2017 at an outside facility complicated by possible bile duct injury. She is status post ERCP on 04/03/2017. She is status post laparoscopic washout on 04/10/2017 at [facility] by hepatobiliary surgery. She is status post percutaneous CT-guided drain placement at [facility] during an earlier visit. The patient had an MRCP on 05/23/2017 showing moderate diffuse intrahepatic ductal dilatation with a transition point in the region of susceptibility artifact at the vickey hepatis, suggestive of an underlying stricture involving the proximal and possibly mid common bile duct. The plan was for hepaticojejunostomy to be done during this hospital hospitalization. However, because of the patient's pancreatitis the patient's hepaticojejunostomy had to be rescheduled. Consequently, the patient will be discharged home to be followed up with outpatient hepatobiliary surgery and plan for hepaticojejunostomy by next week. The patient's antibiotics were discontinued later during the course of the hospital stay. The patient had a stable, but prolonged hospital course. The patient was cleared by hepatobiliary surgery to be discharged home. The patient was given instructions and prescription to repeat her labs including liver profile, CBC, and pancreatic levels on 06/05/2017. Discharge Instructions 1. Low-cholesterol diet. 2. Activities as tolerated. Continue to empty the drain as instructed. 3. Follow-up with Dr. Grande as instructed. The patient verbalized understanding of her discharge instructions. At this time I would like to thank all the consultants for seeing the patient and providing clinical recommendations. Case discussed with . Follow-up Plan Follow-up with Dr. Grande as instructed. Primary Care Provider Rona Ortiz Time spent on discharge: > 30 minutes Pending Labs Laboratory Tests Test 06/01/17 05:52 Sodium Level 145mmol/L (135-144) Potassium Level 4.4mmol/L (3.5-5.1) Chloride Level 105mmol/L (97-110) Carbon Dioxide Level 25mmol/L (21-31) Anion Gap 19 (8-16) Blood Urea Nitrogen 4mg/dl (7-20) Creatinine 0.88mg/dl (0.44-1.00) Glucose Level 88mg/dl (70-220) Calcium Level 9.0mg/dl (8.4-10.2) Lipase 563U/L (23-300) AMILCAR BRUSH NP Jun 01, 2017 17:01
--- NOTE | 2017-06-01 19:16 | PN ---
Date/Time of Note Date/Time of Note DATE: 06/01/17 TIME: 19:12 Assessment/Plan Lines/Catheters IV Catheter Type (from [facility]): Saline Lock Matthew in Place (from [facility]): No Assessment/Plan Assessment/Plan [facility] Progress Note Date of Service: 06/01/17 Today's Impression & Plan: Overall stable. Lipase and amylase are still elevated and no obvious etiology, but a bit lower than the last few days. Awaiting further resolution of patient' s pancreatitis. Hope to stabilize enough for re-scheduled hepaticojejunostomy ( ? next week). Patient being discharged home today with further outpatient observation prior to bringing her back for her scheduled operation. Plan is for outpatient labs in a few days and for those to get faxed to my office for review, prior to bring the patient back hopefully next week for her operation. Discussed with the patient and she appeared to understand and agreed with the plans. With above assessment, I've recommended the following for today: 1. Agree with discharge home 2. Outpatient lipase and amylase check along with labs early next week with faxing results to my office 3. If clinically improved, to schedule patient for her hepaticojejunostomy in the next available time slot Thank you again for your great care of this very pleasant patient and wonderful family. If there are any questions, please feel free to call me at [phone]. Nature of presenting problem: High severity Please note that, given the extensive number of diagnoses or management options , the extensive amount and/or complexity of data needed to be reviewed, and high risk of complications and/or morbidity or mortality, this qualifies as high complexity type of decision-making. Disclaimer: Inadvertent spelling and grammatical errors are likely due to EHR/ dictation software use and do not reflect on the quality of delivered patient care. Also, please note that the electronic time recorded on this node does not necessarily reflect the actual time of the visit. Review of outside records (78 pages): Admitted to [facility] 05/18/2017. Admission white blood cell count 11.8. Creatinine 3.8. Alkaline phosphatase 547. Total bilirubin 1.1. Lipase 1724. Heart rate 122. Involved physicians included Adrian Oro MD and Maryellen Dolan MD. patient was treated with ceftazidime, vancomycin and metronidazole. CT scan abdomen and pelvis and ovale 05/18/2017: No acute intra- abdominal abnormality appreciated on a limited noncontrast CT of the abdomen and pelvis. Evidence of cholecystectomy. Transhepatic drainage catheter terminating in the region of the gallbladder fossa. Patient's was concerned about possible blood culture positive bacteremia, but I did not see any evidence of that in the reviewed material. The rest of patient's history and physical is unchanged and well documented in my previous visits with her starting on 04/06/2017. Updated Clinical Summary: The patient is a very pleasant 37-year-old young lady who was transferred from an outside hospital to [facility] for management of possible bile duct injury. S/p percutaneous CT-guided drain placement above the liver with removal of 1.4 liters of bile in IR suite and more (2 liters) within first 24 hours post procedure. Drain output minimal 04/09/17. S/p lap washout and wide drainage at [facility]. The upper pigtail catheter and the 2 surgical drains d/c 'd on 04/14/17. Urinary retention issues requiring straight cath and Matthew insertion appeared resolved by 04/15/17. DC home 04/16/2017. 2 ER visits between discharge and the 2016 with no hospitalization. Readmitted as a transfer from outside hospital to [facility] 05/19/2017 with pancreatitis as well as urinary tract infection. Due to persistently elevated amylase and lipase of unknown etiology, scheduled hepaticojejunostomy on 2016 was postponed to 06/08/2017. COMORBIDITIES: 1. Cholelithiasis and acute cholecystitis, status post laparoscopic cholecystectomy 03/31/2017 at [facility], complicated by possible bile duct injury, as shown by ERCP that was done after a HIDA scan showed possible bile leak, explaining the patient's continued pain and distention. The ERCP on 04/03/2017 showed clips across the distal common bile duct, without any contrast opacifying the liver. We accepted the patient as a transfer into [facility] bile duct injury program for a higher level of care. The patient arrived on 04/05/2017. 2. S/p percutaneous CT-guided drain placement above the liver with removal of 1.4 liters of bile in IR suite and more immediately post procedure. 3. S/p lap washout and wide drainage at [facility]. Subjective: No major events or complaints overnight; reports feeling okay, and still with mild nausea; mild abd pain and seemingly under control with medications; no current n/v/d; no sob or cp; + flatus; + BM; + activity. Objective: Vitals: See below Exam: GENERAL: On exam, the patient was laying in bed and appeared to be comfortable and in no acute distress. ABDOMEN: Soft, nontender. Incisions are clean, dry and intact without any evidence of erythema, edema, discharge, or hernia. Lower pigtail catheter with bilious output. There are no peritoneal signs or guarding. SKIN: Skin appears to be pink and feels warm to touch. NEUROLOGIC: Patient is awake, alert, and follows commands appropriately. Exam/Review of Systems Vital Signs Vitals Vital Signs Date Time Temp Pulse Resp B/P Pulse Ox O2 Delivery O2 Flow Rate FiO2 06/01/17 15:57 98.0 91 18 104/66 91 Intake and Output 05/31/17 05/31/17 06/01/17 15:00 23:00 07:00 Intake Total 680 ml 800 ml Output Total 300 ml 375 ml Balance -300 ml 305 ml 800 ml Results Result Diagram: 05/31/17 0608 06/01/17 0552 LENA MONCADA M.D. Jun 01, 2017 19:15
== END 2017-06-01 19:15 | disposition home or self-care (01) | DRG 439 ==
LOC: PP2 19:10 → MS2 05-27 14:00
PROVIDERS: ADMIT Internal Medicine; ATTEND Family Medicine
DX: K85.90 Acute pancreatitis without necrosis or infection, unspecified (principal); N39.0 Urinary tract infection, site not specified; R18.8 Other ascites; Q44.5 Other congenital malformations of bile ducts; R74.0 Nonspecific elevation of levels of transaminase and lactic acid dehydrogenase [LDH]
CPT/HCPCS: 47525; 74181; 80048; 80053; 80076; 80202; 81001; 82150; 82310; 83605; 83690; 83735; 83880; 84100; 84702; 85025; 85610; 85730; 87081; 87086; 93306; C9113; J1170; J2270; J2405; J2543; J3370; J3475; J3480; J7030; J7042; Q9967

== ENCOUNTER 2017-06-14 13:40 | Day surgery (SDC) | payer OTHER ==
[2017-06-13 12:33] VITALS: BMI 16.4
[~2017-06-14] VITALS: Ht 177.8 cm; Wt 49.6 kg
[2017-06-14] VITALS (9 sets, daily range): BP systolic 101–118; BP diastolic 58–78; PULSE 75–110; RESP 10–18; Ht 177.8 cm; Wt 49.6 kg
[~2017-06-14 13:40] MED LIST changes: +CEFAZOLIN 1 GM INJ ONE; +DESFLURANE 15 MIN ONE; -IBUP200C11 PO
[2017-06-14] MEDS ORDERED: ZOFRAN PO (15:02)
[2017-06-14] MEDS ORDERED: PEPCID PO (15:02)
[2017-06-14] MEDS ORDERED: INDOMETHACIN 50 MG SUPP PR ONE (16:30)
[2017-06-14] MEDS ORDERED: LIDOCAINE 2% (SDV) 5 ML INJ ONE (16:55)
[2017-06-14] MEDS ORDERED: SUCCINYLCHOLINE CHLORIDE 100 MG/5 ML SYG IV ONE (16:55)
[2017-06-14] MEDS ORDERED: ROCURONIUM 50 MG INJ ONE (16:56)
[2017-06-14] MEDS ORDERED: PROPOFOL 20 ML ONE (16:56)
[2017-06-14] MEDS ORDERED: PHENYLephrine (100 MCG/ML) 5ML SYG ONE (16:59)
[2017-06-14] MEDS ORDERED: SUGAMMADEX SODIUM 200 MG/2 ML VIAL IV ONE (17:22)
--- NOTE | 2017-06-14 17:35 | OPPN ---
Date/Time of Note Date/Time of Note DATE: 06/14/17 TIME: 17:32 Proc Note GI Free Text/Dictation Preoperative Diagnosis: Rule out CBD stone Postoperative Diagnosis: * Evidence of previous sphincterotomy * Complete occlusion or resection of the common bile duct at the level of the surgical clips Plan: * Hepaticojejunostomy as planned Operation Performed: ERCP Surgeon: Sherine Mcconnell MD Director Of Recruiting: None Second Tunnel Worker: None Anesthesia/Sedation: General anesthesia per anesthesiologist Tourniquet Time: NA Estimated Blood Loss: 0 Transfusion Required: No Specimens: None Grafts/Implants: None Tubes/Drains: NA Complications: None Pt. Condition Post Procedure: Stable Disposition: PACU After informed consent, with the patient/relatives understanding the procedure, its indications, potential risks and complications, including but not limited to : allergic reaction, bleeding, perforation or infection, and after all pertinent questions were answered to the patients satisfaction, the patient/ relatives signed witnessed informed consent. Following this, premedication was administered slowly IV push under careful cardiovascular and respiratory monitoring with pulse oximetry, automatic blood pressure, and flow floor attendant. Once the sedative effect was achieved the patient was place in the prone position in the radiology special procedures suite; the side viewing panendoscope was introduced and advanced under visual control. Careful examination of the upper gastrointestinal tract, both on insertion as well as withdrawal of the instrument disclosed the following findings: Esophagus: The mucosa of the entire appears within normal limits. There is no evidence of esophagitis, varices, neoplasm or stricture. No Hiatal Hernia identified. Stomach: Upon entrance to the stomach air was insufflated, the gastric copeland distended normally, the mucosa of the fundus, body and antrum of the stomach was carefully examined both head-on and on retroflexion, and shows no abnormalities. There is no evidence of gastritis, ulcers, or neoplasm. Pylorus: The pylorus appears patent and within normal limits, with no evidence of gastric outlet obstruction. Duodenum: The duodenal mucosa was carefully examined in the duodenal bulb as well as the second portion of the duodenum and appears unremarkable with no evidence of duodenitis, ulcer or neoplasm. Ampulla of vater: The ampulla of Vater was identified and carefully examined shows evidence of previous sphincterotomy. Cannulation: At this point cannulation was accomplished with the following fluoroscopic findings: Pancreatogram: Not obtained Cholangiogram: Cholangiogram showed complete obstruction of the common bile duct at the level of the surgical clips. This clearly appears to be a surgical injury. No intraductal pathology is present. The instrument was then withdrawn the patient tolerated the procedure well and was transfer out of the endoscopy suite awake, and in good condition to continue to recover under observation. Procedure date: Jun 14, 2017 SHERINE MCCONNELL MD Jun 14, 2017 17:35
[2017-06-14] MEDS ORDERED: FENTAnyl 50 MCG/ML VIAL ONE (17:39)
[2017-06-14] MEDS ORDERED: ALBUTEROL 0.083% (NEB) 2.5 MG/3 ML AMP HHN PRN (18:00)
[2017-06-14] MEDS ORDERED: METOCLOPRAMIDE 10 MG INJ IV PRN (18:00)
[2017-06-14] MEDS ORDERED: FENTAnyl 50 MCG/ML VIAL IV PRN ×2 (18:00)
[2017-06-14] MEDS ORDERED: ONDANSETRON 4 MG INJ IV PRN (18:00)
[2017-06-14] MEDS ORDERED: DIPHENHYDRAMINE 50 MG INJ IV PRN (18:00)
[2017-06-14] MEDS ORDERED: MEPERIDINE 25 MG INJ IV PRN (18:00)
--- NOTE | 2017-06-14 22:41 | RADRPT ---
PROCEDURE: Intraoperative imaging for ERCP with fluoroscopy. CLINICAL INDICATION: Right upper quadrant pain. Intraoperative. TECHNIQUE: 4 images of the right upper quadrant of the abdomen were obtained in the operating room with an image intensifier. No radiologist was in attendance. 78.9 seconds of fluoroscopy time was used. COMPARISON: Cholangiogram dated 05/20/2017 FINDINGS: Images demonstrate the endoscope in position. Contrast was injected into the common bile duct. Con trast does not enter the intrahepatic bile ducts. A drainage catheter is noted overlying the gallbl adder fossa region. Approximately 11 surgical clips are present in the gallbladder fossa region. IMPRESSION: 1. ERCP as described above. RPTAT: QQ .Papo Andrade MD, Date Time Electronically viewed and signed by .Papo Andrade MD, on 06/14/2017 22:41 .R/
== END 2017-06-14 19:05 | disposition home or self-care (01) ==
LOC: GIL 13:40 → SDS 13:44 → GIL 19:05
PROVIDERS: ATTEND Internal Medicine Gastroenterology
DX: K83.1 Obstruction of bile duct (principal)
CPT/HCPCS: 43260; 74330; J0690; J2370; J3010; Z7512; Z7610; J7999

== ENCOUNTER 2017-06-23 13:16 | Inpatient (IN) | payer OTHER ==
[~2017-06-23] VITALS: Ht 177.8 cm; Wt 50.0 kg
[~2017-06-23 13:16] MED LIST changes: -CEFAZOLIN 1 GM INJ ONE; -DESFLURANE 15 MIN ONE; +PEPCID PO; +ZOFRAN PO
[2017-06-23 13:20] VITALS: Ht 177.8 cm; Wt 50.0 kg
[2017-06-23] MEDS ORDERED: ONDANSETRON 4 MG INJ IV STA (15:06)
[2017-06-23] MEDS ORDERED: SOD CHLORIDE 0.9% 1,000 ML IV STA (15:06)
[2017-06-23] MEDS ORDERED: morphine 4 MG/ML VIAL IV STA (15:06)
[2017-06-23 15:36] LABS: BASOPHIL # 0.1 10^3/ul (0.0-0.1); BASOPHILS % 0.7 % (0.0-2.0); EOSINOPHILS # 0.2 10^3/ul (0.0-0.5); EOSINOPHILS % 1.7 % (0.0-7.0); HEMATOCRIT 43.3 % (37.0-47.0); HEMOGLOBIN 15.3 g/dl (12.0-16.0); LYMPHOCYTES # 3.1 10^3/ul (0.8-2.9); LYMPHOCYTES % 30.1 % (15.0-51.0); MEAN CORPUSCULAR HGB CONC 35.3 g/dl (32.0-37.0); MEAN CORPUSCULAR VOLUME 82.2 fl (82.0-101.0); MEAN PLATELET VOLUME 9.5 fl (7.4-10.4); MONOCYTE # 0.8 10^3/ul (0.3-0.9); MONOCYTES % 7.2 % (0.0-11.0); NEUTROPHILS % 59.1 % (39.0-77.0); PLATELET COUNT 453 10^3/UL (140-415); RED BLOOD COUNT 5.27 10^6/ul (4.20-5.40); RED CELL DISTRIBUTION WIDTH 14.7 % (11.5-14.5); WHITE BLOOD COUNT 10.4 10^3/ul (4.8-10.8)
[2017-06-23 15:41] LABS: ADD UMIC YES; UR ASCORBIC ACID 20 mg/dL (NEGATIVE); UR BACTERIA FEW /HPF (NONE SEEN); UR BILIRUBIN (Dip) NEGATIVE (NEGATIVE); UR BLOOD (Dip) 1+ mg/dL (NEGATIVE); UR CLARITY CLEAR (CLEAR); UR COLOR YELLOW (YELLOW); UR GLUCOSE (Dip) NEGATIVE (NEGATIVE); UR KETONES (Dip) NEGATIVE (NEGATIVE); UR LEUKOCYTE ESTERASE (Dip) TRACE Leu/ul (NEGATIVE); UR MUCUS FEW /HPF (NONE SEEN); UR NITRITE (Dip) NEGATIVE (NEGATIVE); UR RBC 4 /HPF (0-5); UR SPECIFIC GRAVITY (Dip) 1.016 (1.003-1.030); UR SQUAMOUS EPITHELIAL CELL FEW /HPF (FEW); UR TOTAL PROTEIN (Dip) 1+ mg/dl (NEGATIVE); UR UROBILINOGEN (Dip) NEGATIVE (NEGATIVE)
[2017-06-23] MEDS ORDERED: HYDROmorphONE 1 MG/ML SYG IV STA ×2 (15:49→18:01)
--- NOTE | 2017-06-23 15:51 | ERA ---
ER Documentation Chief Complaint Date/Time DATE: 06/23/17 TIME: 15:50 Chief Complaint Patient states she is dehydrated need lab work HPI This 37-year-old female comes in feeling dehydrated lightheaded and very bad. She has increasing right upper quadrant abdominal pain with radiation occasionally across her entire abdomen. She had a gallbladder surgery with complications with nicking of the hepatic duct and a drain has since been placed. ROS All systems reviewed and are negative except as per history of present illness. Medications Home Meds Reported Medications [Pepcid] No Conflict Check, 1 TAB PO 06/14/17 [Zofran] No Conflict Check, 1 TAB PO 06/14/17 Allergies Allergies: Coded Allergies: No Known Allergy (Unverified , 06/14/17) PMhx/Soc History of Surgery: Yes (CHOLECYSTECTOMY) Anesthesia Reaction: No Hx Neurological Disorder: No Hx Respiratory Disorders: No Hx Cardiac Disorders: No Hx Psychiatric Problems: No Hx Miscellaneous Medical Probl: Yes (PT WITH BILE DRAIN) Hx Alcohol Use: No Hx Substance Use: No Hx Tobacco Use: No Physical Exam Vitals Vital Signs Date Time Temp Pulse Resp B/P Pulse Ox O2 Delivery O2 Flow Rate FiO2 06/23/17 13:20 97.4 134 20 112/62 100 Physical Exam Const: [] Moderate distress, appears uncomfortable Head: Atraumatic Eyes: Normal Conjunctiva ENT: Normal External Ears, Nose and Mouth. Neck: Full range of motion..~ No meningismus. Resp: Clear to auscultation bilaterally Cardio: Regular tachycardia, no murmurs Abd: Soft,moderate right upper quadrant tenderness with mild tenderness it is felt in the right upper quadrant on palpation of the left upper abdomen., No guarding or rebound, non distended. Normal bowel sounds Skin: No petechiae or rashes Back: No midline or flank tenderness Ext: No cyanosis, or edema Neur: Awake and alert Psych: Normal Mood and Affect Result Diagram: 06/23/17 1530 06/23/17 1530 Results 24 hrs Laboratory Tests Test 06/23/17 15:30 06/23/17 17:20 06/23/17 19:30 White Blood Count 10.410^3/ul Red Blood Count 5.2710^6/ul Hemoglobin 15.3g/dl Hematocrit 43.3% Mean Corpuscular Volume 82.2fl Mean Corpuscular Hemoglobin 29.0pg Mean Corpuscular Hemoglobin Concent 35.3g/dl Red Cell Distribution Width 14.7% Platelet Count 15527^3/UL Mean Platelet Volume 9.5fl Neutrophils % 59.1% Lymphocytes % 30.1% Monocytes % 7.2% Eosinophils % 1.7% Basophils % 0.7% Nucleated Red Blood Cells % 0.0/100WBC Neutrophils # (Manual) 6.210^3/ul Lymphocytes # 3.110^3/ul Monocytes # 0.810^3/ul Eosinophils # 0.210^3/ul Basophils # 0.110^3/ul Nucleated Red Blood Cells # 0.010^3/ul Urine Color YELLOW Urine Clarity CLEAR Urine pH 6.0 Urine Specific [place] 1.016 Urine Ketones NEGATIVEmg/dL Urine Nitrite NEGATIVEmg/dL Urine Bilirubin NEGATIVEmg/dL Urine Urobilinogen NEGATIVEmg/dL Urine Leukocyte Esterase TRACELeu/ul Urine Microscopic RBC 4/HPF Urine Microscopic WBC 5/HPF Urine Squamous Epithelial Cells FEW/HPF Urine Bacteria FEW/HPF Urine Mucus FEW/HPF Urine Hemoglobin 1+mg/dL Urine Glucose NEGATIVEmg/dL Urine Total Protein 1+mg/dl Urine Test NEGATIVE Sodium Level 133mmol/L Potassium Level 4.7mmol/L Chloride Level 99mmol/L Carbon Dioxide Level 16mmol/L Anion Gap 23 Blood Urea Nitrogen 19mg/dl Creatinine 1.33mg/dl Glucose Level 94mg/dl Lactic Acid Level 2.9mmol/L 1.0mmol/L 1.2mmol/L Calcium Level 9.7mg/dl Total Bilirubin 0.1mg/dl Direct Bilirubin 0.00mg/dl Indirect Bilirubin 0.1mg/dl Aspartate Amino Transf (AST/SGOT) 147IU/L Alanine Aminotransferase (ALT/SGPT) 387IU/L Alkaline Phosphatase 359IU/L Troponin I < 0.012ng/ml Total Protein 8.8g/dl Albumin 5.0g/dl Globulin 3.80g/dl Albumin/Globulin Ratio 1.31 Lipase 641U/L Current Medications Medications (Trade) Dose Ordered Sig/Mahamed Route PRN Reason Start Time Stop Time Status Last Admin Dose Admin Sodium Chloride (NS) 1,000 ml @ 1,000 mls/hr Q1H STAT IV 06/23/17 15:06 06/23/17 16:05 DC 06/23/17 15:38 Morphine Sulfate (morphine) 4 mg ONCE STAT IV 06/23/17 15:06 06/23/17 15:09 DC Ondansetron HCl (Zofran Inj) 4 mg ONCE STAT IV 06/23/17 15:06 06/23/17 15:09 DC 06/23/17 15:37 Hydromorphone HCl (Dilaudid) 1 mg ONCE STAT IV 06/23/17 15:49 06/23/17 15:52 DC 06/23/17 15:58 IV Flush 10 ml 10 ml STK-MED ONCE .ROUTE 06/23/17 17:14 06/23/17 17:15 DC Sodium Chloride (NS) 100 ml @ ud STK-MED ONCE .ROUTE 06/23/17 17:14 06/23/17 17:15 DC Iodixanol (Visipaque Locm) 100 ml STK-MED ONCE .ROUTE 06/23/17 17:14 06/23/17 17:15 DC Hydromorphone HCl 1 mg 1 mg ONCE STAT IV 06/23/17 18:01 06/23/17 18:02 DC 06/23/17 18:04 Sodium Chloride (NS) 1,000 ml @ 1,000 mls/hr Q1H ONCE IV 06/23/17 20:00 06/23/17 20:59 DC 06/23/17 19:47 Ondansetron HCl (Zofran Inj) 4 mg BRIDGE ORDER PRN IV NAUSEA AND/OR VOMITING 06/23/17 20:00 06/24/17 19:59 Acetaminophen (Tylenol Tab) 650 mg ER BRIDGE PRN PO MILD PAIN/FEVER 06/23/17 20:00 06/24/17 19:59 Procedures/MDM Postop abdominal pain with drain in place. Renal insufficiency and possible urinary tract infection. Patient was given Dilaudid for her pain she said the morphine did not work for her. She is also given Zofran. She was hydrated with 2 L of normal saline. I called Dr. Joo paul, the patient's surgeon, who recommended the patient be admitted and he would see her in the morning because of elevated lipase. Patient was also given Zosyn for possible UTI and would also cover an intra-abdominal infection. Dr. Santiago will be admitting to the medical surgical floor CT abdomen pelvis interpretation: Small fluid collection with postoperative drain in place, no abnormal fat stranding, no obstruction, no free air or perforation, no fractures Right upper quadrant ultrasound interpretation: Hepatic duct dilation consistent with prior studies, small fluid collection, no other acute process. air sampling and monitoring interpretation: This tachycardia improved with fluid administration. No other arrhythmias EKG interpretation: Sinus tachycardia rate of 121, normal axis, no ST or T-wave changes concerning for acute ischemia, normal intervals. Departure Diagnosis: Primary Impression: Postoperative abdominal pain Additional Impressions: Elevated lipase Renal insufficiency Condition: Serious JASSON BRICENO DO Jun 23, 2017 15:51
[2017-06-23 16:10] LABS: ALANINE AMINOTRANSFERASE 387 IU/L (13-69); ALBUMIN/GLOBULIN RATIO 1.31; ALKALINE PHOSPHATASE 359 IU/L (42-121); ANION GAP 23 (8-16); ASPARTATE AMINO TRANSFERASE 147 IU/L (15-46); BILIRUBIN,INDIRECT 0.1 mg/dl (0-1.1); BILIRUBIN,TOTAL 0.1 mg/dl (0.2-1.3); BLOOD UREA NITROGEN 19 mg/dl (7-20); CALCIUM 9.7 mg/dl (8.4-10.2); CARBON DIOXIDE 16 mmol/L (21-31); CHLORIDE 99 mmol/L (97-110); CREATININE 1.33 mg/dl (0.44-1.00); GLUCOSE 94 mg/dl (70-220); POTASSIUM 4.7 mmol/L (3.5-5.1); SODIUM 133 mmol/L (135-144); TOTAL PROTEIN 8.8 g/dl (6.1-8.1)
[2017-06-23 16:21] LABS: TROPONIN-I < 0.012 ng/ml (0.00-0.12)
[2017-06-23] MEDS ORDERED: SOD CHLORIDE 0.9% 100 ML ONE (17:14)
[2017-06-23] MEDS ORDERED: IODIXANOL LOCM 100 ML BTL ONE (17:14)
--- NOTE | 2017-06-23 17:54 | RADRPT ---
PROCEDURE: US Abdomen. CLINICAL INDICATION: abdominal pain , status post cholecystectomy, right upper quadrant pain TECHNIQUE: Multiple real-time images were acquired of the patient's right upper quadrant abdomen a nd retroperitoneum utilizing a high resolution transducer. COMPARISON: CT 04/09/2017; CT 04/07/2017 FINDINGS: The liver demonstrates normal echogenicity. The liver is normal in size and no focal solid lesions are seen. The liver measures 16.2 cm in length. The portal vein is patent with normal direction of f low. No intrahepatic biliary dilatation is seen. The patient is status post cholecystectomy. The common bile duct measures 9 mm in maximal dimension . There is a small elongated fluid collection in the gallbladder fossa measuring 3.2 x 0.4 cm. The pancreas is not seen due to overlying bowel gas. No free fluid is identified. The right kidney is normal in size, and demonstrate normal echogenicity and cortical thickness. The right kidney measures 10.0 cm in long dimension. There is a right-sided extrarenal pelvis versus mi ld right-sided hydronephrosis. There are no kidney stones. RPTAT: AA IMPRESSION: Status post cholecystectomy. Small fluid collection in the gallbladder fossa. Right-sided extrarenal pelvis versus mild right-sided hydronephrosis. .Aaron Tian MD, MD Date Time Electronically viewed and signed by .Aaron Tian MD, MD on 06/23/2017 17:53 .S/
--- NOTE | 2017-06-23 18:07 | RADRPT ---
PROCEDURE: CT abdomen and pelvis without contrast. CLINICAL INDICATION: Diffuse abdominal pain. Post gallbladder surgery. TECHNIQUE: CT of the abdomen and pelvis without contrast was performed on a multidetector high-reso lution CT scanner. Coronal and sagittal reformatted images were obtained from the axial source image s. Images were reviewed on a high-resolution PACS workstation. The total exam CTDI equals 7.61 mGy a nd the total exam DLP equals 34 0.53 mGy-cm. One or more of the following dose reduction techniques were used: - Automated exposure control. - Adjustment of the mA and/or kV according to patient size. - Use of iterative reconstruction technique. COMPARISON: Ultrasound dated 06/23/2017, MRI dated 05/23/2017, and CT dated 04/09/2017. FINDINGS: Visualized lower thorax: The visualized lung bases are clear. The visualized heart is unremarkable. Hepatobiliary system and spleen: The liver is grossly unremarkable. There is a pigtail drainage cat heter with its tip in the region of the gallbladder fossa. There is moderate diffuse intrahepatic d uctal dilatation, grossly similar in appearance when compared the MRI from 05/23/2017, given the dif ference in technique. The gallbladder is surgically absent. The spleen is grossly unremarkable. The pancreas is grossly unremarkable. Adrenal glands and genitourinary system: The adrenal glands are grossly unremarkable. There is no n ephrolithiasis or hydronephrosis. The urinary bladder is grossly unremarkable. The uterus and adnex a are grossly unremarkable. Gastrointestinal system: The stomach and small bowel are unremarkable. There is no bowel wall thick ening or evidence of obstruction. The appendix is in the right lower quadrant and is unremarkable. Peritoneum, vascular, and lymphatics: There is no free intraperitoneal air or free fluid. There is no mesenteric or retroperitoneal adenopathy. The aorta is nonaneurysmal. Musculoskeletal system and soft tissues: There is a limbus L4 vertebral body. There are no concerni ng osseous lesions. IMPRESSION: 1. Moderate diffuse intrahepatic ductal dilatation, grossly similar in appearance when compared the MRI from 05/23/2017, given the difference in technique. 2. Postoperative change related to cholecystectomy with a pigtail drainage catheter in place with i ts tip in the gallbladder fossa. RPTAT: HLBP .Brandon Mayorga MD, MD Date Time Electronically viewed and signed by .Brandon Mayorga MD, MD on 06/23/2017 18:07 .P/
[2017-06-23] MEDS ORDERED: ACETAMINOPHEN 325 MG TAB PO PRN (20:00)
[2017-06-23] MEDS ORDERED: SOD CHLORIDE 0.9% 1,000 ML IV ONE ×2 (20:00→22:30)
[2017-06-23] MEDS ORDERED: PIPER-TAZO 3.375 GM IV (PMX) 100 ML IVPB ONE (22:00)
[2017-06-23] MEDS ORDERED: HYDROmorphONE 1 MG/ML SYG IV ONE (22:03)
[2017-06-23] MEDS: ONDANSETRON 4 MG INJ IV PRN (22:11)
[2017-06-23] MEDS ORDERED: FAMO20TA18 PO (22:14)
[2017-06-23] MEDS ORDERED: ONDA4TAB8 PO (22:16)
[2017-06-23 22:53] VITALS: TEMP 97.8
[2017-06-23 23:36] VITALS: BP 115/68; PULSE 102; RESP 18
[2017-06-23 23:37] VITALS: BMI 15.8
[2017-06-24] MEDS: HYDROmorphONE 1 MG/ML SYG IV PRN ×6 (01:17→22:11)
[2017-06-24] MEDS: CEFTRIAXONE 1 GM/50 ML (PMX) 50 ML IVPB SCH (01:18)
[2017-06-24 05:18] LABS: BASOPHILS % 0.6 % (0.0-2.0); EOSINOPHILS # 0.2 10^3/ul (0.0-0.5); EOSINOPHILS % 2.9 % (0.0-7.0); HEMATOCRIT 34.2 % (37.0-47.0); HEMOGLOBIN 11.5 g/dl (12.0-16.0); LYMPHOCYTES # 2.2 10^3/ul (0.8-2.9); LYMPHOCYTES % 34.1 % (15.0-51.0); MEAN CORPUSCULAR HEMOGLOBIN 28.2 pg (29.0-33.0); MEAN CORPUSCULAR HGB CONC 33.6 g/dl (32.0-37.0); MEAN CORPUSCULAR VOLUME 83.8 fl (82.0-101.0); MEAN PLATELET VOLUME 9.9 fl (7.4-10.4); MONOCYTE # 0.4 10^3/ul (0.3-0.9); MONOCYTES % 6.5 % (0.0-11.0); NEUTROPHILS % 54.7 % (39.0-77.0); PLATELET COUNT 235 10^3/UL (140-415); RED BLOOD COUNT 4.08 10^6/ul (4.20-5.40); RED CELL DISTRIBUTION WIDTH 15.4 % (11.5-14.5); WHITE BLOOD COUNT 6.5 10^3/ul (4.8-10.8)
[2017-06-24] MEDS: ONDANSETRON 4 MG INJ IV PRN (05:21)
[2017-06-24 06:10] LABS: ALBUMIN 3.1 g/dl (3.3-4.9); ALBUMIN/GLOBULIN RATIO 1.24; CALCIUM 8.1 mg/dl (8.4-10.2); CREATININE 1.01 mg/dl (0.44-1.00); MAGNESIUM 1.7 mg/dl (1.7-2.5); PHOSPHORUS 3.3 mg/dl (2.5-4.9); POTASSIUM 4.1 mmol/L (3.5-5.1); TOTAL PROTEIN 5.6 g/dl (6.1-8.1)
--- NOTE | 2017-06-24 06:29 | HP ---
Date/Time of Note Date/Time of Note DATE: 06/24/17 TIME: 06:08 Assessment/Plan VTE Prophylaxis VTE Prophylaxis Intervention: SCD's Lines/Catheters IV Catheter Type (from Nrs): Saline Lock Assessment/Plan Assessment/Plan 1. Pancreatitis -Lipase without significant change from 5 weeks ago -will provide pain medication as needed. Patient is actually asking to eat so this is a good sign. 2. History of cholelithiasis and cholecystitis:status post laparoscopic cholecystectomy on 03/31/2017 at an outside facility complicated by possible bile duct injury(see HPI for more info) -Will notify Dr. Grande about patient's admission 3. Elevated transaminases, secondary to above -CT abdomen/pelvis was moderate diffuse intrahepatic ductal dilatation, similar to the MRI of the abdomen from last month 4. Acute kidney injury -IV fluid -Nephrology consult 5. Anion gap metabolic acidosis: Possibly from acute kidney injury -IV fluid -Check a lab HPI/ROS Admit Date/Time Admit Date/Time Jun 23, 2017 at 19:42 Hx of Present Illness This is a 37-year-old female who presented to emergency department complaining of abdominal pain and generalized weakness. She has a history of cholelithiasis and cholecystitis status post laparoscopic cholecystectomy on 03/31 at an outside facility complicated by possible bile duct injury. Status post ERCP on 04/03/2017 and laparoscopic washout on 04/10/2017 at [facility] [place]. Patient was admitted earlier this month and had percutaneous CT-guided drain placement at [facility]. The plan was for a hepaticojejunostomy to be done during this hospital hospitalization. However, because of pancreatitis the patient's, it had to be rescheduled. Patient was discharged home to be followed up with outpatient hepatobiliary surgery for hepaticojejunostomy. When she presented to the ER, she was to cardiac with a heart rate of 134. Labs shows a lipase of 641, AST 387, ALT 147, alk phos 359, bicarb 16, sodium 133. CT abdomen/pelvis shows moderate diffuse intra-hepatic ductal dilatation similar in appearance to the previous MRI of the abdomen. PMH/Family/Social Social History Smoking Status: Never smoker Exam/Review of Systems Vital Signs Vitals Vital Signs Date Time Temp Pulse Resp B/P Pulse Ox O2 Delivery O2 Flow Rate FiO2 06/23/17 23:36 97.7 102 18 115/68 100 Room Air Intake and Output 06/23/17 06/23/17 06/24/17 15:00 23:00 07:00 Intake Total 630 ml Output Total 1000 ml Balance -370 ml Exam Constitutional: alert, oriented, well developed Head: atraumatic, normocephalic Eyes: EOMI, PERRL Respiratory: clear to auscultation, normal air movement Cardiovascular: other (Tachycardic with regular rhythm) Gastrointestinal: other (Draining tube in place, appears clean), soft, tender Extremities: normal pulses Labs Result Diagram: 06/24/17 0425 06/23/17 1530 Medications Medications Current Medications Hydromorphone HCl 1 mg 1 mg Q4H PRN IV PAIN Last administered on 06/24/17 05:22 ; Admin Dose 1 MG; Start 06/24/17 at 00:30 Ceftriaxone Sodium (Rocephin) 50 ml @ 100 mls/hr Q24H IVPB Last administered on 06/24/17 01:18; Admin Dose 100 MLS/HR; Start 06/24/17 at 01:00 Ondansetron HCl (Zofran Inj) 4 mg Q6H PRN IV NAUSEA AND/OR VOMITING; Start 06/24 at 00:30 Famotidine (Pepcid) 20 mg DAILY PO ; Start 06/24/17 at 09:00 Acetaminophen (Tylenol Tab) 500 mg Q6H PRN PO PAIN AND OR ELEVATED TEMP; Start 06/24/17 at 00:30 CRISTIANO AUGUSTE MD Jun 24, 2017 06:18
[2017-06-24 08:01] VITALS: BP 94/55; RESP 17
[2017-06-24] MEDS: FAMOTIDINE 20 MG TAB PO SCH (08:40)
--- NOTE | 2017-06-24 11:58 | CONS ---
Date/Time of Note Date/Time of Note DATE: 06/24/17 TIME: 11:52 Consultation Date/Type/Reason Admit Date/Time Jun 23, 2017 at 19:42 Type of Consultation: nephrology Hx of Present Illness Nephrology consult Hx of Present Illness This is a 37-year-old female who presented to emergency department complaining of abdominal pain and generalized weakness. She has a history of cholelithiasis and cholecystitis status post laparoscopic cholecystectomy on 03/31 at an outside facility complicated by possible bile duct injury. Status post ERCP on 04/03/2017 and laparoscopic washout on 04/10/2017 at [facility]. Patient was admitted earlier this month and had percutaneous CT-guided drain placement at [facility]. The plan was for a hepaticojejunostomy to be done during this hospital hospitalization. However, because of pancreatitis the patient's, it had to be rescheduled. Patient was discharged home to be followed up with outpatient hepatobiliary surgery for hepaticojejunostomy. When she presented to the ER, she was to cardiac with a heart rate of 134. Labs shows a lipase of 641, AST 387, ALT 147, alk phos 359, bicarb 16, sodium 133. CT abdomen/pelvis shows moderate diffuse intra-hepatic ductal dilatation similar in appearance to the previous MRI of the abdomen. She also has arf which is improving old records were reviewed. imaging studies were also reviewed PMH/Family/Social Social History Smoking Status: Never smoker Exam/Review of Systems Constitutional: alert, oriented, well developed Head: atraumatic, normocephalic Eyes: EOMI, PERRL Respiratory: clear to auscultation, normal air movement Cardiovascular: other (Tachycardic with regular rhythm) Gastrointestinal: other (Draining tube in place, appears clean), soft, tender Extremities: normal pulses Impression and Plan 1. acute renal failure due to volume depletion. Imaging studies were reviewed. will send off urine studies. continue volume expansion. She has non -gap acidemia and bicarb wasting of unclear etiology. will start oral bicarb in no improvement in the next 1-2 days 2. History of cholelithiasis and cholecystitis:status post laparoscopic cholecystectomy on 03/31/2017 at an outside facility complicated by possible bile duct injury(see HPI for more info) Also has possible pancreatitis however her Lipase is unchanged from 5 weeks ago 3. Elevated transaminases, secondary to above -CT abdomen/pelvis was moderate diffuse intrahepatic ductal dilatation, similar to the MRI of the abdomen from last month Social History Smoking Status: Never smoker Exam/Review of Systems Vital Signs Vitals Vital Signs Date Time Temp Pulse Resp B/P Pulse Ox O2 Delivery O2 Flow Rate FiO2 06/24/17 08:01 97.7 82 17 94/55 100 06/23/17 23:36 Room Air Intake and Output 06/23/17 06/23/17 06/24/17 15:00 23:00 07:00 Intake Total 630 ml Output Total 1000 ml Balance -370 ml Results Result Diagram: 06/24/17 0425 06/24/17 0425 Results 24 hrs Laboratory Tests Test 06/23/17 15:30 06/23/17 17:20 06/23/17 19:30 06/24/17 04:25 White Blood Count 10.4 # 6.5 # Red Blood Count 5.27 # 4.08 #L Hemoglobin 15.3 # 11.5 #L Hematocrit 43.3 # 34.2 #L Mean Corpuscular Volume 82.2 83.8 Mean Corpuscular Hemoglobin 29.0 28.2 L Mean Corpuscular Hemoglobin Concent 35.3 33.6 Red Cell Distribution Width 14.7 H 15.4 H Platelet Count 453 #H 235 # Mean Platelet Volume 9.5 9.9 Neutrophils % 59.1 54.7 Lymphocytes % 30.1 34.1 Monocytes % 7.2 6.5 Eosinophils % 1.7 2.9 Basophils % 0.7 0.6 Nucleated Red Blood Cells % 0.0 0.0 Neutrophils # (Manual) 6.2 3.5 Lymphocytes # 3.1 H 2.2 Monocytes # 0.8 0.4 Eosinophils # 0.2 0.2 Basophils # 0.1 0.0 Nucleated Red Blood Cells # 0.0 0.0 Urine Color YELLOW Urine Clarity CLEAR Urine pH 6.0 Urine Specific [place] 1.016 Urine Ketones NEGATIVE Urine Nitrite NEGATIVE Urine Bilirubin NEGATIVE Urine Urobilinogen NEGATIVE Urine Leukocyte Esterase TRACE A Urine Microscopic RBC 4 Urine Microscopic WBC 5 Urine Squamous Epithelial Cells FEW Urine Bacteria FEW A Urine Mucus FEW A Urine Hemoglobin 1+ H Urine Glucose NEGATIVE Urine Total Protein 1+ H Urine Test NEGATIVE Sodium Level 133 L 136 Potassium Level 4.7 4.1 Chloride Level 99 111 H Carbon Dioxide Level 16 L 16 L Anion Gap 23 H 13 # Blood Urea Nitrogen 19 12 Creatinine 1.33 H 1.01 H Glucose Level 94 81 Lactic Acid Level 2.9 *H 1.0 1.2 Calcium Level 9.7 8.1 L Total Bilirubin 0.1 L 0.0 L Direct Bilirubin 0.00 0.00 Indirect Bilirubin 0.1 0.0 Aspartate Amino Transf (AST/SGOT) 147 H 78 H Alanine Aminotransferase (ALT/SGPT) 387 H 234 H Alkaline Phosphatase 359 H 222 H Troponin I < 0.012 Total Protein 8.8 H 5.6 #L Albumin 5.0 H 3.1 #L Globulin 3.80 H 2.50 Albumin/Globulin Ratio 1.31 1.24 Lipase 641 H Phosphorus Level 3.3 Magnesium Level 1.7 Medications Medications Current Medications Hydromorphone HCl 1 mg 1 mg Q4H PRN IV PAIN Last administered on 06/24/17 10:16 ; Admin Dose 1 MG; Start 06/24/17 at 00:30 Ceftriaxone Sodium (Rocephin) 50 ml @ 100 mls/hr Q24H IVPB Last administered on 06/24/17 01:18; Admin Dose 100 MLS/HR; Start 06/24/17 at 01:00 Ondansetron HCl (Zofran Inj) 4 mg Q6H PRN IV NAUSEA AND/OR VOMITING; Start 06/24 at 00:30 Famotidine (Pepcid) 20 mg DAILY PO Last administered on 06/24/17 08:40; Admin Dose 20 MG; Start 06/24/17 at 09:00 Acetaminophen (Tylenol Tab) 500 mg Q6H PRN PO PAIN AND OR ELEVATED TEMP; Start 06/24/17 at 00:30 TARSHA MERAZ DO Jun 24, 2017 11:58
--- NOTE | 2017-06-24 13:33 | PN ---
Date/Time of Note Date/Time of Note DATE: 06/24/17 TIME: 13:30 Assessment/Plan VTE Prophylaxis VTE Prophylaxis Intervention: SCD's Lines/Catheters IV [facility] Saline Lock Assessment/Plan Chief Complaint/Hosp Course Impression and plan 1. Pancreatitis. Appears chronic. Still elevated lipase enzymes. Continue IV hydration. Continue analgesics as needed 2. History of cholelithiasis and cholecystitis. The patient is status post arthroscopic cholecystectomy on March 31, 2017 with suspect complicated bile duct injury. Follow-up with hepatobiliary surgeon. 3. Acute renal insufficiency. [employer] following. Continue IV fluids. 4. Anion gap metabolic acidosis. On IVF. Improving at present. dispo/ plan: Continue with analgesics. Hepatobiliary surgeon to follow. Continue IV fluids. Discussed plan of care with Dr. Frietas Problems: Subjective 24 Hr Interval Summary Free Text/Dictation Still reports having some pain more notable in lower abdominal quadrants. Noted with abdominal drain in place Exam/Review of Systems Vital Signs Vitals Vital Signs Date Time Temp Pulse Resp B/P Pulse Ox O2 Delivery O2 Flow Rate FiO2 06/24/17 08:01 97.7 82 17 94/55 100 06/23/17 23:36 Room Air Intake and Output 06/23/17 06/23/17 06/24/17 15:00 23:00 07:00 Intake Total 630 ml Output Total 1000 ml Balance -370 ml Exam Constitutional: alert, oriented Psych: nl mood/affect Head: normocephalic Neck: supple, No jvd Respiratory: clear to auscultation, normal air movement Cardiovascular: regular rate and rhythm Gastrointestinal: soft, tender (Interval on lower abdominal quadrants noted with drain on right abdominal quadrant) Musculoskeletal: nl extremities to inspection Extremities: normal pulses Neurological: FRENCH PASTRY COOK II-XII intact, nl mental status, nl speech Results Result Diagram: 06/24/175 06/24/17 042 Results 24 hrs Laboratory Tests Test 06/23/17 15:30 06/23/17 17:20 06/23/17 19:30 06/24/17 04:25 White Blood Count 10.4 # 6.5 # Red Blood Count 5.27 # 4.08 #L Hemoglobin 15.3 # 11.5 #L Hematocrit 43.3 # 34.2 #L Mean Corpuscular Volume 82.2 83.8 Mean Corpuscular Hemoglobin 29.0 28.2 L Mean Corpuscular Hemoglobin Concent 35.3 33.6 Red Cell Distribution Width 14.7 H 15.4 H Platelet Count 453 #H 235 # Mean Platelet Volume 9.5 9.9 Neutrophils % 59.1 54.7 Lymphocytes % 30.1 34.1 Monocytes % 7.2 6.5 Eosinophils % 1.7 2.9 Basophils % 0.7 0.6 Nucleated Red Blood Cells % 0.0 0.0 Neutrophils # (Manual) 6.2 3.5 Lymphocytes # 3.1 H 2.2 Monocytes # 0.8 0.4 Eosinophils # 0.2 0.2 Basophils # 0.1 0.0 Nucleated Red Blood Cells # 0.0 0.0 Urine Color YELLOW Urine Clarity CLEAR Urine pH 6.0 Urine Specific [place] 1.016 Urine Ketones NEGATIVE Urine Nitrite NEGATIVE Urine Bilirubin NEGATIVE Urine Urobilinogen NEGATIVE Urine Leukocyte Esterase TRACE A Urine Microscopic RBC 4 Urine Microscopic WBC 5 Urine Squamous Epithelial Cells FEW Urine Bacteria FEW A Urine Mucus FEW A Urine Hemoglobin 1+ H Urine Glucose NEGATIVE Urine Total Protein 1+ H Urine Test NEGATIVE Sodium Level 133 L 136 Potassium Level 4.7 4.1 Chloride Level 99 111 H Carbon Dioxide Level 16 L 16 L Anion Gap 23 H 13 # Blood Urea Nitrogen 19 12 Creatinine 1.33 H 1.01 H Glucose Level 94 81 Lactic Acid Level 2.9 *H 1.0 1.2 Calcium Level 9.7 8.1 L Total Bilirubin 0.1 L 0.0 L Direct Bilirubin 0.00 0.00 Indirect Bilirubin 0.1 0.0 Aspartate Amino Transf (AST/SGOT) 147 H 78 H Alanine Aminotransferase (ALT/SGPT) 387 H 234 H Alkaline Phosphatase 359 H 222 H Troponin I < 0.012 Total Protein 8.8 H 5.6 #L Albumin 5.0 H 3.1 #L Globulin 3.80 H 2.50 Albumin/Globulin Ratio 1.31 1.24 Lipase 641 H Phosphorus Level 3.3 Magnesium Level 1.7 Medications Medications Current Medications Hydromorphone HCl 1 mg 1 mg Q4H PRN IV PAIN Last administered on 06/24/17 10:16 ; Admin Dose 1 MG; Start 06/24/17 at 00:30 Ceftriaxone Sodium (Rocephin) 50 ml @ 100 mls/hr Q24H IVPB Last administered on 06/24/17 01:18; Admin Dose 100 MLS/HR; Start 06/24/17 at 01:00 Ondansetron HCl (Zofran Inj) 4 mg Q6H PRN IV NAUSEA AND/OR VOMITING; Start 06/24 at 00:30 Famotidine (Pepcid) 20 mg DAILY PO Last administered on 06/24/17 08:40; Admin Dose 20 MG; Start 06/24/17 at 09:00 Acetaminophen (Tylenol Tab) 500 mg Q6H PRN PO PAIN AND OR ELEVATED TEMP; Start 06/24/17 at 00:30 MILES NOLASCO Jun 24, 2017 13:33
[2017-06-24 14:00] VITALS: BP 100/55; RESP 15
[2017-06-24] MEDS: SOD CHLORIDE 0.9% 1,000 ML IV SCH (14:30)
--- NOTE | 2017-06-24 14:59 | CONS ---
Date/Time of Note Date/Time of Note DATE: 06/24/17 TIME: 14:43 Assessment/Plan Assessment/Plan Additional Assessment/Plan [facility] Progress Note Date of Service: 06/24/17 Today's Impression & Plan: Overall stable. Readmitted due to E-coli UTI, lactic acidosis, acidemia, and pancreatitis, in the setting of transected CBD, awaiting definitive repair that is scheduled for 06/29 here at [facility]. Certainly enough reason to admit and treat inhouse. Given complexity of the clinical picture, recommend aggressive medical management until completely stabilized, followed by scheduled operation. I believe many of her clinical issues will resolve with above operation. Discussed with the patient and she appeared to understand and agreed with the plans. Also discussed with the team. With above assessment, I've recommended the following for today: 1. Agree with inhouse care 2. Treat E-coli 3. Monitor for pancreatitis 4. Advance diet as tolerated Thank you again for your great care of this very pleasant patient and wonderful family. If there are any questions, please feel free to call me at [phone]. Nature of presenting problem: High severity Please note that, given the extensive number of diagnoses or management options , the extensive amount and/or complexity of data needed to be reviewed, and high risk of complications and/or morbidity or mortality, this qualifies as high complexity type of decision-making. Disclaimer: Inadvertent spelling and grammatical errors are likely due to EHR/ dictation software use and do not reflect on the quality of delivered patient care. Also, please note that the electronic time recorded on this node does not necessarily reflect the actual time of the visit. Updated Clinical Summary: The patient is a very pleasant 37-year-old young lady who was transferred from an outside hospital to [facility] for management of possible bile duct injury. S/p percutaneous CT-guided drain placement above the liver with removal of 1.4 liters of bile in IR suite and more (2 liters) within first 24 hours post procedure. Drain output minimal 04/09/17. S/p lap washout and wide drainage at [facility]. The upper pigtail catheter and the 2 surgical drains d/c 'd on 04/14/17. Urinary retention issues requiring straight cath and Matthew insertion appeared resolved by 04/15/17. DC home 04/16/2017. 2 ER visits between discharge and the 2016 with no hospitalization. Readmitted as a transfer from outside hospital to [facility] 05/19/2017 with pancreatitis as well as urinary tract infection. Admitted to [facility] 05/18/2017. Admission white blood cell count 11.8. Creatinine 3.8. Alkaline phosphatase 547. Total bilirubin 1.1. Lipase 1724. Heart rate 122. Involved physicians included Adrian Oro MD and Maryellen Dolan MD. patient was treated with ceftazidime, vancomycin and metronidazole. CT scan abdomen and pelvis and 05/18/2017: No acute intra-abdominal abnormality appreciated on a limited noncontrast CT of the abdomen and pelvis. Evidence of cholecystectomy. Transhepatic drainage catheter terminating in the region of the gallbladder fossa. Due to persistently elevated amylase and lipase of unknown etiology, scheduled hepaticojejunostomy on 05/30/2017 was postponed to 06/08/2017. D/c'd from [facility] 06/01/17. Outpatient ERCP showed no obvious pancreas duct on 06/14/17. COMORBIDITIES: 1. Cholelithiasis and acute cholecystitis, status post laparoscopic cholecystectomy 03/31/2017 at [facility], complicated by possible bile duct injury, as shown by ERCP that was done after a HIDA scan showed possible bile leak, explaining the patient's continued pain and distention. The ERCP on 04/03/2017 showed clips across the distal common bile duct, without any contrast opacifying the liver. We accepted the patient as a transfer into [facility] bile duct injury program for a higher level of care. The patient arrived on 04/05/2017. 2. S/p percutaneous CT-guided drain placement above the liver with removal of 1.4 liters of bile in IR suite and more immediately post procedure. 3. S/p lap washout and wide drainage at [facility]. Please also see my original H&P from 04/06/17 at the end of this note for further details that have been updated in this note. Subjective: No major events or complaints overnight other than above events; reports feeling better than when she was admitted; no significant current abd pain and seemingly under control with medications; no current n/v/d; no sob or cp; most of the pain was near the pelvis and lower quadrants; minor pain in the RUQ - flatus; - BM; + activity. No issues with diarrhea or constipation at home. Objective: Vitals: See below Exam: GENERAL: On exam, the patient was laying in bed and appeared to be comfortable and in no acute distress. ABDOMEN: Soft, nontender and nondistended. Incisions are clean, dry and intact without any evidence of erythema, edema, discharge, or hernia. Lower pigtail catheter with bilious output (approximately 500-600 cc per day per patient's report). There are no peritoneal signs or guarding. SKIN: Skin appears to be pink and feels warm to touch. NEUROLOGIC: Patient is awake, alert, and follows commands appropriately. My previous H&P: [facility] INITIAL INPATIENT CONSULTATION NOTE DATE OF CONSULTATION: 04/06/[address] PL[address] OF SERVICE: [facility], 4th floor ASSESSMENT AND PLAN: A very pleasant, but unfortunate, 37-year-old and otherwise healthy young lady, status post laparoscopic cholecystectomy that seems to have been complicated by a bile duct injury. This could be perhaps a bile duct transection versus clipping across the bile duct. There is also a complication of bile leak at the moment, with early signs of bile peritonitis. I reviewed the case carefully and then reviewed the images with our interventional radiologist, Dr. Andrade, and we discussed with it in a multidisciplinary fashion. I believe that the patient can benefit from adequate control of her bile leak, which does include extrahepatic percutaneous drain placement, as well as intrahepatic drain placement. Given the amount of time that has passed and the bile peritonitis, I would advise against acute surgical intervention and the only surgical intervention should be cleanup of the peritonitis, should the drains not be able to take care of this. Once we have adequate control over the drainage, then there should be approximately 4 to 6 weeks of wait time prior to return of the patient for any elective exploration with hepaticojejunostomy. The reason for this is to allow the wall of the common bile duct to declare itself and for us to be able to visualize viable portions of the bile duct. I explained all of this in detail with the patient and then separately on a phone conversation with her and answered all their questions to the best of my ability. I believe that the patient and her appear to understand and agree with the plans. With above assessment, I have recommended the followin. Stat CT scan of the abdomen and pelvis without oral contrast, but with IV contrast, as part of planning for drain placement. 2. Stat MRCP as part of preoperative planning and establishment of baseline. 3. Adequate hydration intravenously. 4. Control symptoms. 5. Continue broad-spectrum antimicrobials. 6. Keep in-house. Thank you again for allowing us to participate in the care of this very pleasant lady and her wonderful family. If there are any questions, please feel free to contact me at [phone]. UPDATED CONSULT SUMMARY The patient is a very pleasant 37-year-old young lady who was transferred from an outside hospital to [facility] for management of possible bile duct injury. COMORBIDITIES: 1. Cholelithiasis and acute cholecystitis, status post laparoscopic cholecystectomy 03/31/2017 at [facility], complicated by possible bile duct injury, as shown by ERCP that was done after a HIDA scan showed possible bile leak, explaining the patient's continued pain and distention. The ERCP on 04/03/2017 showed clips across the distal common bile duct, without any contrast opacifying the liver. We accepted the patient as a transfer into [facility] bile duct injury program for a higher level of care. The patient arrived on 04/05/2017. DATE OF ADMISSION: 04/05/2017 HISTORY OF PRESENT ILLNESS: The patient is a very pleasant 37-year-old lady with the above-mentioned comorbidities, who we were kindly consulted to manage possible bile duct injury. During my visit the patient had a significant amount of abdominal pain and some nausea, but no obvious vomiting. She had never had any symptoms such as this in the past. Her symptoms began shortly after surgery and have stayed that way since. No other major complaints. ALLERGIES: NO KNOWN DRUG ALLERGIES. MEDICATIONS: The patient was transferred on: 1. Acetaminophen. 2. Cefoxitin. 3. Dilaudid 4. Zofran. 5. Protonix. 6. Mylicon. SOCIAL HISTORY: The patient lives with her family, that includes her and her children. She does not report any smoking, drinking, or intravenous drug use. FAMILY HISTORY: Other than diabetes, the patient does not report any other major medical, surgical or oncologic problems in the family. REVIEW OF SYSTEMS: Other than the above-mentioned, there are no other pertinent positives or pertinent negatives in a complete 14-point review of systems. PHYSICAL EXAMINATION: GENERAL: The patient appears to be a very pleasant, lady of non- descent, appearing her stated age, lying in bed comfortably, and in no acute distress. BMI is 23.8. VITAL SIGNS: Temperature 98.3, blood pressure 126/81, pulse 115, respiratory rate 16, pulse oximetry 97% on 2 liters nasal cannula. HEENT: Normocephalic and atraumatic. Extraocular muscles and hearing are grossly intact bilaterally and symmetrically. Sclerae are nonicteric. Oral cavity is clear; oral mucosa appeared to be pink and moist. Dentition: fair. NECK: Supple. There is no lymphadenopathy or JVD. There is no submental, submandibular or supraclavicular lymphadenopathy. CHEST: Rises symmetrically with each breath; patient is breathing comfortably. There are no audible wheezes, rales or rhonchi on the gross exam. HEART: Pulse is regular and palpable on the right wrist. Capillary refill was normal. Carotid pulses are palpable bilaterally and symmetrically in the neck. EXTREMITIES: Lower extremities contain no pitting edema around the ankles bilaterally and symmetrically. ABDOMEN: Soft, somewhat distended and mild to moderately tender to palpation in essentially all quadrants. There is no evidence of organomegaly, caput medusae, engorged subcutaneous veins or ascites. There are mild peritoneal signs and no major guarding. SKIN: Appears to be pink and feels warm to touch. NEUROLOGIC: Awake, alert, and follows commands appropriately. LABORATORY VALUES: White blood cell count yesterday was 11.7, hemoglobin 11.7, platelets 419. Electrolytes: Sodium 131, CO2 26, creatinine 0.54, total bilirubin 1.4, AST 19, ALT 64, alkaline phosphatase 164, INR 1.11. Urine test was negative. IMAGING: The patient came with a disk that contained images from MRCP prior to the operation that demonstrated a thickened gallbladder wall and gallstones. She also had a preoperative right upper quadrant ultrasound that confirmed the same findings. She did not have any preoperative ERCP images. Postoperatively there was a HIDA scan that demonstrated a possible leak of bile out into the gallbladder fossa. An ERCP was done which demonstrated no extravasation of bile from the distal common bile duct, but also no opacification of the biliary system, and the contrast stopped at the area of surgical clips. Note that there were 15 to 20 surgical clips that were visualized on the ERCP images. Consultation Date/Type/Reason Admit Date/Time Jun 23, 2017 at 19:42 Psychological: nl mood/affect Social History Smoking Status: Never smoker Exam/Review of Systems Vital Signs Vitals Vital Signs Date Time Temp Pulse Resp B/P Pulse Ox O2 Delivery O2 Flow Rate FiO2 06/24/17 08:01 97.7 82 17 94/55 100 06/23/17 23:36 Room Air Intake and Output 06/23/17 06/23/17 06/24/17 15:00 23:00 07:00 Intake Total 630 ml Output Total 1000 ml Balance -370 ml Results Result Diagram: 06/24/17 0425 06/24/17 0425 Results 24 hrs Laboratory Tests Test 06/23/17 15:30 06/23/17 17:20 06/23/17 19:30 06/24/17 04:25 White Blood Count 10.4 # 6.5 # Red Blood Count 5.27 # 4.08 #L Hemoglobin 15.3 # 11.5 #L Hematocrit 43.3 # 34.2 #L Mean Corpuscular Volume 82.2 83.8 Mean Corpuscular Hemoglobin 29.0 28.2 L Mean Corpuscular Hemoglobin Concent 35.3 33.6 Red Cell Distribution Width 14.7 H 15.4 H Platelet Count 453 #H 235 # Mean Platelet Volume 9.5 9.9 Neutrophils % 59.1 54.7 Lymphocytes % 30.1 34.1 Monocytes % 7.2 6.5 Eosinophils % 1.7 2.9 Basophils % 0.7 0.6 Nucleated Red Blood Cells % 0.0 0.0 Neutrophils # (Manual) 6.2 3.5 Lymphocytes # 3.1 H 2.2 Monocytes # 0.8 0.4 Eosinophils # 0.2 0.2 Basophils # 0.1 0.0 Nucleated Red Blood Cells # 0.0 0.0 Urine Color YELLOW Urine Clarity CLEAR Urine pH 6.0 Urine Specific [place] 1.016 Urine Ketones NEGATIVE Urine Nitrite NEGATIVE Urine Bilirubin NEGATIVE Urine Urobilinogen NEGATIVE Urine Leukocyte Esterase TRACE A Urine Microscopic RBC 4 Urine Microscopic WBC 5 Urine Squamous Epithelial Cells FEW Urine Bacteria FEW A Urine Mucus FEW A Urine Hemoglobin 1+ H Urine Glucose NEGATIVE Urine Total Protein 1+ H Urine Test NEGATIVE Sodium Level 133 L 136 Potassium Level 4.7 4.1 Chloride Level 99 111 H Carbon Dioxide Level 16 L 16 L Anion Gap 23 H 13 # Blood Urea Nitrogen 19 12 Creatinine 1.33 H 1.01 H Glucose Level 94 81 Lactic Acid Level 2.9 *H 1.0 1.2 Calcium Level 9.7 8.1 L Total Bilirubin 0.1 L 0.0 L Direct Bilirubin 0.00 0.00 Indirect Bilirubin 0.1 0.0 Aspartate Amino Transf (AST/SGOT) 147 H 78 H Alanine Aminotransferase (ALT/SGPT) 387 H 234 H Alkaline Phosphatase 359 H 222 H Troponin I < 0.012 Total Protein 8.8 H 5.6 #L Albumin 5.0 H 3.1 #L Globulin 3.80 H 2.50 Albumin/Globulin Ratio 1.31 1.24 Lipase 641 H Phosphorus Level 3.3 Magnesium Level 1.7 Medications Medications Current Medications Hydromorphone HCl 1 mg 1 mg Q4H PRN IV PAIN Last administered on 06/24/17 14:07 ; Admin Dose 1 MG; Start 06/24/17 at 00:30 Ceftriaxone Sodium (Rocephin) 50 ml @ 100 mls/hr Q24H IVPB Last administered on 06/24/17 01:18; Admin Dose 100 MLS/HR; Start 06/24/17 at 01:00 Ondansetron HCl (Zofran Inj) 4 mg Q6H PRN IV NAUSEA AND/OR VOMITING; Start 06/24 at 00:30 Famotidine (Pepcid) 20 mg DAILY PO Last administered on 06/24/17 08:40; Admin Dose 20 MG; Start 06/24/17 at 09:00 Acetaminophen 500 mg 500 mg Q6H PRN PO PAIN AND OR ELEVATED TEMP; Start at 00:30 Sodium Chloride (NS) 1,000 ml @ 80 mls/hr [id number] IV Last administered on 14:30; Admin Dose 80 MLS/HR; Start 06/24/17 at 14:30 LENA MONCADA M.D. Jun 24, 2017 14:54
[2017-06-24] MEDS: ACETAMINOPHEN 500 MG TAB PO PRN (18:14)
[2017-06-24 19:45] VITALS: BP 111/68; RESP 20
--- NOTE | 2017-06-24 22:49 | CONS ---
Date/Time of Note Date/Time of Note DATE: 06/24/17 TIME: 22:39 Assessment/Plan Assessment/Plan Chief Complaint/Hosp Course Impression: 1. History of cholelithiasis and cholecystitis:status post laparoscopic cholecystectomy on 03/31/2017 at an outside facility complicated by possible bile duct injury(see HPI for more info) Also has possible pancreatitis however her Lipase is unchanged from 5 weeks ago 2. acute renal failure due to volume depletion. 3. Elevated transaminases, secondary to above 4. E. coli UTI Recommendations: 1. advance diet as tolerated up to low fat diet 2. treat E. coli UTI 3. hepaticojejunostomy or other definitive surgery per Dr. Grande. Problems: Consultation Date/Type/Reason Admit Date/Time Jun 23, 2017 at 19:42 Date of Consultation: Jun 24, 2017 Type of Consultation: GI Reason for Consultation pancreatitis, abnormal LFT Hx of Present Illness 37-year-old female who is admitted for abdomial pain and generalized weakness. She has a history of cholelithiasis and cholecystitis status post laparoscopic cholecystectomy on 03/31/2017 at an outside facility complicated by duct injury. Status post ERCP on 04/03/2017 and laparoscopic washout on 04/10/2017 at [facility]. Patient was admitted earlier this month and had percutaneous CT-guided drain placement at [facility]. The plan was for a hepaticojejunostomy to be done during this hospital hospitalization. However, because of pancreatitis the patient's, it had to be rescheduled. Patient was discharged home to be followed up with outpatient hepatobiliary surgery for hepaticojejunostomy. When she presented to the ER, she was to cardiac with a heart rate of 134. Labs shows a lipase of 641, AST 387, ALT 147, alk phos 359, bicarb 16, sodium 133. CT abdomen/pelvis shows moderate diffuse intra-hepatic ductal dilatation similar in appearance to the previous MRI of the abdomen. She is now admitted for management of her abdominal pain. Her definitive surgery (likely hepaticojejunostomy) is scheduled for 06/29/17. All point ROS administered, pertinent positives and negatives in HPI otherwise negative. Psychological: nl mood/affect Past Medical History Medical History: gallstones, GERD, pancreatitis Past Surgical History Past Surgical Hx: cholecystectomy, endoscopy Family History Significant Family History: no pertinent family hx Social History Alcohol Use: none Smoking Status: Never smoker Drug Use: none Exam/Review of Systems Vital Signs Vitals Vital Signs Date Time Temp Pulse Resp B/P Pulse Ox O2 Delivery O2 Flow Rate FiO2 06/24/17 19:45 98.0 86 20 111/68 100 06/23/17 23:36 Room Air Intake and Output 06/23/17 06/23/17 06/24/17 15:00 23:00 07:00 Intake Total 630 ml Output Total 1000 ml Balance -370 ml Exam Constitutional: alert, oriented, well developed Psych: nl mood/affect, no complaints Head: atraumatic, normocephalic Eyes: EOMI, nl conjunctiva, nl lids, nl sclera ENMT: mucosa pink and moist, nl external ears & nose, nl lips & teeth, nl nasal mucosa & septum Neck: non-tender, supple Respiratory: clear to auscultation, normal air movement Cardiovascular: nl pulses, regular rate and rhythm Gastrointestinal: bowel sounds, non-tender, other (incision are clean and dry without erythema or discharge. lower pigtail catheter wiht bilious output. ), soft Musculoskeletal: nl extremities to inspection, nl gait and stance Neurological: nl mental status, nl speech, nl strength Skin: nl turgor Results Result Diagram: 06/24/1742406/24/17 042 Results 24 hrs Laboratory Tests Test 06/24/17 04:25 White Blood Count 6.5 # Red Blood Count 4.08 #L Hemoglobin 11.5 #L Hematocrit 34.2 #L Mean Corpuscular Volume 83.8 Mean Corpuscular Hemoglobin 28.2 L Mean Corpuscular Hemoglobin Concent 33.6 Red Cell Distribution Width 15.4 H Platelet Count 235 # Mean Platelet Volume 9.9 Neutrophils % 54.7 Lymphocytes % 34.1 Monocytes % 6.5 Eosinophils % 2.9 Basophils % 0.6 Nucleated Red Blood Cells % 0.0 Neutrophils # (Manual) 3.5 Lymphocytes # 2.2 Monocytes # 0.4 Eosinophils # 0.2 Basophils # 0.0 Nucleated Red Blood Cells # 0.0 Sodium Level 136 Potassium Level 4.1 Chloride Level 111 H Carbon Dioxide Level 16 L Anion Gap 13 # Blood Urea Nitrogen 12 Creatinine 1.01 H Glucose Level 81 Calcium Level 8.1 L Phosphorus Level 3.3 Magnesium Level 1.7 Total Bilirubin 0.0 L Direct Bilirubin 0.00 Indirect Bilirubin 0.0 Aspartate Amino Transf (AST/SGOT) 78 H Alanine Aminotransferase (ALT/SGPT) 234 H Alkaline Phosphatase 222 H Total Protein 5.6 #L Albumin 3.1 #L Globulin 2.50 Albumin/Globulin Ratio 1.24 Medications Medications Current Medications Hydromorphone HCl 1 mg 1 mg Q4H PRN IV PAIN Last administered on 06/24/17 22:11 ; Admin Dose 1 MG; Start 06/24/17 at 00:30 Ceftriaxone Sodium (Rocephin) 50 ml @ 100 mls/hr Q24H IVPB Last administered on 06/24/17 01:18; Admin Dose 100 MLS/HR; Start 06/24/17 at 01:00 Ondansetron HCl (Zofran Inj) 4 mg Q6H PRN IV NAUSEA AND/OR VOMITING; Start 06/24 at 00:30 Famotidine (Pepcid) 20 mg DAILY PO Last administered on 06/24/17 08:40; Admin Dose 20 MG; Start 06/24/17 at 09:00 Acetaminophen 500 mg 500 mg Q6H PRN PO PAIN AND OR ELEVATED TEMP Last administered on 06/24/17 18:14; Admin Dose 500 MG; Start 06/24/17 at 00:30 Sodium Chloride (NS) 1,000 ml @ 80 mls/hr [id number] IV Last administered on 14:30; Admin Dose 80 MLS/HR; Start 06/24/17 at 14:30 CRISTINE MERRITT MD Jun 24, 2017 22:49
[2017-06-25] MEDS: CEFTRIAXONE 1 GM/50 ML (PMX) 50 ML IVPB SCH (01:22)
[2017-06-25 01:39] VITALS: BP 104/61; RESP 18
[2017-06-25] MEDS: HYDROmorphONE 1 MG/ML SYG IV PRN ×6 (02:19→22:36)
[2017-06-25] MEDS: SOD CHLORIDE 0.9% 1,000 ML IV SCH ×2 (02:48→15:40)
[2017-06-25 06:09] LABS: BASOPHILS % 0.2 % (0.0-2.0); EOSINOPHILS # 0.2 10^3/ul (0.0-0.5); EOSINOPHILS % 3.3 % (0.0-7.0); HEMATOCRIT 31.9 % (37.0-47.0); HEMOGLOBIN 10.9 g/dl (12.0-16.0); LYMPHOCYTES # 1.4 10^3/ul (0.8-2.9); LYMPHOCYTES % 24.9 % (15.0-51.0); MEAN CORPUSCULAR HGB CONC 34.2 g/dl (32.0-37.0); MEAN CORPUSCULAR VOLUME 84.8 fl (82.0-101.0); MEAN PLATELET VOLUME 9.7 fl (7.4-10.4); MONOCYTE # 0.4 10^3/ul (0.3-0.9); MONOCYTES % 7.2 % (0.0-11.0); NEUTROPHILS % 63.7 % (39.0-77.0); PLATELET COUNT 228 10^3/UL (140-415); RED BLOOD COUNT 3.76 10^6/ul (4.20-5.40); RED CELL DISTRIBUTION WIDTH 15.6 % (11.5-14.5); WHITE BLOOD COUNT 5.7 10^3/ul (4.8-10.8)
[2017-06-25] MEDS: ONDANSETRON 4 MG INJ IV PRN (06:37)
[2017-06-25] MEDS: ACETAMINOPHEN 500 MG TAB PO PRN (06:37)
[2017-06-25 06:41] LABS: ALBUMIN 2.8 g/dl (3.3-4.9); ALBUMIN/GLOBULIN RATIO 1.16; CALCIUM 7.8 mg/dl (8.4-10.2); CREATININE 0.82 mg/dl (0.44-1.00); POTASSIUM 3.7 mmol/L (3.5-5.1); TOTAL PROTEIN 5.2 g/dl (6.1-8.1)
[2017-06-25 07:20] VITALS: BP 103/59; RESP 18
[2017-06-25] MEDS: FAMOTIDINE 20 MG TAB PO SCH (08:17)
--- NOTE | 2017-06-25 11:24 | PN ---
Date/Time of Note Date/Time of Note DATE: 06/25/17 TIME: 06:37 Assessment/Plan Lines/Catheters IV Catheter Type (from Nrsg): Peripheral IV Matthew in Place (from Nrs): No Assessment/Plan Assessment/Plan [facility] Progress Note Date of Service: 06/25/17 Today's Impression & Plan: Overall stable and appears improved. Still with lower abdominal pain, likely from UTI. Will need more time with antimicrobials to medically stabilize prior to definitive hepaticojejunostomy scheduled on 06/29/17. Discussed with the patient and she appeared to understand and agreed with the plans. Also discussed with the team. Previous assessment that applies today: Readmitted due to E-coli UTI, lactic acidosis, acidemia, and pancreatitis, in the setting of transected CBD, awaiting definitive repair that is scheduled for 06/29 here at [facility]. Certainly enough reason to admit and treat inhouse. Given complexity of the clinical picture, recommend aggressive medical management until completely stabilized, followed by scheduled operation. I believe many of her clinical issues will resolve with above operation. With above assessment, I've recommended the following for today: 1. Continue current inhouse care 2. Continue treating E-coli 3. Monitor for pancreatitis 4. Advance diet as tolerated Thank you again for your great care of this very pleasant patient and wonderful family. If there are any questions, please feel free to call me at [phone]. Nature of presenting problem: High severity Please note that, given the extensive number of diagnoses or management options , the extensive amount and/or complexity of data needed to be reviewed, and high risk of complications and/or morbidity or mortality, this qualifies as high complexity type of decision-making. Disclaimer: Inadvertent spelling and grammatical errors are likely due to EHR/ dictation software use and do not reflect on the quality of delivered patient care. Also, please note that the electronic time recorded on this node does not necessarily reflect the actual time of the visit. Updated Clinical Summary: The patient is a very pleasant 37-year-old young lady who was transferred from an outside hospital to [facility] for management of possible bile duct injury. S/p percutaneous CT-guided drain placement above the liver with removal of 1.4 liters of bile in IR suite and more (2 liters) within first 24 hours post procedure. Drain output minimal 6/18/17. S/p lap washout and wide drainage at [facility]. The upper pigtail catheter and the 2 surgical drains d/c 'd on 04/14/17. Urinary retention issues requiring straight cath and Matthew insertion appeared resolved by 04/15/17. DC home 04/16/2017. 2 ER visits between discharge and the 2016 with no hospitalization. Readmitted as a transfer from outside hospital to [facility] 05/19/2017 with pancreatitis as well as urinary tract infection. Admitted to [facility] 05/18/2017. Admission white blood cell count 11.8. Creatinine 3.8. Alkaline phosphatase 547. Total bilirubin 1.1. Lipase 1724. Heart rate 122. Involved physicians included Adrian Oro MD and Maryellen Dolan MD. patient was treated with ceftazidime, vancomycin and metronidazole. CT scan abdomen and pelvis and 05/18/2017: No acute intra-abdominal abnormality appreciated on a limited noncontrast CT of the abdomen and pelvis. Evidence of cholecystectomy. Transhepatic drainage catheter terminating in the region of the gallbladder fossa. Due to persistently elevated amylase and lipase of unknown etiology, scheduled hepaticojejunostomy on 05/30/2017 was postponed to 06/08/2017. D/c'd from [facility] 06/01/17. Outpatient ERCP showed no obvious pancreas duct on 06/14/17. COMORBIDITIES: 1. Cholelithiasis and acute cholecystitis, status post laparoscopic cholecystectomy 03/31/[address] [facility], complicated by possible bile duct injury, as shown by ERCP that was done after a HIDA scan showed possible bile leak, explaining the patient's continued pain and distention. The ERCP on 04/03/2017 showed clips across the distal common bile duct, without any contrast opacifying the liver. We accepted the patient as a transfer into [facility] bile duct injury program for a higher level of care. The patient arrived on 04/05/2017. 2. S/p percutaneous CT-guided drain placement above the liver with removal of 1.4 liters of bile in IR suite and more immediately post procedure. 3. S/p lap washout and wide drainage at [facility]. Subjective: No major events or complaints overnight; reports feeling okay, and still with mild lower abd pain, seemingly under control with medications; no current n/v/d ; no sob or cp; + flatus; + BM; + activity. Objective: Vitals: See below Exam: GENERAL: On exam, the patient was laying in bed and appeared to be comfortable and in no acute distress. ABDOMEN: Soft, nontender. Incisions are clean, dry and intact without any evidence of erythema, edema, discharge, or hernia. Pigtail catheter with bilious output. There are no peritoneal signs or guarding. SKIN: Skin appears to be pink and feels warm to touch. NEUROLOGIC: Patient is awake, alert, and follows commands appropriately. Exam/Review of Systems Vital Signs Vitals Vital Signs Date Time Temp Pulse Resp B/P Pulse Ox O2 Delivery O2 Flow Rate FiO2 06/25/17 07:20 98.3 87 18 103/59 98 06/23/17 23:36 Room Air Intake and Output 06/24/17 06/24/17 06/25/17 15:00 23:00 07:00 Intake Total 1400 ml 1690 ml Output Total 800 ml 900 ml Balance 600 ml 790 ml Results Result Diagram: 06/25/17 0503 06/25/17 0503 LENA MONCADA M.D. Jun 25, 2017 11:24
--- NOTE | 2017-06-25 14:02 | CONS ---
Date/Time of Note Date/Time of Note DATE: 06/25/17 TIME: 14:00 Assessment/Plan Assessment/Plan Chief Complaint/Hosp Course Impression: 1. History of cholelithiasis and cholecystitis:status post laparoscopic cholecystectomy on 03/31/2017 at an outside facility complicated by possible bile duct injury(see HPI for more info) Also has possible pancreatitis however her Lipase is unchanged from 5 weeks ago 2. acute renal failure due to volume depletion. 3. Elevated transaminases, secondary to above 4. E. coli UTI Recommendations: 1. advance diet as tolerated up to low fat diet 2. treat E. coli UTI 3. hepaticojejunostomy or other definitive surgery per Dr. Grande, which is tentatively scheduled Jun 29 4. continue antibiotics and other supportive therapy Problems: Consultation Date/Type/Reason Admit Date/Time Jun 23, 2017 at 19:42 Initial Consult Date 06/24/17 Type of Consultation: GI 24 HR Interval Summary Free Text/Dictation having nausea, less vomiting, reduced abdominal pain Exam/Review of Systems Vital Signs Vitals Vital Signs Date Time Temp Pulse Resp B/P Pulse Ox O2 Delivery O2 Flow Rate FiO2 06/25/17 07:20 98.3 87 18 103/59 98 06/23/17 23:36 Room Air Intake and Output 06/24/17 06/24/17 06/25/17 14:59 22:59 06:59 Intake Total 1400 ml 1690 ml Output Total 800 ml 900 ml Balance 600 ml 790 ml Exam Constitutional: alert, oriented, well developed Psych: nl mood/affect, no complaints Head: atraumatic, normocephalic Eyes: EOMI, nl conjunctiva, nl lids, nl sclera ENMT: mucosa pink and moist, nl external ears & nose, nl lips & teeth, nl nasal mucosa & septum Neck: non-tender, supple Respiratory: clear to auscultation, normal air movement Cardiovascular: nl pulses, regular rate and rhythm Gastrointestinal: bowel sounds, soft, tender (mild epigastric) Results Result Diagram: 06/25/17 0503 06/25/17 0503 Results 24 hrs Laboratory Tests Test 06/25/17 05:03 White Blood Count 5.7 Red Blood Count 3.76 L Hemoglobin 10.9 L Hematocrit 31.9 L Mean Corpuscular Volume 84.8 Mean Corpuscular Hemoglobin 29.0 Mean Corpuscular Hemoglobin Concent 34.2 Red Cell Distribution Width 15.6 H Platelet Count 228 Mean Platelet Volume 9.7 Neutrophils % 63.7 Lymphocytes % 24.9 Monocytes % 7.2 Eosinophils % 3.3 Basophils % 0.2 Nucleated Red Blood Cells % 0.0 Neutrophils # (Manual) 3.6 Lymphocytes # 1.4 Monocytes # 0.4 Eosinophils # 0.2 Basophils # 0.0 Nucleated Red Blood Cells # 0.0 Sodium Level 137 Potassium Level 3.7 Chloride Level 112 H Carbon Dioxide Level 18 L Anion Gap 11 Blood Urea Nitrogen 8 Creatinine 0.82 Glucose Level 79 Calcium Level 7.8 L Total Bilirubin 0.0 L Direct Bilirubin 0.00 Indirect Bilirubin 0.0 Aspartate Amino Transf (AST/SGOT) 64 H Alanine Aminotransferase (ALT/SGPT) 184 H Alkaline Phosphatase 240 H Total Protein 5.2 L Albumin 2.8 L Globulin 2.40 Albumin/Globulin Ratio 1.16 Medications Medications Current Medications Hydromorphone HCl 1 mg 1 mg Q4H PRN IV PAIN Last administered on 06/25/17 10:35 ; Admin Dose 1 MG; Start 06/24/17 at 00:30 Ceftriaxone Sodium (Rocephin) 50 ml @ 100 mls/hr Q24H IVPB Last administered on 06/25/17 01:22; Admin Dose 100 MLS/HR; Start 06/24/17 at 01:00 Ondansetron HCl (Zofran Inj) 4 mg Q6H PRN IV NAUSEA AND/OR VOMITING Last administered on 06/25/17 06:37; Admin Dose 4 MG; Start 06/24/17 at 00:30 Famotidine (Pepcid) 20 mg DAILY PO Last administered on 06/25/17 08:17; Admin Dose 20 MG; Start 06/24/17 at 09:00 Acetaminophen 500 mg 500 mg Q6H PRN PO PAIN AND OR ELEVATED TEMP Last administered on 06/25/17 06:37; Admin Dose 500 MG; Start 06/24/17 at 00:30 Sodium Chloride (NS) 1,000 ml @ 80 mls/hr [id number] IV Last administered on 02:48; Admin Dose 80 MLS/HR; Start 06/24/17 at 14:30 CRISTINE MERRITT MD Jun 25, 2017 14:02
--- NOTE | 2017-06-25 14:44 | PN ---
Date/Time of Note Date/Time of Note DATE: 06/25/17 TIME: 14:38 Assessment/Plan VTE Prophylaxis VTE Prophylaxis Intervention: SCD's Lines/Catheters IV [facility]atheter Type (from [facility]): Peripheral IV Urinary Cath still in place: No Assessment/Plan Chief Complaint/Hosp Course Impression and plan 1. Pancreatitis. Continue IV hydration. Continue analgesics as needed. Improving 2. History of cholelithiasis and cholecystitis. The patient is status post arthroscopic cholecystectomy on March 31, 2017 with suspect complicated bile duct injury. tentative plan for surgical intervention 06/29/17 3. Acute renal insufficiency. improved. monitor renal panel 4. Anion gap metabolic acidosis. improved. continue to monitor dispo/plan: continue with analgesics. abx for uti. plan for surgical intervention 06/29/17 Discussed plan of care with Dr. Freitas Problems: Subjective 24 Hr Interval Summary Free Text/Dictation no s/s of distress . less reported pain Exam/Review of Systems Vital Signs Vitals Vital Signs Date Time Temp Pulse Resp B/P Pulse Ox O2 Delivery O2 Flow Rate FiO2 06/25/17 07:20 98.3 87 18 103/59 98 06/23/17 23:36 Room Air Intake and Output 06/24/17 06/24/17 06/25/17 15:00 23:00 07:00 Intake Total 1400 ml 1690 ml Output Total 800 ml 900 ml Balance 600 ml 790 ml Exam Constitutional: alert, oriented Eyes: other Neck: No jvd Respiratory: clear to auscultation, normal air movement Cardiovascular: regular rate and rhythm Gastrointestinal: other (Drain noted on right flank), soft, tender Neurological: HOUSE DETECTIVE II-XII intact, nl mental status, nl speech Results Result Diagram: 06/25/17 0503 06/25/17 0503 Results 24 hrs Laboratory Tests Test 06/25/17 05:03 White Blood Count 5.7 Red Blood Count 3.76 L Hemoglobin 10.9 L Hematocrit 31.9 L Mean Corpuscular Volume 84.8 Mean Corpuscular Hemoglobin 29.0 Mean Corpuscular Hemoglobin Concent 34.2 Red Cell Distribution Width 15.6 H Platelet Count 228 Mean Platelet Volume 9.7 Neutrophils % 63.7 Lymphocytes % 24.9 Monocytes % 7.2 Eosinophils % 3.3 Basophils % 0.2 Nucleated Red Blood Cells % 0.0 Neutrophils # (Manual) 3.6 Lymphocytes # 1.4 Monocytes # 0.4 Eosinophils # 0.2 Basophils # 0.0 Nucleated Red Blood Cells # 0.0 Sodium Level 137 Potassium Level 3.7 Chloride Level 112 H Carbon Dioxide Level 18 L Anion Gap 11 Blood Urea Nitrogen 8 Creatinine 0.82 Glucose Level 79 Calcium Level 7.8 L Total Bilirubin 0.0 L Direct Bilirubin 0.00 Indirect Bilirubin 0.0 Aspartate Amino Transf (AST/SGOT) 64 H Alanine Aminotransferase (ALT/SGPT) 184 H Alkaline Phosphatase 240 H Total Protein 5.2 L Albumin 2.8 L Globulin 2.40 Albumin/Globulin Ratio 1.16 Medications Medications Current Medications Hydromorphone HCl 1 mg 1 mg Q4H PRN IV PAIN Last administered on 06/25/17 10:35 ; Admin Dose 1 MG; Start 06/24/17 at 00:30 Ceftriaxone Sodium (Rocephin) 50 ml @ 100 mls/hr Q24H IVPB Last administered on 06/25/17 01:22; Admin Dose 100 MLS/HR; Start 06/24/17 at 01:00 Ondansetron HCl (Zofran Inj) 4 mg Q6H PRN IV NAUSEA AND/OR VOMITING Last administered on 06/25/17 06:37; Admin Dose 4 MG; Start 06/24/17 at 00:30 Famotidine (Pepcid) 20 mg DAILY PO Last administered on 06/25/17 08:17; Admin Dose 20 MG; Start 06/24/17 at 09:00 Acetaminophen 500 mg 500 mg Q6H PRN PO PAIN AND OR ELEVATED TEMP Last administered on 06/25/17 06:37; Admin Dose 500 MG; Start 06/24/17 at 00:30 Sodium Chloride (NS) 1,000 ml @ 80 mls/hr [id number] IV Last administered on 02:48; Admin Dose 80 MLS/HR; Start 06/24/17 at 14:30 MILES NOLASCO Jun 25, 2017 14:44
[2017-06-25 15:32] VITALS: BP 108/62; RESP 20
[2017-06-25 19:10] VITALS: BP 105/60; RESP 17
[2017-06-26] MEDS: CEFTRIAXONE 1 GM/50 ML (PMX) 50 ML IVPB SCH (01:30)
[2017-06-26 02:28] VITALS: BP 115/67; RESP 18
[2017-06-26] MEDS: ONDANSETRON 4 MG INJ IV PRN (02:41)
[2017-06-26] MEDS: HYDROmorphONE 1 MG/ML SYG IV PRN ×6 (02:42→22:22)
[2017-06-26] MEDS: SOD CHLORIDE 0.9% 1,000 ML IV SCH ×3 (05:33→22:26)
[2017-06-26 06:27] LABS: BASOPHILS % 0.3 % (0.0-2.0); EOSINOPHILS # 0.3 10^3/ul (0.0-0.5); EOSINOPHILS % 4.1 % (0.0-7.0); HEMATOCRIT 32.2 % (37.0-47.0); HEMOGLOBIN 10.7 g/dl (12.0-16.0); LYMPHOCYTES # 1.6 10^3/ul (0.8-2.9); LYMPHOCYTES % 21.4 % (15.0-51.0); MEAN CORPUSCULAR HEMOGLOBIN 27.9 pg (29.0-33.0); MEAN CORPUSCULAR HGB CONC 33.2 g/dl (32.0-37.0); MEAN CORPUSCULAR VOLUME 84.1 fl (82.0-101.0); MEAN PLATELET VOLUME 10.2 fl (7.4-10.4); MONOCYTE # 0.4 10^3/ul (0.3-0.9); MONOCYTES % 5.8 % (0.0-11.0); PLATELET COUNT 246 10^3/UL (140-415); RED BLOOD COUNT 3.83 10^6/ul (4.20-5.40); RED CELL DISTRIBUTION WIDTH 15.8 % (11.5-14.5); WHITE BLOOD COUNT 7.3 10^3/ul (4.8-10.8)
[2017-06-26 06:41] LABS: INR 1.23; PARTIAL THROMBOPLASTIN TIME 27.8 Sec (25.0-35.0); PROTIME 15.6 Sec (12.2-14.2); PT RATIO 1.2
[2017-06-26 06:56] LABS: ALBUMIN 2.6 g/dl (3.3-4.9); ALBUMIN/GLOBULIN RATIO 1.04; CALCIUM 7.7 mg/dl (8.4-10.2); CREATININE 0.69 mg/dl (0.44-1.00); MAGNESIUM 1.3 mg/dl (1.7-2.5); PHOSPHORUS 3.2 mg/dl (2.5-4.9); POTASSIUM 3.4 mmol/L (3.5-5.1); TOTAL PROTEIN 5.1 g/dl (6.1-8.1)
[2017-06-26 07:00] VITALS: BP 100/58; RESP 18
[2017-06-26] MEDS: FAMOTIDINE 20 MG TAB PO SCH (09:10)
--- NOTE | 2017-06-26 10:38 | PN ---
Date/Time of Note Date/Time of Note DATE: 06/26/17 TIME: 10:37 Assessment/Plan VTE Prophylaxis VTE Prophylaxis Intervention: SCD's Lines/Catheters IV Catheter Type (from [facility]): Peripheral IV Urinary Cath still in place: No Assessment/Plan Chief Complaint/Hosp Course 1. History of cholelithiasis and cholecystitis. Status post laparoscopic cholecystectomy on 03/31/2017 at an outside facility complicated by possible bile duct injury. Status post ERCP on 04/03/2017. Status post laparoscopic washout on 04/10/2017 at [facility] by hepatobiliary surgery. Status post percutaneous CT-guided drain placement at [facility]. The patient currently has a drain in place. 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 The patient being followed by hepatobiliary surgery. Plan for hepaticojejunostomy. 2. Transaminitis. Most probably secondary to #1 . Monitor. Avoid hepatotoxic medications. 3. Acute kidney injury. Etiology unclear. Resolved. 4. Urinary tract infection. Urine culture positive for Klebsiella pneumoniae. Continue antimicrobials. 5. Metabolic acidosis. Etiology could be from underlying urinary tract infection along with worsening renal function with a component of mild pancreatitis. Resolved. 6. Fluids, electrolytes, and nutrition. Low cholesterol diet. 7. DVT prophylaxis. Bilateral sequential compression devices. 8. Gastrointestinal prophylaxis. H2 receptor antagonists. 9. Plan. Continue antimicrobials. Await surgical intervention. Replete potassium and magnesium. Case discussed with Dr. Jose. Problems: Subjective 24 Hr Interval Summary Free Text/Dictation Abdominal pain well controlled. Exam/Review of Systems Vital Signs Vitals Vital Signs Date Time Temp Pulse Resp B/P Pulse Ox O2 Delivery O2 Flow Rate FiO2 06/26/17 07:00 98.1 74 18 100/58 97 06/23/17 23:36 Room Air Intake and Output 06/25/17 06/25/17 06/26/17 15:00 23:00 07:00 Intake Total 920 ml 1600 ml Output Total 225 ml 250 ml 900 ml Balance -225 ml 670 ml 700 ml Exam General: Thin, frail looking 37 year-old female lying in bed in no apparent distress. HEENT: Normocephalic, atraumatic. Eyes: Anicteric sclerae, conjunctivae clear. ENT: Nasal septum midline, oral mucosa moist. Neck supple, no JVD noticed. Respiratory: Bilaterally clear breath sounds. No use of accessory muscles of respiration. No adventitious breath sounds. Cardiovascular: S1, S2 heard. No murmurs or gallops. Abdomen: Soft and nondistended. Bowel sounds positive in all 4 quadrants. Right -sided percutaneous drain in place. Diffuse tenderness. Genitourinary: Deferred. Extremities: No cyanosis, no clubbing, no edema. Peripheral pulses palpable. Neurologic: Cranial nerves II through XII grossly intact. The patient is awake, alert, and oriented. Skin: Normal skin turgor. No skin rashes. Results Result Diagram: 06/26/1752506/26/17525 Results 24 hrs Laboratory Tests Test 06/26/17 05:25 06/26/17 05:26 Prothrombin Time 15.6 H Prothrombin Time Ratio 1.2 INR International Normalized Ratio 1.23 Activated Partial Thromboplast Time 27.8 Lactic Acid Level 0.9 White Blood Count 7.3 # Red Blood Count 3.83 L Hemoglobin 10.7 L Hematocrit 32.2 L Mean Corpuscular Volume 84.1 Mean Corpuscular Hemoglobin 27.9 L Mean Corpuscular Hemoglobin Concent 33.2 Red Cell Distribution Width 15.8 H Platelet Count 246 Mean Platelet Volume 10.2 Neutrophils % 68.0 Lymphocytes % 21.4 Monocytes % 5.8 Eosinophils % 4.1 Basophils % 0.3 Nucleated Red Blood Cells % 0.0 Neutrophils # (Manual) 5.0 Lymphocytes # 1.6 Monocytes # 0.4 Eosinophils # 0.3 Basophils # 0.0 Nucleated Red Blood Cells # 0.0 Sodium Level 137 Potassium Level 3.4 L Chloride Level 110 Carbon Dioxide Level 20 L Anion Gap 10 Blood Urea Nitrogen 4 L Creatinine 0.69 Glucose Level 78 Calcium Level 7.7 L Phosphorus Level 3.2 Magnesium Level 1.3 L Total Bilirubin 0.0 L Direct Bilirubin 0.00 Indirect Bilirubin 0.0 Aspartate Amino Transf (AST/SGOT) 40 Alanine Aminotransferase (ALT/SGPT) 145 H Alkaline Phosphatase 232 H B-Type Natriuretic Peptide 708 H Total Protein 5.1 L Albumin 2.6 L Globulin 2.50 Albumin/Globulin Ratio 1.04 Medications Medications Current Medications Hydromorphone HCl 1 mg 1 mg Q4H PRN IV PAIN Last administered on 06/26/17 10:20 ; Admin Dose 1 MG; Start 06/24/17 at 00:30 Ceftriaxone Sodium (Rocephin) 50 ml @ 100 mls/hr Q24H IVPB Last administered on 06/26/17 01:30; Admin Dose 100 MLS/HR; Start 06/24/17 at 01:00 Ondansetron HCl (Zofran Inj) 4 mg Q6H PRN IV NAUSEA AND/OR VOMITING Last administered on 06/26/17 02:41; Admin Dose 4 MG; Start 06/24/17 at 00:30 Famotidine (Pepcid) 20 mg DAILY PO Last administered on 06/26/17 09:10; Admin Dose 20 MG; Start 06/24/17 at 09:00 Acetaminophen 500 mg 500 mg Q6H PRN PO PAIN AND OR ELEVATED TEMP Last administered on 06/25/17 06:37; Admin Dose 500 MG; Start 06/24/17 at 00:30 Sodium Chloride (NS) 1,000 ml @ 80 mls/hr [id number] IV Last administered on 05:33; Admin Dose 80 MLS/HR; Start 06/24/17 at 14:30 Potassium Chloride 30 meq 30 meq ONCE ONCE PO ; Start 06/26/17 at 11:00; Stop at 11:01; Status UNV Magnesium Sulfate/ Sodium Chloride (Magnesium Sulfate/NS) 106 ml @ 35.333 mls/ hr ONCE ONCE IVPB ; Start 06/26/17 at 11:00; Stop 06/26/17 at 13:59; Status UNV AMILCAR BRUSH [employer] SPECIALIST Jun 26, 2017 10:38
[2017-06-26] MEDS ORDERED: POTASSIUM CHLORIDE (SR) 10 MEQ TAB PO ONE (11:00)
--- NOTE | 2017-06-26 11:27 | CONS ---
Date/Time of Note Date/Time of Note DATE: 06/26/17 TIME: 11:26 Assessment/Plan Assessment/Plan Chief Complaint/Hosp Course Impression: 1. History of cholelithiasis and cholecystitis:status post laparoscopic cholecystectomy on 03/31/2017 at an outside facility complicated by possible bile duct injury(see HPI for more info) Also has possible pancreatitis however her Lipase is unchanged from 5 weeks ago 2. acute renal failure due to volume depletion. 3. Elevated transaminases, secondary to above 4. E. coli UTI Recommendations: 1. advance diet as tolerated up to low fat diet 2. treat E. coli UTI 3. hepaticojejunostomy or other definitive surgery per Dr. Grande, which is tentatively scheduled Jun 29 4. continue antibiotics and other supportive therapy 5. Dr. Mcconnell to resume care of this patient tomorrow. Problems: Consultation Date/Type/Reason Admit Date/Time Jun 23, 2017 at 19:42 Initial Consult Date 06/24/17 Type of Consultation: GI 24 HR Interval Summary Free Text/Dictation abdominal pain controlled, no n/v Constitutional: improved Exam/Review of Systems Vital Signs Vitals Vital Signs Date Time Temp Pulse Resp B/P Pulse Ox O2 Delivery O2 Flow Rate FiO2 06/26/17 07:00 98.1 74 18 100/58 97 06/23/17 23:36 Room Air Intake and Output 06/25/17 06/25/17 06/26/17 14:59 22:59 06:59 Intake Total 920 ml 1600 ml Output Total 225 ml 250 ml 900 ml Balance -225 ml 670 ml 700 ml Exam Constitutional: alert, oriented, well developed Psych: nl mood/affect, no complaints Head: atraumatic, normocephalic Eyes: EOMI, nl conjunctiva, nl lids ENMT: mucosa pink and moist, nl external ears & nose, nl lips & teeth, nl nasal mucosa & septum Neck: non-tender, supple Respiratory: clear to auscultation, normal air movement Cardiovascular: nl pulses, regular rate and rhythm Gastrointestinal: bowel sounds, non-tender, soft Results Result Diagram: 06/26/17 0526 06/26/17 05 Results 24 hrs Laboratory Tests Test 06/26/17 05:25 06/26/17 05:26 Prothrombin Time 15.6 H Prothrombin Time Ratio 1.2 INR International Normalized Ratio 1.23 Activated Partial Thromboplast Time 27.8 Lactic Acid Level 0.9 White Blood Count 7.3 # Red Blood Count 3.83 L Hemoglobin 10.7 L Hematocrit 32.2 L Mean Corpuscular Volume 84.1 Mean Corpuscular Hemoglobin 27.9 L Mean Corpuscular Hemoglobin Concent 33.2 Red Cell Distribution Width 15.8 H Platelet Count 246 Mean Platelet Volume 10.2 Neutrophils % 68.0 Lymphocytes % 21.4 Monocytes % 5.8 Eosinophils % 4.1 Basophils % 0.3 Nucleated Red Blood Cells % 0.0 Neutrophils # (Manual) 5.0 Lymphocytes # 1.6 Monocytes # 0.4 Eosinophils # 0.3 Basophils # 0.0 Nucleated Red Blood Cells # 0.0 Sodium Level 137 Potassium Level 3.4 L Chloride Level 110 Carbon Dioxide Level 20 L Anion Gap 10 Blood Urea Nitrogen 4 L Creatinine 0.69 Glucose Level 78 Calcium Level 7.7 L Phosphorus Level 3.2 Magnesium Level 1.3 L Total Bilirubin 0.0 L Direct Bilirubin 0.00 Indirect Bilirubin 0.0 Aspartate Amino Transf (AST/SGOT) 40 Alanine Aminotransferase (ALT/SGPT) 145 H Alkaline Phosphatase 232 H B-Type Natriuretic Peptide 708 H Total Protein 5.1 L Albumin 2.6 L Globulin 2.50 Albumin/Globulin Ratio 1.04 Medications Medications Current Medications Hydromorphone HCl 1 mg 1 mg Q4H PRN IV PAIN Last administered on 06/26/17 10:20 ; Admin Dose 1 MG; Start 06/24/17 at 00:30 Ceftriaxone Sodium (Rocephin) 50 ml @ 100 mls/hr Q24H IVPB Last administered on 06/26/17 01:30; Admin Dose 100 MLS/HR; Start 06/24/17 at 01:00 Ondansetron HCl (Zofran Inj) 4 mg Q6H PRN IV NAUSEA AND/OR VOMITING Last administered on 06/26/17 02:41; Admin Dose 4 MG; Start 06/24/17 at 00:30 Famotidine (Pepcid) 20 mg DAILY PO Last administered on 06/26/17 09:10; Admin Dose 20 MG; Start 06/24/17 at 09:00 Acetaminophen 500 mg 500 mg Q6H PRN PO PAIN AND OR ELEVATED TEMP Last administered on 06/25/17 06:37; Admin Dose 500 MG; Start 06/24/17 at 00:30 Sodium Chloride 1,000 ml @ 80 mls/hr [id number] IV Last administered on 06/26/17t 05:33; Admin Dose 80 MLS/HR; Start 06/24/17 at 14:30 Magnesium Sulfate/ Sodium Chloride (Magnesium Sulfate/NS) 106 ml @ 35.333 mls/ hr ONCE ONCE IVPB ; Start 06/26/17 at 11:30; Stop 06/26/17 at 14:29 CRISTINE MERRITT MD Jun 26, 2017 11:27
[2017-06-26] MEDS ORDERED: MAGNESIUM SULFATE 3 GM in SOD CHLORIDE 0.9% 100 ML IVPB ONE (11:30)
[2017-06-26 20:22] VITALS: BP 109/64; RESP 16
[2017-06-27] MEDS: CEFTRIAXONE 1 GM/50 ML (PMX) 50 ML IVPB SCH (00:37)
[2017-06-27 02:12] VITALS: BP 91/62; RESP 14
[2017-06-27] MEDS: HYDROmorphONE 1 MG/ML SYG IV PRN ×6 (02:24→22:29)
[2017-06-27] MEDS: ONDANSETRON 4 MG INJ IV PRN (02:24)
[2017-06-27] MEDS: SOD CHLORIDE 0.9% 1,000 ML IV SCH ×2 (05:00→18:20)
[2017-06-27 05:39] LABS: BASOPHILS % 0.3 % (0.0-2.0); EOSINOPHILS # 0.3 10^3/ul (0.0-0.5); EOSINOPHILS % 5.6 % (0.0-7.0); HEMATOCRIT 33.3 % (37.0-47.0); HEMOGLOBIN 11.3 g/dl (12.0-16.0); LYMPHOCYTES # 1.4 10^3/ul (0.8-2.9); LYMPHOCYTES % 24.8 % (15.0-51.0); MEAN CORPUSCULAR HEMOGLOBIN 28.7 pg (29.0-33.0); MEAN CORPUSCULAR HGB CONC 33.9 g/dl (32.0-37.0); MEAN CORPUSCULAR VOLUME 84.5 fl (82.0-101.0); MEAN PLATELET VOLUME 9.9 fl (7.4-10.4); MONOCYTE # 0.4 10^3/ul (0.3-0.9); MONOCYTES % 6.1 % (0.0-11.0); NEUTROPHILS % 62.7 % (39.0-77.0); PLATELET COUNT 240 10^3/UL (140-415); RED BLOOD COUNT 3.94 10^6/ul (4.20-5.40); RED CELL DISTRIBUTION WIDTH 15.5 % (11.5-14.5); WHITE BLOOD COUNT 5.7 10^3/ul (4.8-10.8)
[2017-06-27 05:58] LABS: AMYLASE 82 U/L (11-123)
[2017-06-27 06:00] LABS: ALBUMIN 2.8 g/dl (3.3-4.9); ALBUMIN/GLOBULIN RATIO 1.12; CALCIUM 8.2 mg/dl (8.4-10.2); CREATININE 0.69 mg/dl (0.44-1.00); TOTAL PROTEIN 5.3 g/dl (6.1-8.1)
[2017-06-27 06:03] LABS: MAGNESIUM 1.9 mg/dl (1.7-2.5); PHOSPHORUS 2.9 mg/dl (2.5-4.9)
[2017-06-27 07:41] VITALS: BP 106/56; RESP 19
[2017-06-27] MEDS: FAMOTIDINE 20 MG TAB PO SCH (09:04)
--- NOTE | 2017-06-27 09:05 | PN ---
Date/Time of Note Date/Time of Note DATE: 06/27/17 TIME: 09:05 Assessment/Plan VTE Prophylaxis VTE Prophylaxis Intervention: SCD's Lines/Catheters IV Catheter Type (from [facility]): Peripheral IV Urinary Cath still in place: No Assessment/Plan Chief Complaint/Hosp Course 1. History of cholelithiasis and cholecystitis. Status post laparoscopic cholecystectomy on 03/31/2017 at an outside facility complicated by possible bile duct injury. Status post ERCP on 04/03/2017. Status post laparoscopic washout on 04/10/2017 at [facility] by hepatobiliary surgery. Status post percutaneous CT-guided drain placement at [facility]. The patient currently has a drain in place. 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 The patient being followed by hepatobiliary surgery. Plan for hepaticojejunostomy. 2. Transaminitis. Most probably secondary to #1 . Monitor. Avoid hepatotoxic medications. 3. Acute kidney injury. Etiology unclear. Resolved. 4. Urinary tract infection. Urine culture positive for Klebsiella pneumoniae. Continue antimicrobials. 5. Metabolic acidosis. Etiology could be from underlying urinary tract infection along with worsening renal function with a component of mild pancreatitis. Resolved. 6. Fluids, electrolytes, and nutrition. Low cholesterol diet. 7. DVT prophylaxis. Bilateral sequential compression devices. 8. Gastrointestinal prophylaxis. H2 receptor antagonists. 9. Plan. Continue antimicrobials. Await surgical intervention. Case discussed with Dr. Jose. Problems: Subjective 24 Hr Interval Summary Free Text/Dictation Abdominal pain well controlled. Exam/Review of Systems Vital Signs Vitals Vital Signs Date Time Temp Pulse Resp B/P Pulse Ox O2 Delivery O2 Flow Rate FiO2 06/27/17 07:41 98.2 80 19 106/56 100 06/23/17 23:36 Room Air Intake and Output 06/26/17 06/26/17 06/27/17 15:00 23:00 07:00 Intake Total 2086 ml 1280 ml Output Total 650 ml 1550 ml Balance 1436 ml -270 ml Exam General: Thin, frail looking 37 year-old female lying in bed in no apparent distress. HEENT: Normocephalic, atraumatic. Eyes: Anicteric sclerae, conjunctivae clear. ENT: Nasal septum midline, oral mucosa moist. Neck supple, no JVD noticed. Respiratory: Bilaterally clear breath sounds. No use of accessory muscles of respiration. No adventitious breath sounds. Cardiovascular: S1, S2 heard. No murmurs or gallops. Abdomen: Soft and nondistended. Bowel sounds positive in all 4 quadrants. Right -sided percutaneous drain in place. Diffuse tenderness. Genitourinary: Deferred. Extremities: No cyanosis, no clubbing, no edema. Peripheral pulses palpable. Neurologic: Cranial nerves II through XII grossly intact. The patient is awake, alert, and oriented. Skin: Normal skin turgor. No skin rashes. Results Result Diagram: 06/27/17 0441 06/27/17440 Results 24 hrs Laboratory Tests Test 06/27/17 04:41 White Blood Count 5.7 # Red Blood Count 3.94 L Hemoglobin 11.3 L Hematocrit 33.3 L Mean Corpuscular Volume 84.5 Mean Corpuscular Hemoglobin 28.7 L Mean Corpuscular Hemoglobin Concent 33.9 Red Cell Distribution Width 15.5 H Platelet Count 240 Mean Platelet Volume 9.9 Neutrophils % 62.7 Lymphocytes % 24.8 Monocytes % 6.1 Eosinophils % 5.6 Basophils % 0.3 Nucleated Red Blood Cells % 0.0 Neutrophils # (Manual) 3.6 Lymphocytes # 1.4 Monocytes # 0.4 Eosinophils # 0.3 Basophils # 0.0 Nucleated Red Blood Cells # 0.0 Sodium Level 137 Potassium Level 4.0 Chloride Level 109 Carbon Dioxide Level 23 Anion Gap 9 Blood Urea Nitrogen 3 L Creatinine 0.69 Glucose Level 87 Calcium Level 8.2 L Phosphorus Level 2.9 Magnesium Level 1.9 Total Bilirubin 0.0 L Direct Bilirubin 0.00 Indirect Bilirubin 0.0 Aspartate Amino Transf (AST/SGOT) 30 Alanine Aminotransferase (ALT/SGPT) 122 H Alkaline Phosphatase 217 H Total Protein 5.3 L Albumin 2.8 L Globulin 2.50 Albumin/Globulin Ratio 1.12 Amylase Level 82 Lipase 116 Medications Medications Current Medications Hydromorphone HCl 1 mg 1 mg Q4H PRN IV PAIN Last administered on 06/27/17t 06:29 ; Admin Dose 1 MG; Start 06/24/17 at 00:30 Ceftriaxone Sodium (Rocephin) 50 ml @ 100 mls/hr Q24H IVPB Last administered on 06/27/17 00:37; Admin Dose 100 MLS/HR; Start 06/24/17 at 01:00 Ondansetron HCl (Zofran Inj) 4 mg Q6H PRN IV NAUSEA AND/OR VOMITING Last administered on 06/27/17 02:24; Admin Dose 4 MG; Start 06/24/17 at 00:30 Famotidine (Pepcid) 20 mg DAILY PO Last administered on 06/26/17 09:10; Admin Dose 20 MG; Start 06/24/17 at 09:00 Acetaminophen 500 mg 500 mg Q6H PRN PO PAIN AND OR ELEVATED TEMP Last administered on 06/25/17 06:37; Admin Dose 500 MG; Start 06/24/17 at 00:30 Sodium Chloride (NS) 1,000 ml @ 80 mls/hr [id number] IV Last administered on 22:26; Admin Dose 80 MLS/HR; Start 06/24/17 at 14:30 AMILCAR BRUSH ASSISTANT SURVEYOR Jun 27, 2017 09:05
--- NOTE | 2017-06-27 11:03 | PN ---
Date/Time of Note Date/Time of Note DATE: 06/27/17 TIME: 11:02 Assessment/Plan Lines/Catheters IV Catheter Type (from Nrs): Peripheral IV Matthew in Place (from Nrs): No Assessment/Plan Assessment/Plan [facility] Progress Note Date of Service: 06/26/17 Today's Impression & Plan: Overall stable and appears improved with essential normalization of all of her labs. Still with lower abdominal pain, likely from UTI. Will need more time with antimicrobials to medically stabilize prior to definitive hepaticojejunostomy scheduled on 06/29/17. Discussed with the patient and she appeared to understand and agreed with the plans. Also discussed with the team. Previous assessment that applies today: Readmitted due to E-coli UTI, lactic acidosis, acidemia, and pancreatitis, in the setting of transected CBD, awaiting definitive repair that is scheduled for 06/29 here at [facility]. Certainly enough reason to admit and treat inhouse. Given complexity of the clinical picture, recommend aggressive medical management until completely stabilized, followed by scheduled operation. I believe many of her clinical issues will resolve with above operation. With above assessment, I've recommended the following for today: 1. Continue current inhouse care 2. Continue treating E-coli 3. Monitor for pancreatitis 4. Continue regular low-fat diet 5. Keep in-house 6. Hepaticojejunostomy in 2 days Thank you again for your great care of this very pleasant patient and wonderful family. If there are any questions, please feel free to call me at [phone]. Nature of presenting problem: High severity Please note that, given the extensive number of diagnoses or management options , the extensive amount and/or complexity of data needed to be reviewed, and high risk of complications and/or morbidity or mortality, this qualifies as high complexity type of decision-making. Disclaimer: Inadvertent spelling and grammatical errors are likely due to EHR/ dictation software use and do not reflect on the quality of delivered patient care. Also, please note that the electronic time recorded on this node does not necessarily reflect the actual time of the visit. Updated Clinical Summary: The patient is a very pleasant 37-year-old young lady who was transferred from an outside hospital to [facility] for management of possible bile duct injury. S/p percutaneous CT-guided drain placement above the liver with removal of 1.4 liters of bile in IR suite and more (2 liters) within first 24 hours post procedure. Drain output minimal 04/09/17. S/p lap washout and wide drainage at [facility]. The upper pigtail catheter and the 2 surgical drains d/c 'd on 04/14/17. Urinary retention issues requiring straight cath and Matthew insertion appeared resolved by 04/15/17. DC home 04/16/2017. 2 ER visits between discharge and the 2016 with no hospitalization. Readmitted as a transfer from outside hospital to [facility] 05/19/2017 with pancreatitis as well as urinary tract infection. Admitted to [facility] 05/18/2017. Admission white blood cell count 11.8. Creatinine 3.8. Alkaline phosphatase 547. Total bilirubin 1.1. Lipase 1724. Heart rate 122. Involved physicians included Adrian Oro MD and Maryellen Dolan MD. patient was treated with ceftazidime, vancomycin and metronidazole. CT scan abdomen and pelvis and 05/18/2017: No acute intra-abdominal abnormality appreciated on a limited noncontrast CT of the abdomen and pelvis. Evidence of cholecystectomy. Transhepatic drainage catheter terminating in the region of the gallbladder fossa. Due to persistently elevated amylase and lipase of unknown etiology, scheduled hepaticojejunostomy on 05/30/2017 was postponed to 06/08/2017. D/c'd from [facility] 06/01/17. Outpatient ERCP showed no obvious pancreas duct on 06/14/17. COMORBIDITIES: 1. Cholelithiasis and acute cholecystitis, status post laparoscopic cholecystectomy 03/31/2017 at [facility], complicated by possible bile duct injury, as shown by ERCP that was done after a HIDA scan showed possible bile leak, explaining the patient's continued pain and distention. The ERCP on 04/03/2017 showed clips across the distal common bile duct, without any contrast opacifying the liver. We accepted the patient as a transfer into [facility] bile duct injury program for a higher level of care. The patient arrived on 04/05/2017. 2. S/p percutaneous CT-guided drain placement above the liver with removal of 1.4 liters of bile in IR suite and more immediately post procedure. 3. S/p lap washout and wide drainage at [facility]. Subjective: No major events or complaints overnight; reports feeling okay, and still with mild lower abd pain, seemingly under control with medications; no current n/v/d ; no sob or cp; + flatus; + BM; + activity. Objective: Vitals: See below Exam: GENERAL: On exam, the patient was laying in bed and appeared to be comfortable and in no acute distress. ABDOMEN: Soft, nontender. Incisions are clean, dry and intact without any evidence of erythema, edema, discharge, or hernia. Pigtail catheter with bilious output. There are no peritoneal signs or guarding. SKIN: Skin appears to be pink and feels warm to touch. NEUROLOGIC: Patient is awake, alert, and follows commands appropriately. Exam/Review of Systems Vital Signs Vitals Vital Signs Date Time Temp Pulse Resp B/P Pulse Ox O2 Delivery O2 Flow Rate FiO2 06/27/17 07:41 98.2 80 19 106/56 100 06/23/17 23:36 Room Air Intake and Output 06/26/17 06/26/17 06/27/17 15:00 23:00 07:00 Intake Total 2086 ml 1280 ml Output Total 650 ml 1550 ml Balance 1436 ml -270 ml Results Result Diagram: 06/27/17 0441 06/27/17 0441 LENA MONCADA M.D. Jun 27, 2017 11:03
[2017-06-27 13:43] VITALS: BP 98/57; RESP 18
--- NOTE | 2017-06-27 19:17 | PN ---
Date/Time of Note Date/Time of Note DATE: 06/27/17 TIME: 19:12 Assessment/Plan VTE Prophylaxis VTE Prophylaxis Intervention: SCD's Lines/Catheters IV Catheter Type (from [facility]): Peripheral IV Urinary Cath still in place: No Assessment/Plan Assessment/Plan Assessment: * CBD transsection awaiting/choledochojejunostomy * Unexplained episode of pancreatitis/persistent elevation of lipase/no active pancreatitis is present * Acute renal failure secondary to dehydration and volume depletion * E. coli UTI Plan: * Continue present regimen * Surgery planned for 06/29/2017 * Will follow as needed and upon request Subjective: Course reviewed with nursing staff Patient interviewed and examined All labs, imaging and other results reviewed The patient reports feeling better Awaiting surgery, no GI complaints Exam: General: well developed, under nourished, alert and oriented x3 , in no acute distress Skin: No lesions, no stigmata chronic liver disease, no evidence of bleeding diathesis Lymphatic: No palpable lymphadenopathy HEENT: No lesions Cardiovascular: Heart: Regular rate and rhythm, no murmurs, gallops or rubs. Peripheral pulses present within normal limits, no cyanosis, clubbing or edemas. No pulsatile abdominal mass Respiratory: Lungs clear to auscultation and percussion, no wheezing, no rubs Gastrointestinal and Liver: Abdomen: Soft, non tender, non-distended, no hernias , no masses, no organomegaly, no ascites, no guarding, no rebound tenderness, normoactive bowel sounds. Extremities: No cyanosis, clubbing, or edema. Diagnostic Studies: Available data and images were reviewed personally. See reports. Significant results and findings are addressed here or in the assessment and plan. Exam/Review of Systems Vital Signs Vitals Vital Signs Date Time Temp Pulse Resp B/P Pulse Ox O2 Delivery O2 Flow Rate FiO2 06/27/17 13:43 97.9 81 18 98/57 97 06/23/17 23:36 Room Air Intake and Output 06/26/17 06/26/17 06/27/17 15:00 23:00 07:00 Intake Total 2086 ml 1280 ml Output Total 650 ml 1550 ml Balance 1436 ml -270 ml Results Result Diagram: 06/27/17 0441 06/27/17 0441 Results 24 hrs Laboratory Tests Test 06/27/17 04:41 White Blood Count 5.7 # Red Blood Count 3.94 L Hemoglobin 11.3 L Hematocrit 33.3 L Mean Corpuscular Volume 84.5 Mean Corpuscular Hemoglobin 28.7 L Mean Corpuscular Hemoglobin Concent 33.9 Red Cell Distribution Width 15.5 H Platelet Count 240 Mean Platelet Volume 9.9 Neutrophils % 62.7 Lymphocytes % 24.8 Monocytes % 6.1 Eosinophils % 5.6 Basophils % 0.3 Nucleated Red Blood Cells % 0.0 Neutrophils # (Manual) 3.6 Lymphocytes # 1.4 Monocytes # 0.4 Eosinophils # 0.3 Basophils # 0.0 Nucleated Red Blood Cells # 0.0 Sodium Level 137 Potassium Level 4.0 Chloride Level 109 Carbon Dioxide Level 23 Anion Gap 9 Blood Urea Nitrogen 3 L Creatinine 0.69 Glucose Level 87 Calcium Level 8.2 L Phosphorus Level 2.9 Magnesium Level 1.9 Total Bilirubin 0.0 L Direct Bilirubin 0.00 Indirect Bilirubin 0.0 Aspartate Amino Transf (AST/SGOT) 30 Alanine Aminotransferase (ALT/SGPT) 122 H Alkaline Phosphatase 217 H Total Protein 5.3 L Albumin 2.8 L Globulin 2.50 Albumin/Globulin Ratio 1.12 Amylase Level 82 Lipase 116 Medications Medications Current Medications Hydromorphone HCl 1 mg 1 mg Q4H PRN IV PAIN Last administered on 06/27/17 18:20 ; Admin Dose 1 MG; Start 06/24/17 at 00:30 Ceftriaxone Sodium (Rocephin) 50 ml @ 100 mls/hr Q24H IVPB Last administered on 06/27/17 00:37; Admin Dose 100 MLS/HR; Start 06/24/17 at 01:00 Ondansetron HCl (Zofran Inj) 4 mg Q6H PRN IV NAUSEA AND/OR VOMITING Last administered on 06/27/17 02:24; Admin Dose 4 MG; Start 06/24/17 at 00:30 Famotidine (Pepcid) 20 mg DAILY PO Last administered on 06/27/17 09:04; Admin Dose 20 MG; Start 06/24/17 at 09:00 Acetaminophen 500 mg 500 mg Q6H PRN PO PAIN AND OR ELEVATED TEMP Last administered on 06/25/17 06:37; Admin Dose 500 MG; Start 06/24/17 at 00:30 Sodium Chloride (NS) 1,000 ml @ 80 mls/hr [id number] IV Last administered on t 18:20; Admin Dose 80 MLS/HR; Start 06/24/17 at 14:30 SHERINE DOBSON MD Jun 27, 2017 19:17
[2017-06-27 20:00] VITALS: BP 107/64; PULSE 77; RESP 18
[2017-06-28] MEDS: CEFTRIAXONE 1 GM/50 ML (PMX) 50 ML IVPB SCH (00:55)
[2017-06-28 02:05] VITALS: BP 104/63; RESP 18
[2017-06-28] MEDS: HYDROmorphONE 1 MG/ML SYG IV PRN ×6 (02:39→22:30)
[2017-06-28] MEDS: SOD CHLORIDE 0.9% 1,000 ML IV SCH ×2 (05:31→16:48)
[2017-06-28 05:36] LABS: BASOPHILS % 0.6 % (0.0-2.0); EOSINOPHILS # 0.4 10^3/ul (0.0-0.5); EOSINOPHILS % 7.2 % (0.0-7.0); HEMATOCRIT 29.3 % (37.0-47.0); LYMPHOCYTES # 1.8 10^3/ul (0.8-2.9); MEAN CORPUSCULAR HEMOGLOBIN 29.2 pg (29.0-33.0); MEAN CORPUSCULAR HGB CONC 34.1 g/dl (32.0-37.0); MEAN CORPUSCULAR VOLUME 85.4 fl (82.0-101.0); MEAN PLATELET VOLUME 9.8 fl (7.4-10.4); MONOCYTE # 0.4 10^3/ul (0.3-0.9); MONOCYTES % 7.8 % (0.0-11.0); PLATELET COUNT 214 10^3/UL (140-415); RED BLOOD COUNT 3.43 10^6/ul (4.20-5.40); RED CELL DISTRIBUTION WIDTH 15.6 % (11.5-14.5); WHITE BLOOD COUNT 5.3 10^3/ul (4.8-10.8)
[2017-06-28 06:04] LABS: ALBUMIN 2.2 g/dl (3.3-4.9); ALBUMIN/GLOBULIN RATIO 1.04; CALCIUM 7.9 mg/dl (8.4-10.2); CREATININE 0.63 mg/dl (0.44-1.00); POTASSIUM 3.7 mmol/L (3.5-5.1); TOTAL PROTEIN 4.3 g/dl (6.1-8.1)
[2017-06-28 06:14] LABS: MAGNESIUM 1.5 mg/dl (1.7-2.5)
[2017-06-28] MEDS: ONDANSETRON 4 MG INJ IV PRN (06:35)
[2017-06-28 07:00] VITALS: BP 101/55; RESP 20
[2017-06-28] MEDS: FAMOTIDINE 20 MG TAB PO SCH (08:37)
[2017-06-28] MEDS: ACETAMINOPHEN 500 MG TAB PO PRN ×2 (10:31→18:31)
--- NOTE | 2017-06-28 10:31 | PN ---
Date/Time of Note Date/Time of Note DATE: 06/28/17 TIME: 10:31 Assessment/Plan VTE Prophylaxis VTE Prophylaxis Intervention: SCD's Lines/Catheters IV [facility]ter Type (from [facility]): Peripheral IV Urinary Cath still in place: No Assessment/Plan Chief Complaint/Hosp Course 1. History of cholelithiasis and cholecystitis. Status post laparoscopic cholecystectomy on 03/31/2017 at an outside facility complicated by possible bile duct injury. Status post ERCP on 04/03/2017. Status post laparoscopic washout on 04/10/2017 at [facility] by hepatobiliary surgery. Status post percutaneous CT-guided drain placement at [facility]. The patient currently has a drain in place. 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 The patient being followed by hepatobiliary surgery. Plan for hepaticojejunostomy. 2. Transaminitis. Most probably secondary to #1 . Monitor. Avoid hepatotoxic medications. 3. Acute kidney injury. Etiology unclear. Resolved. 4. Urinary tract infection. Urine culture positive for Klebsiella pneumoniae. Continue antimicrobials. 5. Metabolic acidosis. Etiology could be from underlying urinary tract infection along with worsening renal function with a component of mild pancreatitis. Resolved. 6. Fluids, electrolytes, and nutrition. Low cholesterol diet. 7. DVT prophylaxis. Bilateral sequential compression devices. 8. Gastrointestinal prophylaxis. H2 receptor antagonists. 9. Plan. Replete magnesium. Continue antimicrobials. Await surgical intervention. Case discussed with Dr. Jose. Problems: Subjective 24 Hr Interval Summary Free Text/Dictation Remains afebrile. Exam/Review of Systems Vital Signs Vitals Vital Signs Date Time Temp Pulse Resp B/P Pulse Ox O2 Delivery O2 Flow Rate FiO2 06/28/17 07:00 98.0 80 20 101/55 96 06/27/17 20:00 Room Air Intake and Output 06/27/17 06/27/17 06/28/17 15:00 23:00 07:00 Intake Total 1700 ml 1700 ml Output Total 1600 ml 1850 ml Balance 100 ml -150 ml Exam General: Thin, frail looking 37 year-old female lying in bed in no apparent distress. HEENT: Normocephalic, atraumatic. Eyes: Anicteric sclerae, conjunctivae clear. ENT: Nasal septum midline, oral mucosa moist. Neck supple, no JVD noticed. Respiratory: Bilaterally clear breath sounds. No use of accessory muscles of respiration. No adventitious breath sounds. Cardiovascular: S1, S2 heard. No murmurs or gallops. Abdomen: Soft and nondistended. Bowel sounds positive in all 4 quadrants. Right -sided percutaneous drain in place. Diffuse tenderness. Genitourinary: Deferred. Extremities: No cyanosis, no clubbing, no edema. Peripheral pulses palpable. Neurologic: Cranial nerves II through XII grossly intact. The patient is awake, alert, and oriented. Skin: Normal skin turgor. No skin rashes. Results Result Diagram: 06/28/177 06/28/177 Results 24 hrs Laboratory Tests Test 06/28/17 04:57 White Blood Count 5.3 Red Blood Count 3.43 L Hemoglobin 10.0 L Hematocrit 29.3 L Mean Corpuscular Volume 85.4 Mean Corpuscular Hemoglobin 29.2 Mean Corpuscular Hemoglobin Concent 34.1 Red Cell Distribution Width 15.6 H Platelet Count 214 Mean Platelet Volume 9.8 Neutrophils % 49.0 Lymphocytes % 35.0 Monocytes % 7.8 Eosinophils % 7.2 H Basophils % 0.6 Nucleated Red Blood Cells % 0.0 Neutrophils # (Manual) 2.6 Lymphocytes # 1.8 Monocytes # 0.4 Eosinophils # 0.4 Basophils # 0.0 Nucleated Red Blood Cells # 0.0 Sodium Level 138 Potassium Level 3.7 Chloride Level 110 Carbon Dioxide Level 24 Anion Gap 8 Blood Urea Nitrogen 3 L Creatinine 0.63 Glucose Level 77 Calcium Level 7.9 L Phosphorus Level 3.0 Magnesium Level 1.5 L Total Bilirubin 0.0 L Direct Bilirubin 0.00 Indirect Bilirubin 0.0 Aspartate Amino Transf (AST/SGOT) 31 Alanine Aminotransferase (ALT/SGPT) 90 H Alkaline Phosphatase 173 H Total Protein 4.3 #L Albumin 2.2 L Globulin 2.10 Albumin/Globulin Ratio 1.04 Medications Medications Current Medications Hydromorphone HCl 1 mg 1 mg Q4H PRN IV PAIN Last administered on 06/28/17t 10:28 ; Admin Dose 1 MG; Start 06/24/17 at 00:30 Ceftriaxone Sodium (Rocephin) 50 ml @ 100 mls/hr Q24H IVPB Last administered on 06/28/17 00:55; Admin Dose 100 MLS/HR; Start 06/24/17 at 01:00 Ondansetron HCl (Zofran Inj) 4 mg Q6H PRN IV NAUSEA AND/OR VOMITING Last administered on 06/28/17 06:35; Admin Dose 4 MG; Start 06/24/17 at 00:30 Famotidine (Pepcid) 20 mg DAILY PO Last administered on 06/28/17 08:37; Admin Dose 20 MG; Start 06/24/17 at 09:00 Acetaminophen 500 mg 500 mg Q6H PRN PO PAIN AND OR ELEVATED TEMP Last administered on 06/25/17 06:37; Admin Dose 500 MG; Start 06/24/17 at 00:30 Sodium Chloride (NS) 1,000 ml @ 80 mls/hr [id number] IV Last administered on 05:31; Admin Dose 80 MLS/HR; Start 06/24/17 at 14:30 AMILCAR BRUSH NP Jun 28, 2017 10:31
[2017-06-28] MEDS ORDERED: MAGNESIUM SULFATE 2 GM/50 ML 50 ML IVPB SCH (12:00)
[2017-06-28 14:00] VITALS: BP 102/61; RESP 18
[2017-06-28 19:55] VITALS: BP 118/67; RESP 19
--- NOTE | 2017-06-28 21:09 | PN ---
Date/Time of Note Date/Time of Note DATE: 06/28/17 TIME: 21:07 Assessment/Plan Lines/Catheters IV Catheter Type (from Nrsg): Peripheral IV Matthew in Place (from Nrsg): No Assessment/Plan Assessment/Plan [facility] Progress Note Date of Service: 06/28/17 Today's Impression & Plan: Overall stable and appears improved with essential normalization of all of her labs. No further significant lower abdominal pain, indicating resolution of UTI. Appropriate time for definitive hepaticojejunostomy scheduled on 06/29/17. Discussed with the patient and she appeared to understand and agreed with the plans. Consented her for the operation. Previous assessment that applies today: Readmitted due to E-coli UTI, lactic acidosis, acidemia, and pancreatitis, in the setting of transected CBD, awaiting definitive repair that is scheduled for 06/29 here at [facility]. Certainly enough reason to admit and treat inhouse. Given complexity of the clinical picture, recommend aggressive medical management until completely stabilized, followed by scheduled operation. I believe many of her clinical issues will resolve with above operation. With above assessment, I've recommended the following for today: 1. NPO after midnight 2. Hepaticojejunostomy in am Thank you again for your great care of this very pleasant patient and wonderful family. If there are any questions, please feel free to call me at [phone]. Nature of presenting problem: High severity Please note that, given the extensive number of diagnoses or management options , the extensive amount and/or complexity of data needed to be reviewed, and high risk of complications and/or morbidity or mortality, this qualifies as high complexity type of decision-making. Disclaimer: Inadvertent spelling and grammatical errors are likely due to EHR/ dictation software use and do not reflect on the quality of delivered patient care. Also, please note that the electronic time recorded on this node does not necessarily reflect the actual time of the visit. Updated Clinical Summary: The patient is a very pleasant 37-year-old young lady who was transferred from an outside hospital to [facility] for management of possible bile duct injury. S/p percutaneous CT-guided drain placement above the liver with removal of 1.4 liters of bile in IR suite and more (2 liters) within first 24 hours post procedure. Drain output minimal 04/09/17. S/p lap washout and wide drainage at [facility]. The upper pigtail catheter and the 2 surgical drains d/c 'd on 04/14/17. Urinary retention issues requiring straight cath and Matthew insertion appeared resolved by 04/15/17. DC home 04/16/2017. 2 ER visits between discharge and the 2016 with no hospitalization. Readmitted as a transfer from outside hospital to [facility] 05/19/2017 with pancreatitis as well as urinary tract infection. Admitted to [facility] 05/18/2017. Admission white blood cell count 11.8. Creatinine 3.8. Alkaline phosphatase 547. Total bilirubin 1.1. Lipase 1724. Heart rate 122. Involved physicians included Adrian Oro MD and Maryellen Dloan MD. patient was treated with ceftazidime, vancomycin and metronidazole. CT scan abdomen and pelvis and 05/18/2017: No acute intra-abdominal abnormality appreciated on a limited noncontrast CT of the abdomen and pelvis. Evidence of cholecystectomy. Transhepatic drainage catheter terminating in the region of the gallbladder fossa. Due to persistently elevated amylase and lipase of unknown etiology, scheduled hepaticojejunostomy on 05/30/2017 was postponed to 06/08/2017. D/c'd from [facility] 06/01/17. Outpatient ERCP showed no obvious pancreas duct on 06/14/17. COMORBIDITIES: 1. Cholelithiasis and acute cholecystitis, status post laparoscopic cholecystectomy 03/31/2017 at [facility], complicated by possible bile duct injury, as shown by ERCP that was done after a HIDA scan showed possible bile leak, explaining the patient's continued pain and distention. The ERCP on 04/03/2017 showed clips across the distal common bile duct, without any contrast opacifying the liver. We accepted the patient as a transfer into [facility] bile duct injury program for a higher level of care. The patient arrived on 04/05/2017. 2. S/p percutaneous CT-guided drain placement above the liver with removal of 1.4 liters of bile in IR suite and more immediately post procedure. 3. S/p lap washout and wide drainage at [facility]. Subjective: No major events or complaints overnight; reports feeling okay, and no longer with lower abd pain; no current n/v/d; no sob or cp; + flatus; + BM; + activity. Objective: Vitals: See below Exam: GENERAL: On exam, the patient was laying in bed and appeared to be comfortable and in no acute distress. ABDOMEN: Soft, nontender. Incisions are clean, dry and intact without any evidence of erythema, edema, discharge, or hernia. Pigtail catheter with bilious output. There are no peritoneal signs or guarding. SKIN: Skin appears to be pink and feels warm to touch. NEUROLOGIC: Patient is awake, alert, and follows commands appropriately. Exam/Review of Systems Vital Signs Vitals Vital Signs Date Time Temp Pulse Resp B/P Pulse Ox O2 Delivery O2 Flow Rate FiO2 06/28/17 19:55 98.6 90 19 118/67 100 06/27/17 20:00 Room Air Intake and Output 06/27/17 06/27/17 06/28/17 15:00 23:00 07:00 Intake Total 1700 ml 1700 ml Output Total 1600 ml 1850 ml Balance 100 ml -150 ml Results Result Diagram: 06/28/17 0457 06/28/17 0457 LENA MONCADA M.D. Jun 28, 2017 21:09
[2017-06-29] VITALS (32 sets, daily range): BP systolic 92–134; BP diastolic 51–78; PULSE 100–127; RESP 17–20
[2017-06-29] MEDS: CEFTRIAXONE 1 GM/50 ML (PMX) 50 ML IVPB SCH (00:15)
[2017-06-29] MEDS: ONDANSETRON 4 MG INJ IV PRN (02:30)
[2017-06-29] MEDS: HYDROmorphONE 1 MG/ML SYG IV PRN ×3 (02:30→21:22)
[2017-06-29 05:33] LABS: BASOPHILS % 0.2 % (0.0-2.0); EOSINOPHILS # 0.4 10^3/ul (0.0-0.5); EOSINOPHILS % 8.6 % (0.0-7.0); HEMATOCRIT 31.2 % (37.0-47.0); HEMOGLOBIN 10.2 g/dl (12.0-16.0); LYMPHOCYTES # 1.5 10^3/ul (0.8-2.9); LYMPHOCYTES % 31.7 % (15.0-51.0); MEAN CORPUSCULAR HEMOGLOBIN 27.6 pg (29.0-33.0); MEAN CORPUSCULAR HGB CONC 32.7 g/dl (32.0-37.0); MEAN CORPUSCULAR VOLUME 84.3 fl (82.0-101.0); MEAN PLATELET VOLUME 10.1 fl (7.4-10.4); MONOCYTE # 0.4 10^3/ul (0.3-0.9); MONOCYTES % 8.2 % (0.0-11.0); NEUTROPHILS % 50.9 % (39.0-77.0); PLATELET COUNT 257 10^3/UL (140-415); RED CELL DISTRIBUTION WIDTH 15.6 % (11.5-14.5); WHITE BLOOD COUNT 4.8 10^3/ul (4.8-10.8)
[2017-06-29] MEDS: SOD CHLORIDE 0.9% 1,000 ML IV SCH (05:40)
[2017-06-29 05:53] LABS: ALBUMIN 2.7 g/dl (3.3-4.9); ALBUMIN/GLOBULIN RATIO 1.17; CREATININE 0.6 mg/dl (0.44-1.00); POTASSIUM 3.5 mmol/L (3.5-5.1)
[2017-06-29 05:55] LABS: AMYLASE 42 U/L (11-123)
[2017-06-29] MEDS ORDERED: BUPIVACAINE 0.25%/EPI (SDV) 30 ML INJ ONE (06:44)
[2017-06-29 06:56] LABS: MAGNESIUM 1.8 mg/dl (1.7-2.5); PHOSPHORUS 2.7 mg/dl (2.5-4.9)
[2017-06-29] MEDS ORDERED: CEFAZOLIN 1 GM INJ ONE (07:00)
[2017-06-29] MEDS ORDERED: BUPIVACAINE 0.25%/EPI (SDV) 30 ML INJ INJ ONE (07:05)
[2017-06-29] MEDS ORDERED: MIDAZOLAM 1 MG/ML 2 ML INJ ONE (07:35)
[2017-06-29] MEDS ORDERED: METOCLOPRAMIDE 10 MG INJ ONE (07:35)
[2017-06-29] MEDS ORDERED: PROPOFOL 20 ML ONE (07:35)
[2017-06-29] MEDS ORDERED: ROCURONIUM 50 MG INJ ONE ×2 (07:35→08:29)
[2017-06-29] MEDS ORDERED: HYDROmorphONE 2 MG/ML SYG ONE (07:35)
--- NOTE | 2017-06-29 07:44 | HPN ---
Date/Time of Note Date/Time of Note DATE: 06/29/17 TIME: 07:43 Interval H&P Admission Note Pt. seen H&P reviewed: No system changes Pt. seen H&P reviewed. No system changes (I attest that I have seen and examined the patient and reviewed the operation in detail, as well as its risks , benefits and alternatives of the operation). I attest that I have seen and examined the patient and reviewed in detail the operation, and its associated risks, benefits and alternative. I have answered all the patient's questions to the best of my ability and the patient wishes to proceed. Please refer to rest of electronic medical record for additional updates. LENA MONCADA M.D. Jun 29, 2017 07:44
[2017-06-29] MEDS ORDERED: PHENYLephrine (100 MCG/ML) 5ML SYG ONE ×3 (08:09→13:35)
[2017-06-29] MEDS ORDERED: ROPIVACAINE 0.2% 20 ML VIAL ONE (08:15)
[2017-06-29] MEDS ORDERED: EPHEDrine SULFATE 50 MG/5 ML SYG ONE (08:30)
[2017-06-29] MEDS: FAMOTIDINE 20 MG TAB PO SCH (09:00)
[2017-06-29] MEDS ORDERED: FENTAnyl 2MCG/ML-ROPIV 0.2% 100 ML ONE (10:00)
[2017-06-29] MEDS ORDERED: HYDROCODONE/APAP (5/325) TAB PO PRN ×3 (10:30→15:00)
[2017-06-29] MEDS ORDERED: HYDROmorphONE 1 MG/ML SYG IV PRN ×3 (10:30→15:00)
[2017-06-29] MEDS ORDERED: NALOXONE (0.4 MG/ML) INJ IV PRN (10:30)
[2017-06-29] MEDS ORDERED: DIPHENHYDRAMINE 50 MG INJ IV PRN ×2 (10:30→12:30)
[2017-06-29] MEDS ORDERED: ONDANSETRON 4 MG INJ IV PRN ×2 (10:30→12:30)
[2017-06-29] MEDS ORDERED: ESMOLOL 10 ML ONE (11:11)
[2017-06-29] MEDS ORDERED: METOCLOPRAMIDE 10 MG INJ IV PRN (12:30)
[2017-06-29] MEDS ORDERED: MEPERIDINE 25 MG INJ IV PRN ×2 (12:30→20:00)
[2017-06-29] MEDS ORDERED: HYDROmorphONE (0.2 MG/ML) 10ML SYG IV PRN ×2 (12:30)
[2017-06-29] MEDS ORDERED: EPHEDrine SULFATE 50 MG/5 ML SYG IV PRN (12:30)
[2017-06-29] MEDS ORDERED: ONDANSETRON 4 MG INJ ONE (13:59)
[2017-06-29] MEDS ORDERED: METOPROLOL 5 MG INJ ONE (14:21)
[2017-06-29] MEDS ORDERED: NEOSTIGMINE 3 MG/3 ML SYRINGE ONE (14:23)
[2017-06-29] MEDS ORDERED: FENTAnyl 50 MCG/ML VIAL ONE (14:42)
[2017-06-29] MEDS ORDERED: NA PHOSPHATE/BIPHOS 133 ML ENEMA PR PRN (15:00)
[2017-06-29] MEDS ORDERED: BISACODYL 10 MG SUPP PR PRN (15:00)
[2017-06-29] MEDS: FENTAnyl 2MCG/ML-ROPIV 0.2% 100 ML BAG EPI SCH ×2 (15:15→18:23)
[2017-06-29] MEDS: HYDROmorphONE (0.2 MG/ML) 10ML SYG IV PRN ×3 (15:22→16:04)
--- NOTE | 2017-06-29 15:35 | OPR ---
Date/Time of Note Date/Time of Note DATE: 06/29/17 TIME: 15:35 Operative Report Operative\Procedure Findings [facility] INPATIENT OPERATIVE NOTE PLACE OF SERVICE: [facility] DATE OF SURGERY: 06/29/2017 PREOPERATIVE DIAGNOSIS: 1. Cholelithiasis and acute cholecystitis, status post laparoscopic [place]ole[place]31[place]2017 [place] [facility] [place] complicated by bile duct injury; ERCP done on 04/03/2017 after a HIDA scan confirming a bile leak showed clips across the distal common bile duct, without any contrast opacifying the liver. We accepted the patient as a transfer into [facility] bile duct injury program for a higher level of care. The patient arrived on 04/05/2017. 2. S/p percutaneous CT-guided drain placement above the liver with removal of 1.4 liters of bile in IR suite and more immediately post procedure. 3. S/p lap washout and wide drainage at [facility]. POSTOPERATIVE DIAGNOSIS: 1. Cholelithiasis and acute cholecystitis, status post laparoscopic cholecystectomy 03[place]31/2017 at [facility] [place], complicated by bile duct injury; ERCP done on 04/03/2017 after a HIDA scan confirming a bile leak showed clips across the distal common bile duct, without any contrast opacifying the liver. We accepted the patient as a transfer into [facility] bile duct injury program for a higher level of care. The patient arrived on 04/05/2017. 2. S/p percutaneous CT-guided drain placement above the liver with removal of 1.4 liters of bile in IR suite and more immediately post procedure. 3. S/p lap washout and wide drainage at [facility]. 4. Confirmation of complete transection of common bile duct OPERATION: 1. Open Donovan-en-Y hepaticojejunostomy 2. Extensive lysis of adhesions 3. Abdominal lavage 4. Placement of percutaneous transhepatic cholangiography tube on the left 5. Placement of percutaneous transhepatic cholangiography tube on the right SURGEON: Lena Moncada M.D. HAIR PREPARER: SUSAN Ramsey ANESTHESIA: General endotracheal tube anesthesia ANESTHESIOLOGIST: Gildardo Elliott M.D. BRIEF SUMMARY: An otherwise uncomplicated Donovan-en-Y hepaticojejunostomy was performed with findings of complete transection of common bile duct with presence of 14 surgical clips, 12 of which were removed during the process of the operation and two of which were left behind on the distal bile duct. Updated Clinical Summary: The patient is a very pleasant 37-year-old young lady who was transferred from an outside hospital to [facility] for management of possible bile duct injury. S/p percutaneous CT-guided drain placement above the liver with removal of 1.4 liters of bile in IR suite and more (2 liters) within first 24 hours post procedure. Drain output minimal 04/09/17. S/p lap washout and wide drainage at [facility]. The upper pigtail catheter and the 2 surgical drains d/c 'd on 04/14/17. Urinary retention issues requiring straight cath and Matthew insertion appeared resolved by 04/15/17. DC home 04/16/2017. 2 ER visits between discharge and the 2016 with no hospitalization. Readmitted as a transfer from outside hospital to [facility] 05/19/2017 with pancreatitis as well as urinary tract infection. Admitted to [facility] 05/18/2017. Admission white blood cell count 11.8. Creatinine 3.8. Alkaline phosphatase 547. Total bilirubin 1.1. Lipase 1724. Heart rate 122. Involved physicians included Adrian Oro MD and Maryellen Dolan MD. patient was treated with ceftazidime, vancomycin and metronidazole. CT scan abdomen and pelvis and 05/18/2017: No acute intra-abdominal abnormality appreciated on a limited noncontrast CT of the abdomen and pelvis. Evidence of cholecystectomy. Transhepatic drainage catheter terminating in the region of the gallbladder fossa. Due to persistently elevated amylase and lipase of unknown etiology, scheduled hepaticojejunostomy on 05/30/2017 was postponed to 06/08/2017. D/c'd from [facility] 06/01/17. Outpatient ERCP showed no obvious pancreas duct on 06/14/17. Readmitted 06/23/17 to [facility] for urinary tract infection. COMORBIDITIES: 1. Cholelithiasis and acute cholecystitis, status post laparoscopic cholecystectomy 03[place]31/2017 at [facility] [place] complicated by possible bile duct injury, as shown by ERCP that was done after a HIDA scan showed possible bile leak, explaining the patient's continued pain and distention. The ERCP on 04/03/2017 showed clips across the distal common bile duct, without any contrast opacifying the liver. We accepted the patient as a transfer into [facility] bile duct injury program for a higher level of care. The patient arrived on 04/05/2017. 2. S/p percutaneous CT-guided drain placement above the liver with removal of 1.4 liters of bile in IR suite and more immediately post procedure. 3. S/p lap washout and wide drainage at [facility]. BRIEF HISTORY: The patient is a very pleasant 37-year-old young lady with above- mentioned history whom we were kindly asked to get involved to repair the bile duct injury that she had after undergoing laparoscopic cholecystectomy as outlined above. Patient had a long hospital course and multiple admissions until she became medically stable for the operation. I met with the patient and family and counseled them regarding the possible options of treatment, and I strongly suggested a Donovan-en-Y hepaticojejunostomy. Note that this was done through multiple hospitalizations and through multiple different discussions. We reviewed the operation in detail as well as the risks, benefits, alternatives , and expected outcomes of this operation. After careful consideration of all the risks, benefits, and alternatives, the patient and family appeared to understand those risks and wished to proceed with surgery. For a detailed report of my consultation with patient and family, please refer to my separate consultation note. STATEMENT OF THE INFORMED CONSENT: The patient and family appeared to understand the risks of the operation to include, but not be limited to risk of postoperative pain and scar tissue, possible infection or bleeding requiring other interventions such as opening the wound, placement of drainage catheters, or other operative interventions; possible injury to surrounding to structures including bowel, bladder, bile duct, or blood vessels, or solid organs such as liver, kidney, or pancreas requiring other interventions or procedures; possible leakage of bowel from anastomotic sites or suture lines causing significant increase in morbidity and mortality and requiring multiple interventions including but not limited to, placement of drainage catheters, imaging studies, as well as operative interventions; possible other source of sepsis such as urinary tract infections or pneumonias, or other sources of potentially life threatening problems such as deep venous thrombus formation causing pulmonary embolism, myocardial arrhythmias and infarctions, and even . We also briefly discussed the potential need to receive blood products and their potential complications of blood transfusion reactions, transmission of infections, or other complications. After careful consideration of all their options, the patient and family appeared to understand and wished to proceed with surgery. DESCRIPTION OF PROCEDURE: After obtaining informed consent, the patient was brought into the operating room and was placed in a normal supine position, where successful general endotracheal tube anesthesia was performed. Intravenous access was already in place and intravenous antimicrobials had been appropriately chosen and dosed prior to the operation. The patient's abdominal skin was prepped and draped from the nipple line down to the level of the upper thighs in the usual sterile fashion. We then called a surgical time-out where the patient's identification, date of , nature of the operation, allergies , presence of intravenous antimicrobials, presence of needed equipment, and any other concerns were reviewed and agreed upon by all members of the operating room team. We then started the operation by placing a subcostal right-sided incision with extension towards the left using scalpel to go through the skin and then cautery to go through subcutaneous fat and fascia. We placed the Cohen retractor for exposure. We then proceeded with extensive lysis of adhesions to identify the portal structures with the help of the existing drain. We carried the dissection towards the hilum and was eventually able to identify the area of bile leak. Several 10 mm surgical clips were removed and were sent to pathology as one specimen for gross identification only. We were able to find the area of injury and this appeared to be essentially right at the bifurcation with approximately 1 mm of bile duct wall left. In order to better understand the anatomy, we continued dissection through the portal structures. We were very careful in our dissection and was able to identify the pulse of the common hepatic artery as well as the right and left hepatic arteries and preserved these vessels. Portal vein was also preserved. The distal portion of the common bile duct was completely sealed off and did not have to have any further interventions. Surgical clips were seen and were left in place in order to minimize risk of leakage. At this point, we spent quite a bit of time carefully dropping the hilar plate on the left portal pedicle. This allowed us to open the left bile duct on the anterior surface of the duct approximately 1 cm in order to open up the area and prepared for anastomosis. The course of the left and right hepatic ducts was confirmed using a vascular dilator as a probe. Inside of the duct, the wall appeared to be viable and there was no evidence of any injury to the rest of the remaining proximal biliary system. We were then able to pass a percutaneous transhepatic cholangiography to from the left upper quadrant through a separate stab incision that we made using an 11 blade and then passed his tube through the liver with the assistance of a small caliber pediatric orthopedic nail that we use in order to traverse the biliary system from outside of the left hepatic duct through the parenchyma of the segment 2 of liver, delivering the tip of the nail and be able to attach the tip of the PTC catheter to it and pull it through the liver and therefore traversing the liver with the PTC catheter. Same process was repeated on the right side with a separate PTC catheter that was placed in the right upper quadrant. We then created a standard Donovan-en-Y limb by transecting the proximal jejunum approximately 10 cm away from the ligament of Treitz using one firing of the bowel (blue) load of the hand-held TEGAN stapler and then performing our standard [id number], functional end-to-side stapled jejunojejunostomy through separate enterotomies that we made on the antimesenteric portion of the bowel using cautery, and then closing the enterotomy defects using running 4-0 PDS suture followed by 3-0 silk Lembert style interrupted sutures. This came together very nicely and the anastomosis was wide open. We then passed the Donovan limb in a retrocolic fashion through a defect that we created in the mesentery of the transverse colon and placed the limb next to the prepared bile duct opening. We then created an enterotomy on the antimesenteric portion of the limb of bowel using cautery and then anastomosis to the edges of the prepared bile duct using interrupted 5-0 PDS suture on both posterior and anterior lips. We passed the PTC catheter tips into the small intestine and deployed the pigtail catheter and secured the drains onto the skin making sure that all the holes of the catheter were within the parenchyma of the liver. This was done prior to completion of the anterior lip of the anastomosis. PTC drain s were check to make sure the both easily flushed and aspirated. We placed the existing drain under the hepaticojejunostomy, then irrigated the abdominal cavity using copious amounts of normal saline and reapproximated the fascia in layers using #1 PDS suture. We then washed the wounds with copious amounts of normal saline and reapproximated the skin using 4 -0 Monocryl suture. Light dressing was then applied. At the end of the operation, both the sponge count and needle count were reportedly correct x2. The patient tolerated the procedure without any reported complications. ESTIMATED BLOOD LOSS: 20 mL BLOOD OR BLOOD PRODUCT TRANSFUSIONS: None to my knowledge. SPECIMENS: 1. Previous surgical clips (12 of them) sent for gross ID only COMPLICATIONS: None. DISPOSITION: Recovery area. Disclaimer: Inadvertent spelling and grammatical errors are likely due to EHR/ dictation software use and do not reflect on the quality of delivered patient care. Also, please note that the electronic time recorded on this node does not necessarily reflect the actual time of the visit. LENA MONCADA M.D. Jun 29, 2017 15:35
[2017-06-29 16:04] LABS: BASOPHILS % 0.2 % (0.0-2.0); HEMATOCRIT 37.2 % (37.0-47.0); HEMOGLOBIN 12.2 g/dl (12.0-16.0); LYMPHOCYTES # 0.7 10^3/ul (0.8-2.9); LYMPHOCYTES % 5.2 % (15.0-51.0); MEAN CORPUSCULAR HEMOGLOBIN 29.1 pg (29.0-33.0); MEAN CORPUSCULAR HGB CONC 32.8 g/dl (32.0-37.0); MEAN CORPUSCULAR VOLUME 88.8 fl (82.0-101.0); MEAN PLATELET VOLUME 9.4 fl (7.4-10.4); MONOCYTE # 0.5 10^3/ul (0.3-0.9); MONOCYTES % 3.7 % (0.0-11.0); NEUTROPHILS % 90.4 % (39.0-77.0); PLATELET COUNT 272 10^3/UL (140-415); RED BLOOD COUNT 4.19 10^6/ul (4.20-5.40); RED CELL DISTRIBUTION WIDTH 15.7 % (11.5-14.5)
[2017-06-29 16:23] LABS: INR 1.32; PROTIME 16.5 Sec (12.2-14.2); PT RATIO 1.3
[2017-06-29 16:24] LABS: PARTIAL THROMBOPLASTIN TIME 34.3 Sec (25.0-35.0)
[2017-06-29 16:25] LABS: ALBUMIN 2.5 g/dl (3.3-4.9); ALBUMIN/GLOBULIN RATIO 1.13; BILIRUBIN,INDIRECT 0.1 mg/dl (0-1.1); BILIRUBIN,TOTAL 0.1 mg/dl (0.2-1.3); CALCIUM 7.1 mg/dl (8.4-10.2); CREATININE 0.63 mg/dl (0.44-1.00); POTASSIUM 3.6 mmol/L (3.5-5.1); TOTAL PROTEIN 4.7 g/dl (6.1-8.1)
--- NOTE | 2017-06-29 16:42 | PN ---
Date/Time of Note Date/Time of Note DATE: 06/29/17 TIME: 16:40 Assessment/Plan VTE Prophylaxis VTE Prophylaxis Intervention: SCD's Lines/Catheters IV Catheter Type (from [facility]): Peripheral IV Urinary Cath still in place: No Assessment/Plan Chief Complaint/Hosp Course 1. History of cholelithiasis and cholecystitis. Status post laparoscopic cholecystectomy on 03/31/2017 at an outside facility complicated by possible bile duct injury. Status post ERCP on 04/03/2017. Status post laparoscopic washout on 04/10/[address] [facility] by hepatobiliary surgery. Status post percutaneous CT-guided drain placement at [facility]. 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 S/P open Donovan-en-Y hepaticojejunostomy, extensive lysis of adhesions, abdominal lavage, placement of percutaneous transhepatic cholangiography tube on the left, and placement of percutaneous transhepatic cholangiography tube on the right on 06/29/2017. 2. Transaminitis. Most probably secondary to #1 . Monitor. Avoid hepatotoxic medications. 3. Acute kidney injury. Etiology unclear. Resolved. 4. Urinary tract infection. Urine culture positive for Klebsiella pneumoniae. Continue antimicrobials. 5. Moderate protein calorie malnutrition. Dietary supplements. 6. Fluids, electrolytes, and nutrition. Clear liquid diet. 7. DVT prophylaxis. Bilateral sequential compression devices. 8. Gastrointestinal prophylaxis. H2 receptor antagonists. 9. Plan. Replete magnesium. Continue antimicrobials. Post-operative care Case discussed with Dr. Salvador. Problems: Subjective 24 Hr Interval Summary Free Text/Dictation S/P surgery today. In severe pain. Exam/Review of Systems Vital Signs Vitals Vital Signs Date Time Temp Pulse Resp B/P Pulse Ox O2 Delivery O2 Flow Rate FiO2 06/29/17 15:37 108 17 134/59 100 Nasal Cannula 2.0 06/29/17 15:11 99.2 Intake and Output 06/28/17 06/28/17 06/29/17 14:59 22:59 06:59 Intake Total 1700 ml 700 ml Output Total 2050 ml 250 ml Balance -350 ml 450 ml Exam General: Thin, frail looking 37 year-old female lying in bed in no apparent distress. HEENT: Normocephalic, atraumatic. Eyes: Anicteric sclerae, conjunctivae clear. ENT: Nasal septum midline, oral mucosa moist. Neck supple, no JVD noticed. Respiratory: Bilaterally clear breath sounds. No use of accessory muscles of respiration. No adventitious breath sounds. Cardiovascular: S1, S2 heard. No murmurs or gallops. Abdomen: Surgical dressing. Genitourinary: Deferred. Extremities: No cyanosis, no clubbing, no edema. Peripheral pulses palpable. Neurologic: Cranial nerves II through XII grossly intact. The patient is awake, alert, and oriented. Skin: Normal skin turgor. No skin rashes. Results Result Diagram: 06/29/17 1540 06/29/17 1540 Results 24 hrs Laboratory Tests Test 06/29/17 04:43 06/29/17 15:40 White Blood Count 4.8 13.0 #H Red Blood Count 3.70 L 4.19 L Hemoglobin 10.2 L 12.2 Hematocrit 31.2 L 37.2 Mean Corpuscular Volume 84.3 88.8 Mean Corpuscular Hemoglobin 27.6 L 29.1 Mean Corpuscular Hemoglobin Concent 32.7 32.8 Red Cell Distribution Width 15.6 H 15.7 H Platelet Count 257 # 272 Mean Platelet Volume 10.1 9.4 Neutrophils % 50.9 90.4 H Lymphocytes % 31.7 5.2 L Monocytes % 8.2 3.7 Eosinophils % 8.6 H 0.0 Basophils % 0.2 0.2 Nucleated Red Blood Cells % 0.0 0.0 Neutrophils # (Manual) 2.4 11.7 H Lymphocytes # 1.5 0.7 L Monocytes # 0.4 0.5 Eosinophils # 0.4 0.0 Basophils # 0.0 0.0 Nucleated Red Blood Cells # 0.0 0.0 Sodium Level 140 140 Potassium Level 3.5 3.6 Chloride Level 111 H 115 H Carbon Dioxide Level 26 20 L Anion Gap 7 L 9 Blood Urea Nitrogen 2 L 2 L Creatinine 0.60 0.63 Glucose Level 87 113 Calcium Level 8.0 L 7.1 L Phosphorus Level 2.7 Magnesium Level 1.8 Total Bilirubin 0.0 L 0.1 L Direct Bilirubin 0.00 0.00 Indirect Bilirubin 0.0 0.1 Aspartate Amino Transf (AST/SGOT) 44 51 H Alanine Aminotransferase (ALT/SGPT) 94 H 89 H Alkaline Phosphatase 195 H 163 H Total Protein 5.0 L 4.7 L Albumin 2.7 L 2.5 L Globulin 2.30 2.20 Albumin/Globulin Ratio 1.17 1.13 Amylase Level 42 Lipase 105 Prothrombin Time 16.5 H Prothrombin Time Ratio 1.3 INR International Normalized Ratio 1.32 Activated Partial Thromboplast Time 34.3 Lactic Acid Level 3.8 *H Medications Medications Current Medications Famotidine (Pepcid) 20 mg DAILY PO Last administered on 06/28/17 08:37; Admin Dose 20 MG; Start 06/24/17 at 09:00 Acetaminophen (Tylenol Tab) 500 mg Q6H PRN PO PAIN AND OR ELEVATED TEMP Last administered on 06/28/17 18:31; Admin Dose 500 MG; Start 06/24/17 at 00:30 Hydromorphone HCl (Dilaudid) 1 mg Q2 PRN IV BREAKTHROUGH PAIN; Start 06/29/17 at 10:30 Hydromorphone HCl (Dilaudid) 0.2 mg Q2H PRN IV PAIN LEVEL 1-5; Start 06/29/17 at 10:30 Hydromorphone HCl (Dilaudid) 0.4 mg Q2H PRN IV PAIN LEVEL 6-10; Start 06/29/17 at 10:30 Acetaminophen/ Hydrocodone Bitart ([place] (5/325)) 1 tab Q4H PRN PO PAIN LEVEL 4 -6; Start 06/29/17 at 10:30 Diphenhydramine HCl (Benadryl) 25 mg Q4H PRN IV PRURITUS; Start 06/29/17 at 10: 30 Ondansetron HCl (Zofran Inj) 4 mg Q6H PRN IV NAUSEA AND/OR VOMITING; Start 06/29 at 10:30 Naloxone HCl 0.2 mg 0.2 mg Q2M PRN IV FOR RESP RATE 8 OR LESS; Start 06/29/17 at 10:30 Potassium Chloride/Dextrose/ Sod Cl (D5-1/2ns + KCl 20 Meq) 1,000 ml @ 100 mls/ hr Q10H IV ; Start 06/29/17 at 14:57 Acetaminophen/ Hydrocodone Bitart ([place] (5/325)) 1 tab Q4H PRN PO PAIN LEVEL 4 -7; Start 06/29/17 at 15:00; Status Future Hold Acetaminophen/ Hydrocodone Bitart ([place] (5/325)) 2 tab Q4H PRN PO PAIN LEVEL 7 -10; Start 06/29/17 at 15:00; Status Future Hold Hydromorphone HCl (Dilaudid) 0.5 mg Q2H PRN IV PAIN; Start 06/29/17 at 15:00; Status Future Hold Hydromorphone HCl (Dilaudid) 1 mg Q2H PRN IV PAIN; Start 06/29/17 at 15:00; Status Future Hold Docusate Sodium (Colace) 100 mg BID PRN PO CONSTIPATION; Start 06/29/17 at 15:00 Bisacodyl (Dulcolax Supp) 10 mg BID PRN [place] CONSTIPATION; Start 06/29/17 at 15:00 Sodium Biphosphate/ Sodium Phosphate (Fleet Enema) 133 ml BID PRN [place] CONSTIPATION; Start 06/29/17 at 15:00 AMILCAR BRUSH NP Jun 29, 2017 16:42 AMILCAR BRUSH NP Jun 29, 2017 16:42
[2017-06-29 16:56] LABS: MAGNESIUM 1.3 mg/dl (1.7-2.5); PHOSPHORUS 3.7 mg/dl (2.5-4.9)
[2017-06-29] MEDS: D5W-0.45 NACL + KCL 20 MEQ 1,000 ML IV SCH (17:04)
[2017-06-29] MEDS ORDERED: SOD CHLORIDE 0.9% 1,000 ML IV ONE (17:30)
[2017-06-29] MEDS ORDERED: KETOROLAC 30 MG INJ IV PRN (18:00)
[2017-06-29] MEDS ORDERED: BUPIVACAINE 0.25% (MPF) 30 ML INJ ONE (18:05)
[2017-06-29] MEDS: PIPER-TAZO 3.375 GM IV (PMX) 100 ML IVPB SCH (21:28)
[2017-06-30] VITALS (12 sets, daily range): BP systolic 81–107; BP diastolic 47–68; PULSE 98–123; RESP 15–20
[2017-06-30] MEDS: FENTAnyl 2MCG/ML-ROPIV 0.2% 100 ML BAG EPI SCH ×3 (00:38→11:56)
[2017-06-30] MEDS: D5W-0.45 NACL + KCL 20 MEQ 1,000 ML IV SCH ×3 (00:57→21:50)
[2017-06-30] MEDS ORDERED: SOD CHLORIDE 0.9% 1,000 ML IV ONE (01:00)
[2017-06-30] MEDS: ACETAMINOPHEN 500 MG TAB PO PRN (02:30)
[2017-06-30] MEDS: HYDROmorphONE 1 MG/ML SYG IV PRN ×4 (02:45→13:00)
[2017-06-30] MEDS ORDERED: HYDROmorphONE 1 MG/ML SYG IV ONE (03:30)
[2017-06-30 05:10] LABS: BASOPHILS % 0.2 % (0.0-2.0); EOSINOPHILS # 0.3 10^3/ul (0.0-0.5); HEMATOCRIT 27.2 % (37.0-47.0); HEMOGLOBIN 9.1 g/dl (12.0-16.0); LYMPHOCYTES # 1.3 10^3/ul (0.8-2.9); LYMPHOCYTES % 13.5 % (15.0-51.0); MEAN CORPUSCULAR HEMOGLOBIN 28.5 pg (29.0-33.0); MEAN CORPUSCULAR HGB CONC 33.5 g/dl (32.0-37.0); MEAN CORPUSCULAR VOLUME 85.3 fl (82.0-101.0); MEAN PLATELET VOLUME 9.5 fl (7.4-10.4); MONOCYTE # 0.5 10^3/ul (0.3-0.9); MONOCYTES % 5.5 % (0.0-11.0); NEUTROPHILS % 77.2 % (39.0-77.0); PLATELET COUNT 248 10^3/UL (140-415); RED BLOOD COUNT 3.19 10^6/ul (4.20-5.40); WHITE BLOOD COUNT 9.9 10^3/ul (4.8-10.8)
[2017-06-30] MEDS: PIPER-TAZO 3.375 GM IV (PMX) 100 ML IVPB SCH ×3 (06:01→21:48)
[2017-06-30 06:12] LABS: ALBUMIN 1.8 g/dl (3.3-4.9); ALBUMIN/GLOBULIN RATIO 1.05; BILIRUBIN,INDIRECT 0.2 mg/dl (0-1.1); BILIRUBIN,TOTAL 0.2 mg/dl (0.2-1.3); CALCIUM 6.5 mg/dl (8.4-10.2); CREATININE 0.69 mg/dl (0.44-1.00); MAGNESIUM 1.1 mg/dl (1.7-2.5); PHOSPHORUS 2.6 mg/dl (2.5-4.9); POTASSIUM 3.6 mmol/L (3.5-5.1); TOTAL PROTEIN 3.5 g/dl (6.1-8.1)
--- NOTE | 2017-06-30 08:43 | PN ---
Date/Time of Note Date/Time of Note DATE: 06/30/17 TIME: 08:41 Assessment/Plan VTE Prophylaxis VTE Prophylaxis Intervention: SCD's Lines/Catheters IV Catheter Type (from Nrsg): Peripheral IV Urinary Cath still in place: Yes Subjective 24 Hr Interval Summary Free Text/Dictation Anesthesia note; A 37 year female s/p GA and epidural catheter pod #1 pt has no n/v. headache, back pain, itching. she need bolus every few hours, increase rate to 15 cc/h. will f/u Exam/Review of Systems Vital Signs Vitals Vital Signs Date Time Temp Pulse Resp B/P Pulse Ox O2 Delivery O2 Flow Rate FiO2 06/30/17 08:08 99.6 67 20 101/60 99 06/30/17 03:09 Nasal Cannula 2.0 Intake and Output 06/29/17 06/29/17 06/30/17 15:00 23:00 07:00 Intake Total 3414 ml 1100 ml 2100 ml Output Total 635 ml 160 ml 350 ml Balance 2779 ml 940 ml 1750 ml Results Result Diagram: 06/30/17 0437 06/30/17 0437 Results 24 hrs Laboratory Tests Test 06/29/17 15:40 06/30/17 04:37 White Blood Count 13.0 #H 9.9 # Red Blood Count 4.19 L 3.19 #L Hemoglobin 12.2 9.1 #L Hematocrit 37.2 27.2 #L Mean Corpuscular Volume 88.8 85.3 Mean Corpuscular Hemoglobin 29.1 28.5 L Mean Corpuscular Hemoglobin Concent 32.8 33.5 Red Cell Distribution Width 15.7 H 16.0 H Platelet Count 272 248 Mean Platelet Volume 9.4 9.5 Neutrophils % 90.4 H 77.2 H Lymphocytes % 5.2 L 13.5 L Monocytes % 3.7 5.5 Eosinophils % 0.0 3.0 Basophils % 0.2 0.2 Nucleated Red Blood Cells % 0.0 0.0 Neutrophils # (Manual) 11.7 H 7.6 H Lymphocytes # 0.7 L 1.3 Monocytes # 0.5 0.5 Eosinophils # 0.0 0.3 Basophils # 0.0 0.0 Nucleated Red Blood Cells # 0.0 0.0 Prothrombin Time 16.5 H Prothrombin Time Ratio 1.3 INR International Normalized Ratio 1.32 Activated Partial Thromboplast Time 34.3 Sodium Level 140 134 L Potassium Level 3.6 3.6 Chloride Level 115 H 111 H Carbon Dioxide Level 20 L 23 Anion Gap 9 4 L Blood Urea Nitrogen 2 L 3 L Creatinine 0.63 0.69 Glucose Level 113 101 Lactic Acid Level 3.8 *H 1.1 Calcium Level 7.1 L 6.5 L Phosphorus Level 3.7 2.6 Magnesium Level 1.3 L 1.1 L Total Bilirubin 0.1 L 0.2 Direct Bilirubin 0.00 0.00 Indirect Bilirubin 0.1 0.2 Aspartate Amino Transf (AST/SGOT) 51 H 32 Alanine Aminotransferase (ALT/SGPT) 89 H 59 Alkaline Phosphatase 163 H 97 Total Protein 4.7 L 3.5 #L Albumin 2.5 L 1.8 L Globulin 2.20 1.70 Albumin/Globulin Ratio 1.13 1.05 B-Type Natriuretic Peptide 744 H Lipase 17 L Medications Medications Current Medications Famotidine (Pepcid) 20 mg DAILY PO Last administered on 06/28/17 08:37; Admin Dose 20 MG; Start 06/24/17 at 09:00 Acetaminophen (Tylenol Tab) 500 mg Q6H PRN PO PAIN AND OR ELEVATED TEMP Last administered on 06/30/17 02:30; Admin Dose 500 MG; Start 06/24/17 at 00:30 Hydromorphone HCl (Dilaudid) 1 mg Q2 PRN IV BREAKTHROUGH PAIN Last administered on 06/30/17 06:00; Admin Dose 1 MG; Start 06/29/17 at 10:30 Hydromorphone HCl (Dilaudid) 0.2 mg Q2H PRN IV PAIN LEVEL 1-5; Start 06/29/17 at 10:30 Hydromorphone HCl (Dilaudid) 0.4 mg Q2H PRN IV PAIN LEVEL 6-10; Start 06/29/17 at 10:30 Acetaminophen/ Hydrocodone Bitart ([place] (5/325)) 1 tab Q4H PRN PO PAIN LEVEL 4 -6; Start 06/29/17 at 10:30 Diphenhydramine HCl (Benadryl) 25 mg Q4H PRN IV PRURITUS; Start 06/29/17 at 10: 30 Ondansetron HCl (Zofran Inj) 4 mg Q6H PRN IV NAUSEA AND/OR VOMITING; Start 06/29 at 10:30 Naloxone HCl 0.2 mg 0.2 mg Q2M PRN IV FOR RESP RATE 8 OR LESS; Start 06/29/17 at 10:30 Potassium Chloride/Dextrose/ Sod Cl (D5-1/2ns + KCl 20 Meq) 1,000 ml @ 100 mls/ hr Q10H IV Last administered on 06/30/17 06:11; Admin Dose 100 MLS/HR; Start at 14:57 Acetaminophen/ Hydrocodone Bitart ([place] (5/325)) 1 tab Q4H PRN PO PAIN LEVEL 4 -7; Start 06/29/17 at 15:00; Status Future Hold Acetaminophen/ Hydrocodone Bitart ([place] (5/325)) 2 tab Q4H PRN PO PAIN LEVEL 7 -10; Start 06/29/17 at 15:00; Status Future Hold Hydromorphone HCl (Dilaudid) 0.5 mg Q2H PRN IV PAIN; Start 06/29/17 at 15:00; Status Future Hold Hydromorphone HCl (Dilaudid) 1 mg Q2H PRN IV PAIN; Start 06/29/17 at 15:00; Status Future Hold Docusate Sodium (Colace) 100 mg BID PRN PO CONSTIPATION; Start 06/29/17 at 15:00 Bisacodyl (Dulcolax Supp) 10 mg BID PRN OR CONSTIPATION; Start 06/29/17 at 15:00 Sodium Biphosphate/ Sodium Phosphate 133 ml 133 ml BID PRN OR CONSTIPATION; Start 06/29/17 at 15:00 Piperacillin Sod/ Tazobactam Sod (Zosyn 3.375gm/ 100 ml (Pmx)) 100 ml @ 200 mls /hr Q8 IVPB Last administered on 06/30/17 06:01; Admin Dose 200 MLS/HR; Start 06/29/17 at 22:00 Ketorolac Tromethamine (Toradol) 30 mg Q6H PRN IV PAIN; Start 06/29/17 at 18:00 ; Stop 06/30/17 at 17:59 Meperidine HCl (Demerol) 25 mg Q2 PRN IV PAIN; Start 06/29/17 at 20:00 CYNDY SALINAS MD Jun 30, 2017 08:43
[2017-06-30] MEDS ORDERED: ACETAMINOPHEN 500 MG TAB PO PRN (09:00)
[2017-06-30] MEDS ORDERED: DIPHENHYDRAMINE 50 MG INJ IV PRN (09:00)
[2017-06-30] MEDS ORDERED: HYDROCODONE/APAP (5/325) TAB PO PRN (09:00)
[2017-06-30] MEDS ORDERED: HYDROmorphONE 1 MG/ML SYG IV PRN (09:00)
[2017-06-30] MEDS ORDERED: NALOXONE (0.4 MG/ML) INJ IV PRN (09:00)
[2017-06-30] MEDS: FAMOTIDINE 20 MG TAB PO SCH (09:09)
[2017-06-30] MEDS ORDERED: LIDOCAINE 2%/EPI 30 ML INJ ONE (10:27)
[2017-06-30] MEDS ORDERED: MAGNESIUM SULFATE 4 GM/100 ML 100 ML IVPB ONE (11:00)
--- NOTE | 2017-06-30 12:49 | PN ---
Date/Time of Note Date/Time of Note DATE: 06/30/17 TIME: 12:47 Assessment/Plan VTE Prophylaxis VTE Prophylaxis Intervention: SCD's Lines/Catheters IV Catheter Type (from Nrs): Peripheral IV Central line still needed: Yes Urinary Cath still in place: Yes Reason Cath still needed: other (indicate) Assessment/Plan Chief Complaint/Hosp Course 1. History of cholelithiasis and cholecystitis. Status post laparoscopic cholecystectomy on 03/31/2017 at an outside facility complicated by possible bile duct injury. Status post ERCP on 04/03/2017. Status post laparoscopic washout on 04/10/2017 at [facility] by hepatobiliary surgery. Status post percutaneous CT-guided drain placement at [facility]. 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 S/P open Donovan-en-Y hepaticojejunostomy, extensive lysis of adhesions, abdominal lavage, placement of percutaneous transhepatic cholangiography tube on the left, and placement of percutaneous transhepatic cholangiography tube on the right on 06/29/2017. 2. Transaminitis. Most probably secondary to #1. Resolved. Avoid hepatotoxic medications. 3. Acute kidney injury. Etiology unclear. Resolved. 4. Urinary tract infection. Urine culture positive for Klebsiella pneumoniae. Continue antimicrobials. 5. Moderate protein calorie malnutrition. Dietary supplements. 6. Fluids, electrolytes, and nutrition. Clear liquid diet. 7. DVT prophylaxis. Bilateral sequential compression devices. 8. Gastrointestinal prophylaxis. H2 receptor antagonists. 9. Plan. Replete magnesium. Continue antimicrobials. Post-operative care. Case discussed with Dr. Salvador. Problems: Subjective 24 Hr Interval Summary Free Text/Dictation Remains febrile. Continues to have significant pain. Remains on clear liquids. Exam/Review of Systems Vital Signs Vitals Vital Signs Date Time Temp Pulse Resp B/P Pulse Ox O2 Delivery O2 Flow Rate FiO2 06/30/17 11:53 100.3 106 20 96/56 100 06/30/17 08:00 2.0 06/30/17 03:09 Nasal Cannula Intake and Output 06/29/17 06/29/17 06/30/17 15:00 23:00 07:00 Intake Total 3414 ml 1100 ml 2100 ml Output Total 635 ml 160 ml 350 ml Balance 2779 ml 940 ml 1750 ml Exam General: Thin, frail looking 37 year-old female lying in bed in no apparent distress. HEENT: Normocephalic, atraumatic. Eyes: Anicteric sclerae, conjunctivae clear. ENT: Nasal septum midline, oral mucosa moist. Neck supple, no JVD noticed. Respiratory: Bilaterally clear breath sounds. No use of accessory muscles of respiration. No adventitious breath sounds. Cardiovascular: S1, S2 heard. No murmurs or gallops. Abdomen: Surgical dressing. Surgical drains. Tender to touch Genitourinary: Deferred. Extremities: No cyanosis, no clubbing, no edema. Peripheral pulses palpable. Neurologic: Cranial nerves II through XII grossly intact. The patient is awake, alert, and oriented. Skin: Normal skin turgor. No skin rashes. Results Result Diagram: 06/30/17 0437 06/30/17 0437 Results 24 hrs Laboratory Tests Test 06/29/17 15:40 06/30/17 04:37 White Blood Count 13.0 #H 9.9 # Red Blood Count 4.19 L 3.19 #L Hemoglobin 12.2 9.1 #L Hematocrit 37.2 27.2 #L Mean Corpuscular Volume 88.8 85.3 Mean Corpuscular Hemoglobin 29.1 28.5 L Mean Corpuscular Hemoglobin Concent 32.8 33.5 Red Cell Distribution Width 15.7 H 16.0 H Platelet Count 272 248 Mean Platelet Volume 9.4 9.5 Neutrophils % 90.4 H 77.2 H Lymphocytes % 5.2 L 13.5 L Monocytes % 3.7 5.5 Eosinophils % 0.0 3.0 Basophils % 0.2 0.2 Nucleated Red Blood Cells % 0.0 0.0 Neutrophils # (Manual) 11.7 H 7.6 H Lymphocytes # 0.7 L 1.3 Monocytes # 0.5 0.5 Eosinophils # 0.0 0.3 Basophils # 0.0 0.0 Nucleated Red Blood Cells # 0.0 0.0 Prothrombin Time 16.5 H Prothrombin Time Ratio 1.3 INR International Normalized Ratio 1.32 Activated Partial Thromboplast Time 34.3 Sodium Level 140 134 L Potassium Level 3.6 3.6 Chloride Level 115 H 111 H Carbon Dioxide Level 20 L 23 Anion Gap 9 4 L Blood Urea Nitrogen 2 L 3 L Creatinine 0.63 0.69 Glucose Level 113 101 Lactic Acid Level 3.8 *H 1.1 Calcium Level 7.1 L 6.5 L Phosphorus Level 3.7 2.6 Magnesium Level 1.3 L 1.1 L Total Bilirubin 0.1 L 0.2 Direct Bilirubin 0.00 0.00 Indirect Bilirubin 0.1 0.2 Aspartate Amino Transf (AST/SGOT) 51 H 32 Alanine Aminotransferase (ALT/SGPT) 89 H 59 Alkaline Phosphatase 163 H 97 Total Protein 4.7 L 3.5 #L Albumin 2.5 L 1.8 L Globulin 2.20 1.70 Albumin/Globulin Ratio 1.13 1.05 B-Type Natriuretic Peptide 744 H Lipase 17 L Medications Medications Current Medications Famotidine (Pepcid) 20 mg DAILY PO Last administered on 06/30/17 09:09; Admin Dose 20 MG; Start 06/24/17 at 09:00 Acetaminophen 500 mg 500 mg Q6H PRN PO PAIN AND OR ELEVATED TEMP Last administered on 06/30/17 02:30; Admin Dose 500 MG; Start 06/24/17 at 00:30 Potassium Chloride/Dextrose/ Sod Cl (D5-1/2ns + KCl 20 Meq) 1,000 ml @ 100 mls/ hr Q10H IV Last administered on 06/30/17 06:11; Admin Dose 100 MLS/HR; Start at 14:57 Hydromorphone HCl (Dilaudid) 1 mg Q2H PRN IV PAIN Last administered on 11:10; Admin Dose 1 MG; Start 06/29/17 at 15:00; Status Future hold Docusate Sodium (Colace) 100 mg BID PRN PO CONSTIPATION; Start 06/29/17 at 15:00 Bisacodyl (Dulcolax Supp) [address] CONSTIPATION; Start 06/29/17 at 15:00 Sodium Biphosphate/ Sodium Phosphate 133 ml [address] CONSTIPATION; Start 06/29/17 at 15:00 Piperacillin Sod/ Tazobactam Sod (Zosyn 3.375gm/ 100 ml (Pmx)) 100 ml @ 200 mls /hr Q8 IVPB Last administered on 06/30/17 06:01; Admin Dose 200 MLS/HR; Start 06/29/17 at 22:00 Ketorolac Tromethamine (Toradol) 30 mg Q6H PRN IV PAIN; Start 06/29/17 at 18:00 ; Stop 06/30/17 at 17:59 Meperidine HCl (Demerol) 25 mg Q2 PRN IV PAIN; Start 06/29/17 at 20:00 Hydromorphone HCl (Dilaudid) 0.4 mg Q2H PRN IV PAIN LEVEL 6-10 Last administered on 06/30/17t 09:34; Admin Dose 0.4 MG; Start 06/30/17 at 09:00 Acetaminophen (Tylenol Tab) 500 mg Q4H PRN PO PAIN LEVEL 1-3; Start 06/30/17 at 09:00 Acetaminophen/ Hydrocodone Bitart ([place] (5/325)) 1 tab Q4H PRN PO PAIN LEVEL 4 -6; Start 06/30/17 at 09:00 Diphenhydramine HCl (Benadryl) 25 mg Q4H PRN IV PRURITUS; Start 06/30/17 at 09: 00 Ondansetron HCl (Zofran Inj) 4 mg Q6H PRN IV NAUSEA AND/OR VOMITING; Start 06/30 at 09:00 Naloxone HCl 0.2 mg 0.2 mg Q2M PRN IV FOR RESP RATE 8 OR LESS; Start 06/30/17 at 09:00 Magnesium Sulfate (Magnesium Sulfate 4 Gm/100 ml) 100 ml @ 25 mls/hr ONCE ONCE IVPB ; Start 06/30/17 at 11:00; Stop 06/30/17 at 14:59 AMILCAR BRUSH NP Jun 30, 2017 12:49
[2017-06-30] MEDS ORDERED: HYDROmorphONE 1 MG/ML SYG IV STA (13:52)
--- NOTE | 2017-06-30 14:01 | PN ---
Date/Time of Note Date/Time of Note DATE: 06/30/17 TIME: 13:56 Assessment/Plan Lines/Catheters IV Catheter Type (from Nrsg): Peripheral IV Matthew in Place (from Nrsg): Yes Assessment/Plan Assessment/Plan [facility] Progress Note Date of Service: 06/30/17 Today's Impression & Plan: Overall stable without obvious evidence of major postoperative complications or wound issues. Pain control is the main issue and this is expected given patient 's prior exposure to opioids. I do not believe that the epidural is working adequately and for this reason, I have arranged for the patient to be on Dilaudid CREDENTIALING ANALYST with addition of Toradol and discontinuation of the epidural. I also believe the patient's low-grade temperature is likely from atelectasis and I have encouraged her to increase her use of incentive spirometry. Discussed with patient and family and answered all questions. Patient and family appear to understand and agreed with the plans. With above assessment, I've recommended the following for today: 1. Dilaudid CREDENTIALING ANALYST 2. Toradol 3. Discontinue epidural 4. Increase activity 5. Increase incentive spirometry 6. Regular diet 7. Labs in a.m. Thank you again for your great care of this very pleasant patient and wonderful family. If there are any questions, please feel free to call me at [phone]. Nature of presenting problem: High severity Please note that, given the extensive number of diagnoses or management options , the extensive amount and/or complexity of data needed to be reviewed, and high risk of complications and/or morbidity or mortality, this qualifies as high complexity type of decision-making. Disclaimer: Inadvertent spelling and grammatical errors are likely due to EHR/ dictation software use and do not reflect on the quality of delivered patient care. Also, please note that the electronic time recorded on this node does not necessarily reflect the actual time of the visit. Updated Clinical Summary: The patient is a very pleasant 37-year-old young lady who was transferred from an outside hospital to [facility] for management of possible bile duct injury. S/p percutaneous CT-guided drain placement above the liver with removal of 1.4 liters of bile in IR suite and more (2 liters) within first 24 hours post procedure. Drain output minimal 04/09/17. S/p lap washout and wide drainage at [facility]. The upper pigtail catheter and the 2 surgical drains d/c 'd on 04/14/17. Urinary retention issues requiring straight cath and Matthew insertion appeared resolved by 04/15/17. DC home 04/16/2017. 2 ER visits between discharge and the 2016 with no hospitalization. Readmitted as a transfer from outside hospital to [facility] 05/19/2017 with pancreatitis as well as urinary tract infection. Admitted to [facility] 05/18/2017. Admission white blood cell count 11.8. Creatinine 3.8. Alkaline phosphatase 547. Total bilirubin 1.1. Lipase 1724. Heart rate 122. Involved physicians included Adrian Oro MD and Maryellen Dolan MD. patient was treated with ceftazidime, vancomycin and metronidazole. CT scan abdomen and pelvis and 05/18/2017: No acute intra-abdominal abnormality appreciated on a limited noncontrast CT of the abdomen and pelvis. Evidence of cholecystectomy. Transhepatic drainage catheter terminating in the region of the gallbladder fossa. Due to persistently elevated amylase and lipase of unknown etiology, scheduled hepaticojejunostomy on 05/30/2017 was postponed to 06/08/2017. D/c'd from [facility] 06/01/17. Outpatient ERCP showed no obvious pancreas duct on 06/14/17. S/ p open Donovan-en-Y hepaticojejunostomy with extensive lysis of adhesions, abdominal lavage and placement of bilateral percutaneous transhepatic cholangiography tubes at [facility] on 06/29/17. COMORBIDITIES: 1. Cholelithiasis and acute cholecystitis, status post laparoscopic cholecystectomy 03/31/2017 at [facility], complicated by bile duct injury; ERCP done on 04/03/2017 after a HIDA scan confirming a bile leak showed clips across the distal common bile duct, without any contrast opacifying the liver. We accepted the patient as a transfer into [facility] bile duct injury program for a higher level of care. The patient arrived on 04/05/2017. 2. S/p percutaneous CT-guided drain placement above the liver with removal of 1.4 liters of bile in IR suite and more immediately post procedure. 3. S/p lap washout and wide drainage at [facility]. 4. Confirmation of complete transection of common bile duct 5. S/p open Donovan-en-Y hepaticojejunostomy with extensive lysis of adhesions, abdominal lavage and placement of bilateral percutaneous transhepatic cholangiography tubes at [facility] on 06/29/17 Subjective: No major events or complaints overnight; reports feeling unwell mainly due to pain which appears to be localized to the incision to the right; no current n/v/ d; no sob or cp; - flatus; - BM; - activity. Objective: Vitals: See below Exam: GENERAL: On exam, the patient was laying in bed and appeared to be uncomfortable and in mild distress. ABDOMEN: Soft, nondistended and mild to moderately tender to palpation mainly around incisions. Incision dressings are clean, dry and intact without any evidence of erythema, edema, discharge, or hernia. Pigtail catheter with minimal serosanguineous output. Both right and left PTCs with bile within them. There are no peritoneal signs or guarding. SKIN: Skin appears to be pink and feels warm to touch. NEUROLOGIC: Patient is awake, alert, and follows commands appropriately. Exam/Review of Systems Vital Signs Vitals Vital Signs Date Time Temp Pulse Resp B/P Pulse Ox O2 Delivery O2 Flow Rate FiO2 06/30/17 12:58 109 103/65 100 Nasal Cannula 3.0 06/30/17 11:53 100.3 20 Intake and Output 06/29/17 06/29/17 06/30/17 15:00 23:00 07:00 Intake Total 3414 ml 1100 ml 2100 ml Output Total 635 ml 160 ml 350 ml Balance 2779 ml 940 ml 1750 ml Results Result Diagram: 06/30/17 0437 06/30/17 0437 LENA MONCADA M.D. Jun 30, 2017 14:01
[2017-06-30] MEDS: HYDROmorphONE 0.2 MG/ML PCA IV SCH ×2 (14:17→19:14)
[2017-06-30] MEDS ORDERED: KETOROLAC 30 MG INJ IV PRN ×2 (14:30→19:00)
[2017-06-30] MEDS: CEPASTAT LOZENGE MT PRN ×2 (18:03→21:50)
[2017-06-30] MEDS: KETOROLAC 30 MG INJ IV SCH (19:14)
[2017-07-01] VITALS (8 sets, daily range): BP systolic 94–109; BP diastolic 52–63; PULSE 96–98; RESP 17–20
[2017-07-01] MEDS: KETOROLAC 30 MG INJ IV SCH ×3 (01:10→13:10)
[2017-07-01] MEDS: HYDROmorphONE 0.2 MG/ML PCA IV SCH ×5 (01:44→18:36)
[2017-07-01] MEDS: PIPER-TAZO 3.375 GM IV (PMX) 100 ML IVPB SCH ×3 (06:23→21:08)
[2017-07-01 06:28] LABS: BASOPHILS % 0.2 % (0.0-2.0); EOSINOPHILS % 10.3 % (0.0-7.0); HEMATOCRIT 27.9 % (37.0-47.0); HEMOGLOBIN 9.4 g/dl (12.0-16.0); LYMPHOCYTES # 0.9 10^3/ul (0.8-2.9); LYMPHOCYTES % 9.3 % (15.0-51.0); MEAN CORPUSCULAR HEMOGLOBIN 29.1 pg (29.0-33.0); MEAN CORPUSCULAR HGB CONC 33.7 g/dl (32.0-37.0); MEAN CORPUSCULAR VOLUME 86.4 fl (82.0-101.0); MEAN PLATELET VOLUME 9.6 fl (7.4-10.4); MONOCYTE # 0.4 10^3/ul (0.3-0.9); MONOCYTES % 4.7 % (0.0-11.0); NEUTROPHILS % 75.1 % (39.0-77.0); PLATELET COUNT 239 10^3/UL (140-415); RED BLOOD COUNT 3.23 10^6/ul (4.20-5.40); RED CELL DISTRIBUTION WIDTH 15.7 % (11.5-14.5); WHITE BLOOD COUNT 9.4 10^3/ul (4.8-10.8)
[2017-07-01 06:48] LABS: ALBUMIN 1.8 g/dl (3.3-4.9); ALBUMIN/GLOBULIN RATIO 0.9; BILIRUBIN,INDIRECT 0.1 mg/dl (0-1.1); BILIRUBIN,TOTAL 0.1 mg/dl (0.2-1.3); CALCIUM 7.1 mg/dl (8.4-10.2); CREATININE 0.61 mg/dl (0.44-1.00); POTASSIUM 3.5 mmol/L (3.5-5.1); TOTAL PROTEIN 3.8 g/dl (6.1-8.1)
[2017-07-01 06:49] LABS: INR 1.57; PROTIME 18.9 Sec (12.2-14.2); PT RATIO 1.5
[2017-07-01 06:50] LABS: PARTIAL THROMBOPLASTIN TIME 39.1 Sec (25.0-35.0)
[2017-07-01 06:53] LABS: MAGNESIUM 2.2 mg/dl (1.7-2.5); PHOSPHORUS 2.1 mg/dl (2.5-4.9)
[2017-07-01] MEDS: D5W-0.45 NACL + KCL 20 MEQ 1,000 ML IV SCH ×3 (06:57→21:08)
[2017-07-01] MEDS: FAMOTIDINE 20 MG TAB PO SCH (09:03)
--- NOTE | 2017-07-01 09:29 | PN ---
Date/Time of Note Date/Time of Note DATE: 07/01/17 TIME: 09:27 Assessment/Plan VTE Prophylaxis VTE Prophylaxis Intervention: SCD's Lines/Catheters IV Catheter Type (from [facility]): Peripheral IV Urinary Cath still in place: Yes Reason Cath still needed: other (indicate) Assessment/Plan Chief Complaint/Hosp Course 1. History of cholelithiasis and cholecystitis. Status post laparoscopic cholecystectomy on 03/31/2017 at an outside facility complicated by possible bile duct injury. Status post ERCP on 04/03/2017. Status post laparoscopic washout on 04/10/2017 at [facility] by hepatobiliary surgery. Status post percutaneous CT-guided drain placement at [facility]. 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 S/P open Donovan-en-Y hepaticojejunostomy, extensive lysis of adhesions, abdominal lavage, placement of percutaneous transhepatic cholangiography tube on the left, and placement of percutaneous transhepatic cholangiography tube on the right on 06/29/2017. 2. Transaminitis. Most probably secondary to #1. Resolved. Avoid hepatotoxic medications. 3. Acute kidney injury. Etiology unclear. Resolved. 4. Urinary tract infection. Urine culture positive for Klebsiella pneumoniae. Continue antimicrobials. 5. Moderate protein calorie malnutrition. Dietary supplements. 6. Fluids, electrolytes, and nutrition. Clear liquid diet. Advancement of diet as per surgery. 7. DVT prophylaxis. Bilateral sequential compression devices. 8. Gastrointestinal prophylaxis. H2 receptor antagonists. 9. Plan. Continue antimicrobials. Continue post-operative care. Encourage OOB. Case discussed with Dr. Salvador. Problems: Subjective 24 Hr Interval Summary Free Text/Dictation Epidural has been discontinued. Remains afebrile. Exam/Review of Systems Vital Signs Vitals Vital Signs Date Time Temp Pulse Resp B/P Pulse Ox O2 Delivery O2 Flow Rate FiO2 07/01/17 08:10 97.9 100 18 94/55 94 07/01/17 04:00 Nasal Cannula 2.0 Intake and Output 06/30/17 06/30/17 07/01/17 14:59 22:59 06:59 Intake Total 600 ml 1740 ml 1230 ml Output Total 1000 ml 1250 ml 1540 ml Balance -400 ml 490 ml -310 ml Exam General: Thin, frail looking 37 year-old female lying in bed in no apparent distress. HEENT: Normocephalic, atraumatic. Eyes: Anicteric sclerae, conjunctivae clear. ENT: Nasal septum midline, oral mucosa moist. Neck supple, no JVD noticed. Respiratory: Bilaterally clear breath sounds. No use of accessory muscles of respiration. No adventitious breath sounds. Cardiovascular: S1, S2 heard. No murmurs or gallops. Abdomen: Surgical dressing. Surgical drains. Tender to touch Genitourinary: Deferred. Extremities: No cyanosis, no clubbing, no edema. Peripheral pulses palpable. Neurologic: Cranial nerves II through XII grossly intact. The patient is awake, alert, and oriented. Skin: Normal skin turgor. No skin rashes. Results Result Diagram: 07/01/17 0456 07/01/17 0456 Results 24 hrs Laboratory Tests Test 07/01/17 04:56 White Blood Count 9.4 Red Blood Count 3.23 L Hemoglobin 9.4 L Hematocrit 27.9 L Mean Corpuscular Volume 86.4 Mean Corpuscular Hemoglobin 29.1 Mean Corpuscular Hemoglobin Concent 33.7 Red Cell Distribution Width 15.7 H Platelet Count 239 Mean Platelet Volume 9.6 Neutrophils % 75.1 Lymphocytes % 9.3 L Monocytes % 4.7 Eosinophils % 10.3 H Basophils % 0.2 Nucleated Red Blood Cells % 0.0 Neutrophils # (Manual) 7.1 Lymphocytes # 0.9 Monocytes # 0.4 Eosinophils # 1.0 H Basophils # 0.0 Nucleated Red Blood Cells # 0.0 Prothrombin Time 18.9 H Prothrombin Time Ratio 1.5 INR International Normalized Ratio 1.57 Activated Partial Thromboplast Time 39.1 H Sodium Level 133 L Potassium Level 3.5 Chloride Level 106 Carbon Dioxide Level 26 Anion Gap 5 L Blood Urea Nitrogen 4 L Creatinine 0.61 Glucose Level 97 Calcium Level 7.1 L Phosphorus Level 2.1 L Magnesium Level 2.2 # Total Bilirubin 0.1 L Direct Bilirubin 0.00 Indirect Bilirubin 0.1 Aspartate Amino Transf (AST/SGOT) 22 Alanine Aminotransferase (ALT/SGPT) 48 Alkaline Phosphatase 95 B-Type Natriuretic Peptide 788 H Total Protein 3.8 L Albumin 1.8 L Globulin 2.00 Albumin/Globulin Ratio 0.90 Amylase Level 46 Lipase 25 Medications Medications Current Medications Famotidine (Pepcid) 20 mg DAILY PO Last administered on 07/01/17 09:03; Admin Dose 20 MG; Start 06/24/17 at 09:00 Acetaminophen 500 mg 500 mg Q6H PRN PO PAIN AND OR ELEVATED TEMP Last administered on 06/30/17 02:30; Admin Dose 500 MG; Start 06/24/17 at 00:30 Potassium Chloride/Dextrose/ Sod Cl (D5-1/2ns + KCl 20 Meq) 1,000 ml @ 100 mls/ hr Q10H IV Last administered on 06/30/17 21:50; Admin Dose 100 MLS/HR; Start at 14:57 Hydromorphone HCl (Dilaudid) 1 mg Q2H PRN IV PAIN Last administered on 13:00; Admin Dose 1 MG; Start 06/29/17 at 15:00; Status Future hold Docusate Sodium (Colace) 100 mg BID PRN PO CONSTIPATION; Start 06/29/17 at 15:00 Bisacodyl (Dulcolax Supp) 10 mg BID PRN [place] CONSTIPATION; Start 06/29/17 at 15:00 Sodium Biphosphate/ Sodium Phosphate 133 ml 133 ml BID PRN [place] CONSTIPATION; Start 06/29/17 at 15:00 Piperacillin Sod/ Tazobactam Sod (Zosyn 3.375gm/ 100 ml (Pmx)) 100 ml @ 200 mls /hr Q8 IVPB Last administered on 07/01/17 06:23; Admin Dose 200 MLS/HR; Start 06/29/17 at 22:00 Meperidine HCl (Demerol) 25 mg Q2 PRN IV PAIN; Start 06/29/17 at 20:00 Hydromorphone HCl (Dilaudid) 0.4 mg Q2H PRN IV PAIN LEVEL 6-10 Last administered on 06/30/17 09:34; Admin Dose 0.4 MG; Start 06/30/17 at 09:00 Acetaminophen (Tylenol Tab) 500 mg Q4H PRN PO PAIN LEVEL 1-3; Start 06/30/17 at 09:00 Acetaminophen/ Hydrocodone Bitart ([place] (5/325)) 1 tab Q4H PRN PO PAIN LEVEL 4 -6; Start 06/30/17 at 09:00 Diphenhydramine HCl (Benadryl) 25 mg Q4H PRN IV PRURITUS; Start 06/30/17 at 09: 00 Ondansetron HCl (Zofran Inj) 4 mg Q6H PRN IV NAUSEA AND/OR VOMITING; Start 06/30 at 09:00 Naloxone HCl (Narcan) 0.2 mg Q2M PRN IV FOR RESP RATE 8 OR LESS; Start 06/30/17 at 09:00 Phenol (Cepastat Lozenge) 1 lozenge Q1H PRN [place] SORE THROAT Last administered on 06/30/17 21:50; Admin Dose 1 LOZENGE; Start 06/30/17 at 13:00 Hydromorphone HCl (Dilaudid CAR [employer]ER) 0 MG/HR CONTINUOUS RATE ... Q4PCA IV Last administered on 07/01/17 09:00; Admin Dose 6 MG; Start 06/30/17 at 14:00 Ketorolac Tromethamine (Toradol) 30 mg Q6H IV Last administered on 07/01/17 07: 41; Admin Dose 30 MG; Start 06/30/17 at 19:30; Stop 07/01/17 at 13:31 AMILCAR BRUSH NP Jul 01, 2017 09:29
--- NOTE | 2017-07-01 16:17 | PN ---
Date/Time of Note Date/Time of Note DATE: 07/01/17 TIME: 16:11 Assessment/Plan Lines/Catheters IV Catheter Type (from Nrsg): Peripheral IV Matthew in Place (from Nrsg): Yes Assessment/Plan Assessment/Plan [facility] Progress Note Date of Service: 07/01/17 Today's Impression & Plan: Overall stable without obvious evidence of major postoperative complications or wound issues. Pain control is a bit improved today. We capped the PTC's today and will monitor LFT's in the next few days. Discussed with patient and family and answered all questions. Patient and family appear to understand and agreed with the plans. Please also note that there are inaccurate statements in nursing notes from regarding events and issues surrounding pain management and orders. With above assessment, I've recommended the following for today: 1. Cont Dilaudid NEW [employer]IC 2. Cont Toradol 3. Increase activity 4. Increase incentive spirometry 5. Regular diet 6. Labs in a.m. Thank you again for your great care of this very pleasant patient and wonderful family. If there are any questions, please feel free to call me at [phone]. Nature of presenting problem: High severity Please note that, given the extensive number of diagnoses or management options , the extensive amount and/or complexity of data needed to be reviewed, and high risk of complications and/or morbidity or mortality, this qualifies as high complexity type of decision-making. Disclaimer: Inadvertent spelling and grammatical errors are likely due to EHR/ dictation software use and do not reflect on the quality of delivered patient care. Also, please note that the electronic time recorded on this node does not necessarily reflect the actual time of the visit. Updated Clinical Summary: The patient is a very pleasant 37-year-old young lady who was transferred from an outside hospital to [facility] for management of possible bile duct injury. S/p percutaneous CT-guided drain placement above the liver with removal of 1.4 liters of bile in IR suite and more (2 liters) within first 24 hours post procedure. Drain output minimal 04/09/17. S/p lap washout and wide drainage at [facility]. The upper pigtail catheter and the 2 surgical drains d/c 'd on 04/14/17. Urinary retention issues requiring straight cath and Matthew insertion appeared resolved by 04/15/17. DC home 04/16/2017. 2 ER visits between discharge and the 2016 with no hospitalization. Readmitted as a transfer from outside hospital to [facility] 05/19/2017 with pancreatitis as well as urinary tract infection. [facility]. Admission white blood cell count 11.8. Creatinine 3.8. Alkaline phosphatase 547. Total bilirubin 1.1. Lipase 1724. Heart rate 122. Involved physicians included Adrian Oro MD and Maryellen Dolan MD. patient was treated with ceftazidime, vancomycin and metronidazole. CT scan abdomen and pelvis and 05/18/2017: No acute intra-abdominal abnormality appreciated on a limited noncontrast CT of the abdomen and pelvis. Evidence of cholecystectomy. Transhepatic drainage catheter terminating in the region of the gallbladder fossa. Due to persistently elevated amylase and lipase of unknown etiology, scheduled hepaticojejunostomy on 05/30/2017 was postponed to 06/08/2017. D/c'd from [facility] 06/01/17. Outpatient ERCP showed no obvious pancreas duct on 06/14/17. S/ p open Donovan-en-Y hepaticojejunostomy with extensive lysis of adhesions, abdominal lavage and placement of bilateral percutaneous transhepatic cholangiography tubes at [facility] on 06/29/17. COMORBIDITIES: 1. Cholelithiasis and acute cholecystitis, status post laparoscopic cholecystectomy 03/31/2017 at [facility], complicated by bile duct injury; ERCP done on 04/03/2017 after a HIDA scan confirming a bile leak showed clips across the distal common bile duct, without any contrast opacifying the liver. We accepted the patient as a transfer into [facility] bile duct injury program for a higher level of care. The patient arrived on 04/05/2017. 2. S/p percutaneous CT-guided drain placement above the liver with removal of 1.4 liters of bile in IR suite and more immediately post procedure. 3. S/p lap washout and wide drainage at [facility]. 4. Confirmation of complete transection of common bile duct 5. S/p open Donovan-en-Y hepaticojejunostomy with extensive lysis of adhesions, abdominal lavage and placement of bilateral percutaneous transhepatic cholangiography tubes at [facility] on 06/29/17 Subjective: No major events or complaints overnight; reports feeling better today and notes improvement in her pain control; no current n/v/d; no sob or cp; + flatus; - BM ; - activity. Objective: Vitals: See below Exam: GENERAL: On exam, the patient was laying in bed and appeared to be uncomfortable and in mild distress. ABDOMEN: Soft, nondistended and mild to moderately tender to palpation mainly around incisions. Incision dressings d/c'd and incisions are clean, dry and intact without any evidence of erythema, edema, discharge, or hernia. Pigtail catheter with minimal serosanguineous output. Both right and left PTCs with bile within them. Bags were taken off at bedside and PTC's were both capped. There are no peritoneal signs or guarding. SKIN: Skin appears to be pink and feels warm to touch. NEUROLOGIC: Patient is awake, alert, and follows commands appropriately. Exam/Review of Systems Vital Signs Vitals Vital Signs Date Time Temp Pulse Resp B/P Pulse Ox O2 Delivery O2 Flow Rate FiO2 07/01/17 14:12 20 07/01/17 09:00 2.0 07/01/17 08:10 97.9 100 94/55 94 07/01/17 04:00 Nasal Cannula Intake and Output 06/30/17 06/30/17 07/01/17 15:00 23:00 07:00 Intake Total 600 ml 1740 ml 1230 ml Output Total 1000 ml 1250 ml 1540 ml Balance -400 ml 490 ml -310 ml Results Result Diagram: 07/01/17 0456 07/01/17 0456 LENA MONCADA M.D. Jul 01, 2017 16:17
[2017-07-01] MEDS: KETOROLAC 30 MG INJ IV PRN (21:09)
[2017-07-02] MEDS: HYDROmorphONE 0.2 MG/ML PCA IV SCH ×4 (02:55→20:48)
[2017-07-02] MEDS: D5W-0.45 NACL + KCL 20 MEQ 1,000 ML IV SCH ×2 (02:56→10:12)
[2017-07-02 03:02] VITALS: BP 109/70; RESP 20
[2017-07-02] MEDS: KETOROLAC 30 MG INJ IV PRN ×4 (03:37→21:18)
[2017-07-02] MEDS: PIPER-TAZO 3.375 GM IV (PMX) 100 ML IVPB SCH (05:13)
[2017-07-02 05:23] LABS: BASOPHILS % 0.1 % (0.0-2.0); EOSINOPHILS # 1.1 10^3/ul (0.0-0.5); EOSINOPHILS % 14.5 % (0.0-7.0); HEMOGLOBIN 8.9 g/dl (12.0-16.0); LYMPHOCYTES # 1.2 10^3/ul (0.8-2.9); LYMPHOCYTES % 15.3 % (15.0-51.0); MEAN CORPUSCULAR HEMOGLOBIN 28.1 pg (29.0-33.0); MEAN CORPUSCULAR VOLUME 85.2 fl (82.0-101.0); MEAN PLATELET VOLUME 9.9 fl (7.4-10.4); MONOCYTE # 0.5 10^3/ul (0.3-0.9); MONOCYTES % 6.9 % (0.0-11.0); NEUTROPHILS % 62.9 % (39.0-77.0); PLATELET COUNT 242 10^3/UL (140-415); RED BLOOD COUNT 3.17 10^6/ul (4.20-5.40); RED CELL DISTRIBUTION WIDTH 15.5 % (11.5-14.5); WHITE BLOOD COUNT 7.5 10^3/ul (4.8-10.8)
[2017-07-02 06:16] LABS: ALBUMIN/GLOBULIN RATIO 0.9; CALCIUM 7.2 mg/dl (8.4-10.2); CREATININE 0.62 mg/dl (0.44-1.00); POTASSIUM 3.6 mmol/L (3.5-5.1); TOTAL PROTEIN 4.2 g/dl (6.1-8.1)
[2017-07-02 06:51] LABS: MAGNESIUM 1.8 mg/dl (1.7-2.5); PHOSPHORUS 2.1 mg/dl (2.5-4.9)
[2017-07-02 07:38] VITALS: BP 107/61; RESP 18
[2017-07-02] MEDS: FAMOTIDINE 20 MG TAB PO SCH (08:13)
--- NOTE | 2017-07-02 09:21 | PN ---
Date/Time of Note Date/Time of Note DATE: 07/02/17 TIME: : Assessment/Plan VTE Prophylaxis VTE Prophylaxis Intervention: SCD's Lines/Catheters IV Catheter Type (from [facility]): Peripheral IV Urinary Cath still in place: No Assessment/Plan Chief Complaint/Hosp Course 1. History of cholelithiasis and cholecystitis. Status post laparoscopic cholecystectomy on 03/31/2017 at an outside facility complicated by possible bile duct injury. Status post ERCP on 04/03/2017. Status post laparoscopic washout on 04/10/2017 at [facility] by hepatobiliary surgery. Status post percutaneous CT-guided drain placement at [facility]. 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 S/P open Donovan-en-Y hepaticojejunostomy, extensive lysis of adhesions, abdominal lavage, placement of percutaneous transhepatic cholangiography tube on the left, and placement of percutaneous transhepatic cholangiography tube on the right on 06/29/2017. 2. Transaminitis. Most probably secondary to #1. Avoid hepatotoxic medications. 3. Acute kidney injury. Etiology unclear. Resolved. 4. Urinary tract infection. Urine culture positive for Klebsiella pneumoniae. Continue antimicrobials. 5. Moderate protein calorie malnutrition. Dietary supplements. 6. Fluids, electrolytes, and nutrition. Regular diet. 7. DVT prophylaxis. Bilateral sequential compression devices. 8. Gastrointestinal prophylaxis. H2 receptor antagonists. 9. Plan. Continue antimicrobials. Replete phosphorous.Continue post-operative care. Encourage OOB. Case discussed with Dr. Salvador. Problems: Subjective 24 Hr Interval Summary Free Text/Dictation Complains of pain. Tolerating a regular diet. Exam/Review of Systems Vital Signs Vitals Vital Signs Date Time Temp Pulse Resp B/P Pulse Ox O2 Delivery O2 Flow Rate FiO2 07/02/17 07:38 98.6 95 18 107/61 97 07/01/17 09:00 2.0 07/01/17 04:00 Nasal Cannula Intake and Output 07/01/17 07/01/17 07/02/17 15:00 23:00 07:00 Intake Total 350 ml 2200 ml 1700 ml Output Total 170 ml 605 ml 4 ml Balance 180 ml 1595 ml 1696 ml Exam General: Thin, frail looking 37 year-old female lying in bed in no apparent distress. HEENT: Normocephalic, atraumatic. Eyes: Anicteric sclerae, conjunctivae clear. ENT: Nasal septum midline, oral mucosa moist. Neck supple, no JVD noticed. Respiratory: Bilaterally clear breath sounds. No use of accessory muscles of respiration. No adventitious breath sounds. Cardiovascular: S1, S2 heard. No murmurs or gallops. Abdomen: Surgical dressing. Surgical drains. Tender to touch Genitourinary: Deferred. Extremities: No cyanosis, no clubbing, no edema. Peripheral pulses palpable. Neurologic: Cranial nerves II through XII grossly intact. The patient is awake, alert, and oriented. Skin: Normal skin turgor. No skin rashes. Results Result Diagram: 07/02/17 0448 07/02/17 0448 Results 24 hrs Laboratory Tests Test 07/02/17 04:27 07/02/17 04:48 Phosphorus Level 2.1 L Magnesium Level 1.8 White Blood Count 7.5 # Red Blood Count 3.17 L Hemoglobin 8.9 L Hematocrit 27.0 L Mean Corpuscular Volume 85.2 Mean Corpuscular Hemoglobin 28.1 L Mean Corpuscular Hemoglobin Concent 33.0 Red Cell Distribution Width 15.5 H Platelet Count 242 Mean Platelet Volume 9.9 Neutrophils % 62.9 Lymphocytes % 15.3 Monocytes % 6.9 Eosinophils % 14.5 H Basophils % 0.1 Nucleated Red Blood Cells % 0.0 Neutrophils # (Manual) 4.7 Lymphocytes # 1.2 Monocytes # 0.5 Eosinophils # 1.1 H Basophils # 0.0 Nucleated Red Blood Cells # 0.0 Sodium Level 135 Potassium Level 3.6 Chloride Level 108 Carbon Dioxide Level 26 Anion Gap 5 L Blood Urea Nitrogen 3 L Creatinine 0.62 Glucose Level 100 Calcium Level 7.2 L Total Bilirubin 0.0 L Direct Bilirubin 0.00 Indirect Bilirubin 0.0 Aspartate Amino Transf (AST/SGOT) 21 Alanine Aminotransferase (ALT/SGPT) 48 Alkaline Phosphatase 145 #H Total Protein 4.2 L Albumin 2.0 L Globulin 2.20 Albumin/Globulin Ratio 0.90 Amylase Level 51 Lipase 67 Medications Medications Current Medications Famotidine (Pepcid) 20 mg DAILY PO Last administered on 07/02/17 08:13; Admin Dose 20 MG; Start 06/24/17 at 09:00 Acetaminophen 500 mg 500 mg Q6H PRN PO PAIN AND OR ELEVATED TEMP Last administered on 06/30/17 02:30; Admin Dose 500 MG; Start 06/24/17 at 00:30 Potassium Chloride/Dextrose/ Sod Cl (D5-1/2ns + KCl 20 Meq) 1,000 ml @ 100 mls/ hr Q10H IV Last administered on 07/01/17 21:08; Admin Dose 100 MLS/HR; Start at 14:57 Hydromorphone HCl (Dilaudid) 1 mg Q2H PRN IV PAIN Last administered on 13:00; Admin Dose 1 MG; Start 06/29/17 at 15:00; Status Future hold Docusate Sodium (Colace) 100 mg BID PRN PO CONSTIPATION; Start 06/29/17 at 15:00 Bisacodyl (Dulcolax Supp) 10 mg BID PRN [place] CONSTIPATION; Start 06/29/17 at 15:00 Sodium Biphosphate/ Sodium Phosphate 133 ml 133 ml BID PRN [place] CONSTIPATION; Start 06/29/17 at 15:00 Piperacillin Sod/ Tazobactam Sod (Zosyn 3.375gm/ 100 ml (Pmx)) 100 ml @ 200 mls /hr Q8 IVPB Last administered on 07/02/17 05:13; Admin Dose 200 MLS/HR; Start 06/29/17 at 22:00 Meperidine HCl (Demerol) 25 mg Q2 PRN IV PAIN; Start 06/29/17 at 20:00 Hydromorphone HCl (Dilaudid) 0.4 mg Q2H PRN IV PAIN LEVEL 6-10 Last administered on 06/30/17 09:34; Admin Dose 0.4 MG; Start 06/30/17 at 09:00 Acetaminophen (Tylenol Tab) 500 mg Q4H PRN PO PAIN LEVEL 1-3; Start 06/30/17 at 09:00 Acetaminophen/ Hydrocodone Bitart ([place] (5/325)) 1 tab Q4H PRN PO PAIN LEVEL 4 -6; Start 06/30/17 at 09:00 Diphenhydramine HCl (Benadryl) 25 mg Q4H PRN IV PRURITUS Last administered on 10:06; Admin Dose 25 MG; Start 06/30/17 at 09:00 Ondansetron HCl (Zofran Inj) 4 mg Q6H PRN IV NAUSEA AND/OR VOMITING; Start 06/30 at 09:00 Naloxone HCl (Narcan) 0.2 mg Q2M PRN IV FOR RESP RATE 8 OR LESS; Start 06/30/17 at 09:00 Phenol (Cepastat Lozenge) 1 lozenge Q1H PRN [place] SORE THROAT Last administered on 06/30/17 21:50; Admin Dose 1 LOZENGE; Start 06/30/17 at 13:00 Hydromorphone HCl (Dilaudid [employer]ER) 0 MG/HR CONTINUOUS RATE ... Q4PCA IV Last administered on 07/02/17 02:55; Admin Dose 6 MG; Start 06/30/17 at 14:00 Ketorolac Tromethamine (Toradol) 30 mg Q6H PRN IV PAIN Last administered on 03:37; Admin Dose 30 MG; Start 07/01/17 at 20:30; Stop 07/04/17 at 20:29 AMILCAR BRUSH NP Jul 02, 2017 09:21
[2017-07-02] MEDS ORDERED: POTASSIUM PHOSPHATE 15 MM in SOD CHLORIDE 0.9% 250 ML IVPB ONE (10:00)
--- NOTE | 2017-07-02 11:02 | PN ---
Date/Time of Note Date/Time of Note DATE: 07/02/17 TIME: 11:00 Assessment/Plan Lines/Catheters IV Catheter Type (from Nrsg): Peripheral IV Matthew in Place (from Nrsg): No Assessment/Plan Assessment/Plan [facility] Progress Note Date of Service: 07/02/17 Today's Impression & Plan: Overall stable and appears improved. No obvious evidence of major postoperative complications or wound issues. Pain control is a bit better today. Capping the PTC's appear well tolerated clinically and on LFT's. Discussed with patient and answered all questions. Patient appeared to understand and agreed with the plans. Please also note that there are inaccurate statements in nursing notes from regarding events and issues surrounding pain management and orders. With above assessment, I've recommended the following for today: 1. 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 Cont Toradol 3. Increase activity 4. Increase incentive spirometry 5. Cont regular diet 6. Labs in a.m. 7. Dr. Barr to please consult Thank you again for your great care of this very pleasant patient and wonderful family. If there are any questions, please feel free to call me at [phone]. Nature of presenting problem: High severity Please note that, given the extensive number of diagnoses or management options , the extensive amount and/or complexity of data needed to be reviewed, and high risk of complications and/or morbidity or mortality, this qualifies as high complexity type of decision-making. Disclaimer: Inadvertent spelling and grammatical errors are likely due to EHR/ dictation software use and do not reflect on the quality of delivered patient care. Also, please note that the electronic time recorded on this node does not necessarily reflect the actual time of the visit. Updated Clinical Summary: The patient is a very pleasant 37-year-old young lady who was transferred from an outside hospital to [facility] for management of possible bile duct injury. S/p percutaneous CT-guided drain placement above the liver with removal of 1.4 liters of bile in IR suite and more (2 liters) within first 24 hours post procedure. Drain output minimal 04/09/17. S/p lap washout and wide drainage at [facility]. The upper pigtail catheter and the 2 surgical drains d/c 'd on 04/14/17. Urinary retention issues requiring straight cath and Matthew insertion appeared resolved by 04/15/17. DC home 04/16/2017. 2 ER visits between discharge and the 2016 with no hospitalization. Readmitted as a transfer from outside hospital to [facility] 05/19/2017 with pancreatitis as well as urinary tract infection. Admitted to [facility] 05/18/2017. Admission white blood cell count 11.8. Creatinine 3.8. Alkaline phosphatase 547. Total bilirubin 1.1. Lipase 1724. Heart rate 122. Involved physicians included Adrian Oro MD and Maryellen Dolan MD. patient was treated with ceftazidime, vancomycin and metronidazole. CT scan abdomen and pelvis and 05/18/2017: No acute intra-abdominal abnormality appreciated on a limited noncontrast CT of the abdomen and pelvis. Evidence of cholecystectomy. Transhepatic drainage catheter terminating in the region of the gallbladder fossa. Due to persistently elevated amylase and lipase of unknown etiology, scheduled hepaticojejunostomy on 05/30/2017 was postponed to 06/08/2017. D/c'd from [facility] 06/01/17. Outpatient ERCP showed no obvious pancreas duct on 06/14/17. S/ p open Donovan-en-Y hepaticojejunostomy with extensive lysis of adhesions, abdominal lavage and placement of bilateral percutaneous transhepatic cholangiography tubes at [facility] on 06/29/17. COMORBIDITIES: 1. Cholelithiasis and acute cholecystitis, status post laparoscopic cholecystectomy 03/31/2017 at [facility], complicated by bile duct injury; ERCP done on 04/03/2017 after a HIDA scan confirming a bile leak showed clips across the distal common bile duct, without any contrast opacifying the liver. We accepted the patient as a transfer into [facility] bile duct injury program for a higher level of care. The patient arrived on 04/05/2017. 2. S/p percutaneous CT-guided drain placement above the liver with removal of 1.4 liters of bile in IR suite and more immediately post procedure. 3. S/p lap washout and wide drainage at [facility]. 4. Confirmation of complete transection of common bile duct 5. S/p open Donovan-en-Y hepaticojejunostomy with extensive lysis of adhesions, abdominal lavage and placement of bilateral percutaneous transhepatic cholangiography tubes at [facility] on 06/29/17 Subjective: No major events or complaints overnight; reports feeling better today and notes improvement in her pain control; no current n/v/d; no sob or cp; + flatus; - BM ; + activity. Objective: Vitals: See below Exam: GENERAL: On exam, the patient was laying in bed and appeared to be uncomfortable and in mild distress. ABDOMEN: Soft, nondistended and mild to moderately tender to palpation mainly around incisions. Incisions are clean, dry and intact without any evidence of erythema, edema, discharge, or hernia. Pigtail catheter with minimal serosanguineous output. Both right and left PTCs remain capped. There are no peritoneal signs or guarding. SKIN: Skin appears to be pink and feels warm to touch. NEUROLOGIC: Patient is awake, alert, and follows commands appropriately. Exam/Review of Systems Vital Signs Vitals Vital Signs Date Time Temp Pulse Resp B/P Pulse Ox O2 Delivery O2 Flow Rate FiO2 07/02/17 09:32 18 07/02/17 07:38 98.6 95 107/61 97 07/01/17 09:00 2.0 07/01/17 04:00 Nasal Cannula Intake and Output 07/01/17 07/01/17 07/02/17 15:00 23:00 07:00 Intake Total 350 ml 2200 ml 1700 ml Output Total 170 ml 605 ml 4 ml Balance 180 ml 1595 ml 1696 ml Results Result Diagram: 07/02/17 0448 07/02/17 0448 LENA MONCADA M.D. Jul 02, 2017 11:02
[2017-07-02 19:46] VITALS: BP 106/60; RESP 18
[2017-07-03 02:04] VITALS: BP 114/66; RESP 16
[2017-07-03] MEDS: KETOROLAC 30 MG INJ IV PRN (02:50)
[2017-07-03] MEDS: HYDROmorphONE 0.2 MG/ML PCA IV SCH ×4 (05:00→20:25)
[2017-07-03 05:50] LABS: BASOPHILS % 0.3 % (0.0-2.0); EOSINOPHILS # 0.9 10^3/ul (0.0-0.5); EOSINOPHILS % 12.7 % (0.0-7.0); HEMATOCRIT 27.1 % (37.0-47.0); LYMPHOCYTES # 0.9 10^3/ul (0.8-2.9); LYMPHOCYTES % 13.3 % (15.0-51.0); MEAN CORPUSCULAR HEMOGLOBIN 28.8 pg (29.0-33.0); MEAN CORPUSCULAR HGB CONC 33.2 g/dl (32.0-37.0); MEAN CORPUSCULAR VOLUME 86.9 fl (82.0-101.0); MEAN PLATELET VOLUME 9.8 fl (7.4-10.4); MONOCYTE # 0.6 10^3/ul (0.3-0.9); MONOCYTES % 8.6 % (0.0-11.0); NEUTROPHILS % 64.7 % (39.0-77.0); PLATELET COUNT 326 10^3/UL (140-415); RED BLOOD COUNT 3.12 10^6/ul (4.20-5.40); RED CELL DISTRIBUTION WIDTH 15.6 % (11.5-14.5)
[2017-07-03 06:12] LABS: ALANINE AMINOTRANSFERASE 49 IU/L (13-69); ALBUMIN 2.1 g/dl (3.3-4.9); ALBUMIN/GLOBULIN RATIO 0.91; ALKALINE PHOSPHATASE 183 IU/L (42-121); ANION GAP 5 (8-16); ASPARTATE AMINO TRANSFERASE 25 IU/L (15-46); BILIRUBIN,INDIRECT 0.1 mg/dl (0-1.1); BILIRUBIN,TOTAL 0.1 mg/dl (0.2-1.3); CALCIUM 7.5 mg/dl (8.4-10.2); CARBON DIOXIDE 27 mmol/L (21-31); CHLORIDE 108 mmol/L (97-110); CREATININE 0.54 mg/dl (0.44-1.00); GLUCOSE 88 mg/dl (70-220); POTASSIUM 3.6 mmol/L (3.5-5.1); SODIUM 136 mmol/L (135-144); TOTAL PROTEIN 4.4 g/dl (6.1-8.1)
[2017-07-03 06:13] LABS: MAGNESIUM 1.5 mg/dl (1.7-2.5); PHOSPHORUS 2.8 mg/dl (2.5-4.9)
[2017-07-03] MEDS: CEPASTAT LOZENGE MT PRN (06:15)
[2017-07-03 06:31] LABS: BLOOD UREA NITROGEN < 2 mg/dl (7-20)
--- NOTE | 2017-07-03 07:15 | CONS ---
Date/Time of Note Date/Time of Note DATE: 07/03/17 TIME: 07:05 Assessment/Plan Assessment/Plan Additional Assessment/Plan Plans Discontinue BUILDING CONSULTANT Demerol and Livingston Switch to p.o. Dilaudid 2 mg every 3 hours as needed Continue Toradol switch to IV Tylenol during transition to oral pain control medications Extensive discussion with patient to have nurses to call me in event her pain is not controlled. Indications for anxiolytics No indications for bowel regimen secondary to recent surgery. Consultation Date/Type/Reason Admit Date/Time Jun 23, 2017 at 19:42 Type of Consultation: Pain management Hx of Present Illness 37-year-old female with a history of cholecystitis and choledocholithiasis transferred to [facility] status post ERCP. Patient required transfer for bile duct perforation status post Donovan and Y hepatojejunostomy placement of percutaneous transhepatic drain. Patient states her chest pain is under better control but her abdominal discomfort and lower quadrant discomfort still is 5/10. Denies nausea vomiting dizziness diplopia disorientation confusing pruritus, she is eating solids at this time but she has not had a bowel movement. Is no past medical history of drug use abuse he denies alcohol or smoking. Patient states she is not over sedate her current medication she is trying her hardest not to use the BUILDING CONSULTANT other medications she is prescribed include Livingston and Demerol. She states the Livingston is ineffective. She is not bargaining for different pain control medication or early renewals. There is no indication to use her pain medication response to stress and she is not insisting on certain pain control medication. With current pain control medication states that her pain is well controlled for approximately 2 hours. Pain interferes with her mood only but not sleeping patterns are overall function. Constitutional: improved Psychological: nl mood/affect, no complaints Past Medical History Medical History: gallstones, GERD, pancreatitis Past Surgical History Past Surgical Hx: cholecystectomy, endoscopy Social History Alcohol Use: none Smoking Status: Never smoker Drug Use: none Exam/Review of Systems Vital Signs Vitals Vital Signs Date Time Temp Pulse Resp B/P Pulse Ox O2 Delivery O2 Flow Rate FiO2 07/03/17 02:04 98.8 109 16 114/66 99 07/01/17 09:00 2.0 07/01/17 04:00 Nasal Cannula Intake and Output 07/02/17 07/02/17 07/03/17 15:00 23:00 07:00 Intake Total 535 ml 1440 ml 1300 ml Output Total 5 ml 1110 ml Balance 535 ml 1435 ml 190 ml Exam Constitutional: alert, oriented, well developed, No distress, No frail, No non-verbal, No obese, No other Psych: nl mood/affect, no complaints, No anxiety, No confusion, No depression, No other, No suicidal Neck: non-tender, supple, No bruits, No jvd, No masses, No nuchal rigidity, No other, No thyromegaly Respiratory: clear to auscultation, normal air movement, No congested cough, No crackles/rales, No diminished breath sounds, No intercostal retraction, No labored breathing, No other, No respirations, No tactile fremitus, No wheezing Cardiovascular: nl pulses, regular rate and rhythm, No S3, No S4, No bruits, No diastolic murmur, No edema, No gallop, No irregular rhythm, No jugular venous distention (JVD), No murmurs/extra sounds, No other, No rub, No systolic murmur Gastrointestinal: bowel sounds Extremities: No calf tenderness, No clubbing, No cyanosis, No edema, No normal pulses, No other, No palpable cord, No pitting pedal edema, No tenderness Neurological: 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 II-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 intact, nl mental status, nl speech, nl strength, No DTR's symmetric, No confused, No focal weakness, No lethargic, No numbness , No other, No reflexes, No unresponsive Results Result Diagram: 07/03/17 0455 07/03/17 0455 Results 24 hrs Laboratory Tests Test 07/03/17 04:55 White Blood Count 7.0 Red Blood Count 3.12 L Hemoglobin 9.0 L Hematocrit 27.1 L Mean Corpuscular Volume 86.9 Mean Corpuscular Hemoglobin 28.8 L Mean Corpuscular Hemoglobin Concent 33.2 Red Cell Distribution Width 15.6 H Platelet Count 326 # Mean Platelet Volume 9.8 Neutrophils % 64.7 Lymphocytes % 13.3 L Monocytes % 8.6 Eosinophils % 12.7 H Basophils % 0.3 Nucleated Red Blood Cells % 0.0 Neutrophils # (Manual) 4.5 Lymphocytes # 0.9 Monocytes # 0.6 Eosinophils # 0.9 H Basophils # 0.0 Nucleated Red Blood Cells # 0.0 Sodium Level 136 Potassium Level 3.6 Chloride Level 108 Carbon Dioxide Level 27 Anion Gap 5 L Blood Urea Nitrogen < 2 L Creatinine 0.54 Glucose Level 88 Calcium Level 7.5 L Phosphorus Level 2.8 Magnesium Level 1.5 L Total Bilirubin 0.1 L Direct Bilirubin 0.00 Indirect Bilirubin 0.1 Aspartate Amino Transf (AST/SGOT) 25 Alanine Aminotransferase (ALT/SGPT) 49 Alkaline Phosphatase 183 H Total Protein 4.4 L Albumin 2.1 L Globulin 2.30 Albumin/Globulin Ratio 0.91 Medications Medications Current Medications Famotidine (Pepcid) 20 mg DAILY PO Last administered on 07/02/17 08:13; Admin Dose 20 MG; Start 06/24/17 at 09:00 Acetaminophen (Tylenol Tab) 500 mg Q6H PRN PO PAIN AND OR ELEVATED TEMP Last administered on 06/30/17 02:30; Admin Dose 500 MG; Start 06/24/17 at 00:30 Hydromorphone HCl (Dilaudid) 1 mg Q2H PRN IV PAIN Last administered on 13:00; Admin Dose 1 MG; Start 06/29/17 at 15:00; Status Future hold Docusate Sodium (Colace) 100 mg BID PRN PO CONSTIPATION; Start 06/29/17 at 15:00 Bisacodyl (Dulcolax Supp) 10 mg BID PRN [place] CONSTIPATION; Start 06/29/17 at 15:00 Sodium Biphosphate/ Sodium Phosphate (Fleet Enema) 133 ml BID PRN [place] CONSTIPATION; Start 06/29/17 at 15:00 Meperidine HCl (Demerol) 25 mg Q2 PRN IV PAIN; Start 06/29/17 at 20:00 Hydromorphone HCl (Dilaudid) 0.4 mg Q2H PRN IV PAIN LEVEL 6-10 Last administered on 06/30/17 09:34; Admin Dose 0.4 MG; Start 06/30/17 at 09:00 Acetaminophen (Tylenol Tab) 500 mg Q4H PRN PO PAIN LEVEL 1-3; Start 06/30/17 at 09:00 Acetaminophen/ Hydrocodone Bitart (Livingston (5/325)) 1 tab Q4H PRN PO PAIN LEVEL 4 -6; Start 06/30/17 at 09:00 Diphenhydramine HCl (Benadryl) 25 mg Q4H PRN IV PRURITUS Last administered on 10:06; Admin Dose 25 MG; Start 06/30/17 at 09:00 Ondansetron HCl (Zofran Inj) 4 mg Q6H PRN IV NAUSEA AND/OR VOMITING; Start 06/30 at 09:00 Naloxone HCl (Narcan) 0.2 mg Q2M PRN IV FOR RESP RATE 8 OR LESS; Start 06/30/17 at 09:00 Phenol (Cepastat Lozenge) 1 lozenge Q1H PRN [place] SORE THROAT Last administered on 07/03/17 06:15; Admin Dose 1 LOZENGE; Start 06/30/17 at 13:00 Hydromorphone HCl (Dilaudid BUILDING CONSULTANT) 0 MG/HR CONTINUOUS RATE ... Q4PCA IV Last administered on 07/03/17 05:00; Admin Dose 6 MG; Start 06/30/17 at 14:00 Ketorolac Tromethamine (Toradol) 30 mg Q6H PRN IV PAIN Last administered on 02:50; Admin Dose 30 MG; Start 07/01/17 at 20:30; Stop 07/04/17 at 20:29 BAN ALVARADO Jul 03, 2017 07:15
[2017-07-03 07:42] VITALS: BP 102/61; RESP 19
[2017-07-03] MEDS: ACETAMINOPHEN 1000MG/100ML IV 100 ML IVPB SCH ×4 (08:05→18:34)
[2017-07-03] MEDS: FAMOTIDINE 20 MG TAB PO SCH (08:16)
[2017-07-03] MEDS: POLYETHYLENE GLYCOL 17 GM PACKET PO SCH (08:16)
--- NOTE | 2017-07-03 13:28 | PN ---
Date/Time of Note Date/Time of Note DATE: 07/03/17 TIME: 13:25 Assessment/Plan Lines/Catheters IV Catheter Type (from Nrsg): Peripheral IV Matthew in Place (from Nrsg): No Assessment/Plan Assessment/Plan [facility] Progress Note Date of Service: 07/03/17 Today's Impression & Plan: Overall stable and improving. No obvious evidence of major postoperative complications or wound issues. Pain control is adequate today. Much appreciate Dr. Barr's excellent input. Capping the PTC's appear well tolerated clinically and on LFT's. Perc drain (outside of biliary tree) d/c'd today at bedside without difficulty. Discussed with patient and answered all questions. Patient appeared to understand and agreed with the plans. Please also note that there are inaccurate statements in nursing notes from regarding events and issues surrounding pain management and orders. With above assessment, I've recommended the following for today: 1. Cont weaning off the Dilaudid DIRECTOR OF VALUATION 2. Pain management and set up for outpatient plans per Dr. Barr 3. Increase activity 4. Increase incentive spirometry 5. Cont regular diet 6. Labs in a.m. 7. D/c planning for 24-48 hrs from now Thank you again for your great care of this very pleasant patient and wonderful family. If there are any questions, please feel free to call me at [phone]. Nature of presenting problem: High severity Please note that, given the extensive number of diagnoses or management options , the extensive amount and/or complexity of data needed to be reviewed, and high risk of complications and/or morbidity or mortality, this qualifies as high complexity type of decision-making. Disclaimer: Inadvertent spelling and grammatical errors are likely due to EHR/ dictation software use and do not reflect on the quality of delivered patient care. Also, please note that the electronic time recorded on this node does not necessarily reflect the actual time of the visit. Updated Clinical Summary: The patient is a very pleasant 37-year-old young lady who was transferred from an outside hospital to [facility] for management of possible bile duct injury. S/p percutaneous CT-guided drain placement above the liver with removal of 1.4 liters of bile in IR suite and more (2 liters) within first 24 hours post procedure. Drain output minimal 04/09/17. S/p lap washout and wide drainage at [facility]. The upper pigtail catheter and the 2 surgical drains d/c 'd on 04/14/17. Urinary retention issues requiring straight cath and Matthew insertion appeared resolved by 04/15/17. DC home 04/16/2017. 2 ER visits between discharge and the 2016 with no hospitalization. Readmitted as a transfer from outside hospital to [facility] 05/19/2017 with pancreatitis as well as urinary tract infection. Admitted to [facility] 05/18/2017. Admission white blood cell count 11.8. Creatinine 3.8. Alkaline phosphatase 547. Total bilirubin 1.1. Lipase 1724. Heart rate 122. Involved physicians included Adrian Oro MD and Maryellen Dolan MD. patient was treated with ceftazidime, vancomycin and metronidazole. CT scan abdomen and pelvis and 05/18/2017: No acute intra-abdominal abnormality appreciated on a limited noncontrast CT of the abdomen and pelvis. Evidence of cholecystectomy. Transhepatic drainage catheter terminating in the region of the gallbladder fossa. Due to persistently elevated amylase and lipase of unknown etiology, scheduled hepaticojejunostomy on 05/30/2017 was postponed to 06/08/2017. D/c'd from [facility] 06/01/17. Outpatient ERCP showed no obvious pancreas duct on 06/14/17. S/ p open Donovan-en-Y hepaticojejunostomy with extensive lysis of adhesions, abdominal lavage and placement of bilateral percutaneous transhepatic cholangiography tubes at [facility] on 06/29/17. COMORBIDITIES: 1. Cholelithiasis and acute cholecystitis, status post laparoscopic cholecystectomy 03/31/2017 at [facility], complicated by bile duct injury; ERCP done on 04/03/2017 after a HIDA scan confirming a bile leak showed clips across the distal common bile duct, without any contrast opacifying the liver. We accepted the patient as a transfer into [facility] bile duct injury program for a higher level of care. The patient arrived on 04/05/2017. 2. S/p percutaneous CT-guided drain placement above the liver with removal of 1.4 liters of bile in IR suite and more immediately post procedure. 3. S/p lap washout and wide drainage at [facility]. 4. Confirmation of complete transection of common bile duct 5. S/p open Donovan-en-Y hepaticojejunostomy with extensive lysis of adhesions, abdominal lavage and placement of bilateral percutaneous transhepatic cholangiography tubes at [facility] on 06/29/17 Subjective: No major events or complaints overnight; reports feeling well today and notes improvement in her pain control; no current n/v/d; no sob or cp; + flatus; + BM ; + activity. Objective: Vitals: See below Exam: GENERAL: On exam, the patient was laying in bed and appeared to be uncomfortable and in mild distress. ABDOMEN: Soft, nondistended and mild to moderately tender to palpation mainly around incisions. Incisions are clean, dry and intact without any evidence of erythema, edema, discharge, or hernia. Perc drain pigtail catheter (outside of biliary tree) with minimal serosanguineous output d/c'd today at bedside without difficulty. Both right and left PTCs remain capped. There are no peritoneal signs or guarding. SKIN: Skin appears to be pink and feels warm to touch. NEUROLOGIC: Patient is awake, alert, and follows commands appropriately. Exam/Review of Systems Vital Signs Vitals Vital Signs Date Time Temp Pulse Resp B/P Pulse Ox O2 Delivery O2 Flow Rate FiO2 07/03/17 07:42 98.1 87 19 102/61 98 07/01/17 09:00 2.0 07/01/17 04:00 Nasal Cannula Intake and Output 07/02/17 07/02/17 07/03/17 15:00 23:00 07:00 Intake Total 535 ml 1440 ml 1300 ml Output Total 5 ml 1110 ml Balance 535 ml 1435 ml 190 ml Results Result Diagram: 07/03/17 0455 07/03/17 0455 LENA MONCADA M.D. Jul 03, 2017 13:28
[2017-07-03 14:00] VITALS: BP 116/59; RESP 18
--- NOTE | 2017-07-03 14:22 | PN ---
Date/Time of Note Date/Time of Note DATE: 07/03/17 TIME: 14:14 Assessment/Plan VTE Prophylaxis VTE Prophylaxis Intervention: SCD's Lines/Catheters IV Catheter Type (from [facility]): Peripheral IV Urinary Cath still in place: No Assessment/Plan Chief Complaint/Hosp Course Assessment and plan 1. History of cholelithiasis and cholecystitis. Patient does have history of cholecystectomy on March 31, 2017 oh suspect completed by possible bile duct injury. Patient also status post ERCP on April 03, 2017 as well as a laparoscopic washout on April 10, 2017. Patient also had MRCP done on May 23, 2017 showing diffuse intrahepatic ductal dilation with transition point in the region of susceptibility artifact at the vickey hepatis suggestive of underlying stricture. Patient is status post open Donovan-en-Y hepaticojejunostomy with extensive lysis of adhesions and abdominal lavage with placement of percutaneous transhepatic cholangiography tube in the left side as well as percutaneous transhepatic cholangiography tube in the right side June 29, 2017. Does appear to be improving at present. 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 Tolerating diet well. 2. Transaminitis secondary to #1. Improving at present. Will monitor. 3. AK I. Improved at present. Will monitor. 4. UTI. Noted with Klebsiella pneumonia. Continue antibiotics. 5. Protein calorie malnutrition. Continue on dietary supplement Disposition plan: Continue antimicrobials. Patient to be weaned off Dilaudid medication. Continue with analgesics. Discharge when medically stable for by consultants Discussed plan of care with Dr. Freitas Problems: Subjective 24 Hr Interval Summary Free Text/Dictation Comfortable at present. Denies any abdominal pain or nausea. Exam/Review of Systems Vital Signs Vitals Vital Signs Date Time Temp Pulse Resp B/P Pulse Ox O2 Delivery O2 Flow Rate FiO2 07/03/17 07:42 98.1 87 19 102/61 98 07/01/17 09:00 2.0 07/01/17 04:00 Nasal Cannula Intake and Output 07/02/17 07/02/17 07/03/17 15:00 23:00 07:00 Intake Total 535 ml 1440 ml 1300 ml Output Total 5 ml 1110 ml Balance 535 ml 1435 ml 190 ml Exam Constitutional: alert, oriented Psych: nl mood/affect Head: normocephalic Neck: supple, No jvd Respiratory: clear to auscultation, normal air movement Cardiovascular: regular rate and rhythm Gastrointestinal: other (Noted with drain on right flank), soft, No tender Musculoskeletal: nl extremities to inspection Neurological: MICROSTRATEGY REPORTS DEVELOPER II-XII intact, nl mental status, nl speech Skin: other (Surgical scar on abdomen clean dry and intact) Results Result Diagram: 07/03/17 0455 07/03/17 0455 Results 24 hrs Laboratory Tests Test 07/03/17 04:55 White Blood Count 7.0 Red Blood Count 3.12 L Hemoglobin 9.0 L Hematocrit 27.1 L Mean Corpuscular Volume 86.9 Mean Corpuscular Hemoglobin 28.8 L Mean Corpuscular Hemoglobin Concent 33.2 Red Cell Distribution Width 15.6 H Platelet Count 326 # Mean Platelet Volume 9.8 Neutrophils % 64.7 Lymphocytes % 13.3 L Monocytes % 8.6 Eosinophils % 12.7 H Basophils % 0.3 Nucleated Red Blood Cells % 0.0 Neutrophils # (Manual) 4.5 Lymphocytes # 0.9 Monocytes # 0.6 Eosinophils # 0.9 H Basophils # 0.0 Nucleated Red Blood Cells # 0.0 Sodium Level 136 Potassium Level 3.6 Chloride Level 108 Carbon Dioxide Level 27 Anion Gap 5 L Blood Urea Nitrogen < 2 L Creatinine 0.54 Glucose Level 88 Calcium Level 7.5 L Phosphorus Level 2.8 Magnesium Level 1.5 L Total Bilirubin 0.1 L Direct Bilirubin 0.00 Indirect Bilirubin 0.1 Aspartate Amino Transf (AST/SGOT) 25 Alanine Aminotransferase (ALT/SGPT) 49 Alkaline Phosphatase 183 H Total Protein 4.4 L Albumin 2.1 L Globulin 2.30 Albumin/Globulin Ratio 0.91 Medications Medications Current Medications Famotidine (Pepcid) 20 mg DAILY PO Last administered on 07/03/17 08:16; Admin Dose 20 MG; Start 06/24/17 at 09:00 Docusate Sodium (Colace) 100 mg BID PRN PO CONSTIPATION; Start 06/29/17 at 15:00 Bisacodyl (Dulcolax Supp) 10 mg BID PRN [place] CONSTIPATION; Start 06/29/17 at 15:00 Sodium Biphosphate/ Sodium Phosphate (Fleet Enema) 133 ml BID PRN [place] CONSTIPATION; Start 06/29/17 at 15:00 Diphenhydramine HCl (Benadryl) 25 mg Q4H PRN IV PRURITUS Last administered on 10:06; Admin Dose 25 MG; Start 06/30/17 at 09:00 Ondansetron HCl (Zofran Inj) 4 mg Q6H PRN IV NAUSEA AND/OR VOMITING; Start 06/30 at 09:00 Naloxone HCl (Narcan) 0.2 mg Q2M PRN IV FOR RESP RATE 8 OR LESS; Start 06/30/17 at 09:00 Phenol (Cepastat Lozenge) 1 lozenge Q1H PRN MT SORE THROAT Last administered on 07/03/17 06:15; Admin Dose 1 LOZENGE; Start 06/30/17 at 13:00 Hydromorphone HCl (Dilaudid COST RECOVERY TECHNICIAN) 0 MG/HR CONTINUOUS RATE ... Q4PCA IV Last administered on 07/03/17 10:45; Admin Dose 6 MG; Start 06/30/17 at 14:00 Hydromorphone HCl 2 mg 2 mg Q3H PRN PO PAIN LEVEL 1-3; Start 07/03/17 at 07:00 Acetaminophen (Ofirmev 1000mg/ 100ml Iv) 100 ml @ 400 mls/hr Q6 IVPB Last administered on 07/03/17 12:18; Admin Dose 400 MLS/HR; Start 07/03/17 at 07:30 Polyethylene Glycol (Miralax) 17 gm DAILY PO Last administered on 07/03/17 08: 16; Admin Dose 17 GM; Start 07/03/17 at 09:00 MILES NOLASCO Jul 03, 2017 14:22
[2017-07-03 19:33] VITALS: BP 105/63; RESP 19
[2017-07-04] MEDS: ACETAMINOPHEN 1000MG/100ML IV 100 ML IVPB SCH ×5 (00:19→23:49)
[2017-07-04 00:21] VITALS: BP 119/74; RESP 18
[2017-07-04] MEDS: HYDROmorphONE 0.2 MG/ML PCA IV SCH ×4 (02:48→21:09)
[2017-07-04 05:46] LABS: BASOPHILS % 0.3 % (0.0-2.0); EOSINOPHILS # 0.7 10^3/ul (0.0-0.5); EOSINOPHILS % 9.4 % (0.0-7.0); HEMATOCRIT 26.4 % (37.0-47.0); HEMOGLOBIN 8.7 g/dl (12.0-16.0); LYMPHOCYTES # 1.2 10^3/ul (0.8-2.9); LYMPHOCYTES % 16.5 % (15.0-51.0); MEAN CORPUSCULAR HEMOGLOBIN 28.7 pg (29.0-33.0); MEAN CORPUSCULAR VOLUME 87.1 fl (82.0-101.0); MEAN PLATELET VOLUME 9.4 fl (7.4-10.4); MONOCYTE # 0.5 10^3/ul (0.3-0.9); MONOCYTES % 7.5 % (0.0-11.0); NEUTROPHILS % 65.9 % (39.0-77.0); PLATELET COUNT 368 10^3/UL (140-415); RED BLOOD COUNT 3.03 10^6/ul (4.20-5.40); RED CELL DISTRIBUTION WIDTH 15.6 % (11.5-14.5); WHITE BLOOD COUNT 7.1 10^3/ul (4.8-10.8)
[2017-07-04 05:49] LABS: ANION GAP 7 (8-16); CALCIUM 7.4 mg/dl (8.4-10.2); CARBON DIOXIDE 28 mmol/L (21-31); CHLORIDE 105 mmol/L (97-110); CREATININE 0.55 mg/dl (0.44-1.00); GLUCOSE 80 mg/dl (70-220); MAGNESIUM 1.5 mg/dl (1.7-2.5); POTASSIUM 3.7 mmol/L (3.5-5.1); SODIUM 136 mmol/L (135-144)
[2017-07-04 05:52] LABS: BLOOD UREA NITROGEN < 2 mg/dl (7-20)
[2017-07-04 07:55] VITALS: BP 113/69; RESP 18
[2017-07-04] MEDS: POLYETHYLENE GLYCOL 17 GM PACKET PO SCH (08:11)
[2017-07-04] MEDS: FAMOTIDINE 20 MG TAB PO SCH (08:11)
[2017-07-04] MEDS: DOCUSATE SODIUM 100 MG CAP PO PRN (08:11)
[2017-07-04] MEDS: ONDANSETRON 4 MG INJ IV PRN ×3 (09:09→20:47)
--- NOTE | 2017-07-04 12:41 | PN ---
Date/Time of Note Date/Time of Note DATE: 07/04/17 TIME: 12:39 Assessment/Plan Lines/Catheters IV Catheter Type (from Nrsg): Peripheral IV Matthew in Place (from Nrsg): No Assessment/Plan Assessment/Plan [facility] Progress Note Date of Service: 07/04/17 Today's Impression & Plan: Overall stable and improving. No obvious evidence of major postoperative complications or wound issues. Pain control is adequate today. Much appreciate Dr. Barr's excellent input. Capping the PTC's appear well tolerated clinically and on LFT's. Nausea and vomiting earlier today will keep patient inhouse until resolved. Discussed with patient and answered all questions. Patient appeared to understand and agreed with the plans. Please also note that there are inaccurate statements in nursing notes from regarding events and issues surrounding pain management and orders. With above assessment, I've recommended the following for today: 1. Cont weaning off the Dilaudid PLATE GRINDER 2. Pain management and set up for outpatient plans per Dr. Barr 3. Increase activity 4. Increase incentive spirometry 5. Cont regular diet 6. Labs in a.m. 7. Keep inhouse 8. D/c planning for 24-48 hrs from now Thank you again for your great care of this very pleasant patient and wonderful family. If there are any questions, please feel free to call me at [phone]. Nature of presenting problem: High severity Please note that, given the extensive number of diagnoses or management options , the extensive amount and/or complexity of data needed to be reviewed, and high risk of complications and/or morbidity or mortality, this qualifies as high complexity type of decision-making. Disclaimer: Inadvertent spelling and grammatical errors are likely due to EHR/ dictation software use and do not reflect on the quality of delivered patient care. Also, please note that the electronic time recorded on this node does not necessarily reflect the actual time of the visit. Updated Clinical Summary: The patient is a very pleasant 37-year-old young lady who was transferred from an outside hospital to [facility] for management of possible bile duct injury. S/p percutaneous CT-guided drain placement above the liver with removal of 1.4 liters of bile in IR suite and more (2 liters) within first 24 hours post procedure. Drain output minimal 04/09/17. S/p lap washout and wide drainage at [facility]. The upper pigtail catheter and the 2 surgical drains d/c 'd on 04/14/17. Urinary retention issues requiring straight cath and Matthew insertion appeared resolved by 04/15/17. DC home 04/16/2017. 2 ER visits between discharge and the 2016 with no hospitalization. Readmitted as a transfer from outside hospital to [facility] 05/19/2017 with pancreatitis as well as urinary tract infection. Admitted to [facility] 05/18/2017. Admission white blood cell count 11.8. Creatinine 3.8. Alkaline phosphatase 547. Total bilirubin 1.1. Lipase 1724. Heart rate 122. Involved physicians included Adrian Oro MD and Maryellen Dolan MD. patient was treated with ceftazidime, vancomycin and metronidazole. CT scan abdomen and pelvis and 05/18/2017: No acute intra-abdominal abnormality appreciated on a limited noncontrast CT of the abdomen and pelvis. Evidence of cholecystectomy. Transhepatic drainage catheter terminating in the region of the gallbladder fossa. Due to persistently elevated amylase and lipase of unknown etiology, scheduled hepaticojejunostomy on 05/30/2017 was postponed to 06/08/2017. D/c'd from [facility] 06/01/17. Outpatient ERCP showed no obvious pancreas duct on 06/14/17. S/ p open Donovan-en-Y hepaticojejunostomy with extensive lysis of adhesions, abdominal lavage and placement of bilateral percutaneous transhepatic cholangiography tubes at [facility] on 06/29/17. COMORBIDITIES: 1. Cholelithiasis and acute cholecystitis, status post laparoscopic cholecystectomy 03/31/2017 at [facility], complicated by bile duct injury; ERCP done on 04/03/2017 after a HIDA scan confirming a bile leak showed clips across the distal common bile duct, without any contrast opacifying the liver. We accepted the patient as a transfer into [facility] bile duct injury program for a higher level of care. The patient arrived on 04/05/2017. 2. S/p percutaneous CT-guided drain placement above the liver with removal of 1.4 liters of bile in IR suite and more immediately post procedure. 3. S/p lap washout and wide drainage at [facility]. 4. Confirmation of complete transection of common bile duct 5. S/p open Donovan-en-Y hepaticojejunostomy with extensive lysis of adhesions, abdominal lavage and placement of bilateral percutaneous transhepatic cholangiography tubes at [facility] on 06/29/17 Subjective: No major events or complaints overnight other than above; nausea and vomiting this am; pain control seems adequate; no current n/v/d; no sob or cp; + flatus; + BM; + activity. Objective: Vitals: See below Exam: GENERAL: On exam, the patient was laying in bed and appeared to be uncomfortable and in mild distress. ABDOMEN: Soft, nondistended and mild to moderately tender to palpation mainly around incisions. Incisions are clean, dry and intact without any evidence of erythema, edema, discharge, or hernia. Both right and left PTCs remain capped. There are no peritoneal signs or guarding. SKIN: Skin appears to be pink and feels warm to touch. NEUROLOGIC: Patient is awake, alert, and follows commands appropriately. Exam/Review of Systems Vital Signs Vitals Vital Signs Date Time Temp Pulse Resp B/P Pulse Ox O2 Delivery O2 Flow Rate FiO2 07/04/17 07:55 99.0 96 18 113/69 96 07/01/17 09:00 2.0 07/01/17 04:00 Nasal Cannula Intake and Output 07/03/17 07/03/17 07/04/17 15:00 23:00 07:00 Intake Total 800 ml 850 ml Balance 800 ml 850 ml Results Result Diagram: 07/04/17 0458 07/04/17 0458 LENA MONCADA M.D. Jul 04, 2017 12:41
[2017-07-04 14:00] VITALS: BP 108/72; RESP 18
[2017-07-04] MEDS ORDERED: ACETAMINOPHEN 500 MG TAB PO PRN (15:00)
--- NOTE | 2017-07-04 15:18 | PN ---
Date/Time of Note Date/Time of Note DATE: 07/04/17 TIME: 15:17 Assessment/Plan VTE Prophylaxis VTE Prophylaxis Intervention: SCD's Lines/Catheters IV C[facility]ter Type (from [facility]): Peripheral IV Urinary Cath still in place: No Assessment/Plan Chief Complaint/Hosp Course Assessment and plan 1. History of cholelithiasis and cholecystitis. Patient does have history of cholecystectomy on March 31, 2017 oh suspect completed by possible bile duct injury. Patient also status post ERCP on April 03, 2017 as well as a laparoscopic washout on April 10, 2017. Patient also had MRCP done on May 23, 2017 showing diffuse intrahepatic ductal dilation with transition point in the region of susceptibility artifact at the vickey hepatis suggestive of underlying stricture. Patient is status post open Donovna-en-Y hepaticojejunostomy with extensive lysis of adhesions and abdominal lavage with placement of percutaneous transhepatic cholangiography tube in the left side as well as percutaneous transhepatic cholangiography tube in the right side June 29, 2017. Does appear to be improving at present. cont analgesics as needed. Discharge planning 2. Transaminitis secondary to #1. Improving at present. Will monitor. 3. AK I. Improved at present. Will monitor. 4. UTI. Noted with Klebsiella pneumonia. Continue antibiotics. 5. Protein calorie malnutrition. Continue on dietary supplement Disposition plan: Continue with analgesics. Overall appears more stable. Discharge when cleared by consultants Discussed plan of care with Dr. Freitas Problems: Subjective 24 Hr Interval Summary Free Text/Dictation No specific complaints. Comfortable at present. Exam/Review of Systems Vital Signs Vitals Vital Signs Date Time Temp Pulse Resp B/P Pulse Ox O2 Delivery O2 Flow Rate FiO2 07/04/17 07:55 99.0 96 18 113/69 96 07/01/17 09:00 2.0 07/01/17 04:00 Nasal Cannula Intake and Output 07/03/17 07/03/17 07/04/17 15:00 23:00 07:00 Intake Total 800 ml 850 ml Balance 800 ml 850 ml Exam Constitutional: alert, oriented Psych: nl mood/affect Head: normocephalic Neck: supple, No jvd Respiratory: clear to auscultation, normal air movement Cardiovascular: regular rate and rhythm Gastrointestinal: other (Noted with drain on right flank), soft, No tender Musculoskeletal: nl extremities to inspection Neurological: RF 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 ENGINEER II-XII intact, nl mental status, nl speech Skin: other (Surgical scar on abdomen clean dry and intact) Results Result Diagram: 07/04/17 0458 07/04/17 0458 Results 24 hrs Laboratory Tests Test 07/04/17 04:58 White Blood Count 7.1 Red Blood Count 3.03 L Hemoglobin 8.7 L Hematocrit 26.4 L Mean Corpuscular Volume 87.1 Mean Corpuscular Hemoglobin 28.7 L Mean Corpuscular Hemoglobin Concent 33.0 Red Cell Distribution Width 15.6 H Platelet Count 368 Mean Platelet Volume 9.4 Neutrophils % 65.9 Lymphocytes % 16.5 Monocytes % 7.5 Eosinophils % 9.4 H Basophils % 0.3 Nucleated Red Blood Cells % 0.0 Neutrophils # (Manual) 4.7 Lymphocytes # 1.2 Monocytes # 0.5 Eosinophils # 0.7 H Basophils # 0.0 Nucleated Red Blood Cells # 0.0 Sodium Level 136 Potassium Level 3.7 Chloride Level 105 Carbon Dioxide Level 28 Anion Gap 7 L Blood Urea Nitrogen < 2 L Creatinine 0.55 Glucose Level 80 Calcium Level 7.4 L Magnesium Level 1.5 L Medications Medications Current Medications Famotidine (Pepcid) 20 mg DAILY PO Last administered on 07/04/17 08:11; Admin Dose 20 MG; Start 06/24/17 at 09:00 Docusate Sodium (Colace) 100 mg BID PRN PO CONSTIPATION Last administered on 08:11; Admin Dose 100 MG; Start 06/29/17 at 15:00 Bisacodyl (Dulcolax Supp) 10 mg BID PRN [place] CONSTIPATION; Start 06/29/17 at 15:00 Sodium Biphosphate/ Sodium Phosphate (Fleet Enema) 133 ml BID PRN [place] CONSTIPATION; Start 06/29/17 at 15:00 Diphenhydramine HCl (Benadryl) 25 mg Q4H PRN IV PRURITUS Last administered on 10:06; Admin Dose 25 MG; Start 06/30/17 at 09:00 Ondansetron HCl (Zofran Inj) 4 mg Q6H PRN IV NAUSEA AND/OR VOMITING Last administered on 07/04/17 14:37; Admin Dose 4 MG; Start 06/30/17 at 09:00 Naloxone HCl (Narcan) 0.2 mg Q2M PRN IV FOR RESP RATE 8 OR LESS; Start 06/30/17 at 09:00 Phenol (Cepastat Lozenge) 1 lozenge Q1H PRN MT SORE THROAT Last administered on 07/03/17 06:15; Admin Dose 1 LOZENGE; Start 06/30/17 at 13:00 Hydromorphone HCl (Dilaudid STAFFING ADMINISTRATOR) 0 MG/HR CONTINUOUS RATE ... Q4PCA IV Last administered on 07/04/17 08:04; Admin Dose 6 MG; Start 06/30/17 at 14:00 Hydromorphone HCl 2 mg 2 mg Q3H PRN PO PAIN LEVEL 1-3; Start 07/03/17 at 07:00 Acetaminophen (Ofirmev 1000mg/ 100ml Iv) 100 ml @ 400 mls/hr Q6 IVPB Last administered on 07/04/17 12:17; Admin Dose 400 MLS/HR; Start 07/03/17 at 07:30 Polyethylene Glycol (Miralax) 17 gm DAILY PO Last administered on 07/04/17 08: 11; Admin Dose 17 GM; Start 07/03/17 at 09:00 Acetaminophen 500 mg 500 mg Q6H PRN PO PAIN AND OR ELEVATED TEMP; Start at 15:00 Magnesium Sulfate (Magnesium Sulfate 2 Gm/50 ml) 50 ml @ 25 mls/hr ONCE ONCE IVPB ; Start 07/04/17 at 15:30; Stop 07/04/17 at 17:29; Status MILES MELTON Jul 04, 2017 15:18
[2017-07-04] MEDS ORDERED: MAGNESIUM SULFATE 2 GM/50 ML 50 ML IVPB ONE (15:30)
[2017-07-04 20:36] VITALS: BP 125/69; RESP 19
[2017-07-05 02:25] VITALS: BP 128/65; RESP 20
[2017-07-05] MEDS: ONDANSETRON 4 MG INJ IV PRN ×3 (03:41→16:48)
[2017-07-05] MEDS: HYDROmorphONE 0.2 MG/ML PCA IV SCH (04:03)
[2017-07-05 05:18] LABS: BASOPHILS % 0.2 % (0.0-2.0); EOSINOPHILS # 0.9 10^3/ul (0.0-0.5); EOSINOPHILS % 10.3 % (0.0-7.0); HEMATOCRIT 28.5 % (37.0-47.0); HEMOGLOBIN 9.3 g/dl (12.0-16.0); LYMPHOCYTES # 1.3 10^3/ul (0.8-2.9); LYMPHOCYTES % 16.1 % (15.0-51.0); MEAN CORPUSCULAR HEMOGLOBIN 28.4 pg (29.0-33.0); MEAN CORPUSCULAR HGB CONC 32.6 g/dl (32.0-37.0); MEAN CORPUSCULAR VOLUME 87.2 fl (82.0-101.0); MEAN PLATELET VOLUME 9.4 fl (7.4-10.4); MONOCYTE # 0.6 10^3/ul (0.3-0.9); MONOCYTES % 6.7 % (0.0-11.0); NEUTROPHILS % 66.1 % (39.0-77.0); PLATELET COUNT 455 10^3/UL (140-415); RED BLOOD COUNT 3.27 10^6/ul (4.20-5.40); RED CELL DISTRIBUTION WIDTH 15.9 % (11.5-14.5); WHITE BLOOD COUNT 8.2 10^3/ul (4.8-10.8)
[2017-07-05] MEDS: ACETAMINOPHEN 1000MG/100ML IV 100 ML IVPB SCH (05:33)
[2017-07-05 05:36] LABS: CALCIUM 7.5 mg/dl (8.4-10.2); CREATININE 0.59 mg/dl (0.44-1.00); POTASSIUM 3.7 mmol/L (3.5-5.1)
[2017-07-05 08:26] VITALS: BP 107/63; RESP 16
[2017-07-05] MEDS: FAMOTIDINE 20 MG TAB PO SCH (09:45)
[2017-07-05] MEDS: DOCUSATE SODIUM 100 MG CAP PO PRN (09:45)
[2017-07-05] MEDS: HYDROmorphONE 2 MG TAB PO PRN ×4 (09:45→20:08)
[2017-07-05] MEDS: POLYETHYLENE GLYCOL 17 GM PACKET PO SCH (09:46)
[2017-07-05 13:54] VITALS: BP 112/70; RESP 16
--- NOTE | 2017-07-05 18:21 | PN ---
Date/Time of Note Date/Time of Note DATE: 07/05/17 TIME: 18:19 Assessment/Plan Lines/Catheters IV Catheter Type (from Nrs): Peripheral IV Matthew in Place (from Nrs): No Assessment/Plan Assessment/Plan [facility] Progress Note Date of Service: 07/05/17 Today's Impression & Plan: Overall stable, but with more nausea and vomiting. This is certainly not expected and needs further work up. Patient appeared to understand and agreed with the plans. With above assessment, I've recommended the following for today: 1. Keep inhouse 2. CT abd/pelvis 3. Labs in am 4. Low threshold for NG if N/V continues 5. Place PTC's to bag drainage for now Thank you again for your great care of this very pleasant patient and wonderful family. If there are any questions, please feel free to call me at [phone]. Nature of presenting problem: High severity Please note that, given the extensive number of diagnoses or management options , the extensive amount and/or complexity of data needed to be reviewed, and high risk of complications and/or morbidity or mortality, this qualifies as high complexity type of decision-making. Disclaimer: Inadvertent spelling and grammatical errors are likely due to EHR/ dictation software use and do not reflect on the quality of delivered patient care. Also, please note that the electronic time recorded on this node does not necessarily reflect the actual time of the visit. Updated Clinical Summary: The patient is a very pleasant 37-year-old young lady who was transferred from an outside hospital to [facility] for management of possible bile duct injury. S/p percutaneous CT-guided drain placement above the liver with removal of 1.4 liters of bile in IR suite and more (2 liters) within first 24 hours post procedure. Drain output minimal 04/09/17. S/p lap washout and wide drainage at [facility]. The upper pigtail catheter and the 2 surgical drains d/c 'd on 04/14/17. Urinary retention issues requiring straight cath and Matthew insertion appeared resolved by 04/15/17. DC home 04/16/2017. 2 ER visits between discharge and the 2016 with no hospitalization. Readmitted as a transfer from outside hospital to [facility] 05/19/2017 with pancreatitis as well as urinary tract infection. Admitted to [facility] 05/18/2017. Admission white blood cell count 11.8. Creatinine 3.8. Alkaline phosphatase 547. Total bilirubin 1.1. Lipase 1724. Heart rate 122. Involved physicians included Adrian Oro MD and Maryellen Dolan MD. patient was treated with ceftazidime, vancomycin and metronidazole. CT scan abdomen and pelvis and 05/18/2017: No acute intra-abdominal abnormality appreciated on a limited noncontrast CT of the abdomen and pelvis. Evidence of cholecystectomy. Transhepatic drainage catheter terminating in the region of the gallbladder fossa. Due to persistently elevated amylase and lipase of unknown etiology, scheduled hepaticojejunostomy on 05/30/2017 was postponed to 06/08/2017. D/c'd from [facility] 06/01/17. Outpatient ERCP showed no obvious pancreas duct on 06/14/17. S/ p open Donovan-en-Y hepaticojejunostomy with extensive lysis of adhesions, abdominal lavage and placement of bilateral percutaneous transhepatic cholangiography tubes at [facility] on 06/29/17. COMORBIDITIES: 1. Cholelithiasis and acute cholecystitis, status post laparoscopic cholecystectomy 03/31/2017 at [facility], complicated by bile duct injury; ERCP done on 04/03/2017 after a HIDA scan confirming a bile leak showed clips across the distal common bile duct, without any contrast opacifying the liver. We accepted the patient as a transfer into [facility] bile duct injury program for a higher level of care. The patient arrived on 04/05/2017. 2. S/p percutaneous CT-guided drain placement above the liver with removal of 1.4 liters of bile in IR suite and more immediately post procedure. 3. S/p lap washout and wide drainage at [facility]. 4. Confirmation of complete transection of common bile duct 5. S/p open Donovan-en-Y hepaticojejunostomy with extensive lysis of adhesions, abdominal lavage and placement of bilateral percutaneous transhepatic cholangiography tubes at [facility] on 06/29/17 Subjective: No major events or complaints overnight other than above; nausea and vomiting today also; pain control seems adequate; no current n/v/d; no sob or cp; + flatus; + BM; + activity. Objective: Vitals: See below Exam: GENERAL: On exam, the patient was laying in bed and appeared to be uncomfortable and in mild distress. ABDOMEN: Soft, nondistended and mild to moderately tender to palpation mainly around incisions. Incisions are clean, dry and intact without any evidence of erythema, edema, discharge, or hernia. Both right and left PTCs remain capped. There are no peritoneal signs or guarding. SKIN: Skin appears to be pink and feels warm to touch. NEUROLOGIC: Patient is awake, alert, and follows commands appropriately. Exam/Review of Systems Vital Signs Vitals Vital Signs Date Time Temp Pulse Resp B/P Pulse Ox O2 Delivery O2 Flow Rate FiO2 07/05/17 13:54 99.1 93 16 112/70 98 07/01/17 09:00 2.0 Intake and Output 07/04/17 07/04/17 07/05/17 15:00 23:00 07:00 Intake Total 100 ml 840 ml 1240 ml Balance 100 ml 840 ml 1240 ml Results Result Diagram: 07/05/17 0433 07/05/17 0433 LENA MONCADA M.D. Jul 05, 2017 18:21
--- NOTE | 2017-07-05 19:59 | PN ---
Date/Time of Note Date/Time of Note DATE: 07/05/17 TIME: 19:56 Assessment/Plan VTE Prophylaxis VTE Prophylaxis Intervention: SCD's Lines/Catheters IV [facility]ter Type (from [facility]): Peripheral IV Urinary Cath still in place: No Assessment/Plan Chief Complaint/Hosp Course Assessment and plan 1. History of cholelithiasis and cholecystitis. Patient does have history of cholecystectomy on March 31, 2017 oh suspect completed by possible bile duct injury. Patient also status post ERCP on April 03, 2017 as well as a laparoscopic washout on April 10, 2017. Patient also had MRCP done on May 23, 2017 showing diffuse intrahepatic ductal dilation with transition point in the region of susceptibility artifact at the vickey hepatis suggestive of underlying stricture. Patient is status post open Donovan-en-Y hepaticojejunostomy with extensive lysis of adhesions and abdominal lavage with placement of percutaneous transhepatic cholangiography tube in the left side as well as percutaneous transhepatic cholangiography tube in the right side June 29, 2017. less pain but now more nausea 2. Transaminitis secondary to #1. Improving at present. Will monitor. 3. AK I. Improved at present. Will monitor. 4. UTI. Noted with Klebsiella pneumonia. Continue antibiotics. 5. Protein calorie malnutrition. Continue on dietary supplement Disposition plan: Reports having more nausea today with several episodes of emesis. Plan for CT scan of the abdomen. Await for clinical improvement. Continue inhouse and with surgeon recommendations. Discussed plan of care with Dr. Freitas Problems: Subjective 24 Hr Interval Summary Free Text/Dictation more reported nausea today Exam/Review of Systems Vital Signs Vitals Vital Signs Date Time Temp Pulse Resp B/P Pulse Ox O2 Delivery O2 Flow Rate FiO2 07/05/17 13:54 99.1 93 16 112/70 98 07/01/17 09:00 2.0 Intake and Output 07/04/17 07/04/17 07/05/17 15:00 23:00 07:00 Intake Total 100 ml 840 ml 1240 ml Balance 100 ml 840 ml 1240 ml Exam Constitutional: alert, oriented, nauseous, but reports no pain at this time Head: normocephalic Neck: supple, No jvd Respiratory: clear to auscultation, normal air movement Cardiovascular: regular rate and rhythm Gastrointestinal: other (Noted with drain on right flank), soft, No tender Musculoskeletal: nl extremities to inspection Neurological: 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, nl mental status, nl speech Skin: other (Surgical scar on abdomen clean dry and intact) Results Result Diagram: 07/05/1743207/05/17432 Results 24 hrs Laboratory Tests Test 07/05/17 04:33 White Blood Count 8.2 Red Blood Count 3.27 L Hemoglobin 9.3 L Hematocrit 28.5 L Mean Corpuscular Volume 87.2 Mean Corpuscular Hemoglobin 28.4 L Mean Corpuscular Hemoglobin Concent 32.6 Red Cell Distribution Width 15.9 H Platelet Count 455 #H Mean Platelet Volume 9.4 Neutrophils % 66.1 Lymphocytes % 16.1 Monocytes % 6.7 Eosinophils % 10.3 H Basophils % 0.2 Nucleated Red Blood Cells % 0.0 Neutrophils # (Manual) 5.4 Lymphocytes # 1.3 Monocytes # 0.6 Eosinophils # 0.9 H Basophils # 0.0 Nucleated Red Blood Cells # 0.0 Sodium Level 136 Potassium Level 3.7 Chloride Level 106 Carbon Dioxide Level 27 Anion Gap 7 L Blood Urea Nitrogen 2 L Creatinine 0.59 Glucose Level 76 Calcium Level 7.5 L Medications Medications Current Medications Famotidine (Pepcid) 20 mg DAILY PO Last administered on 07/05/17 09:45; Admin Dose 20 MG; Start 06/24/17 at 09:00 Docusate Sodium (Colace) 100 mg BID PRN PO CONSTIPATION Last administered on 09:45; Admin Dose 100 MG; Start 06/29/17 at 15:00 Bisacodyl (Dulcolax Supp) 10 mg BID PRN [place] CONSTIPATION; Start 06/29/17 at 15:00 Sodium Biphosphate/ Sodium Phosphate (Fleet Enema) 133 ml BID PRN [place] CONSTIPATION; Start 06/29/17 at 15:00 Diphenhydramine HCl (Benadryl) 25 mg Q4H PRN IV PRURITUS Last administered on 10:06; Admin Dose 25 MG; Start 06/30/17 at 09:00 Ondansetron HCl (Zofran Inj) 4 mg Q6H PRN IV NAUSEA AND/OR VOMITING Last administered on 07/05/17 16:48; Admin Dose 4 MG; Start 06/30/17 at 09:00 Naloxone HCl (Narcan) 0.2 mg Q2M PRN IV FOR RESP RATE 8 OR LESS; Start 06/30/17 at 09:00 Phenol (Cepastat Lozenge) 1 lozenge Q1H PRN MT SORE THROAT Last administered on 07/03/17 06:15; Admin Dose 1 LOZENGE; Start 06/30/17 at 13:00 Hydromorphone HCl (Dilaudid) 2 mg Q3H PRN PO PAIN LEVEL 1-3 Last administered on 07/05/17 16:48; Admin Dose 2 MG; Start 07/03/17 at 07:00 Polyethylene Glycol (Miralax) 17 gm DAILY PO Last administered on 07/05/17 09: 46; Admin Dose 17 GM; Start 07/03/17 at 09:00 Acetaminophen (Tylenol Tab) 500 mg Q6H PRN PO PAIN AND OR ELEVATED TEMP Last administered on 07/04/17 15:18; Admin Dose 500 MG; Start 07/04/17 at 15:00 MILES NOLASCO Jul 05, 2017 19:59
[2017-07-05 20:09] VITALS: BP 111/68; RESP 17
[2017-07-05] MEDS ORDERED: IOHEXOL 14.3 MG(I)/ML (ADULT) BTL PO ONE (21:00)
[2017-07-05] MEDS: METOCLOPRAMIDE 10 MG INJ IV PRN (22:00)
[2017-07-05] MEDS ORDERED: SOD CHLORIDE 0.9% 100 ML ONE (22:44)
[2017-07-05] MEDS ORDERED: IOHEXOL 300MG/ML 150 ML BTL ONE (22:44)
[2017-07-06] MEDS: ONDANSETRON 4 MG INJ IV PRN ×3 (02:28→15:25)
[2017-07-06] MEDS: HYDROmorphONE 2 MG TAB PO PRN ×6 (02:28→21:42)
[2017-07-06] MEDS: METOCLOPRAMIDE 10 MG INJ IV PRN ×3 (05:24→21:44)
[2017-07-06 05:27] LABS: BASOPHILS % 0.2 % (0.0-2.0); EOSINOPHILS % 8.5 % (0.0-7.0); HEMATOCRIT 27.4 % (37.0-47.0); HEMOGLOBIN 8.9 g/dl (12.0-16.0); LYMPHOCYTES % 17.2 % (15.0-51.0); MEAN CORPUSCULAR HEMOGLOBIN 28.1 pg (29.0-33.0); MEAN CORPUSCULAR HGB CONC 32.5 g/dl (32.0-37.0); MEAN CORPUSCULAR VOLUME 86.4 fl (82.0-101.0); MEAN PLATELET VOLUME 9.3 fl (7.4-10.4); MONOCYTE # 0.6 10^3/ul (0.3-0.9); MONOCYTES % 5.5 % (0.0-11.0); NEUTROPHIL # 7.7 10^3/ul (1.6-7.5); NEUTROPHILS % 67.5 % (39.0-77.0); PLATELET COUNT 611 10^3/UL (140-415); RED BLOOD COUNT 3.17 10^6/ul (4.20-5.40); RED CELL DISTRIBUTION WIDTH 15.9 % (11.5-14.5); WHITE BLOOD COUNT 11.4 10^3/ul (4.8-10.8)
[2017-07-06 05:49] LABS: INR 1.27; PT RATIO 1.3
[2017-07-06 05:50] LABS: PARTIAL THROMBOPLASTIN TIME 38.9 Sec (25.0-35.0)
[2017-07-06 05:55] LABS: ALBUMIN 2.2 g/dl (3.3-4.9); ALBUMIN/GLOBULIN RATIO 0.91; BILIRUBIN,INDIRECT 0.1 mg/dl (0-1.1); BILIRUBIN,TOTAL 0.1 mg/dl (0.2-1.3); CALCIUM 7.7 mg/dl (8.4-10.2); CREATININE 0.61 mg/dl (0.44-1.00); MAGNESIUM 1.8 mg/dl (1.7-2.5); POTASSIUM 4.1 mmol/L (3.5-5.1); TOTAL PROTEIN 4.6 g/dl (6.1-8.1)
[2017-07-06] MEDS: DEXTROSE 5%-0.45% NACL 1,000 ML IV SCH ×2 (06:42→17:00)
--- NOTE | 2017-07-06 08:07 | RADRPT ---
PROCEDURE: CT Abdomen and Pelvis with and without contrast. CLINICAL INDICATION: Abdominal pelvic pain. Nausea. Vomiting. Postop. History of bile duct surgery . TECHNIQUE: CT scan of the abdomen and pelvis with and without contrast was performed on a multidet dain high-resolution CT scanner. The patient was scanned both before and following the uncomplicat ed intravenous administration of 100 cc of Omnipaque 300. Coronal and sagittal reformatted images w ere obtained from the axial source images. Images were reviewed on a high-resolution PACS workstatio n. The total exam CTDI equals 6.30, 7.75 mGy and the total exam DLP equals 778.80 mGy-cm. One or more of the following dose reduction techniques were used: - Automated exposure control. - Adjustment of the mA and/or kV according to patient size. - Use of iterative reconstruction technique. COMPARISON: CT scan 06/23/2017 FINDINGS: CT abdomen: Small to moderate bilateral basilar layering pleural effusions are seen. Dense confluent compressive atelectasis is seen within the lung bases adjacent to the effusions. There is mild elevation of the hemidiaphragms bilaterally. The heart size is normal, without pericardial thickening or effusion. The liver is normal in size and fatty infiltrated without focal mass or intrahepatic biliary dilatat ion. Mild intrahepatic pneumobilia is identified at this time. The spleen is normal in size and homo geneous in density. The stomach is partially collapsed, but is grossly unremarkable. The pancreas as visualized is normal. The gallbladder is surgically absent; the biliary tree is partially obscur ed, but otherwise grossly unremarkable. No significant abnormal biliary dilatation is present. There is a left anterolateral mid abdominal drain extending superiorly into the left liver, traversi ng the left bile ducts, and terminating within a loop of bowel in the anterior right upper quadrant of the abdomen consistent with a biliary drain. There is a second drain entering in the right latera l mid abdomen extending superiorly and entering into the right liver, traversing the right bile duct s, and also terminating within the same loop of bowel in the anterior right upper quadrant of the ab domen consistent with another biliary drain. These both appear to be in perfect location at this mina e. There is a small subtle fluid collection along the medial margin of the inferior right lobe of the l iver containing a small gas bubbles measuring 2.6 x 1.2 cm in dimension. Small postoperative fluid c ollection is most likely and simple follow-up over time is advised. There is additional thickening a nd postsurgical changes in the gallbladder fossa and perihepatic spaces. Significant upper abdominal free air is present, as expected in this recent postoperative patient. The adrenal glands are symmetric and normal. The kidneys are symmetrically unremarkable as well. N o renal calculus or obstructive uropathy or mass lesion is seen. Numerous abundant small shoddy reac tive lymph nodes are seen within the retroperitoneum, not enlarged by size criteria. The aorta is o f normal caliber. Mildly enlarged reactive vickey hepatis lymph nodes are present. The bowel and mesentery, as visualized, are remarkable for extensive postsurgical changes. Surgical microstaple line is seen involving a loop of bowel in the left upper quadrant of the abdomen, uncomp licated in appearance. Residual fluid and air is seen throughout the abdomen with scattered postsurg ical stranding and edema, again all benign and postsurgical and expected. There is surrounding third spacing and edema of the subcutaneous tissues of the abdominal wall. CT pelvis: The small bowel loops situated within the pelvis are unremarkable. The appendix is normal. The pelv ic organs are remarkable for distension of the bladder. Air is seen within the bladder as well consi stent with recent Matthew catheter instrumentation. The pelvic sidewalls and inguinal regions are kenna ar. However, presacral stranding and edema is identified. The sigmoid colon and rectum are remarkabl e for sigmoid diverticulosis. No mass or lymphadenopathy is seen. However, moderate free fluid is seen layering within the pelvis. No acute inflammation is identified at this time within the pelvis . Significant third spacing and edema of the superficial subcutaneous soft tissues of the pelvis an d hips and upper thighs is noted. The surrounding osseous structures are unremarkable. No osteolytic or osteoblastic lesion is detect ed. IMPRESSION: 1. Two separate transhepatic biliary stents/drains in place traversing the right and left bile duct s, exiting into a loop of bowel in the right upper quadrant of the abdomen. 2. Extensive postsurgical changes throughout the abdomen with stranding and edema of the mesentery, postsurgical changes and surgical drains, as well as residual fluid and air throughout the peritone al cavity. 3. There is a small subtle fluid collection along the medial margin of the inferior right liver, ag ain presumably benign and postsurgical in nature. Simple close observation and follow-up is advised. 4. Significant third spacing and edema of the superficial subcutaneous tissues of the abdominal pel alonzo wall, hips, and upper thighs. 5. Moderate bilateral basilar pleural effusions with dense associated compressive atelectasis withi n the lung bases. RPTAT: HMJB .Gurmeet Fitzpatrick MD, MD Date Time Electronically viewed and signed by .Gurmeet Fitzpatrick MD, MD on 07/06/2017 08:07 .B/
[2017-07-06 08:08] VITALS: BP 96/57; RESP 19
[2017-07-06] MEDS: POLYETHYLENE GLYCOL 17 GM PACKET PO SCH (08:25)
[2017-07-06] MEDS: FAMOTIDINE 20 MG TAB PO SCH (08:25)
[2017-07-06 14:00] VITALS: BP 101/69; RESP 19
--- NOTE | 2017-07-06 15:49 | PN ---
Date/Time of Note Date/Time of Note DATE: 07/06/17 TIME: 15:42 Assessment/Plan Lines/Catheters IV Catheter Type (from Nrsg): Peripheral IV Matthew in Place (from Nrsg): No Assessment/Plan Assessment/Plan [facility] Progress Note Date of Service: 07/06/17 Today's Impression & Plan: Overall stable, but with ongoing issues with nausea (no reported vomiting today) . CT yesterday showed no unexpected findings and no actionable surgical issues. Patient reported no major improvement or worsening after putting the PTC's back to bag drainage. In short, no major post surgical complications identified and patient seems to have stayed the same with slight improvement. Spoke with Dr. Barr and rest of the team. Does not appear to be her medications, but will continue to review (patient was agreeable with perhaps even decreasing the strength of her oral pain medications to try and see if this would improve her symptoms). Discussed all of this with the patient and she appeared to understand and agreed with the plans. With above assessment, I've recommended the following for today: 1. Keep inhouse 2. Continue current management with possible change in pain medications 3. Labs in am 4. Low threshold for NG if N/V continues 5. Place caps on both PTC's 6. Increase activity 7. Increase incentive spirometry Thank you again for your great care of this very pleasant patient and wonderful family. If there are any questions, please feel free to call me at [phone]. Nature of presenting problem: High severity Please note that, given the extensive number of diagnoses or management options , the extensive amount and/or complexity of data needed to be reviewed, and high risk of complications and/or morbidity or mortality, this qualifies as high complexity type of decision-making. Disclaimer: Inadvertent spelling and grammatical errors are likely due to EHR/ dictation software use and do not reflect on the quality of delivered patient care. Also, please note that the electronic time recorded on this node does not necessarily reflect the actual time of the visit. Updated Clinical Summary: The patient is a very pleasant 37-year-old young lady who was transferred from an outside hospital to [facility] for management of possible bile duct injury. S/p percutaneous CT-guided drain placement above the liver with removal of 1.4 liters of bile in IR suite and more (2 liters) within first 24 hours post procedure. Drain output minimal 04/09/17. S/p lap washout and wide drainage at [facility]. The upper pigtail catheter and the 2 surgical drains d/c 'd on 04/14/17. Urinary retention issues requiring straight cath and Matthew insertion appeared resolved by 04/15/17. DC home 04/16/2017. 2 ER visits between discharge and the 2016 with no hospitalization. Readmitted as a transfer from outside hospital to [facility] 05/19/2017 with pancreatitis as well as urinary tract infection. Admitted to [facility] 05/18/2017. Admission white blood cell count 11.8. Creatinine 3.8. Alkaline phosphatase 547. Total bilirubin 1.1. Lipase 1724. Heart rate 122. Involved physicians included Adrian Oro MD and Maryellen Dolan MD. patient was treated with ceftazidime, vancomycin and metronidazole. CT scan abdomen and pelvis and 05/18/2017: No acute intra-abdominal abnormality appreciated on a limited noncontrast CT of the abdomen and pelvis. Evidence of cholecystectomy. Transhepatic drainage catheter terminating in the region of the gallbladder fossa. Due to persistently elevated amylase and lipase of unknown etiology, scheduled hepaticojejunostomy on 05/30/2017 was postponed to 06/08/2017. D/c'd from [facility] 06/01/17. Outpatient ERCP showed no obvious pancreas duct on 06/14/17. S/ p open Donovan-en-Y hepaticojejunostomy with extensive lysis of adhesions, abdominal lavage and placement of bilateral percutaneous transhepatic cholangiography tubes at [facility] on 06/29/17. COMORBIDITIES: 1. Cholelithiasis and acute cholecystitis, status post laparoscopic cholecystectomy 03/31/2017 at [facility], complicated by bile duct injury; ERCP done on 04/03/2017 after a HIDA scan confirming a bile leak showed clips across the distal common bile duct, without any contrast opacifying the liver. We accepted the patient as a transfer into [facility] bile duct injury program for a higher level of care. The patient arrived on 04/05/2017. 2. S/p percutaneous CT-guided drain placement above the liver with removal of 1.4 liters of bile in IR suite and more immediately post procedure. 3. S/p lap washout and wide drainage at [facility]. 4. Confirmation of complete transection of common bile duct 5. S/p open Donovan-en-Y hepaticojejunostomy with extensive lysis of adhesions, abdominal lavage and placement of bilateral percutaneous transhepatic cholangiography tubes at [facility] on 06/29/17 Subjective: No major events or complaints overnight other than above; nausea and no significant vomiting today also; pain control seems adequate; no current n/v/d; no sob or cp; + flatus; + BM (assisted); min activity. Objective: Vitals: See below Exam: GENERAL: On exam, the patient was laying in bed and appeared to be uncomfortable and in mild distress. ABDOMEN: Soft, nondistended and mild to moderately tender to palpation mainly around incisions. Incisions are clean, dry and intact without any evidence of erythema, edema, discharge, or hernia. Both right and left PTCs with bilious output. There are no peritoneal signs or guarding. SKIN: Skin appears to be pink and feels warm to touch. NEUROLOGIC: Patient is awake, alert, and follows commands appropriately. Exam/Review of Systems Vital Signs Vitals Vital Signs Date Time Temp Pulse Resp B/P Pulse Ox O2 Delivery O2 Flow Rate FiO2 07/06/17 08:08 98.0 97 19 96/57 98 Intake and Output 07/05/17 07/05/17 07/06/17 15:00 23:00 07:00 Intake Total 360 ml Output Total 223 ml Balance 137 ml Results Result Diagram: 07/06/17 0438 07/06/17 0438 LENA MONCADA M.D. Jul 06, 2017 15:49
[2017-07-06] MEDS ORDERED: HYDROmorphONE 2 MG TAB PO PRN (19:00)
[2017-07-06 20:00] VITALS: BP 105/73; RESP 18
[2017-07-06] MEDS ORDERED: traMADol 50 MG TAB PO PRN (23:00)
[2017-07-07 02:15] VITALS: BP 107/68; RESP 18
[2017-07-07] MEDS: DEXTROSE 5%-0.45% NACL 1,000 ML IV SCH ×4 (03:00→19:30)
[2017-07-07] MEDS: METOCLOPRAMIDE 10 MG INJ IV PRN (03:50)
--- NOTE | 2017-07-07 04:50 | PN ---
Date/Time of Note Date/Time of Note DATE: 07/07/17 TIME: 04:47 Assessment/Plan VTE Prophylaxis VTE Prophylaxis Intervention: SCD's Lines/Catheters IV Catheter Type (from [facility]): Peripheral IV Urinary Cath still in place: No Assessment/Plan Chief Complaint/Hosp Course Assessment and plan 1. History of cholelithiasis and cholecystitis. Patient does have history of cholecystectomy on March 31, 2017 oh suspect completed by possible bile duct injury. Patient also status post ERCP on April 03, 2017 as well as a laparoscopic washout on April 10, 2017. Patient also had MRCP done on May 23, 2017 showing diffuse intrahepatic ductal dilation with transition point in the region of susceptibility artifact at the vickey hepatis suggestive of underlying stricture. Patient is status post open Donovan-en-Y hepaticojejunostomy with extensive lysis of adhesions and abdominal lavage with placement of percutaneous transhepatic cholangiography tube in the left side as well as percutaneous transhepatic cholangiography tube in the right side June 29, 2017. less pain noted. still has nausea. possible opioid induced nausea? 2. Transaminitis secondary to #1. Improving at present. Will monitor. 3. AK I. Improved at present. Will monitor. 4. UTI. Noted with Klebsiella pneumonia. Continue antibiotics. 5. Protein calorie malnutrition. Continue on dietary supplement Disposition plan: still reports nausea. deescalation of analgesic opioids per pain management physician. d/c when cleared by consultants Discussed plan of care with Dr. Freitas Problems: Subjective 24 Hr Interval Summary Free Text/Dictation less pain on abd. still has some nausea Exam/Review of Systems Vital Signs Vitals Vital Signs Date Time Temp Pulse Resp B/P Pulse Ox O2 Delivery O2 Flow Rate FiO2 07/07/17 02:15 98.2 94 18 107/68 97 Intake and Output 07/06/17 07/06/17 07/07/17 15:00 23:00 07:00 Intake Total 2040 ml Output Total 300 ml Balance 1740 ml Exam Constitutional: alert, oriented,less pain on abd. 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, nl mental status, nl speech Skin: other (Surgical scar on abdomen clean dry and intact) Results Result Diagram: 07/06/17 0438 07/06/17 0438 Medications Medications Current Medications Famotidine (Pepcid) 20 mg DAILY PO Last administered on 07/06/17 08:25; Admin Dose 20 MG; Start 06/24/17 at 09:00 Docusate Sodium (Colace) 100 mg BID PRN PO CONSTIPATION Last administered on 09:45; Admin Dose 100 MG; Start 06/29/17 at 15:00 Bisacodyl (Dulcolax Supp) 10 mg BID PRN [place] CONSTIPATION Last administered on 06:42; Admin Dose 10 MG; Start 06/29/17 at 15:00 Sodium Biphosphate/ Sodium Phosphate (Fleet Enema) 133 ml BID PRN [place] CONSTIPATION; Start 06/29/17 at 15:00 Diphenhydramine HCl (Benadryl) 25 mg Q4H PRN IV PRURITUS Last administered on 10:06; Admin Dose 25 MG; Start 06/30/17 at 09:00 Ondansetron HCl (Zofran Inj) 4 mg Q6H PRN IV NAUSEA AND/OR VOMITING Last administered on 07/06/17 15:25; Admin Dose 4 MG; Start 06/30/17 at 09:00 Naloxone HCl (Narcan) 0.2 mg Q2M PRN IV FOR RESP RATE 8 OR LESS; Start 06/30/17 at 09:00 Phenol (Cepastat Lozenge) 1 lozenge Q1H PRN [place] SORE THROAT Last administered on 07/03/17 06:15; Admin Dose 1 LOZENGE; Start 06/30/17 at 13:00 Polyethylene Glycol (Miralax) 17 gm DAILY PO Last administered on 07/06/17 08: 25; Admin Dose 17 GM; Start 07/03/17 at 09:00 Acetaminophen (Tylenol Tab) 500 mg Q6H PRN PO PAIN AND OR ELEVATED TEMP Last administered on 07/04/17 15:18; Admin Dose 500 MG; Start 07/04/17 at 15:00 Metoclopramide HCl 10 mg 10 mg Q6H PRN IV NAUSEA Last administered on 03:50; Admin Dose 10 MG; Start 07/05/17 at 22:00 Dextrose/Sodium Chloride (D5-1/2ns) 1,000 ml @ 100 mls/hr Q10H IV Last administered on 07/06/17 06:42; Admin Dose 100 MLS/HR; Start 07/06/17 at 07:00 Tramadol HCl (Ultram) 100 mg Q6H PRN PO PAIN Last administered on 07/07/17 03: 50; Admin Dose 100 MG; Start 07/06/17 at 23:00 MILES NOLASCO Jul 07, 2017 04:50
[2017-07-07 06:01] LABS: BASOPHILS % 0.2 % (0.0-2.0); EOSINOPHILS # 0.9 10^3/ul (0.0-0.5); EOSINOPHILS % 10.4 % (0.0-7.0); HEMATOCRIT 28.4 % (37.0-47.0); HEMOGLOBIN 9.2 g/dl (12.0-16.0); LYMPHOCYTES # 1.8 10^3/ul (0.8-2.9); LYMPHOCYTES % 20.5 % (15.0-51.0); MEAN CORPUSCULAR HEMOGLOBIN 27.9 pg (29.0-33.0); MEAN CORPUSCULAR HGB CONC 32.4 g/dl (32.0-37.0); MEAN CORPUSCULAR VOLUME 86.1 fl (82.0-101.0); MEAN PLATELET VOLUME 9.3 fl (7.4-10.4); MONOCYTE # 0.6 10^3/ul (0.3-0.9); MONOCYTES % 6.6 % (0.0-11.0); NEUTROPHIL # 5.5 10^3/ul (1.6-7.5); NEUTROPHILS % 61.2 % (39.0-77.0); PLATELET COUNT 606 10^3/UL (140-415); RED CELL DISTRIBUTION WIDTH 16.3 % (11.5-14.5)
[2017-07-07 06:13] LABS: INR 1.19; PROTIME 15.2 Sec (12.2-14.2); PT RATIO 1.2
[2017-07-07 06:14] LABS: PARTIAL THROMBOPLASTIN TIME 37.2 Sec (25.0-35.0)
[2017-07-07 06:28] LABS: ALANINE AMINOTRANSFERASE 46 IU/L (13-69); ALBUMIN 2.2 g/dl (3.3-4.9); ALBUMIN/GLOBULIN RATIO 0.88; ALKALINE PHOSPHATASE 217 IU/L (42-121); AMYLASE 34 U/L (11-123); ANION GAP 7 (8-16); ASPARTATE AMINO TRANSFERASE 57 IU/L (15-46); CALCIUM 8.1 mg/dl (8.4-10.2); CARBON DIOXIDE 27 mmol/L (21-31); CHLORIDE 107 mmol/L (97-110); CREATININE 0.63 mg/dl (0.44-1.00); GLUCOSE 91 mg/dl (70-220); MAGNESIUM 1.8 mg/dl (1.7-2.5); PHOSPHORUS 3.3 mg/dl (2.5-4.9); POTASSIUM 4.2 mmol/L (3.5-5.1); SODIUM 137 mmol/L (135-144); TOTAL PROTEIN 4.7 g/dl (6.1-8.1)
[2017-07-07 06:36] LABS: BLOOD UREA NITROGEN < 2 mg/dl (7-20)
[2017-07-07 07:05] LABS: ANION GAP 9 (8-16); CALCIUM 7.9 mg/dl (8.4-10.2); CARBON DIOXIDE 26 mmol/L (21-31); CHLORIDE 107 mmol/L (97-110); CREATININE 0.64 mg/dl (0.44-1.00); GLUCOSE 97 mg/dl (70-220); POTASSIUM 3.9 mmol/L (3.5-5.1); SODIUM 138 mmol/L (135-144)
[2017-07-07 07:06] LABS: BLOOD UREA NITROGEN < 2 mg/dl (7-20)
[2017-07-07 07:29] VITALS: BP 112/68; RESP 18
[2017-07-07] MEDS: FAMOTIDINE 20 MG TAB PO SCH (08:50)
[2017-07-07] MEDS: POLYETHYLENE GLYCOL 17 GM PACKET PO SCH (08:51)
[2017-07-07] MEDS ORDERED: traMADol 50 MG TAB PO PRN (10:30)
--- NOTE | 2017-07-07 11:08 | PN ---
Date/Time of Note Date/Time of Note DATE: 07/07/17 TIME: 10:53 Assessment/Plan Lines/Catheters IV Catheter Type (from Nrsg): Peripheral IV Matthew in Place (from Nrsg): No Assessment/Plan Assessment/Plan [facility] Progress Note Date of Service: 07/07/17 Today's Impression & Plan: Overall stable and appears significantly improved after switching pain medications. Her nausea and vomiting was likely due to the oral Dilaudid. Currently, the patient seems to be doing very well without any nausea or vomiting adequate pain control I do not believe that further hospitalization will change the patient's overall clinical picture and I am comfortable that the patient is safe to discharge home with reasonably low chances of readmission. Appreciate the care of other physicians and consultants and we have a good plan for outpatient management of the patient's pain as well as bilateral PTCs. Patient should have a visit with me in 2 weeks, and then we will arrange for outpatient sinograms through the PTCs within 1-2 weeks from then and plan for discontinuing those PTCs at that time if they are no longer needed. Explained to the patient and answered all questions. Also discussed with Dr. Veras and the rest of the team. Patient appeared to understand and agreed with plans. With above assessment, I've recommended the following for today: 1. D/c home 2. Follow-up with me in 2 weeks with lab checks 3. Appreciate outpatient pain control management 4. Please arrange for patient to go home with 2 new biliary bags available to her in case it is needed to be used to connect the PTCs to bag drainage if clinically indicated as an outpatient 5. Please review with the patient and family again the importance of flushing the PTCs with 10 cc of normal saline each once a day and provide patient with supplies in order to achieve this goal for at least 3-4 weeks 6. Please have a plan set for outpatient weaning off of all pain medications. Patient's main source of pain has been dealt with and at this time, she should be able to easily wean herself off of all pain medications within the next 7-10 days Thank you again for your great care of this very pleasant patient and wonderful family. If there are any questions, please feel free to call me at [phone]. Nature of presenting problem: High severity Please note that, given the extensive number of diagnoses or management options , the extensive amount and/or complexity of data needed to be reviewed, and high risk of complications and/or morbidity or mortality, this qualifies as high complexity type of decision-making. Disclaimer: Inadvertent spelling and grammatical errors are likely due to EHR/ dictation software use and do not reflect on the quality of delivered patient care. Also, please note that the electronic time recorded on this node does not necessarily reflect the actual time of the visit. Updated Clinical Summary: The patient is a very pleasant 37-year-old young lady who was transferred from an outside hospital to [facility] for management of possible bile duct injury. S/p percutaneous CT-guided drain placement above the liver with removal of 1.4 liters of bile in IR suite and more (2 liters) within first 24 hours post procedure. Drain output minimal 04/09/17. S/p lap washout and wide drainage at [facility]. The upper pigtail catheter and the 2 surgical drains d/c 'd on 04/14/17. Urinary retention issues requiring straight cath and Matthew insertion appeared resolved by 04/15/17. DC home 04/16/2017. 2 ER visits between discharge and the 2016 with no hospitalization. Readmitted as a transfer from outside hospital to [facility] 05/19/2017 with pancreatitis as well as urinary tract infection. Admitted to [facility] 05/18/2017. Admission white blood cell count 11.8. Creatinine 3.8. Alkaline phosphatase 547. Total bilirubin 1.1. Lipase 1724. Heart rate 122. Involved physicians included Adrian Oro MD and Maryellen Dolan MD. patient was treated with ceftazidime, vancomycin and metronidazole. CT scan abdomen and pelvis and 05/18/2017: No acute intra-abdominal abnormality appreciated on a limited noncontrast CT of the abdomen and pelvis. Evidence of cholecystectomy. Transhepatic drainage catheter terminating in the region of the gallbladder fossa. Due to persistently elevated amylase and lipase of unknown etiology, scheduled hepaticojejunostomy on 05/30/2017 was postponed to 06/08/2017. D/c'd from [facility] 06/01/17. Outpatient ERCP showed no obvious pancreas duct on 06/14/17. S/ p open Donovan-en-Y hepaticojejunostomy with extensive lysis of adhesions, abdominal lavage and placement of bilateral percutaneous transhepatic cholangiography tubes at [facility] on 06/29/17. Close to time of discharge, the patient demonstrated nausea and vomiting and a full workup was done including CT scan of abdomen and pelvis which demonstrated no other clear etiology for the symptoms. Patient's symptoms rapidly went away after she was changed from oral Dilaudid to tramadol. COMORBIDITIES: 1. Cholelithiasis and acute cholecystitis, status post laparoscopic cholecystectomy 03/31/2017 at [facility], complicated by bile duct injury; ERCP done on 04/03/2017 after a HIDA scan confirming a bile leak showed clips across the distal common bile duct, without any contrast opacifying the liver. We accepted the patient as a transfer into [facility] bile duct injury program for a higher level of care. The patient arrived on 04/05/2017. 2. S/p percutaneous CT-guided drain placement above the liver with removal of 1.4 liters of bile in IR suite and more immediately post procedure. 3. S/p lap washout and wide drainage at [facility]. 4. Confirmation of complete transection of common bile duct 5. S/p open Donovan-en-Y hepaticojejunostomy with extensive lysis of adhesions, abdominal lavage and placement of bilateral percutaneous transhepatic cholangiography tubes at [facility] on 06/29/17 Subjective: No major events or complaints overnight; no further nausea or vomiting after switching pain regimen; pain control seems adequate; no current n/v/d; no sob or cp; + flatus; + BM (assisted); + activity. Objective: Vitals: See below Exam: GENERAL: On exam, the patient was laying in bed and appeared to be comfortable and in mild distress. ABDOMEN: Soft, nondistended and non-tender. Incisions are clean, dry and intact without any evidence of erythema, edema, discharge, or hernia. Both right and left PTCs capped. There are no peritoneal signs or guarding. SKIN: Skin appears to be pink and feels warm to touch. NEUROLOGIC: Patient is awake, alert, and follows commands appropriately. Exam/Review of Systems Vital Signs Vitals Vital Signs Date Time Temp Pulse Resp B/P Pulse Ox O2 Delivery O2 Flow Rate FiO2 07/07/17 07:29 98.1 84 18 112/68 98 Intake and Output 07/06/17 07/06/17 07/07/17 15:00 23:00 07:00 Intake Total 2040 ml 480 ml Output Total 300 ml Balance 1740 ml 480 ml Results Result Diagram: 07/07/17 0444 07/07/17 0444 LENA MONCADA M.D. Jul 07, 2017 11:08
--- NOTE | 2017-07-07 14:58 | PN ---
Date/Time of Note Date/Time of Note DATE: 07/07/17 TIME: 14:53 Assessment/Plan VTE Prophylaxis VTE Prophylaxis Intervention: SCD's Lines/Catheters IV Catheter Type (from Nrs): Peripheral IV Urinary Cath still in place: No Assessment/Plan Assessment/Plan 1. History of cholelithiasis and cholecystitis. Patient does have history of cholecystectomy on March 31, 2017 oh suspect completed by possible bile duct injury. Patient also status post ERCP on April 03, 2017 as well as a laparoscopic washout on April 10, 2017. Patient also had MRCP done on May 23, 2017 showing diffuse intrahepatic ductal dilation with transition point in the region of susceptibility artifact at the vickey hepatis suggestive of underlying stricture. Patient is status post open Donovan-en-Y hepaticojejunostomy with extensive lysis of adhesions and abdominal lavage with placement of percutaneous transhepatic cholangiography tube in the left side as well as percutaneous transhepatic cholangiography tube in the right side June 29, 2017. 2. Transaminitis secondary to #1. Improving at present. Will monitor. 3. AK I. Improved at present. Will monitor. 4. UTI. Noted with Klebsiella pneumonia. Continue antibiotics. 5. Protein calorie malnutrition. Continue on dietary supplement Disposition plan: pt overnight called pain management physician and had him changed pain meds from Dilaudid to tramadol, pt was started on tramadol 100mg PO Q 6hr- LFTs stable, I discussed with Pain management and we decreased her dose of tramadol to 50 mg Q 6 hr, to see how she does, BP stable, Pt lives in [place] and Mom lives in [place], She is planning to live with her mom. she is asked to check with her Mom if she is willing to take her. As per - pt will go home with capped drain- he is instructed nurse to provide two drainage bag to patient on discharge. will assess her pain on Low dose tramadol ( to avoid any Side effects of transaminitis with tramadol) meanwhile her BUN<2- pt has not been eating, will give IVF D51/2 NS at 100 cc/ hr x 2 liter then stop Subjective 24 Hr Interval Summary Free Text/Dictation pt was seen in AM, she was c/o abdominal pain Exam/Review of Systems Vital Signs Vitals Vital Signs Date Time Temp Pulse Resp B/P Pulse Ox O2 Delivery O2 Flow Rate FiO2 07/07/17 07:29 98.1 84 18 112/68 98 Intake and Output 07/06/17 07/06/17 07/07/17 15:00 23:00 07:00 Intake Total 2040 ml 480 ml Output Total 300 ml Balance 1740 ml 480 ml Exam Constitutional: alert, oriented, nauseous, but reports no pain at this time Respiratory: clear to auscultation, normal air movement Cardiovascular: regular rate and rhythm Gastrointestinal: other (Noted with drain on right flank), soft, TTP RUQ Musculoskeletal: nl extremities to inspection 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, nl mental status, nl speech Skin: other (Surgical scar on abdomen clean dry and intact) Results Result Diagram: 07/07/1744307/07/17443 Results 24 hrs Laboratory Tests Test 07/07/17 04:44 White Blood Count 9.0 # Red Blood Count 3.30 L Hemoglobin 9.2 L Hematocrit 28.4 L Mean Corpuscular Volume 86.1 Mean Corpuscular Hemoglobin 27.9 L Mean Corpuscular Hemoglobin Concent 32.4 Red Cell Distribution Width 16.3 H Platelet Count 606 H Mean Platelet Volume 9.3 Neutrophils % 61.2 Lymphocytes % 20.5 Monocytes % 6.6 Eosinophils % 10.4 H Basophils % 0.2 Nucleated Red Blood Cells % 0.0 Neutrophils # 5.5 Lymphocytes # 1.8 Monocytes # 0.6 Eosinophils # 0.9 H Basophils # 0.0 Nucleated Red Blood Cells # 0.0 Prothrombin Time 15.2 H Prothrombin Time Ratio 1.2 INR International Normalized Ratio 1.19 Activated Partial Thromboplast Time 37.2 H Sodium Level 138 Potassium Level 3.9 Chloride Level 107 Carbon Dioxide Level 26 Anion Gap 9 Blood Urea Nitrogen < 2 L Creatinine 0.64 Glucose Level 97 Lactic Acid Level 0.9 Calcium Level 7.9 L Phosphorus Level 3.3 Magnesium Level 1.8 Total Bilirubin 0.0 L Direct Bilirubin 0.00 Indirect Bilirubin 0.0 Aspartate Amino Transf (AST/SGOT) 57 H Alanine Aminotransferase (ALT/SGPT) 46 Alkaline Phosphatase 217 H Total Protein 4.7 L Albumin 2.2 L Globulin 2.50 Albumin/Globulin Ratio 0.88 Amylase Level 34 Lipase 221 Medications Medications Current Medications Famotidine (Pepcid) 20 mg DAILY PO Last administered on 07/07/17t 08:50; Admin Dose 20 MG; Start 06/24/17 at 09:00 Docusate Sodium (Colace) 100 mg BID PRN PO CONSTIPATION Last administered on 09:45; Admin Dose 100 MG; Start 06/29/17 at 15:00 Bisacodyl (Dulcolax Supp) 10 mg BID PRN IN CONSTIPATION Last administered on 06:42; Admin Dose 10 MG; Start 06/29/17 at 15:00 Sodium Biphosphate/ Sodium Phosphate (Fleet Enema) 133 ml BID PRN IN CONSTIPATION; Start 06/29/17 at 15:00 Diphenhydramine HCl (Benadryl) 25 mg Q4H PRN IV PRURITUS Last administered on 10:06; Admin Dose 25 MG; Start 06/30/17 at 09:00 Ondansetron HCl (Zofran Inj) 4 mg Q6H PRN IV NAUSEA AND/OR VOMITING Last administered on 07/06/17 15:25; Admin Dose 4 MG; Start 06/30/17 at 09:00 Naloxone HCl (Narcan) 0.2 mg Q2M PRN IV FOR RESP RATE 8 OR LESS; Start 06/30/17 at 09:00 Phenol (Cepastat Lozenge) 1 lozenge Q1H PRN MT SORE THROAT Last administered on 07/03/17 06:15; Admin Dose 1 LOZENGE; Start 06/30/17 at 13:00 Polyethylene Glycol (Miralax) 17 gm DAILY PO Last administered on 07/06/17 08: 25; Admin Dose 17 GM; Start 07/03/17 at 09:00 Acetaminophen (Tylenol Tab) 500 mg Q6H PRN PO PAIN AND OR ELEVATED TEMP Last administered on 07/04/17 15:18; Admin Dose 500 MG; Start 07/04/17 at 15:00 Metoclopramide HCl 10 mg 10 mg Q6H PRN IV NAUSEA Last administered on 03:50; Admin Dose 10 MG; Start 07/05/17 at 22:00 Dextrose/Sodium Chloride (D5-1/2ns) 1,000 ml @ 100 mls/hr Q10H IV Last administered on 07/07/17 13:38; Admin Dose 100 MLS/HR; Start 07/07/17 at 09:30 ; Stop 07/08/17 at 05:29 Tramadol HCl (Ultram) 50 mg Q6H PRN PO PAIN; Start 07/07/17 at 16:30 PRABHU BLANKENSHIP MD Jul 07, 2017 14:58
[2017-07-07] MEDS: traMADol 50 MG TAB PO PRN ×2 (16:33→22:53)
[2017-07-07 18:24] VITALS: BP 112/75; RESP 18
[2017-07-07 20:42] VITALS: BP 117/76; RESP 20
[2017-07-08] MEDS: DEXTROSE 5%-0.45% NACL 1,000 ML IV SCH (00:46)
[2017-07-08 01:44] VITALS: BP 109/68; RESP 22
[2017-07-08] MEDS: traMADol 50 MG TAB PO PRN ×2 (04:48→10:50)
[2017-07-08 05:21] LABS: BASOPHILS % 0.4 % (0.0-2.0); EOSINOPHILS # 1.1 10^3/ul (0.0-0.5); HEMATOCRIT 28.5 % (37.0-47.0); HEMOGLOBIN 9.2 g/dl (12.0-16.0); LYMPHOCYTES # 2.1 10^3/ul (0.8-2.9); LYMPHOCYTES % 26.3 % (15.0-51.0); MEAN CORPUSCULAR HEMOGLOBIN 28.2 pg (29.0-33.0); MEAN CORPUSCULAR HGB CONC 32.3 g/dl (32.0-37.0); MEAN CORPUSCULAR VOLUME 87.4 fl (82.0-101.0); MEAN PLATELET VOLUME 9.2 fl (7.4-10.4); MONOCYTE # 0.5 10^3/ul (0.3-0.9); MONOCYTES % 6.2 % (0.0-11.0); NEUTROPHIL # 4.2 10^3/ul (1.6-7.5); NEUTROPHILS % 51.9 % (39.0-77.0); PLATELET COUNT 592 10^3/UL (140-415); RED BLOOD COUNT 3.26 10^6/ul (4.20-5.40); RED CELL DISTRIBUTION WIDTH 16.3 % (11.5-14.5); WHITE BLOOD COUNT 8.1 10^3/ul (4.8-10.8)
[2017-07-08 05:51] LABS: ALANINE AMINOTRANSFERASE 54 IU/L (13-69); ALBUMIN 2.3 g/dl (3.3-4.9); ALBUMIN/GLOBULIN RATIO 0.79; ALKALINE PHOSPHATASE 204 IU/L (42-121); ANION GAP 8 (8-16); ASPARTATE AMINO TRANSFERASE 43 IU/L (15-46); CALCIUM 7.8 mg/dl (8.4-10.2); CARBON DIOXIDE 26 mmol/L (21-31); CHLORIDE 109 mmol/L (97-110); CREATININE 0.58 mg/dl (0.44-1.00); GLUCOSE 93 mg/dl (70-220); POTASSIUM 3.8 mmol/L (3.5-5.1); SODIUM 139 mmol/L (135-144); TOTAL PROTEIN 5.2 g/dl (6.1-8.1)
[2017-07-08 06:28] LABS: BLOOD UREA NITROGEN < 2 mg/dl (7-20)
[2017-07-08 07:57] VITALS: BP 103/70; RESP 17
[2017-07-08] MEDS: POLYETHYLENE GLYCOL 17 GM PACKET PO SCH (08:12)
[2017-07-08] MEDS: FAMOTIDINE 20 MG TAB PO SCH (08:12)
[2017-07-08] MEDS ORDERED: DOCU-216 PO (12:35)
[2017-07-08] MEDS ORDERED: TRAM50TA2 PO (12:35)
[2017-07-08] MEDS ORDERED: ONDA8TAB9 PO (12:35)
--- NOTE | 2017-07-08 12:45 | PDOCDIS ---
Discharge Instructions DIAGNOSIS Discharge Diagnosis 1. History of cholelithiasis and cholecystitis with suspect bile duct injury. 2. Transaminitis secondary to #1. 3. AK I. 4. UTI. Noted with Klebsiella pneumonia. 5. Protein calorie malnutrition. CONDITION Patient Condition: Stable HOME CARE INSTRUCTIONS: Special Diet: REGULAR FOLLOW UP/APPOINTMENTS Follow-up Plan 1. Follow up with Dr. Ean Grande within one week MILES NOLASCO Jul 08, 2017 12:45
--- NOTE | 2017-07-08 13:04 | PN ---
Date/Time of Note Date/Time of Note DATE: 07/08/17 TIME: 13:03 Assessment/Plan Lines/Catheters IV Catheter Type (from Nrsg): Peripheral IV Matthew in Place (from Nrsg): No Assessment/Plan Assessment/Plan [facility] Progress Note Date of Service: 07/08/17 Today's Impression & Plan: Overall stable. Ok to d/c. Explained to the patient and family and answered all questions. Patient and family appeared to understand and agreed with plans. With above assessment, I've recommended the following for today: 1. D/c home 2. Follow-up with me in 2 weeks with lab checks 3. Appreciate outpatient pain control management 4. Please arrange for patient to go home with 2 new biliary bags available to her in case it is needed to be used to connect the PTCs to bag drainage if clinically indicated as an outpatient 5. Please review with the patient and family again the importance of flushing the PTCs with 10 cc of normal saline each once a day and provide patient with supplies in order to achieve this goal for at least 3-4 weeks 6. Please have a plan set for outpatient weaning off of all pain medications. Patient's main source of pain has been dealt with and at this time, she should be able to easily wean herself off of all pain medications within the next 7-10 days Thank you again for your great care of this very pleasant patient and wonderful family. If there are any questions, please feel free to call me at [phone]. Nature of presenting problem: High severity Please note that, given the extensive number of diagnoses or management options , the extensive amount and/or complexity of data needed to be reviewed, and high risk of complications and/or morbidity or mortality, this qualifies as high complexity type of decision-making. Disclaimer: Inadvertent spelling and grammatical errors are likely due to EHR/ dictation software use and do not reflect on the quality of delivered patient care. Also, please note that the electronic time recorded on this node does not necessarily reflect the actual time of the visit. Updated Clinical Summary: The patient is a very pleasant 37-year-old young lady who was transferred from an outside hospital to [facility] for management of possible bile duct injury. S/p percutaneous CT-guided drain placement above the liver with removal of 1.4 liters of bile in IR suite and more (2 liters) within first 24 hours post procedure. Drain output minimal 04/09/17. S/p lap washout and wide drainage at [facility]. The upper pigtail catheter and the 2 surgical drains d/c 'd on 04/14/17. Urinary retention issues requiring straight cath and Matthew insertion appeared resolved by 04/15/17. DC home 04/16/2017. 2 ER visits between discharge and the 2016 with no hospitalization. Readmitted as a transfer from outside hospital to [facility] 05/19/2017 with pancreatitis as well as urinary tract infection. Admitted to [facility] 05/18/2017. Admission white blood cell count 11.8. Creatinine 3.8. Alkaline phosphatase 547. Total bilirubin 1.1. Lipase 1724. Heart rate 122. Involved physicians included Adrian Oro MD and Maryellen Dolan MD. patient was treated with ceftazidime, vancomycin and metronidazole. CT scan abdomen and pelvis and 05/18/2017: No acute intra-abdominal abnormality appreciated on a limited noncontrast CT of the abdomen and pelvis. Evidence of cholecystectomy. Transhepatic drainage catheter terminating in the region of the gallbladder fossa. Due to persistently elevated amylase and lipase of unknown etiology, scheduled hepaticojejunostomy on 05/30/2017 was postponed to 06/08/2017. D/c'd from [facility] 06/01/17. Outpatient ERCP showed no obvious pancreas duct on 06/14/17. S/ p open Donovan-en-Y hepaticojejunostomy with extensive lysis of adhesions, abdominal lavage and placement of bilateral percutaneous transhepatic cholangiography tubes at [facility] on 06/29/17. Close to time of discharge, the patient demonstrated nausea and vomiting and a full workup was done including CT scan of abdomen and pelvis which demonstrated no other clear etiology for the symptoms. Patient's symptoms rapidly went away after she was changed from oral Dilaudid to tramadol. COMORBIDITIES: 1. Cholelithiasis and acute cholecystitis, status post laparoscopic cholecystectomy 03/31/2017 at [facility], complicated by bile duct injury; ERCP done on 04/03/2017 after a HIDA scan confirming a bile leak showed clips across the distal common bile duct, without any contrast opacifying the liver. We accepted the patient as a transfer into [facility] bile duct injury program for a higher level of care. The patient arrived on 04/05/2017. 2. S/p percutaneous CT-guided drain placement above the liver with removal of 1.4 liters of bile in IR suite and more immediately post procedure. 3. S/p lap washout and wide drainage at [facility]. 4. Confirmation of complete transection of common bile duct 5. S/p open Donovan-en-Y hepaticojejunostomy with extensive lysis of adhesions, abdominal lavage and placement of bilateral percutaneous transhepatic cholangiography tubes at [facility] on 06/29/17 Subjective: No major events or complaints overnight; no nausea or vomiting; pain control seems adequate; no current n/v/d; no sob or cp; + flatus; + BM; + activity. Objective: Vitals: See below Exam: GENERAL: On exam, the patient was laying in bed and appeared to be comfortable and in mild distress. ABDOMEN: Soft, nondistended and non-tender. Incisions are clean, dry and intact without any evidence of erythema, edema, discharge, or hernia. Both right and left PTCs capped. There are no peritoneal signs or guarding. SKIN: Skin appears to be pink and feels warm to touch. NEUROLOGIC: Patient is awake, alert, and follows commands appropriately. Exam/Review of Systems Vital Signs Vitals Vital Signs Date Time Temp Pulse Resp B/P Pulse Ox O2 Delivery O2 Flow Rate FiO2 07/08/17 07:57 98.4 75 17 103/70 99 Intake and Output 07/07/17 07/07/17 07/08/17 15:00 23:00 07:00 Intake Total 1780 ml 1300 ml Output Total 3 ml Balance 1777 ml 1300 ml Results Result Diagram: 07/08/17 0445 07/08/17 0445 LENA MONCADA M.D. Jul 08, 2017 13:04
--- NOTE | 2017-07-08 13:42 | CONS ---
Date/Time of Note Date/Time of Note DATE: 07/08/17 TIME: 13:41 Assessment/Plan Assessment/Plan Additional Assessment/Plan 1. History of cholelithiasis and cholecystitis 2. Transaminitis secondary to #1. Improving at present. Will monitor. 3. AK I. Improved at present. Will monitor. 4. UTI. Noted with Klebsiella pneumonia. Continue antibiotics. 5. Protein calorie malnutrition. Continue on dietary supplement Plan to dc home today- Dw Dr Veras/staff Consultation Date/Type/Reason Admit Date/Time Jun 23, 2017 at 19:42 Initial Consult Date 06/24/17 Type of Consultation: Pain management 24 HR Interval Summary Free Text/Dictation Patient does have history of cholecystectomy on March 31, 2017 oh suspect completed by possible bile duct injury. Patient also status post ERCP on April 03, 2017 as well as a laparoscopic washout on April 10, 2017. Patient also had MRCP done on May 23, 2017 showing diffuse intrahepatic ductal dilation with transition point in the region of susceptibility artifact at the vickey hepatis suggestive of underlying stricture. Patient is status post open Donovan-en-Y hepaticojejunostomy with extensive lysis of adhesions and abdominal lavage with placement of percutaneous transhepatic cholangiography tube in the left side as well as percutaneous transhepatic cholangiography tube in the right side June 29, 2017. Constitutional: improved Detailed Summary Respiratory: no complaints Cardiovascular: no complaints Gastrointestinal: no complaints Genitourinary: no complaints Musculoskeletal: no complaints Exam/Review of Systems Vital Signs Vitals Vital Signs Date Time Temp Pulse Resp B/P Pulse Ox O2 Delivery O2 Flow Rate FiO2 07/08/17 07:57 98.4 75 17 103/70 99 Intake and Output 07/07/17 07/07/17 07/08/17 15:00 23:00 07:00 Intake Total 1780 ml 1300 ml Output Total 3 ml Balance 1777 ml 1300 ml Exam Constitutional: alert, oriented, well developed Respiratory: clear to auscultation Cardiovascular: nl pulses, regular rate and rhythm Gastrointestinal: non-tender, soft Results Result Diagram: 07/08/17 0445 07/08/17 0445 Results 24 hrs Laboratory Tests Test 07/08/17 04:45 White Blood Count 8.1 Red Blood Count 3.26 L Hemoglobin 9.2 L Hematocrit 28.5 L Mean Corpuscular Volume 87.4 Mean Corpuscular Hemoglobin 28.2 L Mean Corpuscular Hemoglobin Concent 32.3 Red Cell Distribution Width 16.3 H Platelet Count 592 H Mean Platelet Volume 9.2 Neutrophils % 51.9 Lymphocytes % 26.3 Monocytes % 6.2 Eosinophils % 13.0 H Basophils % 0.4 Nucleated Red Blood Cells % 0.0 Neutrophils # 4.2 Lymphocytes # 2.1 Monocytes # 0.5 Eosinophils # 1.1 H Basophils # 0.0 Nucleated Red Blood Cells # 0.0 Sodium Level 139 Potassium Level 3.8 Chloride Level 109 Carbon Dioxide Level 26 Anion Gap 8 Blood Urea Nitrogen < 2 L Creatinine 0.58 Glucose Level 93 Calcium Level 7.8 L Total Bilirubin 0.0 L Direct Bilirubin 0.00 Indirect Bilirubin 0.0 Aspartate Amino Transf (AST/SGOT) 43 Alanine Aminotransferase (ALT/SGPT) 54 Alkaline Phosphatase 204 H Total Protein 5.2 L Albumin 2.3 L Globulin 2.90 Albumin/Globulin Ratio 0.79 Medications Medications Current Medications Famotidine (Pepcid) 20 mg DAILY PO Last administered on 07/08/17 08:12; Admin Dose 20 MG; Start 06/24/17 at 09:00 Docusate Sodium (Colace) 100 mg BID PRN PO CONSTIPATION Last administered on 09:45; Admin Dose 100 MG; Start 06/29/17 at 15:00 Bisacodyl (Dulcolax Supp) 10 mg BID PRN MO CONSTIPATION Last administered on 06:42; Admin Dose 10 MG; Start 06/29/17 at 15:00 Sodium Biphosphate/ Sodium Phosphate (Fleet Enema) 133 ml BID PRN MO CONSTIPATION; Start 06/29/17 at 15:00 Diphenhydramine HCl (Benadryl) 25 mg Q4H PRN IV PRURITUS Last administered on 10:06; Admin Dose 25 MG; Start 06/30/17 at 09:00 Ondansetron HCl (Zofran Inj) 4 mg Q6H PRN IV NAUSEA AND/OR VOMITING Last administered on 07/06/17 15:25; Admin Dose 4 MG; Start 06/30/17 at 09:00 Naloxone HCl (Narcan) 0.2 mg Q2M PRN IV FOR RESP RATE 8 OR LESS; Start 06/30/17 at 09:00 Phenol (Cepastat Lozenge) 1 lozenge Q1H PRN MT SORE THROAT Last administered on 07/03/17 06:15; Admin Dose 1 LOZENGE; Start 06/30/17 at 13:00 Polyethylene Glycol (Miralax) 17 gm DAILY PO Last administered on 07/08/17 08: 12; Admin Dose 17 GM; Start 07/03/17 at 09:00 Acetaminophen (Tylenol Tab) 500 mg Q6H PRN PO PAIN AND OR ELEVATED TEMP Last administered on 07/04/17 15:18; Admin Dose 500 MG; Start 07/04/17 at 15:00 Metoclopramide HCl (Reglan) 10 mg Q6H PRN IV NAUSEA Last administered on 03:50; Admin Dose 10 MG; Start 07/05/17 at 22:00 Tramadol HCl (Ultram) 50 mg Q6H PRN PO PAIN Last administered on 07/08/17 10: 50; Admin Dose 50 MG; Start 07/07/17 at 16:30 CHRISTIAN OAKLEY Jul 08, 2017 13:42
--- NOTE | 2017-07-08 14:17 | DS ---
Date/Time of Note Date/Time of Note DATE: 07/08/17 TIME: 14:16 Discharge Summary Admission/Discharge Info Admit Date/Time Jun 23, 2017 at 19:42 Discharge Date/Time Discharge Diagnosis 1. History of cholelithiasis and cholecystitis with suspect bile duct injury. 2. Transaminitis secondary to #1. 3. AK I. 4. UTI. Noted with Klebsiella pneumonia. 5. Protein calorie malnutrition. Patient Condition: Stable Consults 1. Dr. Quincy Barr 2. Dr. Tisha Grande Hospital Course This is a 37-year-old female who came to [facility] due to reports of abdominal pain. She does not have history of cholelithiasis and cholecystitis status post laparoscopic cholecystectomy on March 31, 2017 with suspect bile duct injury. She also had an ERCP on April 03, 2017 a laparoscopic washout on April 10, [address] [facility]. She was at note admitted earlier in May 2017 and had a percutaneous CT-guided drain placement. She did come to [facility] due to the aformentiond issues. Patient was seen by surgeon and she did receive a Donovan-en- Y hepaticojejunostomy with extensive lysis of adhesions and abdominal lavage with placement of percutaneous transhepatic cholangiography tube. She did tolerate the procedure well and we did monitor her liver function which did improve during her stay. Transaminitis did downward trend. Her abdominal pain and nausea did resolve and she was seen by pain management physician to help her with this issue. During the course of stay she did improve. She was otherwise optimized medically. She had acute renal insufficiency and she was placed on IV hydration and her renal function did improve. She also was noted with UTI with Klebsiella pneumonia for this she was placed on appropriate antibiotics with good response. She is also continued on appropriate dietary supplement for her reported protein calorie nutrition malnutrition. During the course of stay she did improve. The plan of care was discussed with the patient and patient did verbalize understanding. On the day of discharge patient was in stable condition Discussed plan of care with Dr. Freitas [facility] Active Scripts Ondansetron Hcl* (Zofran*) 8 Mg Tablet, 8 MG PO Q6H Y for NAUSEA AND OR VOMITING , #40 TAB Prov:MILES NOLASCO 07/08/17 Docusate Sodium (Dok) 100 Mg Capsule, 100 MG PO BID Y for CONSTIPATION, #30 CAP Prov:MILES NOLASCO 07/08/17 Reported Medications Ondansetron Hcl* (Zofran*) Unknown Strength Tablet, 1 TAB PO Q8 Y for NAUSEA AND /OR VOMITING, TAB 06/23/17 Famotidine* (Famotidine*) 20 Mg Tablet, 20 MG PO DAILY, #30 TAB 06/23/17 Follow-up Plan 1. Follow up with Dr. Ean Grande within one week Primary Care Provider Rona Ortiz Time spent on discharge: > 30 minutes Pending Labs Laboratory Tests Test 07/08/17 04:45 White Blood Count 8.110^3/ul (4.8-10.8) Red Blood Count 3.2610^6/ul (4.20-5.40) Hemoglobin 9.2g/dl (12.0-16.0) Hematocrit 28.5% (37.0-47.0) Mean Corpuscular Volume 87.4fl (82.0-101.0) Mean Corpuscular Hemoglobin 28.2pg (29.0-33.0) Mean Corpuscular Hemoglobin Concent 32.3g/dl (32.0-37.0) Red Cell Distribution Width 16.3% (11.5-14.5) Platelet Count 50988^3/UL (140-415) Mean Platelet Volume 9.2fl (7.4-10.4) Neutrophils % 51.9% (39.0-77.0) Lymphocytes % 26.3% (15.0-51.0) Monocytes % 6.2% (0.0-11.0) Eosinophils % 13.0% (0.0-7.0) Basophils % 0.4% (0.0-2.0) Nucleated Red Blood Cells % 0.0/100WBC (0.0-0.0) Neutrophils # 4.210^3/ul (1.6-7.5) Lymphocytes # 2.110^3/ul (0.8-2.9) Monocytes # 0.510^3/ul (0.3-0.9) Eosinophils # 1.110^3/ul (0.0-0.5) Basophils # 0.010^3/ul (0.0-0.1) Nucleated Red Blood Cells # 0.010^3/ul (0.0-0.0) Sodium Level 139mmol/L (135-144) Potassium Level 3.8mmol/L (3.5-5.1) Chloride Level 109mmol/L (97-110) Carbon Dioxide Level 26mmol/L (21-31) Anion Gap 8 (8-16) Blood Urea Nitrogen < 2mg/dl (7-20) Creatinine 0.58mg/dl (0.44-1.00) Glucose Level 93mg/dl (70-220) Calcium Level 7.8mg/dl (8.4-10.2) Total Bilirubin 0.0mg/dl (0.2-1.3) Direct Bilirubin 0.00mg/dl (0.00-0.20) Indirect Bilirubin 0.0mg/dl (0-1.1) Aspartate Amino Transf (AST/SGOT) 43IU/L (15-46) Alanine Aminotransferase (ALT/SGPT) 54IU/L (13-69) Alkaline Phosphatase 204IU/L (42-121) Total Protein 5.2g/dl (6.1-8.1) Albumin 2.3g/dl (3.3-4.9) Globulin 2.90g/dl (1.3-3.2) Albumin/Globulin Ratio 0.79 MILES NOLASCO Jul 08, 2017 14:17
== END 2017-07-08 14:50 | disposition home or self-care (01) | DRG 409 ==
LOC: FTE 13:16 → MS1 19:42
PROVIDERS: ADMIT Internal Medicine; ATTEND Internal Medicine
PROC: 0FN Hepatobiliary System and Pancreas, Release (ICD-10-PCS; 2017-06-29)
PROC: 0F9 Hepatobiliary System and Pancreas, Drainage (ICD-10-PCS; 2017-06-29)
PROC: 0F9 Hepatobiliary System and Pancreas, Drainage (ICD-10-PCS; 2017-06-29)
PROC: 0F190ZB Bypass Common Bile Duct to Small Intestine, Open Approach (ICD-10-PCS; principal; 2017-06-29 07:30)
DX: S36.13XA Injury of bile duct, initial encounter (principal); N17.9 Acute kidney failure, unspecified; E44.0 Moderate protein-calorie malnutrition; E87.2 Acidosis; N39.0 Urinary tract infection, site not specified; Z68.1 Body mass index [BMI] 19.9 or less, adult; K86.1 Other chronic pancreatitis; E86.0 Dehydration; R74.0 Nonspecific elevation of levels of transaminase and lactic acid dehydrogenase [LDH]; B96.1 Klebsiella pneumoniae [K. pneumoniae] as the cause of diseases classified elsewhere; Y83.8 Other surgical procedures as the cause of abnormal reaction of the patient, or of later complication, without mention of misadventure at the time of the procedure; Z90.49 Acquired absence of other specified parts of digestive tract; Z98.890 Other specified postprocedural states
CPT/HCPCS: 36415; 74176; 74178; 76705; 80048; 80053; 81001; 82150; 83605; 83690; 83735; 83880; 84100; 84484; 84703; 85025; 85610; 85730; 86850; 86900; 86901; 87040; 87081; 87086; 88300; 93005; 96374; 96375; 96376; J0131; J0690; J0696; J1170; J1200; J1885; J2250; J2270; J2370; J2405; J2543; J2710; J2765; J2795; J3010; J3475; J3480; J7030; J7042; J7050; Q9967

== ENCOUNTER 2017-07-19 12:37 | Outpatient (CLI) | payer OTHER ==
[~2017-07-19] VITALS: Ht 180.3 cm; Wt 52.7 kg
[~2017-07-19 12:37] MED LIST changes: +DOCU-216 PO; +FAMO20TA18 PO; +ONDA8TAB9 PO; -PEPCID PO; +TRAM50TA2 PO; -ZOFRAN PO
[2017-07-19 12:44] VITALS: BP 128/81; PULSE 105; RESP 18; Ht 180.3 cm; Wt 52.7 kg
--- NOTE | 2017-07-19 13:28 | PN ---
Date/Time of Note Date/Time of Note DATE: 07/19/17 TIME: 13:19 Assessment/Plan Assessment/Plan Assessment/Plan [facility] Progress Note Date of Service: 07/19/17 Today's Impression & Plan: Overall stable and doing remarkably well. Abdomen remains benign. Patient has had her PTCs capped throughout the time of discharge and has not needed an interventions or attention in a medical setting. At this point, it would be appropriate to perform drain sinograms and once we demonstrate that the anastomoses are intact and no leakage is present, we plan on discontinuing the PTCs at that time. This can be in the next 1-2 weeks. Explained to the patient and family and answered all questions. Patient and family appeared to understand and agreed with plans. With above assessment, I've recommended the following for today: 1. Continue current cares with drain management and flushing the PTCs with 10 cc of normal saline each once a day 2. Patient to wean herself off of all pain medications in the next few days. As needed nonsteroidal anti-inflammatory medications would be okay. 3. Schedule for PTC drain checks bilaterally in the next 1-2 weeks. Will also have LFTs and other labs done prior to this with plans of discontinuing the PTCs once the sinogram demonstrates no leakage or other abnormalities. This can be done at the IR suite or in my office immediately afterwards. Thank you again for your great care of this very pleasant patient and wonderful family. If there are any questions, please feel free to call me at [phone]. Nature of presenting problem: High severity Please note that, given the extensive number of diagnoses or management options , the extensive amount and/or complexity of data needed to be reviewed, and high risk of complications and/or morbidity or mortality, this qualifies as high complexity type of decision-making. Disclaimer: Inadvertent spelling and grammatical errors are likely due to EHR/ dictation software use and do not reflect on the quality of delivered patient care. Also, please note that the electronic time recorded on this node does not necessarily reflect the actual time of the visit. Updated Clinical Summary: The patient is a very pleasant 37-year-old young lady who was transferred from an outside hospital to [facility] for management of possible bile duct injury. S/p percutaneous CT-guided drain placement above the liver with removal of 1.4 liters of bile in IR suite and more (2 liters) within first 24 hours post procedure. Drain output minimal 04/09/17. S/p lap washout and wide drainage at [facility]. The upper pigtail catheter and the 2 surgical drains d/c 'd on 04/14/17. Urinary retention issues requiring straight cath and Matthew insertion appeared resolved by 04/15/17. DC home 04/16/2017. 2 ER visits between discharge and the 2016 with no hospitalization. Readmitted as a transfer from outside hospital to [facility] 05/19/2017 with pancreatitis as well as urinary tract infection. Admitted to [facility] 05/18/2017. Admission white blood cell count 11.8. Creatinine 3.8. Alkaline phosphatase 547. Total bilirubin 1.1. Lipase 1724. Heart rate 122. Involved physicians included Adrian Oro MD and Maryellen Dolan MD. patient was treated with ceftazidime, vancomycin and metronidazole. CT scan abdomen and pelvis and 05/18/2017: No acute intra-abdominal abnormality appreciated on a limited noncontrast CT of the abdomen and pelvis. Evidence of cholecystectomy. Transhepatic drainage catheter terminating in the region of the gallbladder fossa. Due to persistently elevated amylase and lipase of unknown etiology, scheduled hepaticojejunostomy on 05/30/2017 was postponed to 06/08/2017. D/c'd from [facility] 06/01/17. Outpatient ERCP showed no obvious pancreas duct on 06/14/17. S/ p open Donovan-en-Y hepaticojejunostomy with extensive lysis of adhesions, abdominal lavage and placement of bilateral percutaneous transhepatic cholangiography tubes at [facility] on 06/29/17. Close to time of discharge, the patient demonstrated nausea and vomiting and a full workup was done including CT scan of abdomen and pelvis which demonstrated no other clear etiology for the symptoms. Patient's symptoms rapidly went away after she was changed from oral Dilaudid to tramadol. COMORBIDITIES: 1. Cholelithiasis and acute cholecystitis, status post laparoscopic cholecystectomy 03/31/2017 at [facility], complicated by bile duct injury; ERCP done on 04/03/2017 after a HIDA scan confirming a bile leak showed clips across the distal common bile duct, without any contrast opacifying the liver. We accepted the patient as a transfer into [facility] bile duct injury program for a higher level of care. The patient arrived on 04/05/2017. 2. S/p percutaneous CT-guided drain placement above the liver with removal of 1.4 liters of bile in IR suite and more immediately post procedure. 3. S/p lap washout and wide drainage at [facility]. 4. Confirmation of complete transection of common bile duct 5. S/p open Donovan-en-Y hepaticojejunostomy with extensive lysis of adhesions, abdominal lavage and placement of bilateral percutaneous transhepatic cholangiography tubes at [facility] on 06/29/17 Subjective: No major events or complaints since discharge; no nausea or vomiting; pain control seems adequate and on much less pain medications; no current n/v/d; no sob or cp; + flatus; + BM; + activity. Objective: Vitals: See below Exam: GENERAL: On exam, the patient was sitting in a chair and appeared to be comfortable and in mild distress. ABDOMEN: Soft, nondistended and non-tender. Incisions are clean, dry and intact without any evidence of erythema, edema, discharge, or hernia. Both right and left PTCs capped. There are no peritoneal signs or guarding. SKIN: Skin appears to be pink and feels warm to touch. NEUROLOGIC: Patient is awake, alert, and follows commands appropriately. Exam/Review of Systems Vital Signs Vitals Vital Signs Date Time Temp Pulse Resp B/P Pulse Ox O2 Delivery O2 Flow Rate FiO2 07/19/17 12:44 98.0 105 18 128/81 100 Room Air LENA MONCADA M.D. Jul 19, 2017 13:28
== END 2017-07-19 17:00 | disposition home or self-care (01) ==
LOC: HPC 12:37
PROVIDERS: ATTEND Transplant Surgery
DX: K85.90 Acute pancreatitis without necrosis or infection, unspecified (principal); R11.2 Nausea with vomiting, unspecified
CPT/HCPCS: G0463

== ENCOUNTER 2017-07-26 14:39 | Outpatient (CLI) | payer OTHER ==
[~2017-07-26] VITALS: Ht 180.3 cm; Wt 53.6 kg
[~2017-07-26 14:39] MED LIST changes: -IOHEXOL 300MG/ML 30 ML BTL ONE
[2017-07-26 14:58] VITALS: BP 138/88; PULSE 107; RESP 18; Ht 180.3 cm; Wt 53.6 kg
--- NOTE | 2017-07-26 15:41 | PN ---
Date/Time of Note Date/Time of Note DATE: 07/26/17 TIME: 15:13 Assessment/Plan Assessment/Plan Assessment/Plan [facility] Progress Note Date of Service: 07/26/17 Today's Impression & Plan: Overall stable and doing well. Abdomen remains benign. Labs 07/24/17 essentially all normal. PTCs kept capped until now and drain sinograms 07/26/17 showed intact anastomosis and patent, without leak. PTC's d/c's in the office without difficulty. Very happy about outcome and do not suspect further issues. I did review remote possibility of bile duct obstruction secondary to scarring and reviewed needed actions if symptoms occurred. Explained to the patient and family and answered all questions. Patient and family appeared to understand and agreed with plans. With above assessment, I've recommended the following for today: 1. F/u with PCP 2. F/u with us prn Thank you again for your great care of this very pleasant patient and wonderful family. If there are any questions, please feel free to call me at [phone]. Nature of presenting problem: High severity Please note that, given the extensive number of diagnoses or management options , the extensive amount and/or complexity of data needed to be reviewed, and high risk of complications and/or morbidity or mortality, this qualifies as high complexity type of decision-making. Disclaimer: Inadvertent spelling and grammatical errors are likely due to EHR/ dictation software use and do not reflect on the quality of delivered patient care. Also, please note that the electronic time recorded on this node does not necessarily reflect the actual time of the visit. Updated Clinical Summary: The patient is a very pleasant 37-year-old young lady who was transferred from an outside hospital to [facility] for management of possible bile duct injury. S/p percutaneous CT-guided drain placement above the liver with removal of 1.4 liters of bile in IR suite and more (2 liters) within first 24 hours post procedure. Drain output minimal 04/09/17. S/p lap washout and wide drainage at [facility]. The upper pigtail catheter and the 2 surgical drains d/c 'd on 04/14/17. Urinary retention issues requiring straight cath and Matthew insertion appeared resolved by 04/15/17. DC home 04/16/2017. 2 ER visits between discharge and the 2016 with no hospitalization. Readmitted as a transfer from outside hospital to [facility] 05/19/2017 with pancreatitis as well as urinary tract infection. Admitted to [facility] 05/18/2017. Admission white blood cell count 11.8. Creatinine 3.8. Alkaline phosphatase 547. Total bilirubin 1.1. Lipase 1724. Heart rate 122. Involved physicians included Adrian Oro MD and Maryellen Dolan MD. patient was treated with ceftazidime, vancomycin and metronidazole. CT scan abdomen and pelvis and 05/18/2017: No acute intra-abdominal abnormality appreciated on a limited noncontrast CT of the abdomen and pelvis. Evidence of cholecystectomy. Transhepatic drainage catheter terminating in the region of the gallbladder fossa. Due to persistently elevated amylase and lipase of unknown etiology, scheduled hepaticojejunostomy on 05/30/2017 was postponed to 06/08/2017. D/c'd from [facility] 06/01/17. Outpatient ERCP showed no obvious pancreas duct on 06/14/17. S/ p open Donovan-en-Y hepaticojejunostomy with extensive lysis of adhesions, abdominal lavage and placement of bilateral percutaneous transhepatic cholangiography tubes at [facility] on 06/29/17. Close to time of discharge, the patient demonstrated nausea and vomiting and a full workup was done including CT scan of abdomen and pelvis which demonstrated no other clear etiology for the symptoms. Patient's symptoms rapidly went away after she was changed from oral Dilaudid to tramadol. No further issues as an outpatient. PTCs kept capped until drain sinograms on 07/26/17 showed intact anastomosis and patent, without leak. PTC's d/c's in the office without difficulty 07/26/17. COMORBIDITIES: 1. Cholelithiasis and acute cholecystitis, status post laparoscopic cholecystectomy 03/31/2017 at [facility], complicated by bile duct injury; ERCP done on 04/03/2017 after a HIDA scan confirming a bile leak showed clips across the distal common bile duct, without any contrast opacifying the liver. We accepted the patient as a transfer into [facility] bile duct injury program for a higher level of care. The patient arrived on 04/05/2017. 2. S/p percutaneous CT-guided drain placement above the liver with removal of 1.4 liters of bile in IR suite and more immediately post procedure. 3. S/p lap washout and wide drainage at [facility]. 4. Confirmation of complete transection of common bile duct 5. S/p open Donovan-en-Y hepaticojejunostomy with extensive lysis of adhesions, abdominal lavage and placement of bilateral percutaneous transhepatic cholangiography tubes at [facility] on 06/29/17 Subjective: No major events or complaints; no nausea or vomiting; no pain and no longer on pain medications; no current n/v/d; no sob or cp; + flatus; + BM; + activity. Diet is regular and unrestricted. Objective: Vitals: See below Exam: GENERAL: On exam, the patient was sitting in a chair and appeared to be comfortable and in mild distress. ABDOMEN: Soft, nondistended and non-tender. Incisions are clean, dry and intact without any evidence of erythema, edema, discharge, or hernia. Both right and left PTCs capped. D/c'd at bedside without difficulty. There are no peritoneal signs or guarding. SKIN: Skin appears to be pink and feels warm to touch. NEUROLOGIC: Patient is awake, alert, and follows commands appropriately. Exam/Review of Systems Vital Signs Vitals Vital Signs Date Time Temp Pulse Resp B/P Pulse Ox O2 Delivery O2 Flow Rate FiO2 07/26/17 14:58 98.0 107 18 138/88 98 Room Air LENA MONCADA M.D. Jul 26, 2017 15:26
== END 2017-07-26 16:55 | disposition home or self-care (01) ==
LOC: HPC 14:39
PROVIDERS: ATTEND Transplant Surgery
DX: K85.90 Acute pancreatitis without necrosis or infection, unspecified (principal); K80.20 Calculus of gallbladder without cholecystitis without obstruction; N39.0 Urinary tract infection, site not specified
CPT/HCPCS: G0463

== ENCOUNTER → 2017-07-26 | Outpatient (CLI) | payer OTHER ==
[~2017-07-26] MED LIST changes: +IOHEXOL 300MG/ML 30 ML BTL ONE; -ONDA8TAB9 PO; -TRAM50TA2 PO
--- NOTE | 2017-07-26 16:45 | RADRPT ---
PROCEDURE: Biliary drainage catheters sinogram. CLINICAL INDICATION: Bilateral biliary drainage catheters. History of bile leak. TECHNIQUE: Approximately 5 ml Omnipaque-300 was injected into the right internal external biliary drainage catheter and approximately 5 ml Omnipaque-300 was injected into the left internal external biliary drainage catheter. Injection was performed with fluoroscopic guidance. Fluoroscopy time is 0 .1 minutes. 11 images of the upper abdomen were obtained. COMPARISON: CT scan of the abdomen and pelvis dated 07/05/2017. FINDINGS: Images demonstrate bilateral internal external biliary drainage catheter is then satisfactory positi on. Surgical clips are present from previous cholecystectomy. There is an anastomosis of the common bile duct to the bowel in the right upper quadrant. There is no bile leak. There is no stricture dem onstrated. IMPRESSION: 1. Satisfactory position of bilateral internal external biliary drainage catheters. 2. No bile leak. Call report: A call report of the findings was made to Dr. Grande on 07/26/2017 at 1320 hours. RPTAT: QQ .Papo Andrade MD, MD Date Time Electronically viewed and signed by .Papo Andrade MD, on 07/26/2017 16:45 .R/
== END | disposition home or self-care (01) ==
LOC: RAD 13:05
PROVIDERS: ATTEND Transplant Surgery
DX: K85.90 Acute pancreatitis without necrosis or infection, unspecified (principal)
CPT/HCPCS: 76080; Q9967